=== PATIENT | female | born 1950 | race Caucasian/White ===

== ENCOUNTER 2019-11-25 14:14 | Outpatient (CLI) | payer MEDICARE, SELFPAY ==
--- NOTE | ~2019-11-25 | XR_ITS ---
EXAMINATION: XR chest 2V 11/25/2019 14:39 INDICATION: Cough PROCEDURE: 2 view chest COMPARISON: 12/14/2018 FINDINGS: The lungs are clear. The cardiomediastinal silhouette is within normal limits. There are no pleural effusions. There is no pneumothorax suspected. IMPRESSION: 1: NO ACUTE CARDIOPULMONARY DISEASE. Reviewed, dictated and finalized at location B. AND CUTTER GRINDER
== END 2019-11-25 14:15 | disposition home or self-care (01) ==
PROVIDERS: PCP Family Medicine; Visit Provider Physician Assistant
DX: M89.319 Hypertrophy of bone, unspecified shoulder (principal)
CPT/HCPCS: 71046

== ENCOUNTER 2019-12-01 08:18 | Outpatient (CLI) | payer MEDICARE, SELFPAY ==
[2019-12-01 09:26] LABS: Rheumatoid Factor < 8.6 IU/ML (<12)
[2019-12-01 10:27] LABS: Erythrocyte Sedimentation Rate 1 mm/hr (0-20)
[2019-12-05 21:30] LABS: Anti Cyclic Citrullinated Pept <16 Units (<20)
== END 2019-12-01 08:19 | disposition home or self-care (01) ==
LOC: ANHLAB 08:21
PROVIDERS: PCP Family Medicine; Visit Provider Physician Assistant
DX: M19.90 Unspecified osteoarthritis, unspecified site (principal)
CPT/HCPCS: 36415; 85652; 86140; 86200; 86430

== ENCOUNTER 2020-02-14 09:10 | Outpatient (CLI) | payer MEDICARE, SELFPAY ==
[2020-02-14 11:49] LABS: Vitamin D 25 Hydroxy 75.7 ng/mL
== END 2020-02-14 09:11 | disposition home or self-care (01) ==
PROVIDERS: PCP Family Medicine; Visit Provider Family Medicine
DX: E55.9 Vitamin D deficiency, unspecified (principal)
CPT/HCPCS: 36415; 82306

== ENCOUNTER 2020-05-23 09:41 | Outpatient (NON) | payer MEDICARE, SELFPAY ==
[2020-05-23 20:49] LABS: SARS-CoV-2 RNA PCR Positive
== END 2020-05-23 09:42 ==
PROVIDERS: Visit Provider Family Medicine
DX: R05 Cough (principal); R50.9 Fever, unspecified; U07.1 COVID-19
CPT/HCPCS: 87635; C9803; U0003

== ENCOUNTER 2020-06-06 14:29 | Outpatient (CLI) | payer MEDICARE, SELFPAY ==
--- NOTE | ~2020-06-06 | XR_ITS ---
XR chest 2V 06/06/2020 15:04 Indication: Dyspnea. Cough. Procedure: 2 view chest Comparison: Comparison to multiple prior studies sequentially, with oldest reviewed study dated 05/07. Findings: Patchy bibasilar infiltrates, compatible with pneumonia. No pleural effusion. Heart size no rmal. No edema or pneumothorax. No acute osseous abnormality. Impression: 1: Patchy bibasilar infiltrates, compatible with pneumonia. Reviewed, dictated and finalized at location B. Impression: 1: Patchy bibasilar infiltrates, compatible with pneumonia.
== END 2020-06-06 14:30 | disposition home or self-care (01) ==
LOC: ANHIMG 14:47
PROVIDERS: PCP Family Medicine; Visit Provider Family Medicine
DX: R06.09 Other forms of dyspnea (principal); R91.8 Other nonspecific abnormal finding of lung field
CPT/HCPCS: 71046

== ENCOUNTER 2020-07-21 17:34 | Emergency (ER) | payer MEDICARE, SELFPAY ==
--- NOTE | ~2020-07-21 | XR_ITS ---
XR wrist LT min 3V 07/21/2020 18:25 Indication: Left wrist pain Procedure: 4 views left wrist Comparison: No prior studies for comparison. Findings: There is a comminuted intra-articular fracture distal aspect of the left radius with mild d orsal displacement and angulation. Moderate swelling of the soft tissues surrounding the fracture. No definite scaphoid fracture. Osteopenia. Impression: 1: Comminuted intra-articular fracture distal aspect of the left radius with mild dorsal angulation a nd displacement. Reviewed, dictated and finalized at location A. Impression: 1: Comminuted intra-articular fracture distal aspect of the left radius with mi ld dorsal angulation and displacement.
--- NOTE | ~2020-07-21 | XR_ITS ---
XR shoulder LT min 2V 07/21/2020 18:25 Indication: Left shoulder pain after fall. Limited range of motion. Procedure: 4 views left shoulder Comparison: 08/11/2018 Findings: There is a comminuted displaced left humeral neck fracture with medial displacement and latoya pradip angulation. Acromioclavicular joint intact. Osteopenia. No other fractures. Visualized lung paren chyma unremarkable. Impression: 1: Comminuted displaced left humeral neck fracture with medial displacement and valgus angulation. Reviewed, dictated and finalized at location A. Impression: 1: Comminuted displaced left humeral neck fracture with medial displacement and valgus angulation.
[2020-07-21 17:45] VITALS: BP 172/76; PULSE 102; RESP 16; TEMP 36.8; O2SAT 100
[2020-07-21] MEDS: HYDROcodone/acetaminophen (*CRX) 7.5-325 MG TABLET 1 TAB PO (18:54)
--- NOTE | 2020-07-21 19:21 | ED.FALL ---
HPI - Fall General Chief Complaint: Fall Stated Complaint: FALL --HIT BRICK AND LANDED ON L ARM Time Seen by Provider: 07/21/20 18:07 Source: patient and family Mode of arrival: ambulatory Limitations: no limitations History of Present Illness HPI Narrative: Patient is a 70-year-old female who presents to emergency department for evaluation of injuries after miss stepping off of her porch landing on her left upper extremity injuring the left shoulder and left wrist patient notes moderate aching pain in both of these locations patient denies head injury syncope loss of consciousness or other injuries presents per private vehicle has not taken anything for pain Related Data Allergies Allergy/AdvReac Type Severity Reaction Status Date / Time clindamycin Allergy Unknown Nausea Verified 06/18/20 11:17 Review of Systems Review of Systems: All systems reviewed & are unremarkable except as noted in HPI and below PMFSH Past Medical History Medical History Enlarged clavicle Notalgia paresthetica Family History Family History (Updated 06/15/18 @ 07:58 by DOCTOR UNKNOWN) Sibling Diabetes mellitus Family history of hypercholesterolemia Hypertension Family history of malignant neoplasm of breast in first degree relative Family history of cardiovascular disease Father Cerebrovascular accident Mother Family history of cardiovascular disease Family history of Alzheimer's disease Social History Social History Smoking packs per day: 0.5 Smoking cigarettes per day: 10.0 Years smoked: 5 Smoking pack-years: 2.50 Smoking status: Former smoker Tobacco type: cigarettes Second hand tobacco smoke exposure: No Smoking end date: 09/21/77 Alcohol intake: current Substance use: never Substance use type: does not use Gender identity (if verbalized by the patient): Female Exam Narrative: Exam Narrative: GENERAL: Well-appearing, well-nourished, and in no acute distress. HEAD: Normocephalic, atraumatic. EYES: PERRLA and EOMI. ENT: Nares clear, no rhinorrhea or epistaxis. Mucous membranes moist. CHEST: Clear to auscultation. No respiratory distress. No wheezes rales or rhonchi HEART: Regular rate and rhythm. No murmur heard. Normal peripheral pulses. EXTREMITIES: Patient with tenderness of the left shoulder and left wrist with some swelling of the wrist noted SKIN: Warm, dry, no rash. NEURO: No focal deficits. Alert and oriented x3. Neurovascularly intact PSYCH: Normal mood and affect. Course Consultations Consultation #1: Discussed case with on-call orthopedist who recommends setting the patient up with physicians at [facility] Date: 07/21/20 Time: 19:25 Consultation #2: Spoke with Dr. Mulligan who is covering for hand and wrist at [place] she will contact the patient on Thursday to facilitate care Date: 07/21/20 Time: 19:25 Vital Signs Vital signs: Vital Signs Temperature 98.2 F 07/21/20 17:45 Pulse Rate 102 H 07/21/20 17:45 Respiratory Rate 16 07/21/20 17:45 Blood Pressure 172/76 H 07/21/20 17:45 Pulse Oximetry 100 07/21/20 17:45 Temperature 98.2 F 07/21/20 17:45 Pulse Rate 102 H 07/21/20 17:45 Respiratory Rate 16 07/21/20 17:45 Blood Pressure 172/76 H 07/21/20 17:45 Pulse Oximetry 100 07/21/20 17:45 Procedures Orthopedic Splinting/Casting Injury #1: Splinting/Casting Date: 07/21/20 Splinting/Casting Time: 19:26 Side: left Upper Extremity Injury Location: shoulder and wrist Upper Extremity Immobilizer: sling/shoulder immobilizer and volar splint Splint: customized in ED OCL: short arm Pre-Procedure Neuro Vascular Exam: normal Post-Procedure Neuro Vascular Exam: normal MDM - Fall MDM Narrative Medical decision making narrative: Patients injury or pain is consistent with musculoskeletal etio
[2020-07-21] MEDS: HYDROcodone/acetaminophen (*CRX) 5-325 MG TABLET 1 TAB (20:45)
== END 2020-07-21 20:48 | disposition home or self-care (01) ==
PROVIDERS: Emergency Provider Emergency Medicine; PCP Family Medicine
DX: S42.292A Other displaced fracture of upper end of left humerus, initial encounter for closed fracture (principal); S52.572A Other intraarticular fracture of lower end of left radius, initial encounter for closed fracture; W10.9XXA Fall (on) (from) unspecified stairs and steps, initial encounter; Z87.891 Personal history of nicotine dependence
CPT/HCPCS: 29125; 73030; 73110; 99284; A9270

== ENCOUNTER 2020-08-24 07:27 | Outpatient (CLI) | payer MEDICARE, SELFPAY ==
[2020-08-24 08:24] LABS: Hematocrit 42.1 % (37.0-47.0); Hemoglobin 13.6 g/dL (12.0-15.0); Mean Corpuscular HGB Conc 32.3 g/dl (32-36); Mean Corpuscular Hemoglobin 27.1 pg (26-34); Mean Platelet Volume 10.4 fl (7.4-10.4); Platelet Count Result 376 k/mm3 (150-375); Red Blood Count 5.01 M/mm3 (4.2-5.4); Red Cell Distribution Width 14.1 % (11.5-14.5); White Blood Count 5.5 K/mm3 (4.5-10.0)
[2020-08-24 08:34] LABS: Alanine Aminotransferase 27 U/L (4-35); Albumin Level 4.1 g/dL (3.5-5.1); Alkaline Phosphatase 92 U/L (38-126); Anion Gap 7 mmol/L (8-16); Aspartate Amino Transferase 26 U/L (14-36); Bilirubin,Total 0.4 mg/dL (0.2-1.3); Blood Urea Nitrogen 18 mg/dL (7-17); Calcium 9.2 mg/dL (8.4-10.2); Carbon Dioxide 27 mmol/L (22-30); Chloride 103 mmol/L (98-107); Cholesterol 136 mg/dL (0-200); Estimated Glomerular Filt Rate > 60; Glucose 105 mg/dL (65-105); HDL Direct 56 mg/dL; Potassium 4.3 mmol/L (3.4-5.0); Sodium 137 mmol/L (137-145); Triglycerides 62 mg/dL (<150)
[2020-08-24 08:45] LABS: LDL Cholesterol Direct 54 mg/dL
[2020-08-24 09:00] LABS: Add Urine Microscopic? YES; Appearance Urine Clear (Clear); Bilirubin Urine Negative (Negative); Blood Urine Negative (Negative); Color Urine Yellow (Yellow); Glucose Urine UA Negative (Negative); Ketones Urine Negative (Negative); Leukocyte Esterase Ur Negative LEU/UL (NEGATIVE); Mucus Urine Rare /lpf; Nitrate Urine Negative (Negative); Protein Urine 1+ mg/dL (Negative); RBC Urine 0-2 /hpf (0-2); Specific Grav Ur 1.019 (1.001-1.035); Squamous Epithelial Cell Urine Rare /hpf (Few); Urobilinogen Urine Negative mg/dL (<2.0); WBC Urine 0-3 /hpf (0-3)
== END 2020-08-24 07:28 | disposition home or self-care (01) ==
PROVIDERS: PCP Family Medicine; Visit Provider Family Medicine
DX: E03.9 Hypothyroidism, unspecified (principal); E78.2 Mixed hyperlipidemia; R53.83 Other fatigue; Z00.00 Encounter for general adult medical examination without abnormal findings
CPT/HCPCS: 36415; 80053; 80061; 81001; 84443; 85027

== ENCOUNTER 2020-10-08 07:53 | Outpatient (CLI) | payer MEDICARE, SELFPAY ==
--- NOTE | ~2020-10-08 | DEXA_ITS ---
Bone Density Report Name: Geneva Urrutia Age: 70 Sex: Female Ethnicity: White Date of : 1950 Indication: postmenopausal; prior fracture; Referring Provider: Hector Johnson Study: Bone densitometry was performed. Exam Date: October 08, 2020 Accession number: [id number] Bone Density: Region BMD T-score Z-score Classification AP Spine (L1-L4) 0.847 -1.8 0.4 Osteopenia Femoral Neck (Left) 0.659 -1.7 0.2 Osteopenia Total Hip (Left) 0.799 -1.2 0.5 Osteopenia Total Hip Bilateral Avg 0.768 -1.5 0.2 Osteopenia Femoral Neck (Right) 0.606 -2.2 -0.2 Osteopenia Total Hip (Right) 0.735 -1.7 -0.1 Osteopenia World Health Organization criteria for BMD impression classify patients as: Normal (T-score at or above -1.0), Osteopenia (T-score between -1.0 and -2.5), or Osteoporosis (T-score at or below -2.5). 10-year Fracture Risk(1): Major Osteoporotic Fracture 19% Hip Fracture 4.2% Reported Risk Factors: [place] (), Neck BMD=0.606, BMI=31.9, previous fracture (1) FRAX(R) Version 3.08. Fracture probability calculated for an untreated patient. Fracture probability may be lower if the patient has received treatment. Clinical Information Provided by Patient: Has had a low trauma fracture Has used the following medications: Vitamin D, Calcium Patient maximum height was 63 Menopause Age: 48 Drinks caffeinated beverages Onset of menses at age 12 Number of children 0 Impression: The patient has low bone mass, based on the Right Femoral Neck T-score. The patient has an estimated ten-year risk of hip fracture of 4.2% and an estimated ten-year risk of major fracture of 19%, based on the WHO FRAX algorithm. The patient has risk factors, including: previous fracture. Discussion: BONE DENSITY IS LOW AT ONE OR MORE SKELETAL SITES. THE PATIENT'S BMD AND CLINICAL RISK FACTORS CONTRIBUTE TO THIS PATIENT'S INCREASED RISK OF FRACTURE. This patient's lowest T-score is low at one or more skeletal sites. It meets the World Health Organization's (WHO) criteria for ?low bone mass? (T-score between -1.0 and -2.5). The patient's 10-year risk of hip fracture as calculated by FRAX exceeds the threshold where pharmacological therapy is recommended by the National Osteoporosis Foundation (NOF). However, all treatment decisions require clinical judgment and consideration of individual patient factors, including patient preferences, comorbidities, previous drug use, risk factors not captured in the FRAX model (e.g., frailty, falls, vitamin D deficiency, increased bone turnover, interval significant decline in bone density) and possible under or overestimation of fracture risk by FRAX. The patient should follow a healthful lifestyle (good nutrition with adequate calcium and vitamin D, and appropriate weight-bearing exercise). F
== END 2020-10-08 07:54 | disposition home or self-care (01) ==
PROVIDERS: PCP Family Medicine; Visit Provider Family Medicine
DX: M81.0 Age-related osteoporosis without current pathological fracture (principal); M85.852 Other specified disorders of bone density and structure, left thigh; M85.851 Other specified disorders of bone density and structure, right thigh
CPT/HCPCS: 77080

== ENCOUNTER 2020-11-08 14:24 | Outpatient (CLI) | payer MEDICARE, SELFPAY ==
--- NOTE | ~2020-11-08 | MM_ITS ---
EXAMINATION: MM screening ferdinand BI w oc HISTORY: Screening TECHNIQUE: Craniocaudal and mediolateral oblique 3-D tomosynthesis images were obtained and synthetic 2-D images were generated. CAD analysis was submitted and interpreted. COMPARISON: No prior mammogram is available for comparison at this institution. BREAST PARENCHYMAL COMPOSITION: There are scattered areas of fibroglandular density. FINDINGS: There is no evidence of suspicious mass, calcification, or architectural distortion to sugg est malignancy in either breast. There has been no suspicious interval change. IMPRESSION: 1. No mammographic evidence of malignancy. 2. Recommend routine screening mammography in one year. BI-RADS Category 1: Negative Reviewed, dictated and finalized at location A. 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
== END 2020-11-08 14:25 | disposition home or self-care (01) ==
PROVIDERS: PCP Family Medicine; Visit Provider Family Medicine
DX: Z12.31 Encounter for screening mammogram for malignant neoplasm of breast (principal)
CPT/HCPCS: 77063; 77067

== ENCOUNTER 2021-03-06 10:45 | Outpatient (CLI) | payer MEDICARE, SELFPAY ==
[2021-03-06 12:10] LABS: Vitamin D 25 Hydroxy 64.8 ng/mL
== END 2021-03-06 10:46 | disposition home or self-care (01) ==
PROVIDERS: PCP Family Medicine; Visit Provider Family Medicine
DX: E03.9 Hypothyroidism, unspecified (principal); E55.9 Vitamin D deficiency, unspecified
CPT/HCPCS: 36415; 82306; 84443

== ENCOUNTER 2021-07-01 08:52 | Outpatient (CLI) | payer MEDICARE, SELFPAY ==
--- NOTE | ~2021-07-01 | CT_ITS ---
EXAMINATION: CT soft tissue neck w con DATE: 07/01/2021 09:57 INDICATION: Chronic otalgia. TECHNIQUE: Computed tomography (CT) of the neck was performed with 75 mL Omnipaque-350 intravenous co ntrast. Automated exposure control and iterative reconstruction technique were employed. The dose-adolph gth product was 599.76 mGy-cm. COMPARISON: Sinuses CT 10/06/2016 FINDINGS: There are likely changes of ocular lens replacement surgeries. There are no pathologically enlarged lymph nodes. There is no visible plaque in the proximal internal carotid arteries. There is moderate cervical spondylosis. The inner and middle ears and mastoid air cells are normal. IMPRESSION: 1. No etiology for the patient's symptoms. Reviewed, dictated and finalized at location A.
[2021-07-01 09:46] LABS: Estimated Glomerular Filt Rate > 60
== END 2021-07-01 08:53 | disposition home or self-care (01) ==
LOC: ANHIMG 09:04
PROVIDERS: PCP Family Medicine
DX: H92.01 Otalgia, right ear (principal)
CPT/HCPCS: 70491; Q9967

== ENCOUNTER 2021-09-12 07:19 | Outpatient (CLI) | payer MEDICARE, SELFPAY ==
[2021-09-12 07:38] LABS: Hematocrit 46.7 % (37.0-47.0); Mean Corpuscular HGB Conc 32.1 g/dl (32-36); Mean Corpuscular Hemoglobin 27.1 pg (26-34); Mean Corpuscular Volume 84.3 fl (80-100); Platelet Count Result 384 k/mm3 (150-375); Red Blood Count 5.54 M/mm3 (4.2-5.4); Red Cell Distribution Width 13.7 % (11.5-14.5); White Blood Count 7.2 K/mm3 (4.5-10.0)
[2021-09-12 07:54] LABS: Alanine Aminotransferase 38 U/L (4-35); Albumin Level 4.5 g/dL (3.5-5.1); Alkaline Phosphatase 85 U/L (38-126); Anion Gap 6 mmol/L (8-16); Aspartate Amino Transferase 33 U/L (14-36); Bilirubin,Total 0.5 mg/dL (0.2-1.3); Blood Urea Nitrogen 16 mg/dL (7-17); Calcium 9.1 mg/dL (8.4-10.2); Carbon Dioxide 28 mmol/L (22-30); Chloride 101 mmol/L (98-107); Cholesterol 140 mg/dL (0-200); Estimated Glomerular Filt Rate > 60; Glucose 113 mg/dL (65-110); HDL Direct 65 mg/dL; Potassium 4.7 mmol/L (3.4-5.0); Sodium 135 mmol/L (137-145); Triglycerides 68 mg/dL (<150)
[2021-09-12 08:05] LABS: LDL Cholesterol Direct 51 mg/dL
[2021-09-12 10:40] LABS: Add Urine Microscopic? YES; Appearance Urine Clear (Clear); Bilirubin Urine Negative (Negative); Blood Urine Negative (Negative); Color Urine Yellow (Yellow); Glucose Urine UA Negative (Negative); Ketones Urine Negative (Negative); Leukocyte Esterase Ur Negative LEU/UL (NEGATIVE); Mucus Urine Rare /lpf; Nitrate Urine Negative (Negative); Protein Urine 1+ mg/dL (Negative); RBC Urine 0-2 /hpf (0-2); Specific Grav Ur 1.019 (1.001-1.035); Squamous Epithelial Cell Urine Rare /hpf (Few); Urobilinogen Urine Negative mg/dL (<2.0); WBC Urine 0-3 /hpf (0-3)
== END 2021-09-12 07:20 | disposition home or self-care (01) ==
PROVIDERS: PCP Family Medicine; Visit Provider Family Medicine
DX: E03.9 Hypothyroidism, unspecified (principal); R94.5 Abnormal results of liver function studies; R53.83 Other fatigue; E78.5 Hyperlipidemia, unspecified; Z00.00 Encounter for general adult medical examination without abnormal findings
CPT/HCPCS: 36415; 80053; 80061; 81001; 82607; 82746; 84443; 85027

== ENCOUNTER 2022-02-27 08:24 | Outpatient (CLI) | payer MEDICARE, SELFPAY ==
[2022-02-27 08:56] LABS: Basophils Absolute Auto 0.1 K/mm3 (0.0-0.1); Basophils Percent Auto 0.8 % (0.2-1.2); Eosinophils Absolute Auto 0.2 K/mm3 (0-0.3); Eosinophils Percent Auto 3.5 % (0-4.4); Hematocrit 45.9 % (37.0-47.0); Hemoglobin 14.5 g/dL (12.0-15.0); Immature Granulocyte Absolute 0.02 K/mm3 (0.00-0.031); Immature Granulocyte Percent A 0.3 % (0-0.5); Lymphocytes Absolute Auto 1.35 K/mm3 (0.9-3.2); Lymphocytes Percent Auto 20.7 % (18.3-44.2); Mean Corpuscular HGB Conc 31.6 g/dl (32-36); Mean Corpuscular Hemoglobin 26.7 pg (26-34); Mean Corpuscular Volume 84.5 fl (80-100); Mean Platelet Volume 10.2 fl (7.4-10.4); Monocytes Absolute Auto 0.6 K/mm3 (0.1-0.6); Monocytes Percent Auto 9.5 % (2.6-8.5); Neutrophils Absolute Auto 4.2 K/mm3 (1.3-6.7); Neutrophils Percent Auto 65.2 % (45.5-73.1); Platelet Count Result 355 k/mm3 (150-375); Red Blood Count 5.43 M/mm3 (4.2-5.4); Red Cell Distribution Width 14.3 % (11.5-14.5); White Blood Count 6.5 K/mm3 (4.5-10.0)
[2022-02-27 08:57] LABS: Appearance Urine Clear (Clear); Bilirubin Urine Negative (Negative); Blood Urine Negative (Negative); Color Urine Yellow (Yellow); Glucose Urine UA Negative (Negative); Ketones Urine Negative (Negative); Leukocyte Esterase Ur Trace LEU/UL (Negative); Nitrate Urine Negative (Negative); Protein Urine 2+ mg/dL (Negative); Specific Grav Ur 1.025 (1.001-1.035); Urobilinogen Urine 0.2 mg/dL (<2.0)
[2022-02-27 09:02] LABS: Mucus Urine Rare /lpf; RBC Urine 0-2 /hpf (0-2)
[2022-02-27 09:07] LABS: Add Urine Microscopic? YES
[2022-02-27 09:08] LABS: Alanine Aminotransferase 36 U/L (6-35); Albumin Level 4.6 g/dL (3.5-5.1); Alkaline Phosphatase 80 U/L (38-126); Anion Gap 5 mmol/L (8-16); Aspartate Amino Transferase 32 U/L (14-36); Bilirubin,Total 0.6 mg/dL (0.2-1.3); Blood Urea Nitrogen 20 mg/dL (7-17); Calcium 8.6 mg/dL (8.4-10.2); Carbon Dioxide 28 mmol/L (22-30); Chloride 105 mmol/L (98-107); Cholesterol 145 mg/dL (0-200); Estimated Glomerular Filt Rate > 60; Glucose 110 mg/dL (65-110); HDL Direct 64 mg/dL; Magnesium 2.2 mg/dL (1.6-2.3); Potassium 4.6 mmol/L (3.4-5.0); Sodium 138 mmol/L (137-145); Triglycerides 56 mg/dL (<150)
[2022-02-27 09:18] LABS: Hemoglobin A1C 5.6 % (<5.7)
[2022-02-27 09:19] LABS: LDL Cholesterol Direct 52 mg/dL
[2022-02-27 10:02] LABS: Free T4 Free Thyroxine 0.95 ng/mL (0.78-2.19); Vitamin D 25 Hydroxy 75.3 ng/mL
[2022-02-27 10:13] LABS: Folic Acid 8.7 ng/mL (2.76->20)
[2022-03-01 05:07] LABS: Insulin Level Total 6.4 uIU/mL (<=19.6)
[2022-03-01 07:51] LABS: C-Peptide 1.85 ng/mL (0.80-3.85)
[2022-03-03 07:58] LABS: Vitamin B6 25.5 ng/mL (2.1-21.7)
[2022-03-03 09:01] LABS: SS-A <1.0; SS-B <1.0
[2022-03-05 15:07] LABS: Vitamin B1 13 nmol/L (8-30)
[2022-03-06 18:00] LABS: Vitamin B2 10.8 nmol/L (6.2-39.0)
== END 2022-02-27 08:25 | disposition home or self-care (01) ==
LOC: ANHLAB 08:31
PROVIDERS: PCP Family Medicine; Visit Provider Internal Medicine
DX: E03.9 Hypothyroidism, unspecified (principal); K21.9 Gastro-esophageal reflux disease without esophagitis; M85.80 Other specified disorders of bone density and structure, unspecified site; Z79.899 Other long term (current) drug therapy
CPT/HCPCS: 36415; 80053; 80061; 81001; 82306; 82607; 82746; 83036; 83525; 83735; 84207; 84252; 84425; 84439; 84443; 84681; 85025; 86235

== ENCOUNTER 2022-03-11 09:03 | Outpatient (CLI) | payer MEDICARE, SELFPAY ==
[2022-03-11 10:05] LABS: Appearance Urine Clear (Clear); Bilirubin Urine Negative (Negative); Blood Urine Negative (Negative); Glucose Urine UA Negative (Negative); Ketones Urine Negative (Negative); Leukocyte Esterase Ur 1+ LEU/UL (Negative); Nitrate Urine Negative (Negative); Protein Urine Negative (Negative); Urobilinogen Urine 0.2 mg/dL (<2.0); pH Urine 6.5 (5.0-9.0)
[2022-03-11 10:12] LABS: Add Urine Microscopic? YES; Color Urine Light Yellow (Yellow)
[2022-03-11 10:15] LABS: Bacteria Urine Trace /hpf; RBC Urine 0-2 /hpf (0-2); Squamous Epithelial Cell Urine Rare /hpf (Few); WBC Urine 16-20 /hpf
== END 2022-03-11 09:04 | disposition home or self-care (01) ==
LOC: ANHLAB 09:05
PROVIDERS: PCP Internal Medicine; Visit Provider Internal Medicine
DX: R39.15 Urgency of urination (principal)
CPT/HCPCS: 81001; 87077; 87086; 87186

== ENCOUNTER 2022-03-12 08:25 | Outpatient (CLI) | payer MEDICARE, SELFPAY ==
--- NOTE | ~2022-03-12 | MM_ITS ---
EXAMINATION: MM screening ferdinand BI w oc HISTORY: Screening mammogram TECHNIQUE: Craniocaudal and mediolateral oblique 3-D tomosynthesis images were obtained and synthetic 2-D images were generated. CAD analysis was submitted and interpreted. COMPARISON: November 08, 2020, September 23, 2019, August 31, 2018 bilateral screening mammogram exami [facility] BREAST PARENCHYMAL COMPOSITION: There are scattered areas of fibroglandular density. FINDINGS: There is no evidence of suspicious mass, calcification, or architectural distortion to sugg est malignancy in either breast. There has been no suspicious interval change. IMPRESSION: 1. No mammographic evidence of malignancy. 2. Recommend routine screening mammography in one year. BI-RADS Category 1: Negative Reviewed, dictated and finalized at location A.
== END 2022-03-12 08:26 | disposition home or self-care (01) ==
PROVIDERS: PCP Internal Medicine; Visit Provider Physician Assistant
DX: Z12.31 Encounter for screening mammogram for malignant neoplasm of breast (principal)
CPT/HCPCS: 77063; 77067

== ENCOUNTER → 2022-04-16 10:44 | Outpatient (CLI) | payer SELFPAY ==
--- NOTE | ~2022-04-16 | MR_ITS ---
EXAMINATION: MR brain IAC wo/w con DATE: 04/16/2022 11:58 INDICATION: Disorder of hearing and taste TECHNIQUE: Magnetic resonance imaging (MRI) of the brain and brainstem was performed without intraven ous contrast. Sequences included sagittal and axial T1-weighted FSE, axial diffusion-weighted FS EPI, axial axial 3D SWAN, axial T2-weighted FLAIR Propeller, axial T2-weighted Propeller, small field-of- view coronal FIESTA, small lfukd-wz-ygcj coronal T1-weighted FSE, and small xdmth-qi-nnqh axial T1-we ighted SPGR. Postcontrast sequences included axial T1-weighted FSE, small cjpbo-pc-ptuq coronal T1-we ighted FSE, and small yzmgj-kd-ecja axial T1-weighted SPGR. Apparent diffusion coefficient (ADC) maps were created. COMPARISON: CT dated 10/06/2016 FINDINGS: There are no areas of restricted diffusion to suggest acute infarction. No intracranial hemorrhage or abnormal intracranial mass lesion. There are no intraparenchymal signal abnormalities seen on the ot her pulse sequences. Symmetric prominence of the sulci consistent with mild age-appropriate diffuse c erebral volume loss. The ventricles are symmetric and normal in size. There are no abnormal extra-ax ial fluid collections. Flow voids are seen in the cerebral arteries on the T2-weighted sequences cons istent with their expected patency. Normal seventh/eighth cranial nerve complexes. No cerebelloponti ne angles masses. No mass or abnormal enhancement identified along the course of the bilateral facial nerves and bilateral chorda tympani. No evidence of mastoid or middle ear fluid. Mild mucosal thicke andrea the bilateral ethmoid sinuses. Changes of bilateral intraocular lens replacement. Visualized or bits and soft tissues are unremarkable. There are no areas of abnormal enhancement on the post contra st images. IMPRESSION: 1. Normal aging brain. No acute intracranial process or abnormal lesions along the course of the bila teral facial nerves and chorda tympani. Reviewed, dictated and finalized at location A. IMPRESSION: 1. Normal aging brain. No acute intracranial process or abnormal lesions along the course of the bilateral facial nerves and chorda tympani.
== END ==
PROVIDERS: PCP Internal Medicine; Visit Provider Internal Medicine
DX: H91.90 Unspecified hearing loss, unspecified ear (principal); R43.9 Unspecified disturbances of smell and taste
CPT/HCPCS: 99199; 70553; A9577

== ENCOUNTER 2022-06-13 10:54 | Outpatient (CLI) | payer MEDICARE, SELFPAY ==
--- NOTE | ~2022-06-13 | XR_ITS ---
XR sacroiliac joints min 3V 06/13/2022 11:22 Indication: Low back pain Procedure: 3 views of the sacroiliac joints. Comparison: No prior studies Findings: Bilateral sacroiliac joints are symmetric. No fracture, subluxation or dislocation. No sign ificant erosive changes or ankylosis. Impression: 1: No significant abnormality of the sacroiliac joints. Reviewed, dictated and finalized at location A. Impression: 1: No significant abnormality of the sacroiliac joints.
--- NOTE | ~2022-06-13 | XR_ITS ---
XR lumbar spine min 4V 06/13/2022 11:22 Indication: Low back pain Procedure: 4 views lumbar spine including flexion and extension lateral views. Comparison: No prior studies for comparison. Findings: There is disc narrowing at L2-3 through L5-S1. There is facet hypertrophy at L3-4, L4-5 and L5-S1. There is grade 1 spondylolisthesis at L4-5 without significant alteration of alignment with f lexion/extension. Pedicles intact. Sacral foramen are symmetric. No acute fracture or traumatic malal ignment. Impression: 1: Moderate lumbar spondylosis with grade 1 degenerative spondylolisthesis at L4-5. Reviewed, dictated and finalized at location A. Impression: 1: Moderate lumbar spondylosis with grade 1 degenerative spondylolisthesis at L 4-5.
== END 2022-06-13 10:55 | disposition home or self-care (01) ==
PROVIDERS: PCP Internal Medicine; Visit Provider Internal Medicine
DX: M53.3 Sacrococcygeal disorders, not elsewhere classified (principal); M54.50 Low back pain, unspecified; M47.816 Spondylosis without myelopathy or radiculopathy, lumbar region; M43.16 Spondylolisthesis, lumbar region
CPT/HCPCS: 72110; 72202

== ENCOUNTER 2022-07-29 12:07 | Outpatient (CLI) | payer MEDICARE, SELFPAY ==
[2022-07-29 12:54] LABS: Anion Gap 13 mmol/L (8-16); Blood Urea Nitrogen 21 mg/dL (7-17); Calcium 8.8 mg/dL (8.4-10.2); Carbon Dioxide 27 mmol/L (22-30); Chloride 99 mmol/L (98-107); Estimated Glomerular Filt Rate > 60; Glucose 94 mg/dL (65-110); Potassium 4.7 mmol/L (3.4-5.0); Sodium 139 mmol/L (137-145)
[2022-07-30 09:01] LABS: Cholesterol 145 mg/dL (0-200); HDL Direct 64 mg/dL; Triglycerides 157 mg/dL (<150)
[2022-07-30 09:12] LABS: LDL Cholesterol Direct 47 mg/dL
== END 2022-07-29 12:08 | disposition home or self-care (01) ==
LOC: ANHLAB 12:13
PROVIDERS: PCP Internal Medicine; Visit Provider Internal Medicine
DX: R03.0 Elevated blood-pressure reading, without diagnosis of hypertension (principal); E03.9 Hypothyroidism, unspecified; Z79.899 Other long term (current) drug therapy
CPT/HCPCS: 36415; 80048; 80061; 84439; 84443

== ENCOUNTER 2022-12-18 07:54 | Outpatient (CLI) | payer MEDICARE, SELFPAY ==
[2022-12-18 08:42] LABS: Alanine Aminotransferase 35 U/L (6-35); Albumin Level 4.6 g/dL (3.5-5.1); Alkaline Phosphatase 72 U/L (38-126); Anion Gap 5 mmol/L (8-16); Aspartate Amino Transferase 38 U/L (14-36); Bilirubin,Total 0.7 mg/dL (0.2-1.3); Blood Urea Nitrogen 19 mg/dL (7-17); Carbon Dioxide 31 mmol/L (22-30); Chloride 101 mmol/L (98-107); Cholesterol 144 mg/dL (0-200); Estimated Glomerular Filt Rate > 60; Glucose 111 mg/dL (65-110); HDL Direct 63 mg/dL; Potassium 4.2 mmol/L (3.4-5.0); Sodium 137 mmol/L (137-145); Triglycerides 48 mg/dL (<150)
[2022-12-18 08:52] LABS: LDL Cholesterol Direct 54 mg/dL
[2022-12-18 09:19] LABS: Free T4 Free Thyroxine 1.01 ng/mL (0.78-2.19)
[2022-12-18 09:45] LABS: Folic Acid > 20.0 ng/mL (2.76->20)
[2022-12-23 22:20] LABS: Vitamin B1 71 nmol/L (8-30)
== END 2022-12-18 07:55 | disposition home or self-care (01) ==
PROVIDERS: PCP Internal Medicine; Visit Provider Internal Medicine
DX: E51.9 Thiamine deficiency, unspecified (principal); E53.8 Deficiency of other specified B group vitamins; E03.9 Hypothyroidism, unspecified; R94.5 Abnormal results of liver function studies; Z13.220 Encounter for screening for lipoid disorders; Z79.899 Other long term (current) drug therapy
CPT/HCPCS: 36415; 80053; 80061; 82607; 82746; 84425; 84439; 84443

== ENCOUNTER 2022-12-25 10:37 | Outpatient (CLI) | payer MEDICARE, SELFPAY ==
--- NOTE | ~2022-12-25 | CT_ITS ---
EXAMINATION: CT abdomen pelvis w con DATE: 12/25/2022 11:09 INDICATION: Abdominal pain. Blood in stool. TECHNIQUE: Computed tomography (CT) of the abdomen and pelvis was performed with 100 mL Omnipaque 350 intravenous contrast. Automated exposure control and iterative reconstruction technique were employe d. The dose-length product was 677.90 mGy-cm. COMPARISON: None. FINDINGS: The visualized portions of the lung bases demonstrates mild atelectasis. No pleural effusio n. The heart size is normal. No pericardial effusion. There is diffuse hepatic steatosis. The gallbla dder, spleen, pancreas, adrenal glands, and kidneys are normal. There are scattered diverticula in th e colon. There is wall thickening of the sigmoid colon, consistent with colitis. There are no patholo gically enlarged lymph nodes. There is physiologic fluid in the pelvis. There is a fibroid in the nikolski natalie. There is moderate lumbar spondylosis. IMPRESSION: 1. Sigmoid colitis. Reviewed, dictated and finalized at location A. IMPRESSION: 1. Sigmoid colitis.
[2022-12-25 11:25] LABS: Basophils Absolute Auto 0.1 K/mm3 (0.0-0.1); Basophils Percent Auto 0.5 % (0.2-1.2); Eosinophils Absolute Auto 0.3 K/mm3 (0-0.3); Eosinophils Percent Auto 3.1 % (0-4.4); Hematocrit 47.1 % (37.0-47.0); Hemoglobin 15.1 g/dL (12.0-15.0); Immature Granulocyte Absolute 0.02 K/mm3 (0.00-0.031); Immature Granulocyte Percent A 0.2 % (0-0.5); Lymphocytes Absolute Auto 1.42 K/mm3 (0.9-3.2); Lymphocytes Percent Auto 15.1 % (18.3-44.2); Mean Corpuscular HGB Conc 32.1 g/dl (32-36); Mean Corpuscular Hemoglobin 27.2 pg (26-34); Mean Corpuscular Volume 84.9 fl (80-100); Mean Platelet Volume 10.1 fl (7.4-10.4); Monocytes Absolute Auto 0.7 K/mm3 (0.1-0.6); Neutrophils Percent Auto 74.1 % (45.5-73.1); Platelet Count Result 375 k/mm3 (150-375); Red Blood Count 5.55 M/mm3 (4.2-5.4); Red Cell Distribution Width 13.8 % (11.5-14.5); White Blood Count 9.4 K/mm3 (4.5-10.0)
[2022-12-25 11:36] LABS: Anion Gap 9 mmol/L (8-16); Blood Urea Nitrogen 20 mg/dL (7-17); Calcium 8.8 mg/dL (8.4-10.2); Carbon Dioxide 26 mmol/L (22-30); Chloride 103 mmol/L (98-107); Estimated Glomerular Filt Rate > 60; Glucose 97 mg/dL (65-110); Potassium 4.2 mmol/L (3.4-5.0); Sodium 138 mmol/L (137-145)
== END 2022-12-25 10:38 | disposition home or self-care (01) ==
PROVIDERS: PCP Internal Medicine; Visit Provider Internal Medicine
DX: K52.9 Noninfective gastroenteritis and colitis, unspecified (principal); Z79.899 Other long term (current) drug therapy; R11.2 Nausea with vomiting, unspecified; K62.5 Hemorrhage of anus and rectum; R10.9 Unspecified abdominal pain
CPT/HCPCS: 36415; 74177; 80048; 85025; Q9967

== ENCOUNTER 2023-01-08 02:08 | Day surgery (SDC) | payer MEDICARE, SELFPAY ==
[2022-12-30 09:50] VITALS: BMI 32.2
--- NOTE | 2023-01-07 15:36 | PM.HPGS ---
History of Present Illness History of Present Illness Consent: Risks, benefits, and alternatives have been discussed and questions answered. Patient agrees to proceed with procedure. Chief complaint: rectal bleeding, abdominal pain Narrative: Geneva Urrutia is a 72 year old female Referred for colonoscopy due to rectal bleeding. She had blood her stools when she also thought she may have had food poisoning. She was very ill for about 2 days and had about 20 bowel movements. With the blood came out it was bright red. Review of Systems Review of Systems: All systems reviewed & are unremarkable except as noted in HPI and below PMFSH Past Medical History Medical History BMI 31.0-31.9,adult BMI 33.0-33.9,adult BRBPR (bright red blood per rectum) Breast cancer screening Encounter for Medicare annual wellness exam Encounter for routine adult health examination with abnormal findings Enlarged clavicle Left humeral fracture s/p ORIF Notalgia paresthetica Osteoporosis Pain of right sacroiliac joint Primary osteoarthritis of knees, bilateral Right ear pain Skin lesions Trapezius muscle spasm Unresolved grief Urinary urgency Vitamin B1 deficiency Vitamin B12 deficiency Surgical History Surgical History History of surgery on left wrist (~07/30/20) open reduction History of tooth extraction Family History Family History Sibling Diabetes mellitus Family history of hypercholesterolemia Hypertension Family history of malignant neoplasm of breast in first degree relative Family history of cardiovascular disease Father Cerebrovascular accident Mother Family history of cardiovascular disease Family history of Alzheimer's disease Social History Social History Smoking packs per day: 0.5 Smoking cigarettes per day: 10.0 Years smoked: 5 Smoking pack-years: 2.50 Smoking status: Former smoker Tobacco type: cigarettes Second hand tobacco smoke exposure: No Smoking end date: 09/21/77 Alcohol intake: current Alcohol use details: rare Substance use: never Substance use type: does not use Lack of Transportation: No Lack of Food: Never True Current Housing: I Have Housing Concerned About Future Housing: No Difficulty Paying Gas/Electric Bills: No Difficulty Paying for Meds: No Currently Unemployed: No Education: High School Diploma/GED Difficulty w/ Childcare or Family Care: No Living arrangements: with family Occupation/Education: retired Gender identity (if verbalized by the patient): Female Spiritual care concerns: No Meds Home Medications and Allergies Home Medications Medication Instructions Recorded Confirmed Type aspirin 81 mg tablet,delayed 81 mg PO DAILY 09/10/21 12/30/22 History release cholecalciferol (vitamin D3) 125 125 mcg PO DAILY 09/10/21 12/30/22 History mcg (5,000 unit) capsule montelukast 10 mg tablet 10 mg PO DAILY 09/10/21 12/30/22 History (Singulair) ascorbic acid 1,000 1 ea PO DAILY 12/30/22 12/30/22 History qq-frjhppcukyms-wuompvgz powder effervescent pack (Emergen-C) escitalopram oxalate 10 mg tablet 10 mg PO DAILY 12/30/22 12/30/22 History fexofenadine 180 mg tablet 180 mg PO DAILY 12/30/22 12/30/22 History fluocinolone 0.025 % topical cream 1 applic topical DAILY 12/30/22 12/30/22 History gabapentin 300 mg capsule 600 mg PO DAILY 12/30/22 12/30/22 History levothyroxine 75 mcg tablet 75 mcg PO DAILY 12/30/22 12/30/22 History omeprazole 40 mg capsule,delayed 40 mg PO DAILY 12/30/22 12/30/22 History release vitamin B complex 1 cap PO DAILY 12/30/22 12/30/22 History Allergies Allergy/AdvReac Type Severity Reaction Status Date / Time clindamycin Allergy Unknown Nausea Verified 01/08/23 07:01
[2023-01-08 07:04] VITALS: BP 147/66; PULSE 70; RESP 18; TEMP 36.4; O2SAT 99
[2023-01-08] MEDS: LACTATED RINGERS 1,000 ML 150 ML IV CONT (07:15)
--- NOTE | 2023-01-08 07:32 | WPDANESEPPF ---
Anes - Initial Pre Proc Eval Procedure: Operation Date: 01/08/23 08:00 Proposed Procedures p Colonoscopy - Maximino Hodgson MD Date/Time: 01/08/23 07:32 Surgeon: Maximino Hodgson MD Pre Op Diagnosis: rectal bleeding, abdominal pain Patient Data Age: 72 Gender: F Height: 1.6 m Weight: 79.1 kg Last Vital Signs Temp 97.6 F 01/08/23 07:04 Pulse 70 01/08/23 07:04 Resp 18 01/08/23 07:04 BP 147/66 H 01/08/23 07:04 Pulse Ox 99 01/08/23 07:04 O2 Del Method Room Air 01/08/23 07:04 Allergies Allergy/AdvReac Type Severity Reaction Status Date / Time clindamycin Allergy Unknown Nausea Verified 01/08/23 07:01 Home Medications Medication Instructions Recorded Confirmed Type aspirin 81 mg tablet,delayed 81 mg PO DAILY 09/10/21 12/30/22 History release cholecalciferol (vitamin D3) 125 125 mcg PO DAILY 09/10/21 12/30/22 History mcg (5,000 unit) capsule montelukast 10 mg tablet 10 mg PO DAILY 09/10/21 12/30/22 History (Singulair) ascorbic acid 1,000 1 ea PO DAILY 12/30/22 12/30/22 History xk-srhgedtglaow-tysvsspx powder effervescent pack (Emergen-C) escitalopram oxalate 10 mg tablet 10 mg PO DAILY 12/30/22 12/30/22 History fexofenadine 180 mg tablet 180 mg PO DAILY 12/30/22 12/30/22 History fluocinolone 0.025 % topical cream 1 applic topical DAILY 12/30/22 12/30/22 History gabapentin 300 mg capsule 600 mg PO DAILY 12/30/22 12/30/22 History levothyroxine 75 mcg tablet 75 mcg PO DAILY 12/30/22 12/30/22 History omeprazole 40 mg capsule,delayed 40 mg PO DAILY 12/30/22 12/30/22 History release vitamin B complex 1 cap PO DAILY 12/30/22 12/30/22 History Patient hx anesthesia problems: none Family hx anesthesia problems: none Results Review: All pre-operative results and documents have been reviewed as part of the pre-operative evaluation. [facility] Past Medical History Medical History BMI 31.0-31.9,adult BMI 33.0-33.9,adult BRBPR (bright red blood per rectum) Breast cancer screening Encounter for Medicare annual wellness exam Encounter for routine adult health examination with abnormal findings Enlarged clavicle Left humeral fracture s/p ORIF Notalgia paresthetica Osteoporosis Pain of right sacroiliac joint Primary osteoarthritis of knees, bilateral Right ear pain Skin lesions Trapezius muscle spasm Unresolved grief Urinary urgency Vitamin B1 deficiency Vitamin B12 deficiency Surgical History Surgical History History of surgery on left wrist (~07/30/20) open reduction History of tooth extraction Family History Family History Sibling Diabetes mellitus Family history of hypercholesterolemia Hypertension Family history of malignant neoplasm of breast in first degree relative Family history of cardiovascular disease Father Cerebrovascular accident Mother Family history of cardiovascular disease Family history of Alzheimer's disease Social History Social History Smoking packs per day: 0.5 Smoking cigarettes per day: 10.0 Years smoked: 5 Smoking pack-years: 2.50 Smoking status: Former smoker Tobacco type: cigarettes Second hand tobacco smoke exposure: No Smoking end date: 09/21/77 Alcohol intake: current Alcohol use details: rare Substance use: never Substance use type: does not use Lack of Transportation: No Lack of Food: Never True Current Housing: I Have Housing Concerned About Future Housing: No Difficulty Paying Gas/Electric Bills: No Difficulty Paying for Meds: No Currently Unemployed: No Education: High School Diploma/GED Difficulty w/ Childcare or Family Care: No Living arrangements: with family Occupation/Education: retired Gender identity (if verbalized by the patient): Female Spi
[2023-01-08 08:29] VITALS: BP 116/54; PULSE 65; RESP 22; O2SAT 97
[2023-01-08 08:39] VITALS: BP 114/61; PULSE 65; RESP 19; O2SAT 100
[2023-01-08 08:49] VITALS: BP 128/61; PULSE 64; RESP 22; O2SAT 100
== END 2023-01-08 08:58 | disposition home or self-care (01) ==
PROVIDERS: PCP Internal Medicine; Visit Provider Internal Medicine Gastroenterology
PROC: 0DJD8ZZ Inspection of Lower Intestinal Tract, Via Natural or Artificial Opening Endoscopic (ICD-10-PCS; CPT 45378; principal; 2023-01-08 08:00)
DX: K52.9 Noninfective gastroenteritis and colitis, unspecified (principal); K64.8 Other hemorrhoids; K57.30 Diverticulosis of large intestine without perforation or abscess without bleeding; M81.0 Age-related osteoporosis without current pathological fracture; E53.8 Deficiency of other specified B group vitamins; Z87.891 Personal history of nicotine dependence; E66.9 Obesity, unspecified; Z68.30 Body mass index [BMI] 30.0-30.9, adult
CPT/HCPCS: 45380; 88305; J2704; J7120

== ENCOUNTER 2023-06-11 09:01 | Outpatient (CLI) | payer MEDICARE, SELFPAY ==
[2023-06-11 10:04] LABS: Basophils Absolute Auto 0.1 K/mm3 (0.0-0.1); Basophils Percent Auto 0.6 % (0.2-1.2); Eosinophils Absolute Auto 0.2 K/mm3 (0-0.3); Eosinophils Percent Auto 2.2 % (0-4.4); Hematocrit 45.8 % (37.0-47.0); Hemoglobin 14.5 g/dL (12.0-15.0); Immature Granulocyte Absolute 0.03 K/mm3 (0.00-0.031); Immature Granulocyte Percent A 0.3 % (0-0.5); Lymphocytes Absolute Auto 1.56 K/mm3 (0.9-3.2); Lymphocytes Percent Auto 17.5 % (18.3-44.2); Mean Corpuscular HGB Conc 31.7 g/dl (32-36); Mean Corpuscular Hemoglobin 27.1 pg (26-34); Mean Corpuscular Volume 85.4 fl (80-100); Mean Platelet Volume 9.8 fl (7.4-10.4); Monocytes Absolute Auto 0.6 K/mm3 (0.1-0.6); Monocytes Percent Auto 6.6 % (2.6-8.5); Neutrophils Absolute Auto 6.5 K/mm3 (1.3-6.7); Neutrophils Percent Auto 72.8 % (45.5-73.1); Platelet Count Result 368 k/mm3 (150-375); Red Blood Count 5.36 M/mm3 (4.2-5.4); Red Cell Distribution Width 14.5 % (11.5-14.5); White Blood Count 8.9 K/mm3 (4.5-10.0)
[2023-06-11 10:21] LABS: Alanine Aminotransferase 34 U/L (6-35); Albumin Level 4.5 g/dL (3.5-5.1); Alkaline Phosphatase 65 U/L (38-126); Anion Gap 4 mmol/L (8-16); Aspartate Amino Transferase 34 U/L (14-36); Bilirubin,Total 0.6 mg/dL (0.2-1.3); Blood Urea Nitrogen 21 mg/dL (7-17); Calcium 8.9 mg/dL (8.4-10.2); Carbon Dioxide 30 mmol/L (22-30); Chloride 103 mmol/L (98-107); Cholesterol 148 mg/dL (0-200); Estimated Glomerular Filt Rate > 60; Glucose 112 mg/dL (65-110); HDL Direct 74 mg/dL; Potassium 4.7 mmol/L (3.4-5.0); Sodium 137 mmol/L (137-145); Triglycerides 66 mg/dL (<150)
[2023-06-11 10:32] LABS: LDL Cholesterol Direct 56 mg/dL
[2023-06-11 10:39] LABS: Hemoglobin A1C 5.5 % (<5.7)
[2023-06-11 10:51] LABS: Free T4 Free Thyroxine 1.13 ng/mL (0.78-2.19); Vitamin D 25 Hydroxy 79.4 ng/mL
[2023-06-11 11:41] LABS: Folic Acid > 20.0 ng/mL (2.76->20)
== END 2023-06-11 09:02 | disposition home or self-care (01) ==
LOC: ANHLAB 09:04
PROVIDERS: PCP Internal Medicine; Visit Provider Internal Medicine
DX: R94.5 Abnormal results of liver function studies (principal); R53.83 Other fatigue; M85.80 Other specified disorders of bone density and structure, unspecified site; M81.0 Age-related osteoporosis without current pathological fracture; E53.8 Deficiency of other specified B group vitamins; E03.9 Hypothyroidism, unspecified; Z79.899 Other long term (current) drug therapy
CPT/HCPCS: 36415; 80053; 80061; 82306; 82607; 82746; 83036; 84439; 84443; 85025

== ENCOUNTER 2023-06-29 09:18 | Outpatient (CLI) | payer MEDICARE, SELFPAY ==
--- NOTE | ~2023-06-29 | XR_ITS ---
EXAMINATION: XR chest 2V DATE: 06/29/2023 09:40 INDICATION: Cough TECHNIQUE: PA and lateral views of the chest were obtained. COMPARISON: Chest radiograph dated 06/06/2020 FINDINGS: The lungs are clear with no focal airspace opacities, pulmonary edema, pleural effusion or pneumothor ax. The cardiomediastinal silhouette is normal. Old proximal left humeral fracture with plate and scr ew fixation. IMPRESSION: 1. No acute cardiopulmonary disease. Reviewed, dictated and finalized at location A.
[2023-06-29 11:45] LABS: Basophils Absolute Auto 0.1 K/mm3 (0.0-0.1); Basophils Percent Auto 0.3 % (0.2-1.2); Eosinophils Absolute Auto 0.1 K/mm3 (0-0.3); Eosinophils Percent Auto 0.8 % (0-4.4); Hematocrit 44.4 % (37.0-47.0); Hemoglobin 14.1 g/dL (12.0-15.0); Immature Granulocyte Absolute 0.08 K/mm3 (0.00-0.031); Immature Granulocyte Percent A 0.5 % (0-0.5); Lymphocytes Absolute Auto 1.13 K/mm3 (0.9-3.2); Lymphocytes Percent Auto 7.5 % (18.3-44.2); Mean Corpuscular HGB Conc 31.8 g/dl (32-36); Mean Corpuscular Hemoglobin 27.1 pg (26-34); Mean Corpuscular Volume 85.2 fl (80-100); Mean Platelet Volume 10.6 fl (7.4-10.4); Monocytes Absolute Auto 1.4 K/mm3 (0.1-0.6); Monocytes Percent Auto 9.4 % (2.6-8.5); Neutrophils Absolute Auto 12.2 K/mm3 (1.3-6.7); Neutrophils Percent Auto 81.5 % (45.5-73.1); Platelet Count Result 370 k/mm3 (150-375); Red Blood Count 5.21 M/mm3 (4.2-5.4); Red Cell Distribution Width 14.3 % (11.5-14.5)
== END 2023-06-29 09:19 | disposition home or self-care (01) ==
LOC: ANHIMG 09:23
PROVIDERS: PCP Internal Medicine; Visit Provider Internal Medicine
DX: R05.9 Cough, unspecified (principal)
CPT/HCPCS: 36415; 71046; 85025

== ENCOUNTER 2023-09-11 12:55 | Outpatient (CLI) | payer MEDICARE, SELFPAY ==
--- NOTE | ~2023-09-11 | XR_ITS ---
XR sacroiliac joints min 3V DATE: 09/11/2023 13:26 INDICATION: Low back pain TECHNIQUE: AP, bilateral oblique views of the sacroiliac joints COMPARISON: None FINDINGS: There is normal alignment and preservation of the sacroiliac joints. No erosive change or a nkylosis is noted. No fracture or dislocation. Normal alignment at the pubic symphysis. IMPRESSION: Normal sacroiliac joints Reviewed, dictated and finalized at Location A. Reviewed, dictated and finalized at location A. 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
--- NOTE | ~2023-09-11 | XR_ITS ---
EXAMINATION: XR lumbar spine min 4V DATE: 09/11/2023 13:26 INDICATION: Low back pain TECHNIQUE: Anteroposterior and lateral in neutral, flexion and extension views of the lumbar spine, a nd cone-down lateral view of the lumbosacral junction were obtained. COMPARISON: 06/12/2022 FINDINGS: There are 6 mm of anterolisthesis of L4 on L5. No hypermobility is present with flexion or extension. Vertebral body heights are maintained. There is no fracture. There is mild loss of interve rtebral disc space height at L2-3. There is moderate facet joint osteoarthritis of the lower lumbar s pine. IMPRESSION: 1. Moderate lumbar spondylosis without acute findings or significant interval change. Reviewed, dictated and finalized at location B. 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
== END 2023-09-11 12:56 | disposition home or self-care (01) ==
PROVIDERS: PCP Internal Medicine; Visit Provider Internal Medicine
DX: M54.50 Low back pain, unspecified (principal); M43.06 Spondylolysis, lumbar region
CPT/HCPCS: 72110; 72202

== ENCOUNTER 2023-11-09 08:52 | Outpatient (CLI) | payer MEDICARE, SELFPAY ==
[2023-11-09 09:42] LABS: Influenza A QL RT-PCR Negative (Negative); Influenza B QL RT-PCR Negative (Negative); RSV RNA, RT-PCR Negative (Negative); SARS-CoV-2 RNA PCR Negative (Negative)
== END 2023-11-09 08:53 | disposition home or self-care (01) ==
LOC: ANHLAB 08:54
PROVIDERS: PCP Internal Medicine; Visit Provider Internal Medicine
DX: R05.9 Cough, unspecified (principal); R50.9 Fever, unspecified; Z20.822 Contact with and (suspected) exposure to COVID-19
CPT/HCPCS: 87637

== ENCOUNTER 2023-11-11 07:51 | Outpatient (CLI) | payer MEDICARE, SELFPAY ==
[2023-11-16 13:04] LABS: Immunoglobulin A 133 mg/dL (70-320); Immunoglobulin G 904 mg/dL (600-1540); Immunoglobulin M 54 mg/dL (50-300)
== END 2023-11-11 07:52 | disposition home or self-care (01) ==
PROVIDERS: PCP Internal Medicine; Visit Provider Internal Medicine
DX: R53.83 Other fatigue (principal)
CPT/HCPCS: 36415; 82784

== ENCOUNTER 2023-12-25 07:54 | Outpatient (CLI) | payer MEDICARE, SELFPAY ==
[2023-12-25 09:07] LABS: Alanine Aminotransferase 30 U/L (6-35); Albumin Level 4.3 g/dL (3.5-5.1); Alkaline Phosphatase 68 U/L (38-126); Anion Gap 3 mmol/L (4-12); Aspartate Amino Transferase 31 U/L (14-36); Bilirubin,Total 0.5 mg/dL (0.2-1.3); Blood Urea Nitrogen 20 mg/dL (7-17); Calcium 9.2 mg/dL (8.4-10.2); Carbon Dioxide 31 mmol/L (22-30); Chloride 102 mmol/L (98-107); Cholesterol 140 mg/dL (0-200); Estimated Glomerular Filt Rate > 60; Glucose 105 mg/dL (65-110); HDL Direct 70 mg/dL; Potassium 4.1 mmol/L (3.4-5.0); Sodium 136 mmol/L (137-145); Triglycerides 55 mg/dL (<150)
[2023-12-25 09:18] LABS: LDL Cholesterol Direct 59 mg/dL
[2023-12-25 09:50] LABS: Free T4 Free Thyroxine 1.22 ng/mL (0.78-2.19); Vitamin D 25 Hydroxy 56.7 ng/mL
== END 2023-12-25 07:55 | disposition home or self-care (01) ==
LOC: ANHLAB 07:57
PROVIDERS: PCP Internal Medicine; Visit Provider Internal Medicine
DX: E55.9 Vitamin D deficiency, unspecified (principal); E03.9 Hypothyroidism, unspecified; Z79.899 Other long term (current) drug therapy; Z13.220 Encounter for screening for lipoid disorders
CPT/HCPCS: 36415; 80053; 80061; 82306; 84439; 84443

== ENCOUNTER 2024-01-04 08:37 | Outpatient (CLI) | payer MEDICARE, SELFPAY ==
--- NOTE | ~2024-01-04 | CT_ITS ---
EXAMINATION: CT soft tissue neck w con DATE: 01/04/2024 09:21 INDICATION: Localized swelling, mass or lump at the head and jaw pain. TECHNIQUE: Computed tomography (CT) of the neck was performed with 75 mL Omnipaque-350 intravenous co ntrast. Automated exposure control and iterative reconstruction technique were employed. The dose-adolph gth product was 430.77 mGy-cm. COMPARISON: None FINDINGS: Changes of bilateral intraocular lens replacement. Orbits are otherwise normal. Mild mucoperiosteal thickening the bilateral ethmoid and maxillary sinuses. Submandibular and parotid glands are symmetri c. Thyroid gland is unremarkable. There are scattered normal-sized lymph nodes in the neck, no lympha denopathy. No masses identified. The vasculature is patent and normal in caliber. Airway is unremark able. Superior mediastinum is unremarkable. Lung apices are normal. Temporal mandibular joints are no rmal alignment with mild osteoarthritis. Moderate cervical and upper thoracic spondylosis. IMPRESSION: 1. Unremarkable CT of the soft tissues of the neck with no abnormal masses or fluid collections ident ified. Reviewed, dictated and finalized at location A. IMPRESSION: 1. Unremarkable CT of the soft tissues of the neck with no abnormal masses or f luid collections identified.
== END 2024-01-04 08:38 | disposition home or self-care (01) ==
LOC: ANHIMG 08:39
PROVIDERS: PCP Internal Medicine; Visit Provider Internal Medicine
DX: R22.0 Localized swelling, mass and lump, head (principal); K13.79 Other lesions of oral mucosa; R68.84 Jaw pain
CPT/HCPCS: 70491; Q9967

== ENCOUNTER 2024-01-08 04:56 | Emergency (ER) | payer MEDICARE, SELFPAY ==
[2024-01-08 04:55] VITALS: BP 168/77; PULSE 74; RESP 18; TEMP 36.3; O2SAT 100
--- NOTE | 2024-01-08 05:04 | ED_ITS ---
HPI - Nausea/Vomiting/Diarrhea General Chief complaint: Nausea/Vomiting/Diarrhea Stated complaint: n/v History of Present Illness HPI Narrative: Patient is a 73-year-old female who presents ER with sudden onset nausea vomiting. Began at 10:30 p.m.. It has been persistent. No alleviating factors. She has no antiemetics at home. Denies diarrhea. No abdominal pain. Not describe any aggravating factors. No known sick contacts. Reports frequent belching. No previous abdominal surgeries. No history of obstruction. Patient is currently taking Augmentin for some tongue swelling. Related Data Home Medications Medication Instructions Recorded Confirmed aspirin 81 mg tablet,delayed 81 mg PO DAILY 09/10/21 01/04/24 release cholecalciferol (vitamin D3) 125 125 mcg PO DAILY 09/10/21 01/04/24 mcg (5,000 unit) capsule montelukast 10 mg tablet 10 mg PO DAILY 09/10/21 01/04/24 (Singulair) fexofenadine 180 mg tablet 180 mg PO DAILY 12/30/22 01/04/24 fluocinolone 0.025 % topical cream 1 applic topical DAILY 12/30/22 01/04/24 vitamin B complex 1 cap PO DAILY 12/30/22 01/04/24 gabapentin 300 mg capsule 600 mg PO BID 06/11/23 01/04/24 multivitamin with iron 1 tablet PO DAILY 06/11/23 01/04/24 red beet root 250 mg-sour salazar tablet PO 06/11/23 01/04/24 extract 0.5 mg chewable tablet Glucosamine and Chondroiton BYMOUTH 07/01/23 01/04/24 black cohosh root extract 40 mg 40 mg PO DAILY 07/01/23 01/04/24 capsule 1-Db Goddess BYMOUTH 01/04/24 01/04/24 D-[place]ose BYMOUTH 01/04/24 01/04/[address] BYMOUTH 01/04/24 01/04/24 ascorbic acid 1,000 1 ea PO DAILY PRN 01/04/24 01/04/24 xl-arggabaljyoa-trsvsbwt powder effervescent pack (Emergen-C) carboxymethylcellulose-citric acid 3 cap PO BID 01/04/24 01/04/24 0.75 gram capsule (Plenity) curcumin 375 mg BYMOUTH 01/04/24 01/04/24 naproxen sodium 220 mg capsule 220 mg PO BID PRN 01/04/24 01/04/24 (Aleve) turmeric root extract 538 mg 538 mg PO DAILY 01/04/24 01/04/24 capsule Allergies Allergy/AdvReac Type Severity Reaction Status Date / Time clindamycin Allergy Unknown Nausea Verified 01/04/24 07:47 Review of Systems Review of Systems: All systems reviewed & are unremarkable except as noted in HPI and below Constitutional: Constitutional: Reports no additional constitutional complaints Cardiovascular: Cardiovascular: Reports no additional cardiovascular compla ints Respiratory: Respiratory: Reports no additional respiratory complaints Gastrointestinal: Gastrointestinal: Denies abdominal pain, Denies constipation, Denies diarrhea, Reports nausea and Reports vomiting Genitourinary: Genitourinary: Reports no additional female genitourinary complaints Musculoskeletal: Musculoskeletal: Reports no additional musculoskeletal complaints [facility] Past Medical History Medical History (Updated 01/08/24 @ 06:49 by Cullen Lema MD) BMI 31.0-31.9,adult BMI 33.0-33.9,adult BRBPR (bright red blood per rectum) Breast cancer screening Encounter for Medicare annual wellness exam Encounter for routine adult health examination with abnormal findings Enlarged clavicle Left humeral fracture s/p ORIF Notalgia paresthetica Osteoporosis Pain of right sacroiliac joint Primary osteoarthritis of knees, bilateral Right ear pain Skin lesions Spider veins Tongue swelling Trapezius muscle spasm Unresolved grief URI (upper respiratory infection) Urinary urgency Vitamin B1 deficiency Vitamin B12 deficiency Surgical History Surgical History H/O shoulder surgery History of surgery on left wrist (~07/30/20) open reduction History of tooth extraction Family History Family History Sibling Diabetes mellitus Family history of hypercholesterolemia Hypertension Family history of malignant neoplasm of breast in first degree relative Family history of cardiovascular disease Father Cerebrovascular accident Mother Family history of cardiovascular disease Family history of Alzheimer's disease Social History Social History Smoking packs per day: 0.5 Smoking cigarettes per day: 10.0 Years smoked: 5 Smoking pack-years: 2.50 Smoking status: Former smoker Tobacco type: cigarettes Second hand tobacco smoke exposure: No Smoking end date: 09/21/77 Alcohol intake: current Alcohol use details: rare Substance use: never Substance use type: does not use Do You Feel Safe in your Home?: Yes Lack of Transportation: No Lack of Food: Never True Current Housing: I Have Housing Concerned About Future Housing: No Difficulty Paying Gas/Electric Bills: No Difficulty Paying for Meds: No Currently Unemployed: No Education: High School Diploma/GED Difficulty w/ Childcare or Family Care: No Living arrangements: with family Occupation/Education: retired Gender identity (if verbalized by the patient): Female Sexual Orientation (if Verbalized by the Patient): Straight or Heterosexual Spiritual care concerns: No Exam Narrative: GENERAL: Uncomfortable-appearing, well-nourished, and in no acute distress. HEAD: Normocephalic, atraumatic. ENT: Mucous membranes moist. NECK: Supple. CHEST: Clear to auscultation. No respiratory distress. HEART: Regular rate and rhythm. Normal peripheral pulses. ABDOMEN: Soft, nontender, nondistended. EXTREMITIES: Normal range of motion. No edema. SKIN: Warm, dry, no rash. NEURO: Alert and oriented x3. PSYCH: Normal mood and affect. Course Course Emergency Course: Symptoms resolved with antiemetics. Discharge home. Vital Signs Vital signs: Vital Signs Temperature 97.4 F L 01/08/24 04:55 Pulse Rate 74 01/08/24 04:55 Respiratory Rate 18 01/08/24 04:55 Blood Pressure 168/77 H 01/08/24 04:55 Pulse Oximetry 100 01/08/24 04:55 Oxygen Delivery Room Air 01/08/24 04:55 Temperature 97.4 F L 01/08/24 04:55 Pulse Rate 74 01/08/24 04:55 Respiratory Rate 18 01/08/24 04:55 Blood Pressure 168/77 H 01/08/24 04:55 Pulse Oximetry 100 01/08/24 04:55 Oxygen Delivery Room Air 01/08/24 04:55 MDM - Nausea/Vomiting/Diarrhea Lab Data 01/08/24 05:34 01/08/24 05:34 Labs: Lab Results 01/08/24 Range/Units 05:34 WBC 15.1 H (4.5-10.0) K/mm3 RBC 5.61 H (4.2-5.4) M/mm3 Hgb 15.1 H (12.0-15.0) g/dL Hct 46.9 (37.0-47.0) % MCV 83.6 (80-100) fl MCH 26.9 (26-34) pg MCHC 32.2 (32-36) g/dl RDW 14.5 (11.5-14.5) % Plt Count 365 (150-375) k/mm3 MPV 10.4 (7.4-10.4) fl Immature Gran % (Auto) 0.4 (0-0.5) % Neut % (Auto) 90.5 H (45.5-73.1) % Lymph % (Auto) 4.4 L (18.3-44.2) % [place] % (Auto) 3.9 (2.6-8.5) % Eos % (Auto) 0.5 (0-4.4) % Baso % (Auto) 0.3 (0.2-1.2) % Lymph # (Auto) 0.67 L (0.9-3.2) K/mm3 [place] # (Auto) 0.6 (0.1-0.6) K/mm3 Eos # (Auto) 0.1 (0-0.3) K/mm3 Baso # (Auto) 0.0 (0.0-0.1) K/mm3 Abs Immat Gran (auto) 0.06 H (0.00-0.031) K/mm3 Absolute Neuts (auto) 13.6 H (1.3-6.7) K/mm3 Absolute Nucleated RBC 0.000 (0.0-0.012) K/mm3 Nucleated RBC % 0.0 (0.0-0.2) % Sodium 135 L (137-145) mmol/L Potassium 4.1 (3.4-5.0) mmol/L Chloride 104 (98-107) mmol/L Carbon Dioxide 25 (22-30) mmol/L Anion Gap 6 (4-12) mmol/L BUN 29 H (7-17) mg/dL Creatinine 0.60 L (0.7-1.0) mg/dL Estim Creat Clear Calc 68 ml/min Estimated GFR > 60 (59 - ) Glucose 163 H (65-110) mg/dL Calcium 8.9 (8.4-10.2) mg/dL Total Bilirubin 0.7 (0.2-1.3) mg/dL AST 36 (14-36) U/L ALT 44 H (6-35) U/L Alkaline Phosphatase 96 (38-126) U/L Total Protein 7.0 (6.3-8.2) g/dL Albumin 4.7 (3.5-5.1) g/dL Lipase 52 (23-300) U/L Discharge Plan Discharge Clinical Impression: Nausea & vomiting Patient Disposition: Home, Self-Care Condition: Stable Instructions: Acute Nausea and Vomiting (ED) Additional Instructions: Return to the emergency department if you develop severe abdominal pain, severe nausea and vomiting to the point where you are unable to keep down fluids, if you develop chest pain or difficulty breathing, blood in your stool, dizziness or fainting, or if you develop any other new or concerning symptoms as these could be signs of more serious medical illness. Try to stay well hydrated. Prescriptions: New ondansetron 4 mg tablet,disintegrating 4 mg PO Q6H PRN (Reason: nausea and vomiting) Qty: 10 0RF No Action cholecalciferol (vitamin D3) 125 mcg (5,000 unit) capsule 125 mcg PO DAILY montelukast [Singulair] 10 mg tablet 10 mg PO DAILY aspirin 81 mg tablet,delayed release (DR/EC) 81 mg PO DAILY red beet root-sour salazar ext 250-0.5 mg tablet,chewable PO multivitamin with iron Tablet 1 tablet PO DAILY black cohosh root extract 40 mg capsule 40 mg PO DAILY Glucosamine and Chondroiton BYMIUTH Emergen-C 1,000 mg powder effervescent in packet 1 ea PO DAILY PRN turmeric root extract 538 mg capsule 538 mg PO DAILY curcumin 375 mg BYMOUTH D-[place] BYMOUTH Thyroid-Drive BYMIUTH 1-Db Goddess [facility] naproxen sodium [Aleve] 220 mg capsule 220 mg PO BID PRN Plenity 0.75 gram capsule 3 cap PO BID Rx Instructions: administer before lunch and evening meal/dinner fluocinolone 0.025 % cream 1 applic topical DAILY fexofenadine 180 mg Tablet 180 mg PO DAILY vitamin B complex Capsule 1 cap PO DAILY gabapentin 300 mg capsule 600 mg PO BID Rx Instructions: Take two tablets by oral route in the PM. omeprazole 40 mg capsule,delayed release(DR/EC) See Rx Instructions .ROUTE .COMPLEX Qty: 90 0RF Dose Instruction: TAKE 1 CAPSULE BY MOUTH DAILY Rx Instructions: TAKE 1 CAPSULE BY MOUTH DAILY levothyroxine 75 mcg tablet See Rx Instructions .ROUTE .COMPLEX Qty: 90 0RF Dose Instruction: TAKE 1 TABLET BY MOUTH DAILY Rx Instructions: TAKE 1 TABLET BY MOUTH DAILY escitalopram oxalate 10 mg tablet See Rx Instructions .ROUTE .COMPLEX Qty: 90 0RF Dose Instruction: TAKE 1 TABLET BY MOUTH DAILY Rx Instructions: TAKE 1 TABLET BY MOUTH DAILY amoxicillin 875 mg tablet 875 mg PO Q12H Qty: 20 0RF Follow-up/Referrals: Ander Leblanc MD [Primary Care Provider] - 1 Week
[2024-01-08] MEDS: ONDANSETRON INJ 4 MG/2 ML VIAL IV PUSH (05:31)
[2024-01-08] MEDS: SODIUM CHLORIDE 0.9% IV 1,000 ML 999 ML IV CONT (05:31)
[2024-01-08 05:45] LABS: Basophils Percent Auto 0.3 % (0.2-1.2); Eosinophils Absolute Auto 0.1 K/mm3 (0-0.3); Eosinophils Percent Auto 0.5 % (0-4.4); Hematocrit 46.9 % (37.0-47.0); Hemoglobin 15.1 g/dL (12.0-15.0); Immature Granulocyte Absolute 0.06 K/mm3 (0.00-0.031); Immature Granulocyte Percent A 0.4 % (0-0.5); Lymphocytes Absolute Auto 0.67 K/mm3 (0.9-3.2); Lymphocytes Percent Auto 4.4 % (18.3-44.2); Mean Corpuscular HGB Conc 32.2 g/dl (32-36); Mean Corpuscular Hemoglobin 26.9 pg (26-34); Mean Corpuscular Volume 83.6 fl (80-100); Mean Platelet Volume 10.4 fl (7.4-10.4); Monocytes Absolute Auto 0.6 K/mm3 (0.1-0.6); Monocytes Percent Auto 3.9 % (2.6-8.5); Neutrophils Absolute Auto 13.6 K/mm3 (1.3-6.7); Neutrophils Percent Auto 90.5 % (45.5-73.1); Platelet Count Result 365 k/mm3 (150-375); Red Blood Count 5.61 M/mm3 (4.2-5.4); Red Cell Distribution Width 14.5 % (11.5-14.5); White Blood Count 15.1 K/mm3 (4.5-10.0)
[2024-01-08 06:11] LABS: Alanine Aminotransferase 44 U/L (6-35); Albumin Level 4.7 g/dL (3.5-5.1); Alkaline Phosphatase 96 U/L (38-126); Anion Gap 6 mmol/L (4-12); Aspartate Amino Transferase 36 U/L (14-36); Bilirubin,Total 0.7 mg/dL (0.2-1.3); Blood Urea Nitrogen 29 mg/dL (7-17); Calcium 8.9 mg/dL (8.4-10.2); Carbon Dioxide 25 mmol/L (22-30); Chloride 104 mmol/L (98-107); Estimated CRCL calculation 68 ml/min; Estimated Glomerular Filt Rate > 60; Glucose 163 mg/dL (65-110); Lipase 52 U/L (23-300); Potassium 4.1 mmol/L (3.4-5.0); Sodium 135 mmol/L (137-145)
[2024-01-08 07:15] VITALS: BP 165/76; PULSE 68; RESP 13; O2SAT 94
== END 2024-01-08 07:18 | disposition home or self-care (01) ==
PROVIDERS: Emergency Provider Emergency Medicine; PCP Internal Medicine
DX: R11.2 Nausea with vomiting, unspecified (principal); M81.0 Age-related osteoporosis without current pathological fracture; E51.9 Thiamine deficiency, unspecified; E55.9 Vitamin D deficiency, unspecified; Z79.82 Long term (current) use of aspirin; Z87.891 Personal history of nicotine dependence
CPT/HCPCS: 36415; 80053; 83690; 85025; 96361; 96374; 99284; J2405; J7030

== ENCOUNTER 2024-02-01 13:26 | Outpatient (CLI) | payer MEDICARE, SELFPAY ==
--- NOTE | ~2024-02-01 | MM_ITS ---
EXAMINATION: MM screening ferdinand BI w oc HISTORY: Screening mammogram TECHNIQUE: Craniocaudal and mediolateral oblique 3-D tomosynthesis images were obtained and synthetic 2-D images were generated. CAD analysis was submitted and interpreted. COMPARISON: March 12, 2022, November 08, 2020 bilateral screening mammogram examinations BREAST PARENCHYMAL COMPOSITION: There are scattered areas of fibroglandular density. FINDINGS: There is no evidence of suspicious mass, calcification, or architectural distortion to sugg est malignancy in either breast. There has been no suspicious interval change. IMPRESSION: 1. No mammographic evidence of malignancy. 2. Recommend routine screening mammography in one year. BI-RADS Category 1: Negative Reviewed, dictated and finalized at location A.
== END 2024-02-01 13:27 | disposition home or self-care (01) ==
PROVIDERS: PCP Internal Medicine; Visit Provider Internal Medicine
DX: Z12.31 Encounter for screening mammogram for malignant neoplasm of breast (principal)
CPT/HCPCS: 77063; 77067

== ENCOUNTER 2024-03-28 07:34 | Outpatient (CLI) | payer MEDICARE, SELFPAY ==
--- NOTE | ~2024-03-28 | CT_ITS ---
EXAMINATION: CT LE RT wo con DATE: 03/28/2024 08:03 INDICATION: Unilateral right knee osteoarthritis for preoperative planning TECHNIQUE: High resolution computed tomography (CT) of the right knee lower extremity from the hip th rough the ankle was performed without intravenous contrast. Additional sagittal and coronal reconstru ctions were performed. Automated exposure control and iterative reconstruction technique were employe d. The dose-length product was 1688.66 mGy-cm. COMPARISON: None FINDINGS: 4 degree genu valgus on nonweightbearing imaging. No fractures or evident osteonecrosis. There is sev ere osteoarthritis at the lateral compartment of the right knee with vacuum phenomena at the joint sp radha to delineate increased regions of full and near full-thickness cartilage loss along significant p ortion of the cartilage at the mid anterior lateral tibial plateau and along the anterior weightbeari ng lateral femoral condyle. There is cortical irregularity with subarticular cystlike changes along t he more posterior weightbearing lateral femoral condyle suggesting additional high-grade chondromalac ia. There is moderate joint space narrowing at the medial compartment of the knee and mild joint spac e narrowing and tiny marginal osteophyte at the patellofemoral compartment. No knee joint effusion. T here is mild osteoarthritis at the right hip and ankle joints. There are few diverticula along the vi sualized sigmoid colon without adjacent inflammatory stranding to suggest diverticulitis. Bladder and anteverted uterus are unremarkable. There is an enlarged 2.5 x 1.9 x 1.9 cm right inguinal lymph nod e which is increased from 1.7 x 1.1 x 1[address] dated 12/25/2022. The enlargement of the lymph node also appears nonuniform with eccentric positioning of the fatty hilum. No other pathologically enlarg ed pelvic or inguinal lymphadenopathy. IMPRESSION: 1. Severe lateral compartment predominant tricompartmental osteoarthritis at the right knee. 2. Enlarged right inguinal lymph node with atypical morphology which raises concern for lymphoma or m etastatic disease. Would recommend ultrasound-guided core needle biopsy. Dr. Dodd discussed these findings with Dr. Talamantes at 9:[address] Leblanc at 9:40 AM. Reviewed, dictated and finalized at location A. IMPRESSION: 1. Severe lateral compartment predominant tricompartmental osteoarthritis at th e right knee. 2. Enlarged right inguinal lymph node with atypical morphology which raises con cern for lymphoma or metastatic disease. Would recommend ultrasound-guided core needle biopsy. Dr. Dodd discussed these findings with Dr. Talamantes at 9: [address] Leblanc at 9:40 AM.
--- NOTE | 2024-03-28 08:42 | ECG_ITS ---
Test Date: 2024-03-28 08:54:45 Measurements Intervals [place] Rate: 59 P: 42 WA: 177 QRS: 2 QRSD: 92 T: 19 QT: 419 QTc: 416 Interpretive Statements SINUS BRADYCARDIA BORDERLINE ECG No previous ECG available for comparison Electronically Signed On 03-28-2024 10:08:46 CDT by Boston Godinez D.O.
[2024-03-28 08:56] LABS: Albumin Level 4.3 g/dL (3.5-5.1); Estimated Glomerular Filt Rate > 60
== END 2024-03-28 07:35 | disposition home or self-care (01) ==
PROVIDERS: PCP Internal Medicine; Visit Provider Orthopaedic Surgery
DX: Z01.818 Encounter for other preprocedural examination (principal); M17.11 Unilateral primary osteoarthritis, right knee; R59.0 Localized enlarged lymph nodes
CPT/HCPCS: 36415; 73700; 82040; 82565; 93005

== ENCOUNTER 2024-04-08 08:52 | Outpatient (CLI) | payer MEDICARE, SELFPAY ==
--- NOTE | ~2024-04-08 | US_ITS ---
EXAMINATION: US biopsy lymph node DATE: 04/08/2024 09:46 INDICATION: Enlarged right inguinal lymph node TECHNIQUE: The procedure including the risks and benefits was discussed with the patient. Risks discu ssed included bleeding and infection. The patient understood the risks and agreed to proceed. The sk in overlying the right groin was prepped and draped in usual sterile fashion. Anesthetic was adminis tered with 1% lidocaine subcutaneously. An 14 gauge core biopsy needle was advanced under continuous ultrasound observation to the lesion of interest. 5 core biopsy specimens were obtained, 3 placed i n RPMI media and 2 in formalin. The needle was removed and the entry site was cleaned and dressed. Post procedure ultrasound demonstrated no hemorrhage. FINDINGS: Ultrasound images demonstrate nonuniform masslike enhancement of a focal region of the latoya ex of the right inguinal lymph node. The region of focal and enlargement measures 2.0 x 1.8 x 1.6 cm. Subsequent images demonstrate biopsy needle advanced through this concern of the lymph node. IMPRESSION: 1. Successful Ultrasound-guided biopsy of a region of prominent focal cortical enlargement of a right inguinal lymph node. Reviewed, dictated and finalized at location A.
== END 2024-04-08 08:53 | disposition home or self-care (01) ==
PROVIDERS: PCP Internal Medicine; Visit Provider Internal Medicine
DX: C77.4 Secondary and unspecified malignant neoplasm of inguinal and lower limb lymph nodes (principal)
CPT/HCPCS: 38505; 76942; 88108; 88184; 88185; 88305; 88342

== ENCOUNTER 2024-04-19 12:05 | Outpatient (CLI) | payer MEDICARE, SELFPAY ==
--- NOTE | ~2024-04-19 | PE_ITS ---
EXAMINATION: PET skull to mid thigh DATE: 04/19/2024 14:17 INDICATION: Secondary and unspecified malignant neoplasm. TECHNIQUE: Blood glucose level was 82 mg/dL. 10.637 mCi of 18-fluorodeoxyglucose (18-FDG) was adminis tered i.v. Low dose computed tomography (CT) images were acquired from the base of the brain to the p roximal thighs for attenuation correction and anatomic localization. Automated exposure control was e mployed. Dose-length product (DLP) was 1135 mGy-cm. Positron emission tomography (PET) images were ac quired in the same distribution. COMPARISON: CT 03/28/2024 FINDINGS: Head/neck: There are no pathologically enlarged lymph nodes. Chest: There is no pneumonia or pleural effusion. The heart size is normal. No pericardial effusion. There is internal fixation of left humerus. Abdomen/pelvis/proximal thighs: There is diffuse hepatic steatosis. The gallbladder, spleen, pancreas , adrenal glands, and kidneys are normal. There is diverticulosis of the colon without evidence of di verticulitis. The appendix is normal. There is a 2.4 x 1.9 cm right inguinal lymph node with maximum SUV of 18.1. There is a 3.1 x 1.6 cm left external iliac node with increased activity. There is no as cites. There is no osseous malignancy. IMPRESSION: 1. Right inguinal and left external iliac lymphadenopathy, consistent with metastatic disease. Reviewed, dictated and finalized at location A. IMPRESSION: 1. Right inguinal and left external iliac lymphadenopathy, consistent with meta static disease.
[2024-04-19 12:27] LABS: Glucose Point of Care 82 mg/dl (65-105)
== END 2024-04-19 12:06 | disposition home or self-care (01) ==
PROVIDERS: PCP Internal Medicine; Visit Provider Internal Medicine
DX: C77.9 Secondary and unspecified malignant neoplasm of lymph node, unspecified (principal); R91.8 Other nonspecific abnormal finding of lung field; C79.9 Secondary malignant neoplasm of unspecified site; R89.7 Abnormal histological findings in specimens from other organs, systems and tissues
CPT/HCPCS: 78815; A9552

== ENCOUNTER 2024-05-02 14:17 | Outpatient (CLI) | payer MEDICARE, SELFPAY ==
[2024-05-02 14:30] LABS: Kit Draw Collected
== END 2024-05-02 14:18 | disposition home or self-care (01) ==
LOC: ANHLAB 14:19
PROVIDERS: PCP Internal Medicine; Visit Provider Internal Medicine Hematology & Oncology
DX: R59.9 Enlarged lymph nodes, unspecified (principal)
CPT/HCPCS: 36415

== ENCOUNTER 2024-08-01 09:55 | Outpatient (CLI) | payer MEDICARE, SELFPAY ==
[2024-08-01 08:15] LABS: Basophils Percent Auto 0.9 % (0.2-1.2); Eosinophils Absolute Auto 0.4 K/mm3 (0-0.3); Eosinophils Percent Auto 9.3 % (0-4.4); Hemoglobin 13.4 g/dL (12.0-15.0); Immature Granulocyte Absolute 0.01 K/mm3 (0.00-0.031); Immature Granulocyte Percent A 0.2 % (0-0.5); Lymphocytes Absolute Auto 0.96 K/mm3 (0.9-3.2); Lymphocytes Percent Auto 21.9 % (18.3-44.2); Mean Corpuscular HGB Conc 32.7 g/dl (32-36); Mean Corpuscular Volume 85.8 fl (80-100); Mean Platelet Volume 9.3 fl (7.4-10.4); Monocytes Absolute Auto 0.4 K/mm3 (0.1-0.6); Neutrophils Absolute Auto 2.5 K/mm3 (1.3-6.7); Neutrophils Percent Auto 57.7 % (45.5-73.1); Platelet Count Result 275 k/mm3 (150-375); Red Blood Count 4.78 M/mm3 (4.2-5.4); Red Cell Distribution Width 14.3 % (11.5-14.5); White Blood Count 4.4 K/mm3 (4.5-10.0)
[2024-08-01 08:34] LABS: Alanine Aminotransferase 32 U/L (6-35); Albumin Level 4.2 g/dL (3.5-5.1); Alkaline Phosphatase 80 U/L (38-126); Anion Gap 6 mmol/L (4-12); Aspartate Amino Transferase 26 U/L (14-36); Bilirubin,Total 0.4 mg/dL (0.2-1.3); Blood Urea Nitrogen 20 mg/dL (7-17); Calcium 8.8 mg/dL (8.4-10.2); Carbon Dioxide 28 mmol/L (22-30); Chloride 103 mmol/L (98-107); Cholesterol 138 mg/dL (0-200); Estimated Glomerular Filt Rate > 60; Glucose 102 mg/dL (65-110); HDL Direct 71 mg/dL; Potassium 4.6 mmol/L (3.4-5.0); Sodium 137 mmol/L (137-145); Triglycerides 75 mg/dL (<150)
[2024-08-01 08:44] LABS: LDL Cholesterol Direct 42 mg/dL
[2024-08-01 08:58] LABS: Hemoglobin A1C 5.6 % (<5.7)
[2024-08-01 09:02] LABS: Free T4 Free Thyroxine 1.12 ng/mL (0.78-2.19)
[2024-08-01 10:26] LABS: Add Urine Microscopic? YES; Appearance Urine Clear (Clear); Bacteria Urine None Seen /hpf; Bilirubin Urine Negative (Negative); Blood Urine Negative (Negative); Color Urine Yellow (Yellow); Glucose Urine UA Negative (Negative); Ketones Urine Negative (Negative); Leukocyte Esterase Ur 1+ LEU/UL (Negative); Nitrate Urine Negative (Negative); Non Pathogenic Casts 0-2; Protein Urine Negative (Negative); RBC Urine 0-2 /hpf (0-2); Specific Grav Ur 1.019 (1.001-1.035); Squamous Epithelial Cell Urine None Seen /hpf (Few); Urobilinogen Urine 0.2 mg/dL (<2.0); pH Urine 5.5 (5.0-9.0)
== END 2024-08-01 09:56 | disposition home or self-care (01) ==
PROVIDERS: PCP Internal Medicine; Visit Provider Internal Medicine
DX: E03.9 Hypothyroidism, unspecified (principal); Z13.1 Encounter for screening for diabetes mellitus; Z79.899 Other long term (current) drug therapy; Z13.220 Encounter for screening for lipoid disorders
CPT/HCPCS: 36415; 80053; 80061; 81001; 83036; 84439; 84443; 85025; 87086

== ENCOUNTER 2024-12-09 09:45 | Outpatient (CLI) | payer MEDICARE, SELFPAY ==
--- OUTSIDE RECORDS SUMMARY | 2024-12-09 10:54 | XMS_ITS | Continuity of Care Document ---
Author Organization [facility] Address [address] [place] [address] Phone Care Team Providers Care Fur Grader Name Role Phone Homero ARIAS, Kenn Unavailable [...] [facility] , [address] [address], [place], [address], tel:[phone] [facility] No Information 8 Homero Hamsa. [address], [place], [place], [id number]. tel:[phone] OFFICE/OUTPA TIENT VISIT EST [facility] , [address], [place], [place], [facility], [place] tel:[phone] [facility] allergy evaluation (chief complaint) Chronic pansinusitisLo w immunoglobulin levelAllergic fungal sinusitisUnspe cified mycosis 8 Homero Hamsa. [address], [place], [place], [id number]. tel:[phone] OFFICE/OUTPA TIENT VISIT EST [facility] , [address], [place], [address], tel:[phone] [facility] allergy evaluation (chief complaint) Low immunoglobulin levelChronic pansinusitisFr equent sinus infectionsEnco unter for immunization 8 Homero Hamsa. [address], [place], [place], [id number]. tel:[phone] OFFICE/OUTPA TIENT VISIT NEW [facility] , [address], [place], [address], [place] tel:[phone] [facility] allergy evaluation (chief complaint) Chronic pansinusitisFr equent sinus infectionsReac tive airways dysfunction syndrome 8 Homero Hamsa. [address], [place], [place], [id number]. tel:[phone] Family History Family Member Type Diagnosis Age [...] lexi Payers Payer name Insurance type Covered republican ID Palak dahl(s) [employer] [id number] Social History Type Description Quantity Date Captured [...] slightly better she plans to travel to [place] soonlast IgG was low at 639 , [...] a lot and was told by her shrimp picker to use gold castro with menthol her [...] Information Instructions Date Instruction Additional Infor fam Hermelinda Hodgson Related to Unspe cified mycosis Assessments Type Assessment Date No Information Patient Care Teams Name Effective Dates (start - stop) Status Members No Information
--- OUTSIDE RECORDS SUMMARY | 2024-12-09 10:54 | XMS_ITS | Encounter Summary ---
Author Organization [facility] Healthcare Address [address] [place] [address] Care Team Providers Care Veneer Jointer Returner Name Role Phone Hector Johnson MD Primary Care Provider Ander Leblanc MD Primary Care Provider [phone] Dickson Johnson MD Unavailable [phone] Edel Rodriguez MD PhD Unavailable [phone] Luis Nicholson MD Unavailable [phone] Christine Taylor MD Unavailable [phone] Encounter Details Date Type Department Care Team (Late st Contact Info) Description 09/18/2021 Telephone [facility] [address] [place], [place] [id number] Sonido Triplett MD [address] [place] [address] Social History Tobacco Use Types Packs/Day Years Used Date Smoking Tobacco: Former Cigarettes 0.5 8 1 2 - 1989 Smokeless Tobacco: Never Alcohol Use Standard Drinks/Week Comments Yes 0 (1 standard drink = 0.6 oz pur e alcohol) rarely 3 times a year AUDIT-C Answer Date Recorded Q1: How often do you have a drink containing alc ohol? 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 ASSISTANT Gender Identity Female 08/07/2020 10:58 AM PROPERTY MANAGEMENT ASSISTANT Sexual Orientation Not on file documented as of this encounter Plan of Treatment Not on file documented as of this encounter Visit Diagnoses Not on filedocumented in this encounter Care Teams Veneer Jointer Returner Relationship Specialty Start Date End Date Hector Johnson MD [address] [place] [address] PCP - General Family Medicine 07/23/20 02/27/22 Ander Leblanc MD [address] [place] [address] PCP - General Internal Medicine 02/28/22 Dickson Johnson MD [address] [facility] [address] [place] [id number] Medical Oncologist Hematology 05/06/24 Edel Rodriguez MD PhD [address] [facility], [facility] [address] [place] [address] Medical Oncologist/Word Processing Operator Medical Oncology 05/06/24 05/11/24 Luis Nicholson MD [address] [place] [address] Medical Oncology 05/12/24 Christine Taylor MD [address] [place] [address] Referring Physician Dermatology 05/31/24 documented as of this encounter
--- OUTSIDE RECORDS SUMMARY | 2024-12-09 10:54 | XMS_ITS | Encounter Summary ---
Author Organization [facility] Address [address] [place] [address] Care Team Providers Care Christian Science Healer Name Role Phone Tonja Barfield MD Primary Care Provider [phone] Ander Leblanc MD Primary Care Provider [phone] Encounter Details Date Type Department Care Team (Late st Contact Info) Description 04/23/2018 Lab Requisition [facility] Care DermPath Lab [address] [facility], [place] [phone] Gasper Villeda MD [address] [place] [address] Social History Tobacco Use Types Packs/Day Years Used Date Smoking Tobacco: Never Assessed Sex and Gender Information Value Date Recorded Sex Assigned at Not on file Gender Identity Not on file Sexual Orientation Not on file documented as of this encounter Plan of Treatment Not on file documented as of this encounter Procedures Procedure Name Priority Date/Time Associated Diagnosis Comments IMMUNOFLUORESCENT STUDY DERM Routine 04/22/2018 12:00 AM CDT documented in this encounter Results * IMMUNOFLUORESCENT STUDY DERM (04/22/2018 12:00 AM CDT) Case Report Dermatopathol ogy Report Case: [id number] Authorizing Provider: Gasper Villeda MD Collected: 04/22/2018 12:00 AM Pathologist: Glory Jean MD Received: 04/23/2018 12:24 PM Specimen: Skin, right lower leg 1:50 PM CDT DERMATOPATHOLOGY LABORATORY Final Diagnosis Specimen A. SKIN, right lower leg: FOCAL VASCULAR C3 (M31.0) COLLOID BODIES (L98.9) (see microscopic description and comment) (see fixed tissue results, [id number]) 1:50 PM CDT DERMATOPATHOLOGY LABORATORY Direct Immunofluorescence Report - Specimen A Specimen A IgA IgM IgG C3 CollV Fibrinogen Epidermis Negative Negative Negative Negative Negative Negative Basement Membrane Negative Negative Negative Negative 2+ Negative Vessels Negative Negative Negative Focal granular 2+ Focal Interstitium Negative Colloid bodies Colloid bodies Negative Negative Non specific 1:50 PM CDT DERMATOPATHOLOGY LABORATORY Clinical History R/O Vasculitis 1:50 PM CDT DERMATOPATHOLOGY LABORATORY Gross Description Specimen A: Received is one Waqar's media filled container labeled with the patient's name and designated right lower leg. The specimen consists of a punch biopsy measuring 4x4x4 mm. The specimen is submitted in whole for direct immunofluores cence testing. 1:50 PM CDT DERMATOPATHOLOGY LABORATORY Microscopic Description Specimen A. SKIN, right lower leg: Controls were run in parallel. There are focal granular vascular deposits withC3. Fibrinogen shows vascular staining. There is also IgM and IgG in the papillary dermis consistent with colloid bodies. Staining is negative with IgA. Collagen IV stains the basement membrane zone and vessels. An H&E of the frozen tissue shows a subepidermal blister and a perivascular infiltrate. 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 Colloid bodies represent dyskeratotic keratinocytes . See fixed tissue results. 1:50 PM CDT DERMATOPATHOLOGY LABORATORY Disclaimer An external and internal positive and negative controls are appropriate for the histochemical , immunohistoch emical and immunofluores cence stain(s) in this case (if any), except where stated explicitly. The performance characteristi cs of the stain(s) cited in this report were developed and its performance characteristi c determined by the Dermatopathol ogy Laboratory at [facility]. These tests need not be, and therefore are not, approved by the United States Food and Drug Administratio n. The tests are used for clinical purposes. Billing Codes Specimen Charges Stain Charges 99988 84194 42057 04441 92918 23331 1 1 1 1 1 1 8 1:50 PM CDT DERMATOPATHOLOGY LABORATORY Embedded Images 8 1:50 PM CDT DERMATOPATHOLOGY LABORATORY Pathology/Cytolog y TISSUE SPECIMEN FROM SKIN / Unknown 04/22/2018 04/23/2018 12:24 PM CDT Gasper Villeda MD LAB - PATHOLOGY/CYTO LOGY ORDERABLES DERMATOPATHOLOGY LABORATORY [facility] - Department of Dermatology [address] [place] [address] [address] [phone] documented in this encounter Visit Diagnoses Not on filedocumented in this encounter Care Teams Christian Science Healer Relationship Specialty Start Date End Date Tonja Barfield MD [address] [place] [address] [address] [place] [address] PCP - General 04/23/18 01/21/23 Ander Leblanc MD [address] [place] [address] PCP - General 01/22/23 documented as of this encounter
--- OUTSIDE RECORDS SUMMARY | 2024-12-09 10:54 | XMS_ITS | Encounter Summary ---
Author Organization [facility] Address [address] [place] [address] Care Team Providers Care Manager Talent Management Name Role Phone Ander Leblanc MD Primary Care Provider [phone] Encounter Details Date Type Department Care Team (Late st Contact Info) Description 04/08/2024 Lab Requisition [facility] - Pathology Lab [address] [place] [address] Chavez Paige MD [address] [facility] [address] [place] [address] Enlarged lymph nodes, unspecified Social History Tobacco Use Types Packs/Day Years Used Date Smoking Tobacco: Never Assessed Sex and Gender Information Value Date Recorded Sex Assigned at Not on file Gender Identity Not on file Sexual Orientation Not on file documented as of this encounter Plan of Treatment Not on file documented as of this encounter Procedures Procedure Name Priority Date/Time Associated Diagnosis Comments FLOW CYTOMETRY TISSUE PANEL Routine 04/08/2024 9:30 AM CDT Enlarged lymph nodes, unspecified documented in this encounter Results * FLOW CYTOMETRY TISSUE PANEL (04/08/2024 9:30 AM CDT) Case Report Flow Cytometry Case: [id number] Authorizing Provider: Chavez Paige Collected: 04/08/2024 09:30 AM MD [place] Ordering Location: [facility] - Received: 04/08/2024 03:15 PM Pathology Lab Pathologist: Lisa Montgomery MD Specimen: Lymph Node, RIGHT INGUINAL 04/11/2024 11:04 AM [facility] Final Diagnosis Lymph node, right inguinal, flow cytometry: - Low-viability specimen with no significant lymphocyte population detected 04/11/2024 11:04 AM [facility] Flow Cytometry Interpretation Viability: 15% B-cells: no significant population T-cells: no significant population Blasts: not detected A cytospin prepared from the flow cytometry specimen has been reviewed for chief quality officer purposes. 04/11/2024 11:04 AM [facility] Flow Cytometry Results Differential Result Comment Flow Cell Count /uL 1,640 Total Viability % 15.0 Lymphocytes % 51 Dim CD45 Region % 4 Monocytes % 7 Granulocytes % 38 04/11/2024 11:04 AM [facility] Reason for test Enlarged lymph nodes, unspecified 04/11/2024 11:04 AM [facility] Client Specimen ID # [id number] 04/11/2024 11:04 AM [facility] Number of markers 16 were performed. A-2 Flow CD10 A-4 Flow CD20 A-5 Flow CD23 A-10 Flow CD2 A-11 Flow CD3 A-12 Flow CD4 A-16 Flow CD1a A-3 Flow CD19 A-6 Flow CD34 A-7 Flow CD45 A-13 Flow CD5 A-14 Flow CD7 A-15 Flow CD8 A-17 Flow CD30 A-8 [place]+CD19+ A-9 Lambda+CD19+ 04/11/2024 11:04 AM [facility] Pathologist Location at [facility] 04/11/2024 11:04 AM [facility] Disclaimer Test performed at [facility], [address] [place] [address], [address]. *The established laboratory minimum viability is 70%. Values below the minimum may result in the failure to find an abnormal population of cells. This test was developed and its performance characteristics determined by the Flow Cytometry Laboratory. It has not been cleared by the [place] Food and Drug Administration (FDA). The FDA has determined that such clearance or approval is not necessary. This test is used for clinical purposes. It should not be regarded as investigational or for research. This laboratory is regulated under the Clinical Laboratory Improvement Amendments of 1998 (CLIA) as a qualified to perform high complexity clinical testing. 04/11/2024 11:04 AM CDT [facility] PATH[facility] LAB Embedded Images 11:04 AM CDT [facility] PATH[facility] LAB Pathology/Cytolo gy ENTIRE LYMPH NODE / Unknown 04/08/2024 9:30 AM CDT 04/08/2024 3:15 PM CDT Chavez Paige MD LAB - PATHO LOGY/CYTOLOGY ORDERABLES Performing Organization Address City/State/[facility] Co de Phone Number [facility] [address] [phone] documented in this encounter Visit Diagnoses Diagnosis Enlarged lymph nodes, unspecified documented in this encounter Care Teams Manager Talent Management Relationship Specialty Start Date End Date Ander Leblanc MD [address] [place] [address] PCP - General 01/22/23 documented as of this encounter
--- OUTSIDE RECORDS SUMMARY | 2024-12-09 10:54 | XMS_ITS | Continuity of Care Document ---
Author Organization [facility] Address [address] [facility] [address] [place] [address] Phone Care Team Providers Care Investment Advisor Name Role Phone [facility] Unavailable Unavail able Canelo Paul Unavailable Unavailable Procedures Procedure Date Progressive Lens, Polycarb Frames Deluxe [facility] Exam & Treatment Refraction Vision Svcs Frames Purchases Progressive Lens, Polycarb Anti-reflective Coating [facility] [employer] Eye Exam, New Patient Refraction Advance Directives Directive Yes / No Effective Date File Name No Information Encounters Encounter Description Practice Location Reason(s) For Visit Diagnoses Date Provider Providers Copied on Encounter [facility], [address] [place] [address] [address], [place], [place], [id number], [place] tel:[phone] SEC [facility] No Information 0-200 9 [facility] . [address] [facility], [facility] [address], [place], [place], [id number], [place]. tel:[phone] Referring Provider: Darell Desai, [address] [place] [address] [address], [place], [address]. tel:[phone] graham Provider: Canelo Paul, [address] [place] [address], [place], [address]. tel:[phone] [facility], [address] [place] [address] [address], [place], [place], [id number], [place] tel:[phone] SEC [facility] No Information 9 Aye Lozoya. [facility] , [address], [place], [place], [facility], . tel:[phone] [facility], [address], [place], [place], [address], [place] tel:[phone] SEC [facility] No Information 0 200 7 [facility] . [address] [facility], [address], [place], [place], [id number], [place]. tel:[phone] Referring Provider: Darell Desai, [address] [place] [address] [address], [place], [place], [facility]. tel:[phone] graham Provider: Jessenia Sinha, [address] [place] [address], [facility]. tel:[phone] [facility], [address], [place], [place], [id number], [place] tel:[phone] SEC [facility] No Information 7 Aye Lozoya. [address] [place] [address] , [address], [place], [place], [facility], . tel:[phone] Family History Family Member Type Diagnosis Age At Onset No Information Payers Payer name Insurance type Covered libertarian ID Authoriza tion(s) No Information Social History [...]
--- OUTSIDE RECORDS SUMMARY | 2024-12-09 10:54 | XMS_ITS | Continuity of Care Document ---
Author Organization [facility] Address [id number] [place] [address] [address] [place] [address] Phone Care Team Providers Care Manager Balance Name Role Phone Ysabel ARIAS, Taj Unavailable [...] MICROFLUID CINTIA TEARS MCR ONLY OFFICE/OUTPATIENT VISIT, [facility] MICROFLUID CINTIA TEARS MCR ONLY MICROFLUID CINTIA TEARS MCR ONLY Advance Directives Directive Yes / No Effective Date File Name No Information Encounters Encounter Description Practice Location Reason(s) For Visit Diagnoses Date Provider Providers Copied on Encounter OFFICE/OUTPA TIENT VISIT, [facility], [address] [place] [address], [id number], tel:[phone] OPH CONSULT [facility] Physician ordered K check (chief complaint) Bilateral keratoconjunct ivitis sicca, not specified as Sjogren'sPrese nce of pseudophakiaBl epharitis of eyelid 8 Krjessica Taj. [address], [place], [place], [id number], [place]. tel:[phone] Referring Provider: Taj lópez, [address], [place], [place], [id number]. tel:[phone] [facility], [address] [place] [address], [id number], tel:[phone] [facility]ULT [facility] No Information 8 Renetta Bosch. [address], [address], [place], [place], [address], [place]. tel:[phone] OFFICE/OUTPA TIENT VISIT, [facility], [address] [place] [address], [id number], [place] tel:[phone] OPH CONSULT [facility] dryness (chief complaint) Bilateral keratoconjunct ivitis sicca, not specified as Sjogren'sBleph aritis of eyelidPresence of pseudophakia 8 Ysabel Taj. [address], [address], [place], [place], [id number], [place]. tel:[phone] Referring Provider: Taj lópez, [address], [place], [place], [id number]. tel:[phone] Family History Family Member Type Diagnosis Age At Onset Problem (finding) No family history of Di abetes mellitus Problem (finding) No family hist ory of Macular degeneration Problem (finding) No family history of Gl aucoma Problem (finding) No family history of Hy pertension Payers Payer name Insurance type Covered green party ID Authorterri dahl(s) [place] [id number] HENRI [id number] Social History Type Description Quantity Date Captured Comments Alcohol Use Details Caffeine Use Details No Tobacco Use Status Occasional cigarette smoker Smoking Status Current some day smoker 018 Sex Female Chief Complaint And Reason For Visit From encounter dated '02/05/2018 09:45'. Physician ordered K check (chief complaint). Description: [...] with improvement from 338/328 down to 311/290 Plan Of Treatment Date Type Action Status No Information History Of Present Illness Encounter [...] BID, Retain BID TL order today:338 328 Instructions Date Instruction Additional Infor fam Impression/Plan [...]
--- OUTSIDE RECORDS SUMMARY | 2024-12-09 10:54 | XMS_ITS | Encounter Summary ---
Author Organization [facility] Address [address] [facility] [place] [address] Care Team Providers Care Search Engine Optimization Specialist Name Role Phone Tonja Barfield MD Primary Care Provider [phone] Ander Leblanc MD Primary Care Provider [phone] Encounter Details Date Type Department Care Team (Late st Contact Info) Description 04/23/2018 Lab Requisition [facility] Care DermPath Lab [address] [facility], [place] [address] Gasper Villeda MD [place] [address] Social History Tobacco Use Types Packs/Day Years Used Date Smoking Tobacco: Never Assessed Sex and Gender Information Value Date Recorded Sex Assigned at Not on file Gender Identity Not on file Sexual Orientation Not on file documented as of this encounter Plan of Treatment Not on file documented as of this encounter Procedures Procedure Name Priority Date/Time Associated Diagnosis Comments DERMATOPATHOLOGY Routine 04/22/2018 12:0 0 AM CDT documented in this encounter Results * DERMATOPATHOLOGY (04/22/2018 12:00 AM CDT) Case Report Dermatopathology Report Case: [id number] Authorizing Provider: Gasper Villeda MD Collected: 04/22/2018 12:00 AM Pathologist: Glory Jean MD Received: 04/23/2018 12:23 PM Specimens: A) - Skin, right medial calf B) - Skin, right lower leg 1:42 PM [facility] DERMATOPATHOLOGY LABORATORY Final Diagnosis Specimen A. 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 The specimen consists of a punch biopsy measuring 4x4x4 mm. Jar 0. Specimen B: Received is one formalin filled container labeled with the patient's name and designated right lower leg. The specimen consists of a punch biopsy measuring 4x4x5 mm. Jar 0. 1:42 PM [facility] DERMATOPATHOLOGY LABORATORY Microscopic Description Specimen A. SKIN, right medial calf: There is focal parakeratosis and mild spongiosis. Rare neutrophils are seen in the stratum corneum. In the dermis there is a mainly superficial perivascular lymphohistiocytic inflammatory infiltrate with eosinophils. The dermis shows a sparse, perivascular lymphocytic infiltrate surrounding dilated, thick-walled vessels, which are increased in number. There are extravagated erythrocytes. Grocott's methenamine silver (GMS) stain fails to highlight fungal elements in the available sections. COMMENT: The histological differential diagnosis includes a contact dermatitis, an eczematous drug eruption, early / partially treated psoriasis. An arthropod bite reaction cannot be excluded, but the infiltrate appears more superficial than typically seen. Thus, this is favored to be less likely. A fungal infection cannot be entirely excluded despite the negative special satin. Clinicopathologic correlation is recommended. Specimen B. SKIN, right lower leg: Sections show focal fibrin, neutrophils, and neutrophil fragments near vessels. There are also extravasated erythrocytes and a mixed cellular infiltrate with eosinophils. Grocott's methenamine silver (GMS) stain fails to highlight fungal elements in the available sections. See direct immunofluorescence results. 1:42 PM CDT DERMATOPATHOLOGY LABORATORY Disclaimer An external and internal positive and negative controls are appropriate for the histochemical, immunohistochemical and immunofluorescence stain(s) in this case (if any), except where stated explicitly. The performance characteristics of the stain(s) cited in this report were developed and its performance characteristic determined by the Dermatopathology Laboratory at [facility]. These tests need not be, and therefore are not, approved by the [place] Food and Drug Administration. The tests are used for clinical purposes. Billing Codes Specimen Charges Stain Charges 13100 39818 1 1 39479 76596 1 1 8 1:42 PM CDT DERMATOPATHOLOGY LABORATORY Embedded Images 1:42 PM CDT DERMATOPATHOLOGY LABORATORY Pathology/Cytology TISSUE SPECIMEN FROM SKIN / Unknown 04/22/2018 04/23/2018 12:23 PM CDT Miscellaneous samples (specimen) TISSUE SPECIMEN FROM SKIN / Unknown 04/22/2018 04/23/2018 12:23 PM CDT Gasper Villeda MD LAB - PATHOLOGY/CYTO LOGY ORDERABLES DERMATOPATHOLOGY LABORATORY [facility] - Department of Dermatology [address] [place] [address], 5th Floor Lab [address] [phone] documented in this encounter Visit Diagnoses Not on filedocumented in this encounter Care Teams Search Engine Optimization Specialist Relationship Specialty Start Date End Date Tnoja Barfield MD [address] [place] [address]. [address] [place] [address] PCP - General 04/23/18 01/21/23 Ander Leblanc MD [address] [place] [address] PCP - General 01/22/23 documented as of this encounter
--- OUTSIDE RECORDS SUMMARY | 2024-12-09 10:55 | XMS_ITS | Encounter Summary ---
Author Organization [facility] Address [address] [place] [address] Phone Care Team Providers Care Meat Soaker Name Role Phone Ander Leblanc MD Primary Care Provider [phone] Dickson Johnson MD Unavailable [phone] Edel Rodriguez MD PhD Unavailable [phone] Luis Nicholson MD Unavailable [phone] Chirstine Taylor MD Unavailable [phone] Encounter Details Date Type Department Care Team (Latest Contact Info) Description 05/04/2024 Orders Only [facility] Scanning, Provider Social History Tobacco Use Types Packs/Day Years Used Date Smoking Tobacco: Former Cigarettes 0.5 10 1 2 - 1989 Smokeless Tobacco: Never Alcohol Use Standard Drinks/Week Comments Yes 0 (1 standard drink = 0.6 oz pur e alcohol) rarely 3 times a year AUDIT-C Answer Date Recorded Q1: How often do you have a drink containing alc ohol? Never 09/30/2021 Average Number of Drinks Not on file 022 Q3: How often do you have si x or more drinks on one occasion? 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 Gender Identity Female 08/07/2020 10:58 AM RETAIL ASSISTANT STORE MANAGER Sexual Orientation Not on file Occupation Industry Job Start Date Job End Date Retired Not on file Not on file Not on file documented as of this encounter Plan of Treatment Not on file documented as of this encounter Procedures Procedure Name Priority Date/Time Associated Diagnosis Comments SCAN - PATHOLOGY 05/04/2024 12:00 AM CDT documented in this encounter Results * SCAN - PATHOLOGY (05/04/2024 12:00 AM CDT) us Provider Scanning Edited Result - Final documented in this encounter Visit Diagnoses Not on filedocumented in this encounter Care Teams Meat Soaker Relationship Specialty Start Date End Date Ander Leblanc MD [address] [place] [address] PCP - General Internal Medicine 02/28/22 Dickson Johnson MD [address] [facility] [address] [place] [id number] Medical Oncologist Hematology 05/06/24 Edel Rodriguez MD PhD [address] [facility], [facility] [address] [place] [address] Medical Oncologist/Tuber Operator Medical Oncology 05/06/24 05/11/24 Luis Nicholson MD [address] [place] [address] Medical Oncology 05/12/24 Christine Taylor MD [facility] [place] [address] Referring Physician Dermatology 05/31/24 documented as of this encounter
--- OUTSIDE RECORDS SUMMARY | 2024-12-09 10:55 | XMS_ITS | Clinical Summary ---
Author Organization [facility] Address [address] [place] [id number] Care Team Providers Care Healthcare Project Manager Name Role Phone Ander Leblanc MD Primary Care Provider [phone] Dickson Johnson MD Unavailable [phone] Luis Nicholson MD Unavailable [phone] Christine Taylor MD Unavailable [phone] Allergies Active Allergy Reactions Criticality Noted Date Comments Clindamycin Unknown 09/21/2014 Zomepirac Palpitations Low 09/21/1979 Medications cholecalciferol (VITAMIN D-3) 5,000 unit tablet Take 1 tablet (5,000 Units total) by mouth daily Active escitalopram (LEXAPRO) 10 mg tablet Take 1 tablet (10 mg total) by mouth every morning 0 Active levothyroxine (SYNTHROID) 75 mcg tablet Take 1 tablet (75 mcg total) by mouth feather boner before breakfast 0 Active montelukast (SINGULAIR) 10 mg tablet Take 1 tablet (10 mg total) by mouth nightly 0 Active omeprazole (PriLOSEC) 40 mg capsule 1 capsule (40 mg total) every morning 0 Active lgitdweb-pgjl-h ollag-hyalur ac 050-878-76-2 mg capsule Take by mouth every morning Active fluocinolone (SYNALAR) 0.025 % cream APPLY EXTERNALLY TO THE AFFECTED AREA TWICE DAILY 0 Active gabapentin (NEURONTIN) 300 mg capsule Take 1 capsule (300 mg total) by mouth 3 (three) times a day 90 capsule 11 4 05/05/20 25 Active vitamin B complex capsule Take 1 capsule by mouth daily Active meloxicam (MOBIC) 15 mg tablet 4 Active Active Problems Problem Noted Date Diagnosed Date Lichen planus of tongue 05/31/2024 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, unspecified lymph node region 05/31/2024 Cancer with unknown primary site 05/12/2024 Otalgia 06/19/2022 Age-related osteoporosis wit hout current pathological fracture 02/26/2021 GERD (gastroesophageal reflux disease) 0 Hypothyroidism 07/26/2020 Closed fracture of left distal radius 07/24/2020 Overview (07/24/2020): Added automatically from request for surgery [id number] Closed fracture of left shoulder 07/23/2020 Overview (07/23/2020): Added automatically from request for surgery [id number] Abnormal chest x-ray 06/25/2020 History of 2019 novel coronavirus disease (COVID -19) 06/25/2020 Class 1 obesity with body ma ss index (BMI) of 33.0 to 33.9 in adult 06/25/2020 Upper airway cough syndrome 06/25/2020 Chronic cough 03/20/2019 Chronic seasonal allergic rhinitis due to pollen 03/20/2019 Essential hypertension 03/20/2019 Family history of tuberculosis 03/20/2019 Recurrent sinusitis 03/20/2019 Encounters Date Type Department Care Team Description 10/06/2024 Telephone [facility] Oncology [address] [place] [address] Antione Correa RN 09/28/2024 8:30 AM ROCKBOARD LATHER Office Visit [facility] Radiation Oncology [address] [facility] [place] [address] Samir Herndon NP 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, 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] (Primary Dx); 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) 09/22/2024 9:00 AM ROCKBOARD LATHER Office Visit [facility] Oncology [address] [place] [address] Luis Nicholson MD Cancer with unknown primary site (HCC) (Primary Dx) 09/22/2024 8:00 AM ROCKBOARD LATHER Lab [facility] Oncology Lab [address] [place] [address] Cancer with unknown primary site (HCC) 09/22/2024 6:19 AM ROCKBOARD LATHER - 09/22/2024 11:59 PM ROCKBOARD LATHER Hospital Encounter [facility] - [place] [address] [facility] [address] [place] [address] Cancer with unknown primary site (HCC) Discharge Disposition: Discharge to home or self care from Last 3 Months Immunizations Immunization Administration Dates Next Due Influenza, Quad, Adjuvantate d, Intramuscular 06/01/2020 Influenza, Quadrivalent, Hig h Dose, Preservative Free, Intrr 05/22/2021 Influenza, Trivalent, High D ose, Split, Preservative Free, Intramuscular 06/16/2019,06/28/2018,06/15/2017,07/03,06/23/2015 Influenza, Trivalent, IM (MDV) 07/14/2018,2013 Influenza, Trivalent, Preser vative Free, Intramuscular 06/01/2020 Pneumococcal Conjugate PCV 13 02/05/2016 Pneumococcal Polysaccharide PPV23 09/06/2014 ZOSTER LIVE 06/15/2008 ZOSTER Recombinant 04/05/2019,01/12/2019, 019 Surgical History Surgery Date Site/Laterality Comments OTHER SURGICAL HISTORY Vein ablation LIVER BIOPSY Liver biopsy CATARACT EXTRACTION Cataract extraction CARPAL TUNNEL RELEASE Carpal tunnel release FOOT SURGERY 09/21/1978 - 09/20/1979 ELBOW SURGERY WRIST SURGERY 09/21/2019 - 09/20/2020 Left Left wrist/humerus surgery Medical History Medical History Date Comments Hx Other Medical Epicondylitis Seasonal allergies GERD (gastroesophageal reflux disease) well controlled Hypothyroid Allergies Anxiety Arthritis Cancer (HCC) Osteoporosis Osteoporosis Family History Medical History Relation Name Comments Early Brother Heart disease Brother Hypertension Brother Cancer Father Hypertension Father Stroke Father Heart disease Mother Cancer Other 1 Family history of Cancer; Diabetes Other 2 Family history of Diabetes mellitus; Heart disease Other 3 Family history of Heart disease; Hypertension Other 4 Family history of Hypertension; Stroke Other 5 Family history of Stroke; Other Other 6 Family history of Tuberculosis; Breast cancer Sister Diabetes Sister Hypertension Sister Osteoporosis Sister Relation Name Status Comments Brother Father Maternal Grandfather Alive Mother Other 1 Other 2 Other 3 Other 4 Other 5 Other 6 Sister Social History Tobacco Use Types Packs/Day Years Used Date Smoking Tobacco: Former Cigarettes 0.5 6 1 4 - 1977 Passive Smoke Exposure: Past Smokeless Tobacco: Never Tobacco Cessation:Counseling Given: Not Answered Alcohol Use Standard Drinks/Week Comments Yes 0 (1 standard drink = 0.6 oz pur e alcohol) rarely 3 times a year AUDIT-C Answer Date Recorded Q1: How often do you have a drink containing alc ohol? Monthly or less 06/06/2024 Q2: How many drinks containi ng alcohol do you have on a typical day when you are drinking? 1 or 2 06/06/2024 Q3: How often do you have si x or more drinks on one occasion? Never 06/06/2024 Comments No Sex and Gender Information Value Date Recorded Sex Assigned at Not on file Legal Sex Female 3:10 AM ROCKBOARD LATHER Gender Identity Female 08/07/2020 10:58 AM ROCKBOARD LATHER Sexual Orientation Not on file Occupation Industry Job Start Date Job End Date Retired Not on file Not on file Not on file Obstetrics History Last Filed Vital Signs Vital Sign Reading Time Taken Comments Blood Pressure 161/77 09/28/2024 8:16 AM ROCKBOARD LATHER Pulse 75 09/28/2024 8:16 AM ROCKBOARD LATHER Temperature 36.3 C (97.3 F) 09/22/2024 8:25 AM ROCKBOARD LATHER Respiratory Rate 18 09/22/2024 8:25 AM ROCKBOARD LATHER Oxygen Saturation 96% 09/28/2024 8:16 AM ROCKBOARD LATHER Inhaled Oxygen Concentration - - Weight 85 kg (187 lb 6.4 oz) 09/28/2024 8:16 AM ROCKBOARD LATHER Height 157.5 cm (5' 2 ) 05/31/2024 2:37 PM CDT Body Mass Index 34.28 05/31/2024 2:37 PM CDT Plan of Treatment Health Maintenance Due Date Last Done Comments Depression Screening 1950 Hepatitis C Screening 1950 DTaP/Tdap/Td Vaccine (1 - Tdap) 1959 Hepatitis B Screening 1966 Well Visit 65+ 2013 Covid-19 Vaccine (4 - 2023-2 5 season) 2024 09/12/2021, 12/07/2020, 11/09/2020 Influenza Vaccine (#1) 2024 , 06/01/2020, 06/01/2020, Additional history exists Fall Risk Assessment 06/06/2025 06/06/2024, 07/30/20 Osteoporosis Screening-Bone Density Scan 03/30/2026 03/30/2024, 03/25/2023, 02/28/2022, Additional history exists Pneumococcal vaccine 65+ Completed 02/05/2016, 08/21 Zoster Vaccine Completed 04/05/2019, 12/21, 11/30/2018, Additional history exists Medical Devices Implanted Type Area Chief Medical Technologist Device Identifier Shelf Expiration Date Model / Serial / Lot [employer]/ Ortho [id number] Evos 3.5mm 24mm Self Tap Cortex Screw Bone Sterile - [id number] Implanted:Qty: 3 on 07/27/2020 by Edgar Rojas MD at [facility] Left: Arm [employer]/Or tho [id number] / / [employer]/ Ortho [id number] 3.5mm 20mm Self Tap Cortex Screw Bone Nonsterile - [id number] Implanted:Qty: 1 on 07/27/2020 by Edgar Rojas MD at [facility] Left: Arm [employer]/Or tho [id number] / / [employer]/ Ortho [id number] Evos 3.5mm 38mm Self Tap Lock Screw Bone Sterile - [id number] Implanted:Qty: 3 on 07/27/2020 by Edgar Rojas MD at [facility] Left: Arm [employer]/Or tho [id number] / / [employer]/ Ortho [id number] Evos 3.5mm 48mm Self Tap Lock Screw Bone Sterile - [id number] Implanted:Qty: 1 on 07/27/2020 by Edgar Rojas MD at [facility] Left: Arm [employer]/Or tho [id number] / / [employer]/ Ortho [id number] Evos 3.5mm 30mm Self Tap Lock Screw Bone Sterile - [id number] Implanted:Qty: 3 on 07/27/2020 by Edgar Rojas MD at [facility] Left: Arm [employer]/Or tho [id number] / / [employer]/ Ortho [id number] Evos 3.5mm 34mm Self Tap Lock Screw Bone Sterile - [id number] Implanted:Qty: 1 on 07/27/2020 by Edgar Rojas MD at [facility] Left: Arm [employer]/Or tho [id number] / / [employer]/ Ortho [id number] Plate Bone Evos Curve L114 Mm Od3.5 Mm Humerus Left Proximal 6 Hole Sterile - [id number] Implanted:Qty: 1 on 07/27/2020 by Edgar Rojas MD at [facility] Left: Arm [employer]Rich[employer]/Or tho [id number] / / [employer] A-4750.56 Aptus Trilock 42mmx1.6mm 6 Hole Distal Radius L Right Angle Plate - [id number] Implanted:Qty: 1 on 07/30/2020 by Zhen Otero MD at [facility] Left: Radius [employer] A-4750.56 / / [employer] A-5750.12/1 Aptus Trilock 2.5mm 12mm Hexadrive 7 Adaptive Wrist Radius - [id number] Implanted:Qty: 3 on 07/30/2020 by Zhen Otero MD at [facility] [place] Left: Radius [employer] A-5750.12/1 / / [employer] A-5750.16/1 2.5mm 16mm Trilock Hexadrive Wrist Radius Screw Bone - [id number] Implanted:Qty: 1 on 07/30/2020 by Zhen Otero MD at [facility] Left: Radius [employer] A-5750.16/1 / / [employer] A-5700.13/1 Aptus 2.5mm 13mm Hexadrive 7 Wrist Cortical Screw Bone Titanium - [id number] Implanted:Qty: 1 on 07/30/2020 by Zhen Otero MD at [facility] Left: Radius [employer] A-5700.13/1 / / [employer] A-4750.55 Aptus Trilock 42mmx1.6mm 6 Hole Distal Radius L Left Angle Plate - [id number] Implanted:Qty: 1 on 07/30/2020 by Zhen Otero MD at [facility] [place] Left: Radius [employer] A-4750.55 / / [employer] A-5700.14 Aptus 2.5mm 14mm Cortical Screw Bone - [id number] Implanted:Qty: 3 on 07/30/2020 by Zhen Otero MD at [facility] [place] Left: Radius [employer] A-5700.14 / / Procedures Procedure Name Priority Date/Time Associated Diagnosis Comments CT CHEST ABDOMEN PELVIS W CONTRAST Schedule GRABIEL, Read GRABIEL (Appt Today, Awaiting Results) 09/22/2024 7:13 AM ROCKBOARD LATHER Cancer with unknown primary site (HCC) POCT CREATININE - DEVICE Routine 09/22/2024 6:36 AM ROCKBOARD LATHER DEXA TBS AXIAL SKELETON BONE DENSITY 1 OR MORE SITES Schedule Routine, Read Routine (OP Routine) 03/30/2024 9:31 AM CDT Age-related osteoporosis without current pathological fracture from Last 3 Months or Most Recently Relevant to Health Maintenance Results * CT chest abdomen pelvis with contrast (09/22/2024 7:13 AM ROCKBOARD LATHER) Anatomical Region Laterality Modality Body N/A Computed Tomogra phy 09/22/2024 7:23 AM ROCKBOARD LATHER Impressions 09/22/2024 7:23 AM ROCKBOARD LATHER Resolved right inguinal and left external iliac chain lymphadenopathy. No new or progressive disease identified within the chest, abdomen, or pelvis. Electronically signed by: Cornelio Jones M.D. Narrative 09/22/2024 7:23 AM ROCKBOARD LATHER EXAMINATION: Computed tomography of the chest, abdomen and pelvis with intravenous contrast HISTORY: Cancer, unknown primary. Status post radiotherapy. TECHNIQUE: Transaxial computed tomographic images of the chest, abdomen and pelvis were obtained with intravenous contrast according to the standard protocol after the uneventful administration of 68 mL Opti-Ray 350 intravenous contrast. COMPARISON: FDG PET/CT dated 2024. FINDINGS: Chest: No thoracic lymphadenopathy. The heart size is unchanged. No pericardial effusion. Esophagus is decompressed. No suspicious pulmonary nodule or mass. No consolidation pleural effusion or pneumothorax. Abdomen/Pelvis: No focal hepatic lesion with the exception of a too small to characterize hypoattenuating lesion in the right posterior section. The spleen pancreas adrenal glands and kidneys are normal. Duodenal diverticulum. Urinary bladder is without focal wall thickening. No suspicious uterine or adnexal masses seen. There is resolved right inguinal and left external iliac chain lymphadenopathy. The previously enlarged lymph nodes are now subcentimeter in size. No abdominopelvic lymphadenopathy. Colonic diverticulosis without acute diverticulitis. Normal appendix. The stomach small bowel and colon are normal in caliber without focal wall thickening. There is no omental nodularity. No free intraperitoneal fluid or air. Abdominal aorta is mildly to moderately atherosclerotic but is not aneurysmal. No suspicious osseous lesion. Procedure Note Cornelio Jones MD - 09/22/2024 EXAMINATION: Computed tomography of the chest, abdomen and pelvis with intravenous contrast HISTORY: Cancer, unknown primary. Status post radiotherapy. TECHNIQUE: Transaxial computed tomographic images of the chest, abdomen and pelvis were obtained with intravenous contrast according to the standard protocol after the uneventful administration of 68 mL Opti-Ray 350 intravenous contrast. COMPARISON: FDG PET/CT dated 2024. FINDINGS: Chest: No thoracic lymphadenopathy. The heart size is unchanged. No pericardial effusion. Esophagus is decompressed. No suspicious pulmonary nodule or mass. No consolidation pleural effusion or pneumothorax. Abdomen/Pelvis: No focal hepatic lesion with the exception of a too small to characterize hypoattenuating lesion in the right posterior section. The spleen pancreas adrenal glands and kidneys are normal. Duodenal diverticulum. Urinary bladder is without focal wall thickening. No suspicious uterine or adnexal masses seen. There is resolved right inguinal and left external iliac chain lymphadenopathy. The previously enlarged lymph nodes are now subcentimeter in size. No abdominopelvic lymphadenopathy. Colonic diverticulosis without acute diverticulitis. Normal appendix. The stomach small bowel and colon are normal in caliber without focal wall thickening. There is no omental nodularity. No free intraperitoneal fluid or air. Abdominal aorta is mildly to moderately atherosclerotic but is not aneurysmal. No suspicious osseous lesion. IMPRESSION: Resolved right inguinal and left external iliac chain lymphadenopathy. No new or progressive disease identified within the chest, abdomen, or pelvis. Electronically signed by: Cornelio Jones M.D. Luis Nicholson MD IMG CT PROCEDURES Final Result * POCT creatinine (09/22/2024 6:36 AM ROCKBOARD LATHER) Creatinine POC 0.9 0.6 - 1.1 mg/dL Blood 09/22/2024 6:36 AM ROCKBOARD LATHER 09/22/2024 6:36 AM ROCKBOARD LATHER Self Referral LAB POCT ORDERABLES - DEVICE Fin al Result [facility] Department [place] [address] * Dexa TBS Axial Skeleton Bone Density 1 or more sites (03/30/2024 9:31 AM CDT) Anatomical Region Laterality Modality Wrist, Body N/A Radiographic Teresita ging Narrative 03/30/2024 10:06 AM CDT Patient Name: Geneva Urrutia Date of : 1950 Date of scan: 03/30/2024 Bone mineral density was performed on a [employer] Discovery Densitometer. Based on machine cross-calibration and precision studies the least significant changes of this densitometer is 0.024 g/cm2 at the spine, 0.020 g/cm2 at the total proximal femur, and 0.014g/cm2 at the forearm. HISTORY: This is a 73 y.o. postmenopausal female with a history of low bone mass and thyroid disease. She reports that she quit smoking about 34 years ago. Her smoking use included cigarettes. She started smoking about 42 years ago. She has a 5 pack-year smoking history. She has never used smokeless tobacco. Currently on treatment with calcium, vitamin D, and thyroid hormone and previously treated with alendronate (Fosamax), ibandronate (Boniva), and zoledronic acid (Reclast). INDICATIONS: Menopause status, history of prior wrist fracture, and history of low bone mass. FINDINGS: BONE MINERAL DENSITY OF THE LUMBAR SPINE Bone Mineral Density (BMD) of the lumbar spine was measured from L1-L4 and the average density was calculated to be 0.966 gm/cm2. This corresponds to a T-score (standard deviations from the mean of young adults) of -0.7. When compared to the previous study of 03/25/2023 there has been a -0.024 gm/cm (-2.4%) decrease in bone density that is considered significant. BONE MINERAL DENSITY OF THE PROXIMAL FEMUR Bone Mineral Density (BMD) of the left hip total was found to be 0.755 gm/cm2. This corresponds to a T-score standard deviations from the mean of young adults of -1.5. Femoral neck is 0.656 gm/cm2 with a T-score (standard deviations from the mean of young adults) of -1.7. When compared to the previous study of 03/25/2023 there has been a -0.036 gm/cm (-4.6%) decrease in bone density that is considered significant. SUMMARY: Bone mineral density shows evidence of low bone mass at the proximal femur and moderately increased fracture risk (Osteopenia). There has been a significant decrease in bone density since previous measurement. The lumbar spine Trabecular Bone Score is 1.338 which suggests normal bone microarchitecture, compared to the general population. Final decisions regarding diagnostic or therapeutic recommendations should include BMD, TBS, additional clinical risk factors as well the clinical context of the patient. Please see attached TBS results for further details. ADDITIONAL COMMENTS: Postmenopausal Women and Men Over 50: Diagnostic criteria: Osteoporosis: BMD at or below -2.5 T-score; Osteopenia (low bone mass): BMD between -1.0 and -2.5 T-score. If the patient has a history of a fragility fracture, a fracture that occurred with trauma equivalent to a fall from a standing position or less, then the diagnosis is osteoporosis regardless of bone density. The history and data sections of the bone mineral density scan were prepared by Katie Hassan) JHONY who is accredited by the International Society of Clinical Densitometry. The overall patient assessment and scan interpretation were performed by Tamara Pina MD who is certified by the International Society of Clinical Densitometry. [id number] Tamara Pina MD IMG DXA PROCEDURES Final Resu lt from Last 3 Months or Most Recently Relevant to Health [place] [address] MEDICARE [facility] MEDICARE SUPPLEMENT INSURANCE MEDICARE [facility] MEDICARE SUPPLEMENT INSURANCE MEDICARE MEDICARE [facility] MEDICARE SUPPLEMENT INSURANCE Care Teams Healthcare Project Manager Relationship Specialty Start Date End Date Ander Leblanc MD [address] [facility] [address] [place] [address] PCP - General Internal Medicine 02/28/22 Dickson Johnsno MD [address] [facility] [address] [place] [address] Medical Oncologist Hematology 05/06/24 Luis Nicholson MD [address] [facility] [address] [place] [address] Medical Oncology 05/12/24 Christine Taylor MD [address] [place] [id number] Referring Physician Dermatology 05/31/24
--- OUTSIDE RECORDS SUMMARY | 2024-12-09 10:55 | XMS_ITS | Encounter Summary ---
Author Organization [facility] Address [address] [place] [address] Phone Care Team Providers Care Delivery Rep Name Role Phone Ander Leblnac MD Primary Care Provider [phone] Dickson Johnson MD Unavailable [phone] Luis Nicholson MD Unavailable [phone] Christine Taylor MD Unavailable [phone] Encounter Details Date Type Department Care Team (Latest Contact Info) Description 05/13/2024 Orders Only [facility] Scanning, Provider Social History Tobacco Use Types Packs/Day Years Used Date Smoking Tobacco: Former Cigarettes 0.5 6 1 974 - 1977 Smokeless Tobacco: Never Alcohol Use Standard Drinks/Week [...] on file Legal Sex Female 3:10 AM CLIP ON SUNGLASSES ASSEMBLER Gender Identity Female 08/07/2020 10:58 AM CLIP ON SUNGLASSES ASSEMBLER Sexual Orientation Not on file Occupation Industry Job Start Date Job End Date Retired Not on file Not on file Not on file documented as of this encounter Plan of Treatment Not on file documented as of this encounter Procedures Procedure Name Priority Date/Time Associated Diagnosis Comments SCAN - PATHOLOGY 05/13/2024 11:57 AM CDT documented in this encounter Results * SCAN - PATHOLOGY (05/13/2024 11:57 AM CDT) us Provider Scanning Final Result documented in this encounter Visit Diagnoses Not on filedocumented in this encounter Care Teams Delivery Rep Relationship Specialty Start Date End Date Ander Leblanc MD [address] [facility] [address] [place] [address] PCP - General Internal Medicine 02/28/22 Dickson Johnson MD [address] [facility] [address] [place] [phone] Medical Oncologist Hematology 05/06/24 Luis Nicholson MD [address] [place] [address] Medical Oncology 05/12/24 Christine Taylor MD [address] [place] [address] Referring Physician Dermatology 05/31/24 documented as of this encounter
--- OUTSIDE RECORDS SUMMARY | 2024-12-09 10:55 | XMS_ITS | Encounter Summary ---
Author Organization [facility] Address [address] [place] [address] Care Team Providers Care Team Physician Name Role Phone Hector Johnson MD Primary Care Provider Encounter Details Date Type Department Care Team (Late st Contact Info) Description 12/07/2024 External Device Data [facility] AB[facility]CTION Provider, Abstract NO ADDRESS ON FILE Social History Tobacco Use Types Packs/Day Years Used Date Smoking Tobacco: Former Cigarettes 0.5 4 Q uit: 05/02/1974 Alcohol Use Standard Drinks/Week Comments Yes 0 (1 standard drink = 0.6 oz pur e alcohol) socially Comments Unknown Sex and Gender Information Value Date Recorded Sex Assigned at Not on file Legal Sex Female 11:36 AM CDT Gender Identity Not on file Sexual Orientation Not on file documented as of this encounter Plan of Treatment Not on file documented as of this encounter Visit Diagnoses Not on filedocumented in this encounter Care Teams Team Physician Relationship Specialty Start Date End Date Hector Johnson MD [address] [facility] [address] [place] [address] PCP - General Family Practice 03/14/19 documented as of this encounter
--- OUTSIDE RECORDS SUMMARY | 2024-12-09 10:55 | XMS_ITS ---
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, unspecified lymph node region 05/31/2024 Cancer with unknown primary site 05/12/2024 Otalgia 06/19/2022 Age-related osteoporosis wit hout current pathological fracture 02/26/2021 GERD (gastroesophageal reflux disease) 0 Hypothyroidism 07/26/2020 Closed fracture of left distal radius 07/24/2020 Overview (07/24/2020): Added automatically from request for surgery [id number] Closed fracture of left shoulder 07/23/2020 Overview (07/23/2020): Added automatically from request for surgery [id number] Abnormal chest x-ray 06/25/2020 History of 2019 novel coronavirus disease (COVID -19) 06/25/2020 Class 1 obesity with body ma ss index (BMI) of 33.0 to 33.9 in adult 06/25/2020 Upper airway cough syndrome 06/25/2020 Chronic cough 03/20/2019 Chronic seasonal allergic rhinitis due to pollen 03/20/2019 Essential hypertension 03/20/2019 Family history of tuberculosis 03/20/2019 Recurrent sinusitis 03/20/2019 Current Treatment and Therapy Plans No current plan information found. Other Current Plans Zoledronic Acid (Reclast) Infusion* Plan Start Date:05/23/2024 Plan Provider:Tamara Pina MD Linked Problems Age-related osteoporosis wit hout current pathological fracture Treatment Medications No medications scheduled. Past Treatment and Therapy Plans Radiation Treatments * Course [id number]/27/2024 - 07/01/2024 Treatment Period Energy Fraction Dose Fractions Total Dose Plans Planned L ILIAC LN 06/28/2024 - 07/01/2024 1,000 5 / 5,[address] 06/27/2024 - 06/27/2024 1,000 1 / 5,000 Reference Points Delivered L ILIAC LN_5000 06/28/2024 - 07/01/2024 5,000 R GROIN_5000 06/27/2024 - 06/27/2024 1,000 Lifetime Dose Tracking * Chemical Lifetime Dose Automatic Entry Manual Entr y Fluoro Time 1.045 minutes 1.045 minutes 0 minutes Air kerma at the reference point (Ka,r) 5.71 mGy 5 .71 mGy 0 mGy DLP 677 mGycm 677 mGycm 0 mGycm
--- OUTSIDE RECORDS SUMMARY | 2024-12-09 10:55 | XMS_ITS | Encounter Summary ---
Author Organization [facility] Address [address] [place] [address] Phone Care Team Providers Care Clutch Mechanic Name Role Phone Ander Leblanc MD Primary Care Provider [phone] Dickson Johnson MD Unavailable [phone] Edel Rodriguez MD PhD Unavailable [phone] Luis Nicholson MD Unavailable [phone] Christine Taylor MD Unavailable [phone] Encounter Details Date Type Department Care Team (Latest Contact Info) Description 04/08/2024 Orders Only [facility] Scanning, Provider [...] on file Legal Sex Female 3:10 AM ORDER SELECTOR Gender Identity Female 08/07/2020 10:58 AM ORDER SELECTOR Sexual Orientation Not on file Occupation Industry Job Start Date Job End Date Retired Not on file Not on file Not on file documented as of this encounter Plan of Treatment Not on file documented as of this encounter Procedures Procedure Name Priority Date/Time Associated Diagnosis Comments SCAN - PATHOLOGY 04/08/2024 documented in this encounter Results * SCAN - PATHOLOGY (04/08/2024) Provider Scanning Final Result documented in this encounter Visit Diagnoses Not on filedocumented in this encounter Care Teams Clutch Mechanic Relationship Specialty Start Date End Date Ander Leblanc MD [address] [place] [address] PCP - General Internal Medicine 02/28/22 Dickson Johnson MD [address] [address] [place] [address] Medical Oncologist Hematology 05/06/24 Edel Rodriguez MD PhD [address] [facility] MED[facility], [facility] [address], [address] [place] [address] Medical Oncologist/Toe Puncher Medical Oncology 05/06/24 05/11/24 Luis Nicholson MD [address] [place] [address] Medical Oncology 05/12/24 Christine Taylor MD [address] [place] [address] Referring Physician Dermatology 05/31/24 documented as of this encounter
--- OUTSIDE RECORDS SUMMARY | 2024-12-09 10:55 | XMS_ITS | Clinical Summary ---
Author Organization [facility] Address [address] [place] [address] Phone Care Team Providers Care Day Care Director Name Role Phone Hector Johnson MD Primary Care Provider Allergies Active Allergy Reactions Criticality Noted Date Comments Clindamycin Itching,Rash Low 01/25/2020 Medications omeprazole magnesium (PRILOSEC ORAL) Take by mouth. Active cholecalciferol , vitamin D3, 5,000 unit Take 5,000 Units by mouth daily. Active montelukast (SINGULAIR) 10 mg tablet Take 10 mg by mouth daily at bedtime. Active glucosamine HCl/chondroitin landis (GLUCOSAMINE-CH ONDROITIN ORAL) Take 1,500 mg by mouth. Active BABY ASPIRIN ORAL Take 81 mg by mouth. Active cetirizine HCl (ZYRTEC ORAL) Take by mouth. Active omeprazole (PriLOSEC) 40 mg Capsule, Delayed Release(E.C.) Take 1 Capsule (40 mg) by mouth daily. 30 Capsule 3 03/14/2019 Active levothyroxine 75 mcg tablet Take 75 mcg by mouth daily enamel sprayer. Active gabapentin (NEURONTIN) 300 mg capsule Take 300 mg by mouth. 12/24/2022 Active escitalopram oxalate (LEXAPRO) 10 mg tablet Take 10 mg by mouth daily. Active calcium carbonate-magne sium hydroxide (ROLAIDS) 550-110 mg Tablet, Chewable Take by mouth. Active vitamin B complex Tablet Sustained Release Take 1 Tablet by mouth daily. Active Active Problems Problem Noted Date Diagnosed Date Obesity (BMI 30.0-34.9) 06/25/2020 History of 2019 novel coronavirus disease (COVID -19) 06/25/2020 Upper airway cough syndrome 06/25/2020 Abnormal chest x-ray 06/25/2020 Chronic cough 03/20/2019 Recurrent sinusitis 03/20/2019 Family history of tuberculosis 03/20/2019 Essential hypertension 03/20/2019 Chronic seasonal allergic rhinitis due to pollen 03/20/2019 Resolved Problems Problem Noted Date Diagnosed Date Resolved Date 2018 novel coronavirus disease (COVID-19) 06/25/2020 06/25/2020 Encounters Date Type Department Care Team Description 12/07/2024 External Device Data [facility] ABSTRACTION Provider, Abstract 11/26/2024 External Device Data [facility] ABSTRACTION Provider, Abstract 11/25/2024 External Device Data [facility] ABSTRACTION Provider, Abstract 11/22/2024 External Device Data [facility] ABSTRACTION Provider, Abstract 11/08/2024 External Device Data [facility] ABSTRACTION Provider, Abstract 10/13/2024 External Device Data [facility] ABSTRACTION Provider, Abstract 10/12/2024 External Device Data [facility] ABSTRACTION Provider, Abstract 10/11/2024 External Device Data [facility] ABSTRACTION Provider, Abstract 10/05/2024 External Device Data [facility] ABSTRACTION Provider, Abstract from Last 3 Months Immunizations Immunization Administration Dates Next Due (SHINGRIX)(50 YRS UP) ZOSTER VACCINE RECOMBINANT, 0.5 ML, IM 04/05/2019,01/12/2019,11/30/2018 INFLUENZA VACCINE QUADRIVALE NT ADJ 65 YR UP PF IM 06/01/2020 Influenza Seasonal Unspecifi ed Formulation IM 07/14/2018 Influenza Vaccine High Dose 65+ Yrs IM 8 Family History Medical History Relation Name Comments Heart Failure Brother 1 Hypertension Brother 1 Kidney Disease Brother 2 Multiple Sclerosis Brother 2 Cancer Father Lung Cancer Father Breast Cancer Sister 1 Diabetes Sister 2 Hypertension Sister 2 Diabetes Sister 3 Asthma Neg Hx Bronchitis Neg Hx Emphysema Neg Hx Mesothelioma Neg Hx Relation Name Status Comments Brother 1 Brother 2 Father Sister 1 Alive Sister 2 Alive Sister 3 Alive Social History Tobacco Use Types Packs/Day Years Used Date Smoking Tobacco: Former Cigarettes 0.5 4 Q uit: 05/02/1974 Tobacco Cessation:Counseling Given: Not Answered Alcohol Use Standard Drinks/Week Comments Yes 0 (1 standard drink = 0.6 oz pur e alcohol) socially Comments Unknown Sex and Gender Information Value Date Recorded Sex Assigned at Not on file Legal Sex Female 11:36 AM CDT Gender Identity Not on file Sexual Orientation Not on file Last Filed Vital Signs Vital Sign Reading Time Taken Comments Blood Pressure 173/88 05/02/2024 1:34 PM CDT Pulse 72 05/02/2024 1:27 PM CDT Temperature 36.6 C (97.8 F) 05/02/2024 1:27 PM CDT Respiratory Rate 16 05/02/2024 1:27 PM CDT Oxygen Saturation 95% 05/02/2024 1:27 PM CDT Inhaled Oxygen Concentration - - Weight 81.2 kg (179 lb) 05/02/2024 1:27 PM CDT Height 157.5 cm (5' 2 ) 05/02/2024 1:27 PM CDT Body Mass Index 32.74 05/02/2024 1:27 PM CDT Plan of Treatment Health Maintenance Due Date Last Done Comments DTAP/TDAP/TD VACCINES (1 - Tdap) 1967 RSV VACCINE (60+ or ) (1 - 1-dose 75+ series) 2023 INFLUENZA VACCINE (#1) 2024 , 06/01/2020, 06/01/2020, Additional history exists PNEUMOCOCCAL VACCINE 50+ YEARS Completed 02/05/2016 , 09/06/2014 ZOSTER VACCINE Completed 04/05/2019, 12/21, 11/30/2018, Additional history exists COLORECTAL SCREENING Discontinued 01/08/2023, 05/13/20 Colorectal Cancer Screening Discontinued OSTEOPOROSIS SCREENING Completed 4, 03/30/2024, 03/25/2023, Additional history exists FIT-DNA Q 3 years Discontinued FIT/FOBT Q 1 year Discontinued Flex Sig/CT Colonography Q 5 years Discontinued Insurance MEDICARE PART A AND B [facility] PART A AND B [facility] SUPP Care Teams Day Care Director Relationship Specialty Start Date End Date Hector Johnson MD [address] [facility] [address] [facility] [address] [place] [address] PCP - General Family Practice 03/14/19
--- OUTSIDE RECORDS SUMMARY | 2024-12-09 10:55 | XMS_ITS | Referral Summary ---
Author Organization [facility] Address [address] [place] [address] Care Team Providers Care Forging Press Operator Name Role Phone Ander Leblanc MD Primary Care Provider [phone] Dickson Johnson MD Unavailable Luis Nicholson MD Unavailable [phone] Christine Taylor MD Unavailable [phone] Encounters Date Type Department Care Team Description 10/06/2024 Telephone 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 Oncology Lab [address] [place] [phone] Cancer with unknown primary site (HCC) 09/22/2024 9:00 AM IV TECHNICIAN Office Visit [facility] Oncology [address] [place] [phone] Luis Nicholson MD Cancer with unknown primary site (HCC) (Primary Dx) 09/22/2024 6:19 AM IV TECHNICIAN - 09/22/2024 11:59 PM IV TECHNICIAN Hospital Encounter [facility] [place] [address] [facility] [place] [address] [place] [address] Cancer with unknown primary site (HCC) Discharge Disposition: Discharge to home or self care from Last 3 Months Allergies Active Allergy Reactions Criticality Noted Date Comments Clindamycin Unknown 09/21/2014 Zomepirac Palpitations Low 09/21/1979 Medications cholecalciferol (VITAMIN D-3) 5,000 unit tablet Take 1 tablet (5,000 Units total) by mouth daily Active escitalopram (LEXAPRO) 10 mg tablet Take 1 tablet (10 mg total) by mouth every morning 0 Active levothyroxine (SYNTHROID) 75 mcg tablet Take 1 tablet (75 mcg total) by mouth control systems specialist before breakfast 0 Active montelukast (SINGULAIR) 10 mg tablet Take 1 tablet (10 mg total) by mouth nightly 0 Active omeprazole (PriLOSEC) 40 mg capsule 1 capsule (40 mg total) every morning 0 Active uekhyggn-uwed-p ollag-hyalur ac 525-962-54-2 mg capsule Take by mouth every morning [...] (07/24/2020): Added automatically from request for surgery [id number] Closed fracture of left shoulder 07/23/2020 Overview (07/23/2020): Added automatically from request for surgery [id number] Abnormal chest x-ray 06/25/2020 History of 2019 novel coronavirus disease (COVID -19) 06/25/2020 Class 1 obesity with body ma ss index (BMI) of 33.0 to 33.9 in adult 06/25/2020 Upper airway cough syndrome 06/25/2020 Chronic cough 03/20/2019 Chronic seasonal allergic rhinitis due to pollen 03/20/2019 Essential hypertension 03/20/2019 Family history of tuberculosis 03/20/2019 Recurrent sinusitis 03/20/2019 Immunizations Immunization Administration Dates Next Due Influenza, Quad, Adjuvantate d, Intramuscular 06/01/2020 Influenza, Quadrivalent, Hig h Dose, Preservative Free, Intrr 05/22/2021 Influenza, Trivalent, High D ose, Split, Preservative Free, Intramuscular 06/16/2019,06/28/2018,06/15/2017,07/03,06/23/2015 Influenza, Trivalent, IM (MDV) 07/14/2018,2013 Influenza, Trivalent, Preser vative Free, Intramuscular 06/01/2020 Pneumococcal Conjugate PCV 13 02/05/2016 Pneumococcal Polysaccharide PPV23 09/06/2014 ZOSTER LIVE 06/15/2008 ZOSTER Recombinant 04/05/2019,01/12/2019, 019 Social History Tobacco Use Types Packs/Day Years Used Date Smoking Tobacco: Former Cigarettes 0.5 6 1 974 - 1978 Passive Smoke Exposure: Past Smokeless Tobacco: Never [...] on file Legal Sex Female 3:10 AM IV TECHNICIAN Gender Identity Female 08/07/2020 10:58 AM IV TECHNICIAN Sexual Orientation Not on file Occupation Industry Job Start Date Job End Date Retired Not on file Not on file Not on file Last Filed Vital Signs Vital Sign Reading Time Taken Comments Blood Pressure 161/77 09/28/2024 8:16 AM IV TECHNICIAN Pulse 75 09/28/2024 8:16 AM IV TECHNICIAN Temperature 36.3 C (97.3 F) 09/22/2024 8:25 AM IV TECHNICIAN Respiratory Rate 18 09/22/2024 8:25 AM IV TECHNICIAN Oxygen Saturation 96% 09/28/2024 8:16 AM IV TECHNICIAN Inhaled Oxygen Concentration - - Weight 85 kg (187 lb 6.4 oz) 09/28/2024 8:16 AM IV TECHNICIAN Height 157.5 cm (5' 2 ) 05/31/2024 2:37 PM CDT Body Mass Index 34.28 05/31/2024 2:37 PM CDT Plan of Treatment Not on file Medical Devices Implanted Type Area Food Science Professor Device Identifier Shelf Expiration Date Model / Serial / Lot [employer]/ Ortho [id number] Evos 3.5mm 24mm Self Tap Cortex Screw Bone Sterile - [id number] Implanted:Qty: 3 on 07/27/2020 by Edgar Rojas MD at [facility] Left: Arm [employer]/Or tho [id number] / / [employer]/ Ortho [id number] 3.5mm 20mm Self Tap Cortex Screw Bone Nonsterile - [id number] Implanted:Qty: 1 on 07/27/2020 by Edgar Rojas MD at [facility] Left: Arm [employer]/Or tho [id number] / / [employer]/ Ortho [id number] Evos 3.5mm 38mm Self Tap Lock Screw Bone Sterile - [id number] Implanted:Qty: 3 on 07/27/2020 by Edgar Rojas MD at [facility] Left: Arm [employer]/Or tho [id number] / / [employer]/ Ortho [id number] Evos 3.5mm 48mm Self Tap Lock Screw Bone Sterile - [id number] Implanted:Qty: 1 on 07/27/2020 by Edgar Rojas MD at [facility] Left: Arm [employer]/Or tho [id number] / / [employer]/ Ortho [id number] Evos 3.5mm 30mm Self Tap Lock Screw Bone Sterile - [id number] Implanted:Qty: 3 on 07/27/2020 by Edgar Rojas MD at [facility] Left: Arm [employer]/Or tho [id number] / / [employer]/ Ortho [id number] Evos 3.5mm 34mm Self Tap Lock Screw Bone Sterile - [id number] Implanted:Qty: 1 on 07/27/2020 by Edgar Rojas MD at [facility] Left: Arm [employer]/Or tho [id number] / / [employer]/ Ortho [id number] Plate Bone Evos Curve L114 Mm Od3.5 Mm Humerus Left Proximal 6 Hole Sterile - [id number] Implanted:Qty: 1 on 07/27/2020 by Edgar Rojas MD at [facility] Left: Arm [employer]Rich[employer]/Or tho [id number] / / [employer] A-4750.56 Aptus Trilock 42mmx1.6mm 6 Hole Distal Radius L Right Angle Plate - [id number] Implanted:Qty: 1 on 07/30/2020 by Zhen Otero MD at [facility] Left: Radius [employer] A-4750.56 / / [employer] A-5750.12/1 Aptus Trilock 2.5mm 12mm Hexadrive 7 Adaptive Wrist Radius - [id number] Implanted:Qty: 3 on 07/30/2020 by Zhen Otero MD at [facility] Left: Radius [employer] A-5750.12/ / / [employer] A-5750.16/1 2.5mm 16mm Trilock Hexadrive Wrist Radius Screw Bone - [id number] Implanted:Qty: 1 on 07/30/2020 by Zhen Otero MD at [facility] [place] Left: Radius [employer] A-5750.16/1 / / [employer] A-5700.13/1 Aptus 2.5mm 13mm Hexadrive 7 Wrist Cortical Screw Bone Titanium - [id number] Implanted:Qty: 1 on 07/30/2020 by Zhen Otero MD at [facility] [place] Left: Radius [employer] A-5700.13/1 / / [employer] A-4750.55 Aptus Trilock 42mmx1.6mm 6 Hole Distal Radius L Left Angle Plate - [id number] Implanted:Qty: 1 on 07/30/2020 by Zhen Otero MD at [facility] [place] Left: Radius [employer] A-4750.55 / / [employer] A-5700.14 Aptus 2.5mm 14mm Cortical Screw Bone - [id number] Implanted:Qty: 3 on 07/30/2020 by Zhen Otero MD at [facility] [place] Left: Radius [employer] A-5700.14 / / Procedures Procedure Name Priority Date/Time Associated Diagnosis Comments CT CHEST ABDOMEN PELVIS W CONTRAST Schedule GRABIEL, Read GRABIEL (Appt Today, Awaiting Results) 09/22/2024 7:13 AM IV TECHNICIAN Cancer with unknown primary site (HCC) POCT CREATININE - DEVICE Routine 09/22/2024 6:36 AM IV TECHNICIAN DEXA TBS AXIAL SKELETON BONE DENSITY 1 OR MORE SITES Schedule Routine, Read Routine (OP Routine) 03/30/2024 9:31 AM CDT Age-related osteoporosis without current pathological fracture from Last 3 Months or Most Recently Relevant to Health Maintenance Results * CT chest abdomen pelvis with contrast (09/22/2024 7:13 AM IV TECHNICIAN) Anatomical Region Laterality Modality Body N/A Computed Tomogra phy 09/22/2024 7:23 AM IV TECHNICIAN Impressions 09/22/2024 7:23 AM IV TECHNICIAN Resolved right inguinal and left external iliac chain lymphadenopathy. No new or progressive disease identified within the chest, abdomen, or pelvis. Electronically signed by: Cornelio Jones M.D. Narrative 09/22/2024 7:23 AM IV TECHNICIAN EXAMINATION: Computed tomography of the chest, abdomen [...] Result * POCT creatinine (09/22/2024 6:36 AM IV TECHNICIAN) Creatinine POC 0.9 0.6 - 1.1 mg/dL Blood 09/22/2024 6:36 AM IV TECHNICIAN 09/22/2024 6:36 AM IV TECHNICIAN Self Referral LAB POCT ORDERABLES - DEVICE Fin al Result [facility] Department [place] [address] * Dexa TBS Axial Skeleton Bone Density 1 or more sites (03/30/2024 9:31 AM CDT) Anatomical Region Laterality Modality Wrist, Body N/A Radiographic Teresita ging Narrative 03/30/2024 10:06 AM CDT Patient Name: Geneva Urrutia Date of : 1950 Date of scan: 03/30/2024 Bone mineral density was performed on a AlphaSights Discovery Densitometer. Based on machine cross-calibration and [...] by the International Society of Clinical Densitometry. [id number] Tamara Pina MD IMG DXA PROCEDURES Final Resu lt from Last 3 Months or Most Recently Relevant to Health Maintenance Insurance MEDICARE [facility] MEDICARE SUPPLEMENT INSURANCE MEDICARE [facility] MEDICARE SUPPLEMENT [place] [phone] MEDICARE [facility] [place] [phone] Care Teams Forging Press Operator Relationship Specialty Start Date End Date Ander Leblanc MD [address] INTERNAL MEDICINE [place], [place] [phone] PCP - General Internal Medicine 02/28/22 Dickson Johnson MD [address] [facility] [address] [place] [phone] Medical Oncologist Hematology 05/06/24 Luis Nicholson MD [address] [place] [address] Medical Oncology 05/12/24 Christine Taylor MD [address] [place] [address] Referring Physician Dermatology 05/31/24
--- OUTSIDE RECORDS SUMMARY | 2024-12-09 10:55 | XMS_ITS | Encounter Summary ---
Author Organization [facility] Healthcare Address [address] [place] [address] Care Team Providers Care Customs Investigator Name Role Phone Ander Leblanc MD Primary Care Provider [phone] Dickson Johnson MD Unavailable [phone] Luis Nicholson MD Unavailable [phone] Christine Taylor MD Unavailable [phone] Encounter Details Date Type Department Care Team (Late st Contact Info) Description 07/01/2024 Completion of Therapy [facility] Advanced Medicine Radiation Oncology [address] [facility] [place] [address] Linda Childress MD [address] [facility] [address] [place], [place] [id number] Cancer with unknown primary site (HCC) (Primary Dx) Social History Tobacco Use Types Packs/Day Years Used Date Smoking Tobacco: Former Cigarettes 0.5 6 1 4 - 1977 Smokeless Tobacco: Never Alcohol Use [...] on file Legal Sex Female 3:10 AM FUR OPERATOR Gender Identity Female 08/07/2020 10:58 AM FUR OPERATOR Sexual Orientation Not on file Occupation Industry Job Start Date Job End Date Retired Not on file Not on file Not on file documented as of this encounter Plan of Treatment Not on file documented as of this encounter Visit Diagnoses Diagnosis Cancer with unknown primary site (HCC)- Primary Other malignant neoplasm of unspecified site documented in this encounter Care Teams Customs Investigator Relationship Specialty Start Date End Date Ander Leblanc MD [address] [place] [address] PCP - General Internal Medicine 02/28/22 Dickson Johnson MD [address] [facility] [address] [place] [address] Medical Oncologist Hematology 05/06/24 Luis Nicholson MD [address] [place] [address] Medical Oncology 05/12/24 Christine Taylor MD [address] [place] [address] Referring Physician Dermatology 05/31/24 documented as of this encounter
--- OUTSIDE RECORDS SUMMARY | 2024-12-09 10:55 | XMS_ITS | Encounter Summary ---
Author Organization [facility] Address [address] [place] [address] Phone Care Team Providers Care Flight Deck Officer Name Role Phone Ander Leblanc MD Primary Care Provider [phone] Dickson Johnson MD Unavailable Edel Rodriguez MD PhD Unavailable [phone] Luis Nicholson MD Unavailable [phone] Christine Taylor MD Unavailable [phone] Encounter Details Date Type Department Care Team (Latest Contact Info) Description 04/13/2024 Orders Only [facility] Scanning, Provider [...] on file Legal Sex Female 3:10 AM SKEINER Gender Identity Female 08/07/2020 10:58 AM SKEINER Sexual Orientation Not on file Occupation Industry Job Start Date Job End Date Retired Not on file Not on file Not on file documented as of this encounter Plan of Treatment Not on file documented as of this encounter Procedures Procedure Name Priority Date/Time Associated Diagnosis Comments SCAN - PATHOLOGY 04/13/2024 documented in this encounter Results * SCAN - PATHOLOGY (04/13/2024) Provider Scanning Final Result documented in this encounter Visit Diagnoses Not on filedocumented in this encounter Care Teams Flight Deck Officer Relationship Specialty Start Date End Date Ander Leblanc MD [address] [place] [address] PCP - General Internal Medicine 02/28/22 Dickson Johnson MD [address] [place] [address] Medical Oncologist Hematology 05/06/24 Edel Rodriguez MD PhD [address] [facility] MED[facility], [facility] [address], [address] [place] [address] Medical Oncologist/Pan Devulcanizer Medical Oncology 05/06/24 05/11/24 Luis Nicholson MD [address] [place] [address] Medical Oncology 05/12/24 Christine Taylor MD [address] [place] [address] Referring Physician Dermatology 05/31/24 documented as of this encounter
--- OUTSIDE RECORDS SUMMARY | 2024-12-09 10:55 | XMS_ITS | Encounter Summary ---
Author Organization [facility] Address [address] [place] [address] Care Team Providers Care Bleach Analyst Name Role Phone Ander Leblanc MD Primary Care Provider [phone] Encounter Details Date Type Department Care Team (Late st Contact Info) Description 04/13/2024 Lab Requisition [facility] - Pathology Lab [address] [place] [address] Rex Saucedo MD [address] [place] [address] Illness, unspecified Social History Tobacco Use Types Packs/Day Years Used Date Smoking Tobacco: Former Cigarettes Smokeless Tobacco: Never Alcohol Use Standard Drinks/Week Comments Yes 0 (1 standard drink = 0.6 oz pur e alcohol) Sex and Gender Information Value Date Recorded Sex Assigned at Not on file Gender Identity Not on file Sexual Orientation Not on file documented as of this encounter Plan of Treatment Not on file documented as of this encounter Procedures Procedure Name Priority Date/Time Associated Diagnosis Comments PATH CONSULT ON REFERRED CASE Routine 04/13/2024 2:36 PM CDT Illness, unspecified documented in this encounter Results * PATH CONSULT ON REFERRED CASE (04/13/2024 2:36 PM CDT) Final Diagnosis Tongue, biopsy (OSC: [id number]; 03/04/24): 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 The histologic differential diagnosis includes an oral lichenoid drug reaction and oral contact hypersensitivity reaction. Clinical correlation is necessary for full interpretation. 04/14/2024 9:11 AM T [facility] PATHOLOGY LAB Microscopic Description and Comment Sections show dense parakeratosis, marked spongiosis, and dense lichenoid inflammatory lymphocytic inflammatory infiltrate, with lymphocyte exocytosis. There is mild epidermal hyperplasia with relatively minimal elongation of rete ridges. A rare apoptotic basal keratinocyte is noted. The provided Ki-67 immunohistochemical stain shows proliferative activity of the basal keratinocytes. There is no evidence of epithelial dysplasia. 04/14/2024 9:11 AM CDT [facility] Clinical History 04/14/2024 9:11 AM T [facility] PATHOLOGY [facility] Materials Received Received are 2 slide(s) labeled [id number] along with a copy of the outside pathology report. The materials originate from [facility] [address] [place] [address]. All original materials are returned to the referring institution, along with a copy of our final report. 04/14/2024 9:11 AM T [facility] PATH[facility] LAB Pathologist Location at [facility] 04/14/2024 9:11 AM CDT U PATHOLOGY LAB Case Report Surgical Pathology Report Case: [id number] Authorizing Provider: Rex Saucedo MD Collected: 04/13/2024 02:36 PM Ordering Location: [facility] - Received: 04/13/2024 02:36 PM Pathology Lab Pathologist: Omid Ulloa MD Specimen: Slide Consultation 04/14/2024 9:11 AM CDT U PATH[facility]Y LAB Embedded Images 04/14/2024 9:11 AM CDT [facility] PATH[facility] LAB Pathology/Cytolo gy SURGICAL PATHOLOGY CONSULTATION AND REPORT ON REFERRED SLIDES PREPARED ELSEWHERE / Unknown 04/13/2024 2:36 PM CDT 04/13/2024 2:36 PM CDT Rex Saucedo MD LAB - PATHOLOGY/CYTO LOGY ORDERABLES [facility] PATHOLOG[facility] LAB [address] [place] [address] documented in this encounter Visit Diagnoses Diagnosis Illness, unspecified documented in this encounter Care Teams Bleach Analyst Relationship Specialty Start Date End Date Ander Leblanc MD [address] [place] [address] PCP - General 01/22/23 documented as of this encounter
--- OUTSIDE RECORDS SUMMARY | 2024-12-09 10:55 | XMS_ITS | Clinical Summary ---
Author Organization [facility] Address [address] [place] [address] Care Team Providers Care Dry Mixer Name Role Phone Ander Leblanc MD Primary Care Provider [phone] Source Comments [facility] Affiliates and Associated Physician Practices is amultiple site organization consisting of ambulatory clinics and hospital sitesin [place], [place], [place] and [place]. This disclosure is being madepursuant to the Care Everywhere program and may not contain all information available regarding this patient. Last updated 18.[facility] Allergies Active Allergy Reactions Criticality Noted Date Comments Clindamycin Itching,Rash,Unknown Medium 01/25/2020 Zomepirac Palpitations 07/01/2015 Medications * Be aware that medications may not be up to date on this document. Alwaysverify current medications with the patient. Medication Sig Dispensed Refills Start Date End Date Status omeprazole (PriLOSEC) 40 MG capsule Take 1 (one) capsule by mouth once daily 02/26/2024 Active montelukast (Singulair) 10 MG tablet Take 1 (one) tablet by mouth at bedtime Active levothyroxine (Synthroid) 75 MCG tablet Take 1 (one) tablet by mouth once daily Active gabapentin (Neurontin) 300 MG capsule Take 1 (one) capsule by mouth 3 times daily 12/24/2022 Active escitalopram (Lexapro) 10 MG tablet Take 1 (one) tablet by mouth once daily Active Cholecalciferol 125 MCG (5000 UT) Take 1 (one) tablet by mouth once daily Active diphenhydrAMINE/maalox /lidocaine visc 1:1:1 (Magic Mouthwash) suspensionIndications: Tongue lesion Swish and swallow 5 mL every 6 hours as needed 300 mL 04/15/2024 Active Active Problems Problem Noted Date Diagnosed Date Tongue lesion 04/13/2024 Social History Tobacco Use Types Packs/Day Years Used Date Smoking Tobacco: Former Cigarettes Smokeless Tobacco: Never Tobacco Cessation:Counseling Given: Not Answered Alcohol Use Standard Drinks/Week Comments Yes 0 (1 standard drink = 0.6 oz pur e alcohol) Sex and Gender Information Value Date Recorded Sex Assigned at Not on file Gender Identity Not on file Sexual Orientation Not on file Last Filed Vital Signs Vital Sign Reading Time Taken Comments Blood Pressure 130/79 04/13/2024 8:53 AM CDT Pulse 80 04/13/2024 8:53 AM CDT Temperature - - Respiratory Rate - - Oxygen Saturation 97% 04/13/2024 8:53 AM CDT Inhaled Oxygen Concentration - - Weight 80.7 kg (178 lb) 04/13/2024 8:53 AM CDT Height 157.5 cm (5' 2 ) 04/13/2024 8:53 AM CDT Body Mass Index 32.56 04/13/2024 8:53 AM CDT Plan of Treatment Health Maintenance Due Date Last Done Comments MEDICARE AWV 12 MONTHS 1950 COVID-19 VACCINE (#1) 1953 HEPATITIS C SCREENING 04/15/1966 DTAP/TDAP/TD VACCINES (1 - Tdap) 1967 PNEUMOCOCCAL VACCINE 50+ (1 of 2 - PCV) 1967 ZOSTER VACCINE (1 of 2) 1967 Respiratory Syncytial Virus (RSV) Vaccine Pt: or over 60 yrs (1 - 1-dose 75+ series) 2023 INFLUENZA VACCINE (#1) 2024 8, 06/29/2018 DEPRESSION SCREENING 09/21/2024 BONE DENSITY TESTING Completed 02/28/2022, 02/22/2021 HEPATITIS B VACCINE Aged Out No longe r eligible based on patient's age to complete this topic HIB VACCINE Aged Out No longer eligi ble based on patient's age to complete this topic HPV VACCINE Aged Out No longer eligi ble based on patient's age to complete this topic MENINGOCOCCAL (Group B) VACCINE SHARED DECISION-MAKING Aged Out No longer eligible based on patient's age to complete this topic MENINGOCOCCAL GROUPS A/C/Y/W VACCINE Aged Out No longer eligible b ased on patient's age to complete this topic Care Teams Dry Mixer Relationship Specialty Start Date End Date Ander Leblanc MD [address] [place] [address] PCP - General 01/22/23
[2024-12-09 11:17] LABS: Basophils Absolute Auto 0.1 K/mm3 (0.0-0.1); Basophils Percent Auto 0.8 % (0.2-1.2); Eosinophils Absolute Auto 0.3 K/mm3 (0-0.3); Eosinophils Percent Auto 3.6 % (0-4.4); Hematocrit 46.1 % (37.0-47.0); Hemoglobin 14.7 g/dL (12.0-15.0); Immature Granulocyte Absolute 0.03 K/mm3 (0.00-0.031); Immature Granulocyte Percent A 0.4 % (0-0.5); Lymphocytes Absolute Auto 0.93 K/mm3 (0.9-3.2); Lymphocytes Percent Auto 11.9 % (18.3-44.2); Mean Corpuscular HGB Conc 31.9 g/dl (32-36); Mean Corpuscular Hemoglobin 26.9 pg (26-34); Mean Corpuscular Volume 84.3 fl (80-100); Mean Platelet Volume 9.9 fl (7.4-10.4); Monocytes Absolute Auto 0.7 K/mm3 (0.1-0.6); Monocytes Percent Auto 8.5 % (2.6-8.5); Neutrophils Absolute Auto 5.8 K/mm3 (1.3-6.7); Neutrophils Percent Auto 74.8 % (45.5-73.1); Platelet Count Result 349 k/mm3 (150-375); Red Blood Count 5.47 M/mm3 (4.2-5.4); Red Cell Distribution Width 13.6 % (11.5-14.5); White Blood Count 7.8 K/mm3 (4.5-10.0)
[2024-12-09 11:46] LABS: Albumin Level 4.8 g/dL (3.5-5.1); Estimated Glomerular Filt Rate > 60; Glucose 107 mg/dL (65-110)
[2024-12-09 11:48] LABS: Hemoglobin A1C 5.4 % (<5.7)
[2024-12-09 11:58] LABS: Urine Cotinine NEGATIVE
[2024-12-09 12:32] LABS: MRSA (PCR) NOT DETECTED (NOT DETECTE)
== END 2024-12-09 09:46 | disposition home or self-care (01) ==
LOC: ANHSURGERY 09:51
PROVIDERS: PCP Internal Medicine; Visit Provider Orthopaedic Surgery
DX: Z01.812 Encounter for preprocedural laboratory examination (principal); M17.11 Unilateral primary osteoarthritis, right knee
CPT/HCPCS: 80307; 82040; 82565; 82947; 83036; 85025; 87641

== ENCOUNTER 2024-12-14 07:41 | Outpatient (CLI) | payer MEDICARE, SELFPAY ==
--- OUTSIDE RECORDS SUMMARY | 2024-12-14 07:45 | XMS_ITS | Encounter Summary ---
Author Organization [facility] Healthcare Address [address] [place] [address] Care Team Providers Care Fence Repairman Name Role Phone Hector Johnson MD Primary Care Provider Ander Leblanc MD Primary Care Provider [phone] Dickson Johnson MD Unavailable [phone] Edel Rodriguez MD PhD Unavailable [phone] Luis Nicholson MD Unavailable [phone] Christine Taylor MD Unavailable [phone] Encounter Details Date Type Department Care Team (Late st Contact Info) Description 09/18/2021 Telephone [facility] [address] [place], [place] [id number] Sonido Triplett MD [address] [place] [address] Social History Tobacco Use Types Packs/Day Years [...] on file Legal Sex Female 3:10 AM POULTRY BREEDER Gender Identity Female 08/07/2020 10:58 AM POULTRY BREEDER Sexual Orientation Not on file documented as of this encounter Plan of Treatment Not on file documented as of this encounter Visit Diagnoses Not on filedocumented in this encounter Care Teams Fence Repairman Relationship Specialty Start Date End Date Hcetor Johnson MD [address] [place] [address] PCP - General Family Medicine 07/23/20 02/27/22 Ander Leblanc MD [address] [place] [address] PCP - General Internal Medicine 02/28/22 Dickson Johnson MD [address] [facility] [address] [place] [address] Medical Oncologist Hematology 05/06/24 Edel Rodriguez MD PhD [address] [facility] MEDICAL ONCOLOGY, [facility] [address] [place] [address] Medical Oncologist/Brakes Inspector Medical Oncology 05/06/24 05/11/24 Luis Nicholson MD [address] [place] [address] Medical Oncology 05/12/24 Christine Taylor MD [address] [place] [address] Referring Physician Dermatology 05/31/24 documented as of this encounter
--- OUTSIDE RECORDS SUMMARY | 2024-12-14 07:45 | XMS_ITS ---
Author Organization [facility] Address [address] [place], [place] [address] Care Team Providers Care Bottle Washer Machine Name Role Phone MARYSE SALDAÑA Unavailable [phone] Ander Alaniz Unavailable Unavailable REASON FOR VISIT *General care Medications Medication SIG (Take, Route, Fr equency, Duration) Notes Start Date End Date Status Ciclopirox 8 % 1 application Blender/Braze Applicator ally Once a day for 90 days 04/07/2024 04/02/2025 Active Social History Tobacco Use: Social History Observation Description Date Details (start date - stop date) Former Smoker NA - NA Tobacco Use/Smoking Question Answer Notes Tobacco use: former smoker Encounters Encounter Location Date Provider Diagnosis [facility] [address] [place], [place] [id number] 06/09/2024 MARYSE SALDAÑA Fungal infection of nail B35.1 ; Pain in right toe(s) M79.674 ; Pain in left toe(s) M79.675 and Atherosclerosis of [place] arteries of extremities with intermittent claudication, bilateral legs I70.213 Assessments Encounter Date Diagnosis (ICD Code) Assessment Notes Treatment Notes Treatment Clinical Notes Section Notes 06/09/2024 Fungal infection of nail (ICD-10 - B35.1) Nails 1-5 Bilateral were debrided extensively with nail nippers and emery board, reducing length and girth to pink healthy tissue with any subungual debris and necrotic tissue removed 06/09/2024 Pain in right toe(s) (ICD-10 - M79.674) 06/09/2024 Pain in left toe(s) (ICD-10 - M79.675) 06/09/2024 Atherosclerosis of [place] arteries of extremities with intermittent claudication, bilateral legs (ICD-10 - I70.213) Plan Of Treatment Treatment Notes Assessment Notes Fungal infection of nail Nails 1-5 Bilat eral were debrided extensively with nail nippers and emery board, reducing length and girth to pink healthy tissue with any subungual debris and necrotic tissue removed Next Appt Details Follow Up: 9 weeks, Reason: Provider Name:MARYSE ROTHMAN, 12/22/2024 08:10:00 AM, [address], [address], [id number], Progress Notes * Renetta URRUTIAceDOB:[birth year] (74 yo F)Acc No.[id number]:06/09/2024 Patient: Geneva FRANCO Provider: Filomena Saldaña DPM :1950 A ge:74 Y S ex:Female Date:06/09/2024 Address:[address] [place], [place] [address] Subjective: * Chief Complaints: * * General care * HPI: H PI: General care P atient presents to the office for at risk foot care. Patient states that their nails are thickened, elongated and painful. Patient states that it is aggravated by shoe gear. Onset is gradual. Patient denies being diabetic. Patient denies taking prescription blood thinners but does take a daily aspirin. Date last seen by Dr. ALANIZ was 12/2023. Initials SEA. * ROS: G eneral / Constitutional: Patient denies c hange in appetite, fatigue, chills, fever.? C ardiovascular: Chest pain d enies. N eurologic: Loss of use of extremity d enies. * Medical History: * Surgical History: S houlder surgery Left wrist * Hospitalization/Major Diagno stic Procedure: * Family History: F ather: unknown, cancer, stroke. M other: unknown, heart disease. B rother: unknown, heart disease, hypertension. S ister: unknown, Cancer, hypertension. * Social History: T obacco Use: T obacco Use/Smoking T obacco use: f ormer smoker D rugs/Alcohol: D o you drink alcohol?: No. * Medications: T akingCiclopirox 8 % Solution 1 application Externally Once a day , stop date 04/02/2025Medication List reviewed and reconciled with the patientTaking Ciclopirox 8 % Solution 1 application Externally Once a day , stop date 04/02/2025Medication List reviewed and reconciled with the patient Objective: * Vitals: * Examination: P hysical Examination: Gen: T he patient is awake, alert, well developed, well groomed and well nourished. They are in no apparent distress. . Musc: F oot structure is normal bilateral. Muscle strength is 5/5 to all joints bilaterally. There is no pain on palpation. . Derm: T here is absent hair growth on bilateral feet. There are pigmentary changes of bilateral foot. The skin color is red. The skin texture is thin and shiny. Distal cooling noted in bilateral feet. Nails are thick, discolored, and dystrophic with subungual debris. They are painful to palpation. . Neuro: G rossly intact to light touch bilateral . Vasc: P osterior tibialis pulse 0/4 bilaterally. Dorsalis pedis pulse 0/4 bilaterally. No edema noted. Capillary fill time > 3 seconds to all digits. . Assessment: * Assessment: 1. F ungal infection of nail - B35.1 (Primary) 2 . P ain in right toe(s) - M79.674 3 . P ain in left toe(s) - M79.675 4 . A therosclerosis of [place] arteries of extremities with intermittent claudication, bilateral legs - I70.213 ? Plan: * Treatment: * Procedure Codes: 1 [address], 6 OR MORE, Modifiers: Q8 * Follow Up: 9 weeks * Billing Information: * Visit Code: * Procedure Codes: 93971 DEBRIDE NAIL, 6 OR MORE. Modifiers: Q8 * Sign off status: Completed true * Provider: Filomena Saldaña DPM Date: 0 06/09/2024 Generated for Yazmin mayer/Geovanni/Miesha on: 0 12/14/2024 07:45 AM CDT History and Physical Notes * HPI (History of Present Illness) Category Sub-Category Detail Notes Category Not es HPI General care Patient presents to the office for at risk foot care. Patient states that their nails are thickened, elongated and painful. Patient states that it is aggravated by shoe gear. Onset is gradual. Patient denies being diabetic. Patient denies taking prescription blood thinners but does take a daily aspirin. Date last seen by Dr. ALANIZ was 12/2023. Initials SEA Examination Category Sub-Category Detail Notes Category Not es Physical Examination Gen: The patient is awake, alert, well developed, well groomed and well nourished. They are in no apparent distress. Vasc: Posterior tibialis p ulse 0/4 bilaterally. Dorsalis pedis pulse 0/4 bilaterally. No edema noted. Capillary fill time > 3 seconds to all digits. Neuro: Grossly intact to li ght touch bilateral Musc: Foot structure is no rmal bilateral. Muscle strength is 5/5 to all joints bilaterally. There is no pain on palpation. Derm: There is absent hair growth on bilateral feet. There are pigmentary changes of bilateral foot. The skin color is red. The skin texture is thin and shiny. Distal cooling noted in bilateral feet. Nails are thick, discolored, and dystrophic with subungual debris. They are painful to palpation.
--- OUTSIDE RECORDS SUMMARY | 2024-12-14 07:45 | XMS_ITS | Encounter Summary ---
Author Organization [facility] Address [address] [place] [address] Care Team Providers Care Assistant Clinical Director Name Role Phone Tonja Barfield MD Primary Care Provider [phone] Ander Leblanc MD Primary Care Provider [phone] Encounter Details Date Type Department Care Team (Late st Contact Info) Description 04/23/2018 Lab Requisition [facility] Care DermPath Lab [address] [facility], [place] [phone] Gasper Villeda [place] [address] Social History Tobacco Use Types [...] CDT) Case Report Dermatopathol ogy Report Case: [id number] Authorizing Provider: Gasper Villeda MD Collected: 04/22/2018 12:00 AM Pathologist: Glory Jean MD Received: 04/23/2018 12:24 PM Specimen: Skin, right lower leg 1:50 PM CDT DERMATOPATHOLOGY LABORATORY Final Diagnosis Specimen A. SKIN, right lower leg: FOCAL VASCULAR C3 (M31.0) COLLOID BODIES (L98.9) (see microscopic description and comment) (see fixed tissue results, [id number]) 1:50 PM CDT DERMATOPATHOLOGY LABORATORY Direct Immunofluorescence [...] determined by the Dermatopathol ogy Laboratory at [facility]. These tests need not be, and therefore are not, approved by the [place] Food and Drug Administratio n. The tests are used for clinical purposes. Billing Codes Specimen Charges Stain Charges 28339 76013 48730 63211 00663 11552 1 1 1 1 1 1 8 1:50 PM CDT DERMATOPATHOLOGY LABORATORY Embedded Images 8 1:50 PM CDT DERMATOPATHOLOGY LABORATORY Pathology/Cytolog y TISSUE SPECIMEN FROM SKIN / Unknown 04/22/2018 04/23/2018 12:24 PM CDT Gasper Villeda MD LAB - PATHOLOGY/CYTO LOGY ORDERABLES DERMATOPATHOLOGY LABORATORY [facility] - Department of Dermatology [address] [place] [address] [address] [phone] documented in this encounter Visit Diagnoses Not on filedocumented in this encounter Care Teams Assistant Clinical Director Relationship Specialty Start Date End Date Tonja Barfield MD [address] [place] [address] [address] [place] [address] PCP - General 04/23/18 01/21/23 Adner Leblanc MD [address] [place] [address] PCP - General 01/22/23 documented as of this encounter
--- OUTSIDE RECORDS SUMMARY | 2024-12-14 07:45 | XMS_ITS ---
Author Organization [facility] Address [address] [place], [place] [id number] Care Team Providers Care Jet Handler Name Role Phone MARYSE SALDAÑA Unavailable [phone] Ander Leblanc Unavailable Unavailable REASON FOR VISIT *General care Medications Medication SIG (Take, Route, Fr equency, Duration) Notes Start Date End Date Status Ciclopirox 8 % 1 application Drapery Hand ally Once a day for 90 days 04/07/2024 04/02/2025 Active Vital Signs Height 62 in 08/11/2024 Height-cm 157.48 cm 08/11/2024 Encounters Encounter Location Date Provider Diagnosis [facility] [address] [place], [place] [id number] 08/11/2024 MARYSE SALDAÑA Fungal infection of nail B35.1 ; Pain in right toe(s) M79.674 ; Pain in left toe(s) M79.675 and Atherosclerosis of [place] arteries of extremities with intermittent claudication, bilateral legs I70.213 Assessments Encounter Date Diagnosis (ICD Code) Assessment Notes Treatment Notes Treatment Clinical Notes Section Notes 08/11/2024 Fungal infection of nail (ICD-10 - B35.1) Nails 1-5 Bilateral were debrided extensively with nail nippers and emery board, reducing length and girth to pink healthy tissue with any subungual debris and necrotic tissue removed 08/11/2024 Pain in right toe(s) (ICD-10 - M79.674) 08/11/2024 Pain in left toe(s) (ICD-10 - M79.675) 08/11/2024 Atherosclerosis of [place] arteries of extremities with intermittent claudication, bilateral [...] ROTHMAN, 12/22/2024 08:10:00 AM, [address], [address], [phone], Progress Notes * Renetta URRUTIAceDOB:[birth year] (74 yo F)Acc No.[id number]:08/11/2024 Patient: Geneva FRANCO Provider: Filomena Saldaña DPM :1950 A ge:74 Y S ex:Female Date:08/11/2024 Address:[address] [place] [address] Subjective: * Chief Complaints: * * General care * HPI: H PI: General care Jose long presents to the office for at risk foot care. Patient states that their nails are thickened, elongated and painful. Patient states that it is aggravated by shoe gear. Onset is gradual. Patient denies being diabetic., Patient denies taking prescription blood thinners but does take a daily aspirin., Date last seen by Dr. Leblanc was July2024 Initials HG, .. Follow Up Visit Jose long presents for follow up visit for ____. * ROS: G eneral / Constitutional: Patient denies c hange in appetite, fatigue, chills, fever.? C ardiovascular: Chest pain d enies. N eurologic: Loss of use of extremity d enies. * Medical History: * Surgical History: * Hospitalization/Major Diagno stic Procedure: * Medications: T akingCiclopirox 8 % Solution 1 application Externally Once a day , stop date 04/02/2025Medication List reviewed and reconciled with the patientTaking Ciclopirox 8 % Solution 1 application Externally Once a day , stop date 04/02/2025Medication List reviewed and reconciled with the patient Objective: * Vitals: H t: 62 in, Ht-cm: 157.48 cm. * Examination: P hysical Examination: Gen: T [...] - M79.675 4 . A therosclerosis of [place] arteries of extremities with intermittent claudication, bilateral legs - I70.213 ? Plan: * Treatment: * Procedure Codes: 1 1056 TRIM SKIN LESIONS, 2 TO 4, Modifiers: Q8 33310 DEBRIDE NAIL, 6 OR MORE, Modifiers: 59 , Q8 * Follow Up: 9 weeks * Billing Information: * Visit Code: * Procedure Codes: 69356 TRIM SKIN LESIONS, 2 TO 4. Modifiers: Q8 06794 DEBRIDE NAIL, 6 OR MORE. Modifiers: 59, Q8 * Sign off status: Completed true * Provider: Filomena Saldaña DPM Date: 10/11/2023 Generated for Yazmin mayer/Geovanni/Miesha on: 0 12/14/2024 07:44 AM CDT History and Physical Notes * HPI (History of Present Illness) Category Sub-Category Detail Notes Category Not es HPI General care Patient presents to the office for at risk foot care. Patient states that their nails are thickened, elongated and painful. Patient states that it is aggravated by shoe gear. Onset is gradual. Patient denies being diabetic., Patient denies taking prescription blood thinners but does take a daily aspirin., Date last seen by Dr. Leblanc was July2024 Initials HG, . Follow Up Visit Patient presents for follow up visit for ____ Examination Category Sub-Category Detail Notes Category Not [...]
--- OUTSIDE RECORDS SUMMARY | 2024-12-14 07:45 | XMS_ITS | Encounter Summary ---
Author Organization [facility] Address [address] [facility] [place] [address] Care Team Providers Care Spout Tender Name Role Phone Ander Leblanc MD Primary Care Provider [phone] Encounter Details Date Type Department Care Team (Late st Contact Info) Description 04/08/2024 Lab Requisition [facility] - Pathology Lab [address] [place] [address] Chavez Paige MD [address] [facility] [address] [place] [address] Enlarged lymph nodes, unspecified Social History [...] AM CDT) Case Report Flow Cytometry Case: [id number] Authorizing Provider: Chavez Paige Collected: 04/08/2024 09:30 AM MD [place] Ordering Location: [facility] - Received: 04/08/2024 03:15 PM Pathology Lab Pathologist: Lisa Montgomery MD Specimen: Lymph Node, RIGHT INGUINAL 04/11/2024 11:04 AM [facility] Final Diagnosis Lymph node, right inguinal, flow cytometry: - Low-viability specimen with no significant lymphocyte population detected 04/11/2024 11:04 AM [facility] Flow Cytometry Interpretation Viability: 15% B-cells: no significant population T-cells: no significant population Blasts: not detected A cytospin prepared from the flow cytometry specimen has been reviewed for director of quality improvement purposes. 04/11/2024 11:04 AM [facility] Flow Cytometry Results Differential Result Comment Flow Cell Count /uL 1,640 Total Viability % 15.0 Lymphocytes % 51 Dim CD45 Region % 4 Monocytes % 7 Granulocytes % 38 04/11/2024 11:04 AM [facility] Reason for test Enlarged lymph nodes, unspecified 04/11/2024 11:04 AM [facility] Client Specimen ID # [id number] 04/11/2024 11:04 AM [facility] Number of markers 16 were performed. A-2 Flow CD10 A-4 Flow CD20 A-5 Flow CD23 A-10 Flow CD2 A-11 Flow CD3 A-12 Flow CD4 A-16 Flow CD1a A-3 Flow CD19 A-6 Flow CD34 A-7 Flow CD45 A-13 Flow CD5 A-14 Flow CD7 A-15 Flow CD8 A-17 Flow CD30 A-8 [place]+CD19+ A-9 Lambda+CD19+ 04/11/2024 11:04 AM [facility] Pathologist Location at [facility] 04/11/2024 11:04 AM [facility] Disclaimer Test performed at [facility], [address] [place] [address], [address]. *The established laboratory minimum viability is 70%. [...] complexity clinical testing. 04/11/2024 11:04 AM CDT [facility] Embedded Images 11:04 AM CDT [facility] Pathology/Cytolo gy ENTIRE LYMPH NODE / Unknown 04/08/2024 9:30 AM CDT 04/08/2024 3:15 PM CDT Chavez Paige MD LAB - PATHO LOGY/CYTOLOGY ORDERABLES Performing Organization Address City/State/[facility] Co de Phone Number [facility] [address] [phone] documented in this encounter Visit Diagnoses Diagnosis Enlarged lymph nodes, unspecified documented in this encounter Care Teams Spout Tender Relationship Specialty Start Date End Date Ander Leblanc MD [address] [place] [address] PCP - General 01/22/23 documented as of this encounter
--- OUTSIDE RECORDS SUMMARY | 2024-12-14 07:45 | XMS_ITS | Referral Summary ---
Author Organization [facility] Address [address] [place] [address] Care Team Providers Care Bill Of Lading Clerk Name Role Phone Ander Leblanc MD Primary Care Provider [phone] Dickson Johnson MD Unavailable [phone] Luis Nicholson MD Unavailable [phone] Christine Taylor MD Unavailable [phone] Encounters Date Type Department Care Team Description 10/06/2024 Telephone [facility] Oncology [address] [place] [phone] Antione Correa RN 09/28/2024 8:30 AM [employer] Office Visit 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) 09/22/2024 8:00 AM [employer] Lab [facility] Oncology Lab [address] [place] [phone] Cancer with unknown primary site (HCC) 09/22/2024 9:00 AM [employer] Office Visit [facility] Oncology [address] [place] [phone] Luis Nicholson MD Cancer with unknown primary site (HCC) (Primary Dx) 09/22/2024 6:19 AM [employer] - 09/22/2024 11:59 PM [employer] Hospital Encounter [facility] [place] [address] [facility] Floor [address] [place] [address] Cancer with unknown primary site (HCC) Discharge [...] 1 tablet (75 mcg total) by mouth handle rounder operator before breakfast 0 Active montelukast (SINGULAIR) 10 mg tablet Take 1 tablet (10 mg total) by mouth nightly 0 Active omeprazole (PriLOSEC) 40 mg capsule 1 capsule (40 mg total) every morning 0 Active yskunkax-dazx-s ollag-hyalur ac 557-840-50-2 mg capsule Take by mouth every morning [...] (07/24/2020): Added automatically from request for surgery [id number] Closed fracture of left shoulder 07/23/2020 Overview (07/23/2020): Added automatically from request for surgery [id number] Abnormal chest x-ray 06/25/2020 History of 2019 [...] on file Legal Sex Female 3:10 AM [employer] Gender Identity Female 08/07/2020 10:58 AM [employer] Sexual Orientation Not on file Occupation Industry Job Start Date Job End Date Retired Not on file Not on file Not on file Last Filed Vital Signs Vital Sign Reading Time Taken Comments Blood Pressure 161/77 09/28/2024 8:16 AM [employer] Pulse 75 09/28/2024 8:16 AM [employer] Temperature 36.3 C (97.3 F) 09/22/2024 8:25 AM [employer] Respiratory Rate 18 09/22/2024 8:25 AM [employer] Oxygen Saturation 96% 09/28/2024 8:16 AM [employer] Inhaled Oxygen Concentration - - Weight 85 kg (187 lb 6.4 oz) 09/28/2024 8:16 AM [employer] Height 157.5 cm (5' 2 ) 05/31/2024 2:37 PM CDT Body Mass Index 34.28 05/31/2024 2:37 PM CDT Plan of Treatment Not on file Medical Devices Implanted Type Area Team Truck Driver Device Identifier Shelf Expiration Date Model / Serial / Lot [employer]/ Ortho [id number] Evos 3.5mm 24mm Self Tap Cortex Screw Bone Sterile - [id number] Implanted:Qty: 3 on 07/27/2020 by Edgar Rojas MD at [facility] Left: Arm [employer]/Or tho [id number] / / [employer]/ Ortho [id number] 3.5mm 20mm Self Tap Cortex Screw Bone Nonsterile - [id number] Implanted:Qty: 1 on 07/27/2020 by Edgar Rojas MD at [facility] Left: Arm [employer]/Or tho [id number] / / [employer]/ Ortho [id number] Evos 3.5mm 38mm Self Tap Lock Screw Bone Sterile - [id number] Implanted:Qty: 3 on 07/27/2020 by Edgar Rojas MD at [facility] Left: Arm [employer]/Or tho [id number] / / [employer]/ Ortho [id number] Evos 3.5mm 48mm Self Tap Lock Screw Bone Sterile - [id number] Implanted:Qty: 1 on 07/27/2020 by Edgar Rojas MD at [facility] Left: Arm [employer]/Or tho [id number] / / [employer]/ Ortho [id number] Evos 3.5mm 30mm Self Tap Lock Screw Bone Sterile - [id number] Implanted:Qty: 3 on 07/27/2020 by Edgar Rojas MD at [facility] Left: Arm [employer]/Or tho [id number] / / [employer]/ Ortho [id number] Evos 3.5mm 34mm Self Tap Lock Screw Bone Sterile - [id number] Implanted:Qty: 1 on 07/27/2020 by Edgar Rojas MD at [facility] Left: Arm [employer]/Or tho [id number] / / [employer]/ Ortho [id number] Plate Bone Evos Curve L114 Mm Od3.5 Mm Humerus Left Proximal 6 Hole Sterile - [id number] Implanted:Qty: 1 on 07/27/2020 by Edgar Rojas MD at [facility] Left: Arm [employer]Rich[employer]/Or tho [id number] / / [employer] A-4750.56 Aptus Trilock 42mmx1.6mm 6 Hole Distal Radius L Right Angle Plate - [id number] Implanted:Qty: 1 on 07/30/2020 by Zhen Otero MD at [facility] Left: Radius [employer] A-4750.56 / / [employer] A-5750.12/1 Aptus Trilock 2.5mm 12mm Hexadrive 7 Adaptive Wrist Radius - [id number] Implanted:Qty: 3 on 07/30/2020 by Zhen Otero MD at [facility] Left: Radius [employer] A-5750.12/ / / [employer] A-5750.16/1 2.5mm 16mm Trilock Hexadrive Wrist Radius Screw Bone - [id number] Implanted:Qty: 1 on 07/30/2020 by Zhen Otero MD at [facility] [place] Left: Radius [employer] A-5750.16/1 / / [employer] A-5700.13/1 Aptus 2.5mm 13mm Hexadrive 7 Wrist Cortical Screw Bone Titanium - [id number] Implanted:Qty: 1 on 07/30/2020 by Zhen Otero MD at [facility] [place] Left: Radius [employer] A-5700.13/1 / / [employer] A-4750.55 Aptus Trilock 42mmx1.6mm 6 Hole Distal Radius L Left Angle Plate - [id number] Implanted:Qty: 1 on 07/30/2020 by Zhen Otero MD at [facility] [place] Left: Radius [employer] A-4750.55 / / [employer] A-5700.14 Aptus 2.5mm 14mm Cortical Screw Bone - [id number] Implanted:Qty: 3 on 07/30/2020 by Zhen Otero MD at [facility] [place] Left: Radius [employer] A-5700.14 / / Procedures Procedure Name Priority Date/Time Associated Diagnosis Comments CT CHEST ABDOMEN PELVIS W CONTRAST Schedule GRABIEL, Read GRABIEL (Appt Today, Awaiting Results) 09/22/2024 7:13 AM [employer] Cancer with unknown primary site (HCC) POCT CREATININE - DEVICE Routine 09/22/2024 6:36 AM [employer] [facility] DEXA TBS AXIAL SKELETON BONE DENSITY 1 OR MORE SITES Schedule Routine, Read Routine (OP Routine) 03/30/2024 9:31 AM CDT Age-related osteoporosis without current pathological fracture from Last 3 Months or Most Recently Relevant to Health Maintenance Results * CT chest abdomen pelvis with contrast (09/22/2024 7:13 AM [employer]) Anatomical Region Laterality Modality Body N/A Computed Tomogra phy 09/22/2024 7:23 AM [employer] Impressions 09/22/2024 7:23 AM [employer] Resolved right inguinal and left external iliac chain lymphadenopathy. No new or progressive disease identified within the chest, abdomen, or pelvis. Electronically signed by: Cornelio Jones M.D. Narrative 09/22/2024 7:23 AM [employer] [facility] EXAMINATION: Computed tomography of the chest, abdomen [...] Result * POCT creatinine (09/22/2024 6:36 AM [employer]) Creatinine POC 0.9 0.6 - 1.1 mg/dL Blood 09/22/2024 6:36 AM [employer] 09/22/2024 6:36 AM [employer] Self Referral LAB POCT ORDERABLES - DEVICE Fin al Result [facility] [place] [address] * Dexa TBS Axial Skeleton Bone Density 1 or more sites (03/30/2024 9:31 AM CDT) Anatomical Region Laterality Modality Wrist, Body N/A Radiographic Teresita ging Narrative 03/30/2024 10:06 AM CDT Patient Name: Geneva Urrutia Date of : 1950 Date of scan: 03/30/2024 Bone mineral density was performed on a Learnerator Discovery Densitometer. Based on machine cross-calibration and [...] by the International Society of Clinical Densitometry. [id number] Tamara Pina MD IMG DXA PROCEDURES Final Resu lt from Last 3 Months or Most Recently Relevant to Health Maintenance Insurance MEDICARE [facility] SUPPLEMENT INSURANCE MEDICARE [facility] MED[facility] SUPPLEMENT [place] [phone] MEDICARE [facility] [place] [phone] Care Teams Bill Of Lading Clerk Relationship Specialty Start Date End Date Ander Leblanc MD [address] [employer] [place], [place] [phone] PCP - General Internal Medicine 02/28/22 Dickson Johnson MD [address] [facility] [address] [place] [phone] Medical Oncologist Hematology 05/06/24 Luis Nicholson MD [address] [place] [address] Medical Oncology 05/12/24 Christine Taylor MD [address] [place] [address] Referring Physician Dermatology 05/31/24
--- OUTSIDE RECORDS SUMMARY | 2024-12-14 07:45 | XMS_ITS ---
Author Organization [facility] Address [address] [facility] [address] [place], [place] [phone] Care Team Providers Care Shorer Name Role Phone MARYSE SALDAÑA Unavailable [phone] Ander Leblanc Unavailable Unavailable Allergies No Known Allergies REASON FOR VISIT *General care Medications Medication SIG (Take, Route, Fr equency, Duration) Notes Start Date End Date Status Ciclopirox 8 % 1 application Home Theater Expert ally Once a day for 90 days 04/07/2024 04/02/2025 Active Social History Tobacco Use: Social History Observation Description Date Details (start date - stop date) Former Smoker NA - NA Tobacco Use/Smoking Question Answer Notes Tobacco use: former smoker Encounters Encounter Location Date Provider Diagnosis [facility] [address] [place], [place] [phone] 10/20/2024 MARYSE SALDAÑA Fungal infection of nail B35.1 ; Pain in right toe(s) M79.674 ; Pain in left toe(s) M79.675 and Atherosclerosis of [place] arteries of extremities with intermittent claudication, bilateral legs I70.213 Assessments Encounter Date Diagnosis (ICD Code) Assessment Notes Treatment Notes Treatment Clinical Notes Section Notes 10/20/2024 Fungal infection of nail (ICD-10 - B35.1) Nails 1-5 Bilateral were debrided extensively with nail nippers and emery board, reducing length and girth to pink healthy tissue with any subungual debris and necrotic tissue removed 10/20/2024 Pain in right toe(s) (ICD-10 - M79.674) 10/20/2024 Pain in left toe(s) (ICD-10 - M79.675) 10/20/2024 Atherosclerosis of [place] arteries of extremities with intermittent claudication, bilateral [...] ROTHMAN, 12/22/2024 08:10:00 AM, [address], [address], [phone], Progress Notes * Renetta URRUTIAceDOB:[birth year] (74 yo F)Acc No.[id number]:10/20/2024 Patient: Geneva FRANCO Provider: Filomena Saldaña DPM :1950 A ge:74 Y S ex:Female Date:10/20/2024 Address:[address] [place], [place] [id number] Subjective: * Chief Complaints: * * General [...] Date last seen by Dr. Leblanc was June 2024., Initials LB. * ROS: G eneral / Constitutional: Patient [...] Externally Once a day , stop date 04/02/2025Taking Ciclopirox 8 % Solution 1 application Externally Once a day , stop date 04/02/2025 * Allergies: N .K.D.A.no[Allergies Verified] Objective: * Vitals: * Examination: P hysical [...] - M79.675 4 . A therosclerosis of [place] arteries of extremities with intermittent claudication, bilateral legs - I70.213 ? Plan: * Treatment: * Procedure Codes: 1 1721 DEBRIDE NAIL, 6 OR MORE, Modifiers: Q8 * Follow Up: 9 weeks * Billing Information: * Visit Code: * Procedure Codes: 13615 DEBRIDE NAIL, 6 OR MORE. Modifiers: Q8 * COILING MACHINE OPERATOR Sign off status: Completed true * Provider: Filomena Saldaña DPM Date: 0 10/20/2024 Generated for Yazmin mayer/Geovanni/Miesha on: 0 12/14/2024 [...] Date last seen by Dr. Leblanc was June 2024., Initials LB Examination Category Sub-Category Detail Notes Category Not [...]
--- OUTSIDE RECORDS SUMMARY | 2024-12-14 07:45 | XMS_ITS | Encounter Summary ---
Author Organization [facility] Address [address] [place] [address] Care Team Providers Care Line Out Man Name Role Phone Ander Leblanc MD Primary Care Provider [phone] Dickson Johnson MD Unavailable [phone] Luis Nicholson MD Unavailable [phone] Christine Taylor MD Unavailable [phone] Encounter Details Date Type Department Care Team (Late st Contact Info) Description 07/01/2024 Completion of Therapy [facility] Advanced Medicine Radiation Oncology [address] [facility] [place] [address] Linda Childress MD [address] [facility] [address] [place], [place] [phone] Cancer with unknown primary site (HCC) (Primary [...] on file Legal Sex Female 3:10 AM ROOM SERVICE FOOD SERVER Gender Identity Female 08/07/2020 10:58 AM ROOM SERVICE FOOD SERVER Sexual Orientation Not on file Occupation Industry Job Start Date Job End Date Retired Not on file Not on file Not on file documented as of this encounter Plan of Treatment Not on file documented as of this encounter Visit Diagnoses Diagnosis Cancer with unknown primary site (HCC)- Primary Other malignant neoplasm of unspecified site documented in this encounter Care Teams Line Out Man Relationship Specialty Start Date End Date Ander Leblanc MD [address] [place] [address] PCP - General Internal Medicine 02/28/22 Dickson Johnson MD [address] [facility] [address] [place] [phone] Medical Oncologist Hematology 05/06/24 Luis Nicholson MD [address] [place] [address] Medical Oncology 05/12/24 Christine Taylor MD [address] [place] [address] Referring Physician Dermatology 05/31/24 documented as of this encounter
--- OUTSIDE RECORDS SUMMARY | 2024-12-14 07:45 | XMS_ITS | Patient Health Record ---
Author Organization [facility] Address [address] [place], [place] [address] Care Team Providers Care Baker Head Name Role Phone SHUSTEPHAN MARYSE Unavailable [phone] Ander Leblanc Unavailable Unavailable Allergies No Known Allergies Reason For Referral No Information Medications Medication SIG (Take, Route, Fr equency, Duration) Notes Start Date End Date Status Ciclopirox 8 % 1 application Rn Navigator ally Once a day for 90 days 04/07/2024 04/02/2025 Active Immunizations Vaccine Route Administration Date Status Comme nts Influenza, unspecified formulation Unknown 06/24/2023 A dministered Social History Tobacco Use: Social History Observation Description Date Details (start date - stop date) Former Smoker NA - NA Tobacco Use/Smoking Question Answer Notes Tobacco use: former smoker Vital Signs Height-cm 157.48 cm 08/11/2024 Weight-kg 82.1 kg 04/07/2024 Height 62 in 08/11/2024 Weight 181 lbs 04/07/2024 BMI 33.1 kg/m2 04/07/2024 Encounters Encounter Location Date Provider Diagnosis [facility] [address] [place], [place] [id number] 01/15/2024 MARYSE RIVERA Fungal infection of nail B35.1 ; Pain in right toe(s) M79.674 ; Pain in left toe(s) M79.675 and Atherosclerosis of [place] arteries of extremities with intermittent claudication, bilateral legs I70.213 [facility] [address] [place], [place] [id number] 04/07/2024 MARYSE RIVERA Fungal infection of nail B35.1 ; Pain in right toe(s) M79.674 ; Pain in left toe(s) M79.675 and Atherosclerosis of [place] arteries of extremities with intermittent claudication, bilateral legs I70.213 [facility] [address] [place] [id number] 06/09/2024 MARYSE NICOLE Fungal infection of nail B35.1 ; Pain in right toe(s) M79.674 ; Pain in left toe(s) M79.675 and Atherosclerosis of [place] arteries of extremities with intermittent claudication, bilateral legs I70.213 [facility] [address] [place] [id number] 08/11/2024 MARYSE DILMATENBURG Fungal infection of nail B35.1 ; Pain in right toe(s) M79.674 ; Pain in left toe(s) M79.675 and Atherosclerosis of [place] arteries of extremities with intermittent claudication, bilateral legs I70.213 [facility] [place] [address] [place] [id number] 10/20/2024 MARYSE DILMATENBURG Fungal infection of nail B35.1 ; Pain in right toe(s) M79.674 ; Pain in left toe(s) M79.675 and Atherosclerosis of [place] arteries of extremities with intermittent claudication, bilateral legs I70.213 Assessments Encounter Date Diagnosis (ICD Code) Assessment Notes Treatment Notes Treatment Clinical Notes Section Notes 01/15/2024 Pain in right toe(s) (ICD-10 - M79.674) 01/15/2024 Fungal infection of nail (ICD-10 - B35.1) Nails 1-5 Bilateral were debrided extensively with nail nippers and emery board, reducing length and girth to pink healthy tissue with any subungual debris and necrotic tissue removed [facility] in the fall 04/07/2024 Fungal infection of nail (ICD-10 - B35.1) Nails 1-5 Bilateral were debrided extensively with nail nippers and emery board, reducing length and girth to pink healthy tissue with any subungual debris and necrotic tissue removed 06/09/2024 Fungal infection of nail (ICD-10 - B35.1) Nails 1-5 Bilateral were debrided extensively with nail nippers and emery board, reducing length and girth to pink healthy tissue with any subungual debris and necrotic tissue removed 08/11/2024 Fungal infection of nail (ICD-10 - B35.1) Nails 1-5 Bilateral were debrided extensively with nail nippers and emery board, reducing length and girth to pink healthy tissue with any subungual debris and necrotic tissue removed 10/20/2024 Fungal infection of nail (ICD-10 - B35.1) Nails 1-5 Bilateral were debrided extensively with nail nippers and emery board, reducing length and girth to pink healthy tissue with any subungual debris and necrotic tissue removed 10/20/2024 Pain in right toe(s) (ICD-10 - M79.674) 08/11/2024 Pain in right toe(s) (ICD-10 - M79.674) 06/09/2024 Pain in right toe(s) (ICD-10 - M79.674) 04/07/2024 Pain in right toe(s) (ICD-10 - M79.674) 01/15/2024 Pain in left toe(s) (ICD-10 - M79.675) 04/07/2024 Pain in left toe(s) (ICD-10 - M79.675) 06/09/2024 Pain in left toe(s) (ICD-10 - M79.675) 08/11/2024 Pain in left toe(s) (ICD-10 - M79.675) 10/20/2024 Pain in left toe(s) (ICD-10 - M79.675) 01/15/2024 Atherosclerosis of [place] arteries of extremities with intermittent claudication, bilateral legs (ICD-10 - I70.213) 10/20/2024 Atherosclerosis of [place] arteries of extremities with intermittent claudication, bilateral legs (ICD-10 - I70.213) 08/11/2024 Atherosclerosis of [place] arteries of extremities with intermittent claudication, bilateral legs (ICD-10 - I70.213) 06/09/2024 Atherosclerosis of [place] arteries of extremities with intermittent claudication, bilateral legs (ICD-10 - I70.213) 04/07/2024 Atherosclerosis of [place] arteries of extremities with intermittent claudication, bilateral legs (ICD-10 - I70.213) Plan Of Treatment Next Appt Details Provider Name:MARYSE ROTHMAN, 12/22/2024 08:10:00 AM, [address], [place], [place], [id number], Insurance Providers Payer Name Payer Address Payer Phone Subscriber Number Group Number Insured Name Patient Relationship to Insured Coverage Start Date Coverage End Date Medicare Part B [place] [address] [place] [address] [id number] [place] Self - patient is the insured [employer] Medicare Supplementa l Benefit Plans [id number] [address] [address] [place], [place] [id number] [place] Self - patient is the insured 7 Medical (General) History Medical History History ICD Code acid reflux Arthritis Thyroid Disease varicose veins Surgical History Surgery Date(Month/Year) Shoulder surgery Left wrist
--- OUTSIDE RECORDS SUMMARY | 2024-12-14 07:45 | XMS_ITS ---
Author Organization [facility] Address [address] [place] [address] Care Team Providers Care Unhairing Machine Operator Name Role Phone Ander Leblanc MD Primary Care Provider [phone] Dickson Johnson MD Unavailable Luis Nicholson MD Unavailable [phone] Christine Taylor MD Unavailable [phone] Active Problems Problem Noted Date Diagnosed Date Lichen planus of tongue 05/31/2024 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, unspecified lymph node region 05/31/2024 Cancer with unknown primary site 05/12/2024 Otalgia 06/19/2022 Age-related osteoporosis wit hout current pathological fracture 02/26/2021 GERD (gastroesophageal reflux disease) 0 Hypothyroidism 07/26/2020 Closed fracture of left distal radius 07/24/2020 Overview (07/24/2020): Added automatically from request for surgery [id number] Closed fracture of left shoulder 07/23/2020 Overview (07/23/2020): Added automatically from request for surgery [id number] Abnormal chest x-ray 06/25/2020 History of 2019 [...]
--- OUTSIDE RECORDS SUMMARY | 2024-12-14 07:45 | XMS_ITS | Encounter Summary ---
Author Organization [facility] Address [address] [place] [address] Care Team Providers Care Black And White Printer Operator Name Role Phone Tonja Barfield MD Primary Care Provider [phone] Ander Leblanc MD Primary Care Provider [phone] Encounter Details Date Type Department Care Team (Late st Contact Info) Description 04/23/2018 Lab Requisition [facility] Care DermPath Lab [address] [facility], [place] [address] Gasper Villeda [place] [address] Social History Tobacco Use Types [...] AM CDT) Case Report Dermatopathology Report Case: [id number] Authorizing Provider: Gasper Villeda MD Collected: 04/22/2018 12:00 AM Pathologist: Glory Jean MD Received: 04/23/2018 12:23 PM Specimens: A) - Skin, right medial calf B) - Skin, right lower leg 1:42 PM [facility] Final Diagnosis Specimen A. 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 Jar 0. 1:42 PM [facility] Microscopic Description Specimen A. SKIN, [...] characteristic determined by the Dermatopathology Laboratory at [facility]. These tests need not be, and therefore are not, approved by the [place] Food and Drug Administration. The tests are used for clinical purposes. Billing Codes Specimen Charges Stain Charges 50931 42054 1 1 23890 87125 1 1 8 1:42 PM [facility]T DERMATOPATHOLOGY LABORATORY Embedded Images 1:42 PM CDT DERMATOPATHOLOGY LABORATORY Pathology/Cytology TISSUE SPECIMEN FROM SKIN / Unknown 04/22/2018 04/23/2018 12:23 PM CDT Miscellaneous samples (specimen) TISSUE SPECIMEN FROM SKIN / Unknown 04/22/2018 04/23/2018 12:23 PM CDT Gasper Villeda MD LAB - PATHOLOGY/CYTO LOGY ORDERABLES DERMATOPATHOLOGY LABORATORY [facility] - Department of Dermatology [address] [place] [address], 5th Floor Lab [address] [phone] documented in this encounter Visit Diagnoses Not on filedocumented in this encounter Care Teams Black And White Printer Operator Relationship Specialty Start Date End Date Tonja Barfield MD [address] [place] [address]. [address] [place] [address] PCP - General 04/23/18 01/21/23 Ander Leblanc MD [address] [place] [address] PCP - General 01/22/23 documented as of this encounter
--- OUTSIDE RECORDS SUMMARY | 2024-12-14 07:45 | XMS_ITS | Encounter Summary ---
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 The histologic differential diagnosis includes an oral lichenoid drug reaction and oral contact hypersensitivity reaction. Clinical correlation is necessary for full interpretation. 04/14/2024 9:11 AM T [facility] PATHOLOGY LAB Microscopic Description and [...] LAB Clinical History 04/14/2024 9:11 AM T [facility] PATHOLOGY LAB Materials Received Received are 2 slide(s) labeled [id number] along with a copy of the outside pathology report. The materials originate from [employer]* [address] [place] [address]. All original materials are returned to the referring institution, along with a copy of our final report. 04/14/2024 9:11 AM T [facility] PATHOLOGY LAB Pathologist Location at [facility] 04/14/2024 9:11 AM CDT U PATHOLOGY LAB Case Report Surgical Pathology Report Case: [id number] Authorizing Provider: Rex Saucedo MD Collected: 04/13/2024 02:36 PM Ordering Location: [facility] - Received: 04/13/2024 02:36 PM Pathology Lab Pathologist: Omid Ulloa MD Specimen: Slide Consultation 04/14/2024 9:11 AM CDT U PATHOLOGY LAB Embedded Images 04/14/2024 9:11 AM CDT [facility] PATH[facility] LAB Pathology/Cytolo gy SURGICAL PATHOLOGY CONSULTATION AND REPORT ON REFERRED SLIDES PREPARED ELSEWHERE / Unknown 04/13/2024 2:36 PM CDT 04/13/2024 2:36 PM CDT Rex Saucedo MD LAB - PATHOLOGY/CYTO LOGY ORDERABLES [facility] PATHOLOG[facility] LAB [address] [place] [address] documented in this encounter Visit Diagnoses Diagnosis Illness, unspecified documented in this encounter Care Teams Certified Credit Counselor Relationship Specialty Start Date End Date Ander Leblanc MD [address] [place] [address] PCP - General 01/22/23 documented as of this encounter
--- OUTSIDE RECORDS SUMMARY | 2024-12-14 07:45 | XMS_ITS | Encounter Summary ---
Author Organization [facility] Address [address] [place] [address] Phone Care Team Providers Care Ham Pumper Name Role Phone Ander Leblanc MD Primary Care Provider [phone] Dickson Johnson MD Unavailable [phone] Edel Rodriguez MD PhD Unavailable [phone] Luis Nicholson MD Unavailable [phone] Christine Taylor MD Unavailable [phone] Encounter Details Date Type Department Care Team [...] on file Legal Sex Female 3:10 AM HOGSHEAD MAT INSPECTOR Gender Identity Female 08/07/2020 10:58 AM HOGSHEAD MAT INSPECTOR Sexual Orientation Not on file Occupation Industry [...] on filedocumented in this encounter Care Teams Ham Pumper Relationship Specialty Start Date End Date Ander Leblanc MD [address] [place] [address] PCP - General Internal Medicine 02/28/22 Dickson Johnson MD [address] [place] [address] Medical Oncologist Hematology 05/06/24 Edel Rodriguez MD PhD [address] [facility], [facility] [address] [place] [address] Medical Oncologist/Product Scientist Medical Oncology 05/06/24 05/11/24 Luis Nicholson MD [address] [place] [address] Medical Oncology 05/12/24 Christine Taylor MD [address] [place] [address] Referring Physician Dermatology 05/31/24 documented as of this encounter
--- OUTSIDE RECORDS SUMMARY | 2024-12-14 07:45 | XMS_ITS | Clinical Summary ---
Author Organization [facility] Address [address] [place] [address] Phone Care Team Providers Care Quality Systems Technician Name Role Phone Hector Johnson MD Primary Care Provider [phone] Allergies Active Allergy Reactions Criticality Noted Date [...] tablet Take 75 mcg by mouth daily ordnance equipment worker. Active gabapentin (NEURONTIN) 300 mg capsule Take [...] Discontinued Insurance MEDICARE PART A [facility] B [facility] PART A AND B [facility] SUPP Care Teams Quality Systems Technician Relationship Specialty Start Date End Date Hector Johnson MD [address] [facility] [address] [facility] [address] [place] [address] PCP - General Family Practice 03/14/19
--- OUTSIDE RECORDS SUMMARY | 2024-12-14 07:45 | XMS_ITS | Clinical Summary ---
Author Organization [facility] Address [address] [place] [address] Care Team Providers Care Bar Roller Name Role Phone Ander Leblanc MD Primary Care Provider [phone] Dickson Johnson MD Unavailable [phone] Luis Nicholson MD Unavailable [phone] Christine Taylor MD Unavailable [phone] Allergies Active Allergy Reactions Criticality Noted Date Comments Clindamycin Unknown 09/21/2014 Zomepirac Palpitations Low 09/21/1979 Medications cholecalciferol (VITAMIN D-3) 5,000 unit tablet Take 1 tablet (5,000 Units total) by mouth daily Active escitalopram (LEXAPRO) 10 mg tablet Take 1 tablet (10 mg total) by mouth every morning 0 Active levothyroxine (SYNTHROID) 75 mcg tablet Take 1 tablet (75 mcg total) by mouth bottle sorter before breakfast 0 Active montelukast (SINGULAIR) 10 mg tablet Take 1 tablet (10 mg total) by mouth nightly 0 Active omeprazole (PriLOSEC) 40 mg capsule 1 capsule (40 mg total) every morning 0 Active ualphqkc-toik-e ollag-hyalur ac [id number] mg capsule Take by mouth every morning [...] (07/24/2020): Added automatically from request for surgery [id number] Closed fracture of left shoulder 07/23/2020 Overview (07/23/2020): Added automatically from request for surgery [id number] Abnormal chest x-ray 06/25/2020 History of 2019 [...] Type Department Care Team Description 10/06/[address] 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 Oncology [address] [facility] Floor 5 [place] [address] Luis Nicholson MD Cancer with unknown primary site (HCC) (Primary Dx) 09/22/2024 8:00 AM ONLINE MARKETING SPECIALIST Lab [facility] Oncology Lab [address] [facility] Floor 5 [place] [address] Cancer with unknown primary site (HCC) 09/22/2024 6:19 AM ONLINE MARKETING SPECIALIST - 09/22/2024 11:59 PM ONLINE MARKETING SPECIALIST Hospital Encounter [facility] [place] [address] [facility] [address] [place] [address] Cancer with unknown primary site (HCC) Discharge [...] on file Legal Sex Female 3:10 AM ONLINE MARKETING SPECIALIST Gender Identity Female 08/07/2020 10:58 AM ONLINE MARKETING SPECIALIST Sexual Orientation Not on file Occupation Industry Job Start Date Job End Date Retired Not on file Not on file Not on file Obstetrics History Last Filed Vital Signs Vital Sign Reading Time Taken Comments Blood Pressure 161/77 09/28/2024 8:16 AM ONLINE MARKETING SPECIALIST Pulse 75 09/28/2024 8:16 AM ONLINE MARKETING SPECIALIST Temperature 36.3 C (97.3 F) 09/22/2024 8:25 AM ONLINE MARKETING SPECIALIST Respiratory Rate 18 09/22/2024 8:25 AM ONLINE MARKETING SPECIALIST Oxygen Saturation 96% 09/28/2024 8:16 AM ONLINE MARKETING SPECIALIST Inhaled Oxygen Concentration - - Weight 85 kg (187 lb 6.4 oz) 09/28/2024 8:16 AM ONLINE MARKETING SPECIALIST Height 157.5 cm (5' 2 ) 05/31/2024 [...] history exists Medical Devices Implanted Type Area Milled Lumber Grader Device Identifier Shelf Expiration Date Model / Serial / Lot [employer]/ Ortho [id number] Evos 3.5mm 24mm Self Tap Cortex Screw Bone Sterile - [id number] Implanted:Qty: 3 on 07/27/2020 by Edgar Rojas MD at [facility] Left: Arm [employer]/Or tho [id number] / / [employer]/ Ortho [id number] 3.5mm 20mm Self Tap Cortex Screw Bone Nonsterile - [id number] Implanted:Qty: 1 on 07/27/2020 by Edgar Rojas MD at [facility] Left: Arm [employer]/Or tho [id number] / / [employer]/ Ortho [id number] Evos 3.5mm 38mm Self Tap Lock Screw Bone Sterile - [id number] Implanted:Qty: 3 on 07/27/2020 by Edgar Rojas MD at [facility] Left: Arm [employer]/Or tho [id number] / / [employer]/ Ortho [id number] Evos 3.5mm 48mm Self Tap Lock Screw Bone Sterile - [id number] Implanted:Qty: 1 on 07/27/2020 by Edgar Rojas MD at [facility] Left: Arm [employer]/Or tho [id number] / / [employer]/ Ortho [id number] Evos 3.5mm 30mm Self Tap Lock Screw Bone Sterile - [id number] Implanted:Qty: 3 on 07/27/2020 by Edgar Rojas MD at [facility] Left: Arm [employer]/Or tho [id number] / / [employer]/ Ortho [id number] Evos 3.5mm 34mm Self Tap Lock Screw Bone Sterile - [id number] Implanted:Qty: 1 on 07/27/2020 by Edgar Rojas MD at [facility] Left: Arm [employer]/Or tho [id number] / / [employer]/ Ortho [id number] Plate Bone Evos Curve L114 Mm Od3.5 Mm Humerus Left Proximal 6 Hole Sterile - [id number] Implanted:Qty: 1 on 07/27/2020 by Edgar Rojas MD at [facility] Left: Arm [employer]Rich[employer]/Or tho [id number] / / [employer] A-4750.56 Aptus Trilock 42mmx1.6mm 6 Hole Distal Radius L Right Angle Plate - [id number] Implanted:Qty: 1 on 07/30/2020 by Zhen Otero MD at [facility] Left: Radius [employer] A-4750.56 / / [employer] A-5750.12/1 Aptus Trilock 2.5mm 12mm Hexadrive 7 Adaptive Wrist Radius - [id number] Implanted:Qty: 3 on 07/30/2020 by Zhen Otero MD at [facility] [place] Left: Radius [employer] A-5750.12/1 / / [employer] A-5750.16/1 2.5mm 16mm Trilock Hexadrive Wrist Radius Screw Bone - [id number] Implanted:Qty: 1 on 07/30/2020 by Zhen Otero MD at [facility] Left: Radius [employer] A-5750.16/1 / / [employer] A-5700.13/1 Aptus 2.5mm 13mm Hexadrive 7 Wrist Cortical Screw Bone Titanium - [id number] Implanted:Qty: 1 on 07/30/2020 by Zhen Otero MD at [facility] Left: Radius [employer] A-5700.13/1 / / [employer] A-4750.55 Aptus Trilock 42mmx1.6mm 6 Hole Distal Radius L Left Angle Plate - [id number] Implanted:Qty: 1 on 07/30/2020 by Zhen Otero MD at [facility] [place] Left: Radius [employer] A-4750.55 / / [employer] A-5700.14 Aptus 2.5mm 14mm Cortical Screw Bone - [id number] Implanted:Qty: 3 on 07/30/2020 by Zhen Otero MD at [facility] [place] Left: Radius [employer] A-5700.14 / / Procedures Procedure Name Priority Date/Time Associated Diagnosis Comments CT CHEST ABDOMEN PELVIS W CONTRAST Schedule GRABIEL, Read GRABIEL (Appt Today, Awaiting Results) 09/22/2024 7:13 AM ONLINE MARKETING SPECIALIST Cancer with unknown primary site (HCC) POCT CREATININE - DEVICE Routine 09/22/2024 6:36 AM ONLINE MARKETING SPECIALIST DEXA TBS AXIAL SKELETON BONE DENSITY 1 OR MORE SITES Schedule Routine, Read Routine (OP Routine) 03/30/2024 9:31 AM CDT Age-related osteoporosis without current pathological fracture from Last 3 Months or Most Recently Relevant to Health Maintenance Results * CT chest abdomen pelvis with contrast (09/22/2024 7:13 AM ONLINE MARKETING SPECIALIST) Anatomical Region Laterality Modality Body N/A Computed Tomogra phy 09/22/2024 7:23 AM ONLINE MARKETING SPECIALIST Impressions 09/22/2024 7:23 AM ONLINE MARKETING SPECIALIST Resolved right inguinal and left external iliac chain lymphadenopathy. No new or progressive disease identified within the chest, abdomen, or pelvis. Electronically signed by: Cornelio Jones M.D. Narrative 09/22/2024 7:23 AM ONLINE MARKETING SPECIALIST EXAMINATION: Computed tomography of the chest, abdomen [...] Result * POCT creatinine (09/22/2024 6:36 AM ONLINE MARKETING SPECIALIST) Creatinine POC 0.9 0.6 - 1.1 mg/dL Blood 09/22/2024 6:36 AM ONLINE MARKETING SPECIALIST 09/22/2024 6:36 AM ONLINE MARKETING SPECIALIST Self Referral LAB POCT ORDERABLES - DEVICE Fin al Result [facility] Department [place] [address] * Dexa TBS Axial Skeleton Bone Density 1 or more sites (03/30/2024 9:31 AM CDT) Anatomical Region Laterality Modality Wrist, Body N/A Radiographic Teresita ging Narrative 03/30/2024 10:06 AM CDT Patient Name: Geneva Urrutia Date of : 1950 Date of scan: 03/30/2024 Bone mineral density was performed on a HoloSoundTag Discovery Densitometer. Based on machine cross-calibration and [...] by the International Society of Clinical Densitometry. [id number] Tamara Pina MD IMG DXA PROCEDURES Final Resu lt from Last 3 Months or Most Recently Relevant to Health [place] [address] MEDICARE [facility] MEDICARE SUPPLEMENT INSURANCE MEDICARE [facility] MEDICARE SUPPLEMENT INSURANCE MEDICARE MEDICARE [facility] MEDICARE SUPPLEMENT INSURANCE Care Teams Bar Roller Relationship Specialty Start Date End Date Ander Leblanc MD [address] [facility] [address] [place] [address] PCP - General Internal Medicine 02/28/22 Dickson Johnson MD [address] [facility] 200 [place] [address] Medical Oncologist Hematology 05/06/24 Luis Nicholson MD [address] [facility] [address] [place] [address] Medical Oncology 05/12/24 Christine Taylor MD [address] [place] [address] Referring Physician Dermatology 05/31/24
--- OUTSIDE RECORDS SUMMARY | 2024-12-14 07:46 | XMS_ITS | Encounter Summary ---
Author Organization [facility] Address [address] [place] [address] Phone Care Team Providers Care All Source Collection Manager Name Role Phone Ander Leblanc MD Primary Care Provider [phone] Dickson Johnson MD Unavailable [phone] Edel Rodriguez MD PhD Unavailable [phone] Luis Nicholson MD Unavailable [phone] Christine Taylor MD Unavailable [phone] Encounter Details Date Type Department Care Team [...] file Legal Sex Female 3:10 AM RETAIL AND PROMOTIONS COORDINATOR Gender Identity Female 08/07/2020 10:58 AM RETAIL AND PROMOTIONS COORDINATOR Sexual Orientation Not on file Occupation Industry [...] on filedocumented in this encounter Care Teams All Source Collection Manager Relationship Specialty Start Date End Date Ander Leblanc MD [address] [place] [address] PCP - General Internal Medicine 02/28/22 Dickson Johnson MD [address] [facility] [address] [place] [address] Medical Oncologist Hematology 05/06/24 Edel Rodriguez MD PhD [address] [facility] MEDICAL ON[facility], [facility] [address]A, [address], [address] [place] [address] Medical Oncologist/Didactic Instructor Medical Oncology 05/06/24 05/11/24 Luis Nicholson MD [address] [place] [address] Medical Oncology 05/12/24 Christine Taylor MD [facility] [place] [address] Referring Physician Dermatology 05/31/24 documented as of this encounter
--- OUTSIDE RECORDS SUMMARY | 2024-12-14 07:46 | XMS_ITS | Encounter Summary ---
Author Organization [facility] Address [address] [place] [address] Phone Care Team Providers Care Commercial Construction Superintendent Name Role Phone Ander Leblanc MD Primary Care Provider [phone] Dickson Johnson MD Unavailable [phone] Edel Rodriguez MD PhD Unavailable [phone] Luis Nicholson MD Unavailable [phone] Christine Taylor MD Unavailable [phone] Encounter Details Date Type Department Care Team [...] on file Legal Sex Female 3:10 AM FEEDER LOADER Gender Identity Female 08/07/2020 10:58 AM FEEDER LOADER Sexual Orientation Not on file Occupation Industry [...] on filedocumented in this encounter Care Teams Commercial Construction Superintendent Relationship Specialty Start Date End Date Ander Leblanc MD [address] [place] [address] [place] [address] PCP - General Internal Medicine 02/28/22 Dickson Johnson MD [address] [address] [place] [address] Medical Oncologist Hematology 05/06/24 Edel Rodriguez MD PhD [address] [facility] MEDICAL ON[facility], [facility] 7A, 7B, [address] [place] [address] Medical Oncologist/Furnace Operator [employer] Medical Oncology 05/06/24 05/11/24 Luis Nicholson MD [address] [place] [address] Medical Oncology 05/12/24 Christine Taylor MD [address] [place] [address] Referring Physician Dermatology 05/31/24 documented as of this encounter
--- OUTSIDE RECORDS SUMMARY | 2024-12-14 07:46 | XMS_ITS | Clinical Summary ---
Author Organization [facility] Address [address] [facility] [place] [address] Care Team Providers Care Overlocker Name Role Phone Ander Leblanc MD Primary Care Provider [phone] Source Comments [facility],non-[facility] hospital Affiliates and Associated Physician Practices is amultiple site organization consisting of ambulatory clinics and hospital sitesin [place], [place], [place] and [place]. This disclosure is being madepursuant to the Care Everywhere program and may not contain all information available regarding this patient. Last updated 18.[facility] Allergies Active Allergy Reactions Criticality Noted Date [...] age to complete this topic Care Teams Overlocker Relationship Specialty Start Date End Date Ander Leblanc MD [address] [place] [address] PCP - General 01/22/23
--- OUTSIDE RECORDS SUMMARY | 2024-12-14 07:46 | XMS_ITS | Encounter Summary ---
Author Organization [facility] Address [address] [place] [address] Phone Care Team Providers Care Master Tax Advisor Name Role Phone Ander Leblanc MD Primary Care Provider [phone] Dickson Johnson MD Unavailable [phone] Luis Nicholson MD Unavailable [phone] Christine Taylor MD Unavailable [phone] Encounter Details Date Type Department Care Team [...] on file Legal Sex Female 3:10 AM CLOTHING MAN Gender Identity Female 08/07/2020 10:58 AM CLOTHING MAN Sexual Orientation Not on file Occupation Industry [...] on filedocumented in this encounter Care Teams Master Tax Advisor Relationship Specialty Start Date End Date Ander Leblanc MD [address] [facility] [address] [place] [address] PCP - General Internal Medicine 02/28/22 Dickson Johnson MD [address] [facility] [address] [place] [address] Medical Oncologist Hematology 05/06/24 Luis Nicholson MD [address] [place] [address] Medical Oncology 05/12/24 Christine Taylor MD [address] [place] [address] Referring Physician Dermatology 05/31/24 documented as of this encounter
[2024-12-14 08:14] LABS: Hemoglobin A1C 5.6 % (<5.7)
[2024-12-14 08:18] LABS: Alanine Aminotransferase 24 U/L (6-35); Albumin Level 4.5 g/dL (3.5-5.1); Alkaline Phosphatase 57 U/L (38-126); Anion Gap 7 mmol/L (4-12); Aspartate Amino Transferase 24 U/L (14-36); Bilirubin,Total 0.5 mg/dL (0.2-1.3); Blood Urea Nitrogen 23 mg/dL (7-17); Calcium 9.2 mg/dL (8.4-10.2); Carbon Dioxide 28 mmol/L (22-30); Chloride 101 mmol/L (98-107); Cholesterol 136 mg/dL (0-200); Estimated Glomerular Filt Rate > 60; Glucose 115 mg/dL (65-110); HDL Direct 75 mg/dL; Potassium 4.3 mmol/L (3.4-5.0); Sodium 136 mmol/L (137-145); Triglycerides 52 mg/dL (<150)
[2024-12-14 08:29] LABS: LDL Cholesterol Direct 38 mg/dL
[2024-12-14 08:37] LABS: Free T4 Free Thyroxine 1.18 ng/dL (0.78-2.19)
== END 2024-12-14 07:42 | disposition home or self-care (01) ==
LOC: ANHLAB 07:42
PROVIDERS: PCP Internal Medicine; Visit Provider Internal Medicine
DX: E03.9 Hypothyroidism, unspecified (principal); Z79.899 Other long term (current) drug therapy; Z13.220 Encounter for screening for lipoid disorders; Z13.1 Encounter for screening for diabetes mellitus
CPT/HCPCS: 36415; 80053; 80061; 83036; 84439; 84443

== ENCOUNTER 2024-12-24 11:04 | Outpatient (CLI) | payer MEDICARE, SELFPAY ==
--- OUTSIDE RECORDS SUMMARY | 2024-12-24 11:09 | XMS_ITS | Continuity of Care Document ---
Author Organization [facility] Address [address] [facility] [address] [place] [address] Phone Care Team Providers Care Peanut Roaster Name Role Phone Homero ARIAS, Kenn Unavailable [...] Allergy and Immunology , [address] [address], [place], [address], tel:[phone] [facility] Allergy Immunology No Information 8 Homero Hamsa. [address], [place], [place], [address]. tel:[phone] OFFICE/OUTPA TIENT VISIT EST [facility] , [address] [facility] [address], [place], [place], [facility], [place] tel:[phone] [facility] allergy evaluation (chief complaint) Chronic pansinusitisLo w immunoglobulin levelAllergic fungal sinusitisUnspe cified mycosis 8 Homero Hamsa. [address] [facility] [address], [place], [place], [address]. tel:[phone] OFFICE/OUTPA TIENT VISIT EST [facility] , [address] [facility] [address], [place], [address], tel:[phone] [facility] allergy evaluation (chief complaint) Low immunoglobulin levelChronic pansinusitisFr equent sinus infectionsEnco unter for immunization 8 Homero Hamsa. [address], [place], [place], [address]. tel:[phone] OFFICE/OUTPA TIENT VISIT NEW [facility] Allergy and Immunology , [address] [facility] [address], [place], [address], [place] tel:[phone] [facility] Allergy Immunology allergy evaluation (chief complaint) Chronic pansinusitisFr equent sinus infectionsReac tive airways dysfunction syndrome 8 Homero Hamsa. [address], [place], [place], [address]. tel:[phone] Family History Family Member Type Diagnosis Age [...] lexi Payers Payer name Insurance type Covered constitution party ID Palak dahl(s) [employer] [id number] Social History Type Description Quantity Date Captured [...] slightly better she plans to travel to [place] soonlast IgG was low at 639 , [...] a lot and was told by her mononitrotoluene operator to use gold castro with menthol her [...]
--- OUTSIDE RECORDS SUMMARY | 2024-12-24 11:09 | XMS_ITS | Encounter Summary ---
Author Organization [facility] Address [address] [place] [address] Care Team Providers Care Fast Food Server Name Role Phone Ander Leblanc MD Primary Care Provider [phone] Encounter Details Date Type Department Care Team (Late st Contact Info) Description 04/08/2024 Lab Requisition [facility] - Pathology Lab [address] [place] [address] Chavez Paige MD [address] [facility] [address] [place] [address] Enlarged lymph nodes, unspecified Social History [...] AM CDT) Case Report Flow Cytometry Case: [id number] Authorizing Provider: Chavez Paige Collected: 04/08/2024 09:30 AM MD [place] Ordering Location: [facility] - Received: 04/08/2024 03:15 PM Pathology Lab Pathologist: Lisa Montgomery MD Specimen: Lymph Node, RIGHT INGUINAL 04/11/2024 11:04 AM [facility] Final Diagnosis Lymph node, right inguinal, flow cytometry: - Low-viability specimen with no significant lymphocyte population detected 04/11/2024 11:04 AM [facility] Flow Cytometry Interpretation Viability: 15% B-cells: no significant population T-cells: no significant population Blasts: not detected A cytospin prepared from the flow cytometry specimen has been reviewed for business quality assurance analyst purposes. 04/11/2024 11:04 AM [facility] Flow Cytometry Results Differential Result Comment Flow Cell Count /uL 1,640 Total Viability % 15.0 Lymphocytes % 51 Dim CD45 Region % 4 Monocytes % 7 Granulocytes % 38 04/11/2024 11:04 AM [facility] Reason for test Enlarged lymph nodes, unspecified 04/11/2024 11:04 AM [facility] Client Specimen ID # [id number] 04/11/2024 11:04 AM [facility] Number of markers 16 were performed. A-2 Flow CD10 A-4 Flow CD20 A-5 Flow CD23 A-10 Flow CD2 A-11 Flow CD3 A-12 Flow CD4 A-16 Flow CD1a A-3 Flow CD19 A-6 Flow CD34 A-7 Flow CD45 A-13 Flow CD5 A-14 Flow CD7 A-15 Flow CD8 A-17 Flow CD30 A-8 [place]+CD19+ A-9 Lambda+CD19+ 04/11/2024 11:04 AM [facility] Pathologist Location at [facility] 04/11/2024 11:04 AM [facility] Disclaimer Test performed at [facility], [address] [place] [address], [address]. *The established laboratory minimum viability is 70%. [...] complexity clinical testing. 04/11/2024 11:04 AM CDT [facility] Embedded Images 11:04 AM CDT [facility] Pathology/Cytolo gy ENTIRE LYMPH NODE / Unknown 04/08/2024 9:30 AM CDT 04/08/2024 3:15 PM CDT Chavez Paige MD LAB - PATHO LOGY/CYTOLOGY ORDERABLES Performing Organization Address City/State/[facility] Co de Phone Number [facility] [address] [phone] documented in this encounter Visit Diagnoses Diagnosis Enlarged lymph nodes, unspecified documented in this encounter Care Teams Fast Food Server Relationship Specialty Start Date End Date Ander Leblanc MD [address] [place] [address] PCP - General 01/22/23 documented as of this encounter
--- OUTSIDE RECORDS SUMMARY | 2024-12-24 11:09 | XMS_ITS | Encounter Summary ---
Author Organization [facility] Address [address] [place] [address] Care Team Providers Care Supervisor Ship Maintenance Services Name Role Phone Tonja Barfield MD Primary Care Provider [phone] Ander Leblanc MD Primary Care Provider [phone] Encounter Details Date Type Department Care Team (Late st Contact Info) Description 04/23/[address] [facility] Care DermPath Lab [address] [facility], [place] [phone] Gasper [place]illed[place] [address] Social History Tobacco Use Types [...] AM CDT) Case Report Dermatopathology Report Case: [id number] Authorizing Provider: Gasper Villeda MD Collected: 04/22/2018 12:00 AM Pathologist: Glory Jean MD Received: 04/23/2018 12:23 PM Specimens: A) - Skin, right medial calf B) - Skin, right lower leg 1:[address] [facility] DERMATOPATHOLOGY [facility]ORATORY Final Diagnosis Specimen A. 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 DERMATOPATHOLOGY [facility]ORATORY Clinical History A: R/O Bite vs eczema vs tinea vs bria keratosis B: R/O Vasculitis 1:[address] [facility] DERMATOPATHOLOGY [facility]ORATORY Gross Description Specimen A: Received [...] measuring 4x4x5 mm. Jar 0. 1:[address] [facility] DERMATOPATHOLOGY [facility]ORATORY Microscopic Description Specimen A. SKIN, [...] characteristic determined by the Dermatopathology Laboratory at [facility]. These tests need not be, and therefore are not, approved by the [place] Food and Drug Administration. The tests are used for clinical purposes. Billing Codes Specimen Charges Stain Charges 08947 86213 1 1 91771 52737 1 1 8 1:42 PM CDT DERMATOPATHOLOGY LABORATORY Embedded Images 1:42 PM CDT DERMATOPATHOLOGY LABORATORY Pathology/Cytology TISSUE SPECIMEN FROM SKIN / Unknown 04/22/2018 04/23/2018 12:23 PM CDT Miscellaneous samples (specimen) TISSUE SPECIMEN FROM SKIN / Unknown 04/22/2018 04/23/2018 12:23 PM CDT Gasper Villeda MD LAB - PATHOLOGY/CYTO LOGY ORDERABLES DERMATOPATHOLOGY LABORATORY [facility] - Department of Dermatology [address] [place] [address], 5th Floor Lab [address] [phone] documented in this encounter Visit Diagnoses Not on filedocumented in this encounter Care Teams Supervisor Ship Maintenance Services Relationship Specialty Start Date End Date Tonja Barfield MD [address] [place] [address]. [address] [place] [address] PCP - General 04/23/18 01/21/23 Ander Leblanc MD [address] [place] [address] PCP - General 01/22/23 documented as of this encounter
--- OUTSIDE RECORDS SUMMARY | 2024-12-24 11:09 | XMS_ITS ---
Author Organization [facility] Address [address] [facility] [address] [place], [place] [address] Care Team Providers Care Millinery Teacher Name Role Phone MARYSE SALDAÑA Unavailable [phone] Ander Leblanc Unavailable Unavailable Allergies No Known Allergies REASON FOR VISIT *General care Medications Medication SIG (Take, Route, Fr equency, Duration) Notes Start Date End Date Status Ciclopirox 8 % 1 application Financial Services Sales Representative ally Once a day for 90 days 04/07/2024 04/02/2025 Active Social History Tobacco Use: Social History Observation Description Date Details (start date - stop date) Former Smoker NA - NA Tobacco Use/Smoking Question Answer Notes Tobacco use: former smoker Encounters Encounter Location Date Provider Diagnosis [facility] [address] [place], [place] [phone] 10/20/2024 MARYSE SALDAÑA Fungal infection of nail B35.1 ; Pain in right toe(s) M79.674 ; Pain in left toe(s) M79.675 and Atherosclerosis of [place] arteries of extremities with intermittent claudication, bilateral [...] toe(s) (ICD-10 - M79.675) 10/20/2024 Atherosclerosis of [place] arteries of extremities with intermittent claudication, bilateral legs (ICD-10 - I70.213) Plan Of Treatment Treatment Notes Assessment Notes Fungal infection of nail Nails 1-5 Bilat eral were debrided extensively with nail nippers and emery board, reducing length and girth to pink healthy tissue with any subungual debris and necrotic tissue removed Next Appt Details Follow Up: 9 weeks, Reason: Provider Name:MARYSE ROTHMAN, 02/23/2025 08:20:00 AM, [address], [address], [phone], Progress Notes * Renetta URRUTIAceDOB:[birth year] (74 yo F)Acc No.[id number]:10/20/2024 Patient: Geneva FRANCO Provider: Filomena Saldaña DPM :1950 A ge:74 Y S ex:Female Date:10/20/2024 Address:[address] [place], [place] [phone] Subjective: * Chief Complaints: * * General [...] - M79.675 4 . A therosclerosis of [place] arteries of extremities with intermittent claudication, bilateral legs - I70.213 ? Plan: * Treatment: * Procedure Codes: 1 1721 DEBRIDE NAIL, 6 OR MORE, Modifiers: Q8 * Follow Up: 9 weeks * Billing Information: * Visit Code: * Procedure Codes: 79008 DEBRIDE NAIL, 6 OR MORE. Modifiers: Q8 * SFER MACHINE OPERATOR Sign off status: Completed true * Provider: Filomena Saldaña DPM Date: 0 10/20/2024 Generated for Yazmin mayer/Geovanni/Miesha on: 0 12/24/2024 11:09 AM CDT History and Physical Notes * [...]
--- OUTSIDE RECORDS SUMMARY | 2024-12-24 11:09 | XMS_ITS | Patient Health Record ---
Author Organization [facility] Address [address] [place], [place] [address] Care Team Providers Care Micrographics Services Supervisor Name Role Phone MARYSE RIVERA Unavailable [phone] Ander Leblanc Unavailable Unavailable Allergies No Known Allergies Reason For Referral No Information Medications Medication SIG (Take, Route, Frequency, Duration) Notes Start Date End Date Status Levothyroxine Sodium 75 MCG TAKE 1 TABLET BY MOUTH DAILY Oral for 90 Days Active Penicillin V Potassium 500 MG Oral for 7 Days Active Amoxicillin-Pot Clavulanate 875-125 MG Oral for 7 Days Ac tive Omeprazole 40 MG Oral for 90 Days Active Fluocinolone Acetonide 0.025 % APPLY TOPICALLY TO THE AFFECTED AREA TWICE DAILY External for 7 Days Active Escitalopram Oxalate 10 MG Oral for 90 Days Active Montelukast Sodium 10 MG TAKE 1 TABLET B Y MOUTH EVERY NIGHT AT BEDTIME Oral for 90 Days Active Montelukast Sodium 10 MG Oral for 90 Days Active Meloxicam 15 MG Oral for 90 Days Active Tacrolimus 1 MG Oral for 30 Days Active Gabapentin 300 MG Oral for 30 Days Active Levothyroxine Sodium 75 MCG Oral for 90 Days Active Gabapentin 300 MG Oral for 30 Days Active Escitalopram Oxalate 10 MG TAKE 1 TABLET BY MOUTH DAILY Oral for 90 Days Active Ciclopirox 8 % 1 application Reinforcing Iron Worker Helper ally Once a day for 90 days 04/07/2024 04/02/2025 Active Omeprazole 40 MG TAKE 1 CAPSULE BY MO UTH DAILY Oral for 90 Days Active Immunizations Vaccine Route Administration Date Status Comme nts Influenza, unspecified formulation Unknown 06/24/2023 A dministered Social History Tobacco Use: Social History Observation Description Date Details (start date - stop date) Former Smoker NA - NA Tobacco Use/Smoking Question Answer Notes Tobacco use: former smoker Vital Signs Height-cm 157.48 cm 12/22/2024 Weight-kg 82.1 kg 12/22/2024 Height 62 in 12/22/2024 Weight 181 lbs 12/22/2024 BMI 33.1 kg/m2 12/22/2024 Encounters Encounter Location Date Provider Diagnosis [facility] [address] [place] [id number] 12/22/2024 MARYSE [place] Fungal infection of nail B35.1 ; Pain in right toe(s) M79.674 ; Pain in left toe(s) M79.675 and Atherosclerosis of [place] arteries of extremities with intermittent claudication, bilateral legs I70.213 [facility] July [address] [place] [id number] 01/15/2024 MARYES [place] Fungal infection of nail B35.1 ; Pain in right toe(s) M79.674 ; Pain in left toe(s) M79.675 and Atherosclerosis of [place] arteries of extremities with intermittent claudication, bilateral legs I70.213 [facility] July [address] [place] [id number] 04/07/2024 MARYSE [place] Fungal infection of nail B35.1 ; Pain in right toe(s) M79.674 ; Pain in left toe(s) M79.675 and Atherosclerosis of [place] arteries of extremities with intermittent claudication, bilateral legs I70.213 [facility] July [address] [place] [id number] 06/09/2024 MARYSE [place] Fungal infection of nail B35.1 ; Pain in right toe(s) M79.674 ; Pain in left toe(s) M79.675 and Atherosclerosis of [place] arteries of extremities with intermittent claudication, bilateral legs I70.213 [facility] July [address] [place] [id number] 08/11/2024 MARYSE [place] Fungal infection of nail B35.1 ; Pain in right toe(s) M79.674 ; Pain in left toe(s) M79.675 and Atherosclerosis of [place] arteries of extremities with intermittent claudication, bilateral legs I70.213 [facility] July [address] [place] [id number] 10/20/2024 MARYSE IRELANDSTEPHAN Fungal infection of nail B35.1 ; Pain in right toe(s) M79.674 ; Pain in left toe(s) M79.675 and Atherosclerosis of [place] arteries of extremities with intermittent claudication, bilateral [...] subungual debris and necrotic tissue removed [facility] in the fall 04/07/2024 Fungal infection of [...] any subungual debris and necrotic tissue removed 12/22/2024 Fungal infection of nail (ICD-10 - B35.1) Nails 1-5 Bilateral were debrided extensively with nail nippers and emery board, reducing length and girth to pink healthy tissue with any subungual debris and necrotic tissue removed 12/22/2024 Pain in right toe(s) (ICD-10 - M79.674) 10/20/2024 Pain in right toe(s) (ICD-10 - [...] Pain in left toe(s) (ICD-10 - M79.675) 12/22/2024 Pain in left toe(s) (ICD-10 - M79.675) 01/15/2024 Atherosclerosis of [place] arteries of extremities with intermittent claudication, bilateral legs (ICD-10 - I70.213) 12/22/2024 Atherosclerosis of [place] arteries of extremities with intermittent claudication, bilateral legs (ICD-10 - I70.213) 10/20/2024 Atherosclerosis of [place] arteries of extremities with intermittent claudication, bilateral legs (ICD-10 - I70.213) 08/11/2024 Atherosclerosis of [place] arteries of extremities with intermittent claudication, bilateral legs (ICD-10 - I70.213) 06/09/2024 Atherosclerosis of [place] arteries of extremities with intermittent claudication, bilateral legs (ICD-10 - I70.213) 04/07/2024 Atherosclerosis of [place] arteries of extremities with intermittent claudication, bilateral legs (ICD-10 - I70.213) Plan Of Treatment Next Appt Details Provider Name:MARYSE ROTHMAN, 02/23/2025 08:20:00 AM, [address], [place], [place], [id number], Insurance Providers Payer Name Payer Address Payer Phone Subscriber Number Group Number Insured Name Patient Relationship to Insured Coverage Start Date Coverage End Date Medicare Part B [facility] [address] [place] [address] [id number] Geneva Urrutia Self - patient is the insured [employer] Medicare Supplementa l Benefit Plans [address] [address] [address] [place], [place] [phone] [id number] Geneva Urrutia Self - patient is the insured 7 Medical (General) History Medical History History ICD Code acid reflux Arthritis Thyroid Disease varicose veins Surgical History Surgery Date(Month/Year) Shoulder surgery Left wrist
--- OUTSIDE RECORDS SUMMARY | 2024-12-24 11:09 | XMS_ITS | Encounter Summary ---
Author Organization [facility] Address [address] [facility] [place] [address] Care Team Providers Care Golf Sales Manager Name Role Phone Tonja Barfield MD Primary Care Provider [phone] Ander Leblanc MD Primary Care Provider [phone] Encounter Details Date Type Department Care Team (Late st Contact Info) Description 04/23/2018 Lab Requisition [facility] Care DermPath Lab [address] [facility], [place] [phone] Gasper [place] [address] Social History Tobacco Use Types [...] CDT) Case Report Dermatopathol ogy Report Case: [id number] Authorizing Provider: Gasper Villeda MD Collected: 04/22/2018 12:00 AM Pathologist: Glory Jean MD Received: 04/23/2018 12:24 PM Specimen: Skin, right lower leg 1:50 PM CDT DERMATOPATHOLOGY LABORATORY Final Diagnosis Specimen A. SKIN, right lower leg: FOCAL VASCULAR C3 (M31.0) COLLOID BODIES (L98.9) (see microscopic description and comment) (see fixed tissue results, [id number]) 1:50 PM CDT DERMATOPATHOLOGY LABORATORY Direct Immunofluorescence [...] by the Dermatopathol ogy Laboratory at [facility]. These tests need not be, and therefore are not, approved by the [place] Food and Drug Administratio n. The tests are used for clinical purposes. Billing Codes Specimen Charges Stain Charges 16238 72877 21790 45626 57244 95340 1 1 1 1 1 1 8 1:50 PM CDT DERMATOPATHOLOGY LABORATORY Embedded Images 8 1:50 PM CDT DERMATOPATHOLOGY LABORATORY Pathology/Cytolog y TISSUE SPECIMEN FROM SKIN / Unknown 04/22/2018 04/23/2018 12:24 PM CDT Gasper Villeda MD LAB - PATHOLOGY/CYTO LOGY ORDERABLES DERMATOPATHOLOGY LABORATORY [facility] - Department of Dermatology [address] [place] [address] [address] [phone] documented in this encounter Visit Diagnoses Not on filedocumented in this encounter Care Teams Golf Sales Manager Relationship Specialty Start Date End Date Tonja Barfield MD [address] [place] [address] [address] [place] [address] PCP - General 04/23/18 01/21/23 Ander Leblanc MD [address] [place] [address] PCP - General 01/22/23 documented as of this encounter
--- OUTSIDE RECORDS SUMMARY | 2024-12-24 11:09 | XMS_ITS | Encounter Summary ---
Author Organization [facility] Address [address] [place] [address] Care Team Providers Care Main Galley Scullion Name Role Phone Hector Johnson MD Primary Care Provider Ander Leblanc MD Primary Care Provider [phone] Dickson Johnson MD Unavailable [phone] Edel Rodriguez MD PhD Unavailable [phone] Luis Nicholson MD Unavailable [phone] Christine Taylor MD Unavailable [phone] Encounter Details Date Type Department Care Team (Late st Contact Info) Description 09/18/2021 Telephone [facility] [address] [place], [place] [phone] Sonido Triplett MD [address] [place] [address] Social History Tobacco Use Types Packs/Day Years [...] on file Legal Sex Female 3:10 AM CEO AND PRESIDENT Gender Identity Female 08/07/2020 10:58 AM CEO AND PRESIDENT Sexual Orientation Not on file documented as of this encounter Plan of Treatment Not on file documented as of this encounter Visit Diagnoses Not on filedocumented in this encounter Care Teams Main Galley Scullion Relationship Specialty Start Date End Date Hector Johnson MD [address] [place] [address] PCP - General Family Medicine 07/23/20 02/27/22 Ander Leblanc MD [address] [place] [address] PCP - General Internal Medicine 02/28/22 Dickson Johnson MD [address] [facility] [address] [place] [phone] Medical Oncologist Hematology 05/06/24 Edel Rodriguez MD PhD [address] [facility], [facility] [address], [address], [address] [place] [address] Medical Oncologist/Loading Inspector Medical Oncology 05/06/24 05/11/24 Luis Nicholson MD [address] [place] [address] Medical Oncology 05/12/24 Christine Taylor MD [address] [place] [address] Referring Physician Dermatology 05/31/24 documented as of this encounter
--- OUTSIDE RECORDS SUMMARY | 2024-12-24 11:09 | XMS_ITS | Encounter Summary ---
Author Organization [facility] Address [address] [place] [address] Care Team Providers Care Oim Consultant Name Role Phone Ander Leblanc MD Primary Care Provider [phone] Encounter Details Date Type Department Care Team (Late st Contact Info) Description 04/13/2024 Lab Requisition [facility] - Pathology Lab [address] [place] [address] Rex Saucedo MD [address] [place] [address] Illness, unspecified Social History Tobacco Use Types [...] PM CDT) Final Diagnosis Tongue, biopsy (OSC: [id number]; 03/04/24): 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 The histologic differential diagnosis includes an oral lichenoid drug reaction and oral contact hypersensitivity reaction. Clinical correlation is necessary for full interpretation. 04/14/2024 9:11 AM T [facility] PATHOLOGY LAB Microscopic Description and Comment [...] LAB Clinical History 04/14/2024 9:11 AM T [facility] PATHOLOGY LAB Materials Received Received are 2 slide(s) labeled [id number] along with a copy of the outside pathology report. The materials originate from [email or web address] [address] [place] [address]. All original materials are returned to the referring institution, along with a copy of our final report. 04/14/2024 9:11 AM T U PATHOLOGY LAB Pathologist Location at [facility] 04/14/2024 9:11 AM CDT U PATHOLOGY LAB Case Report Surgical Pathology Report Case: [id number] Authorizing Provider: Rex Saucedo MD Collected: 04/13/2024 02:36 PM Ordering Location: [facility] - Received: 04/13/2024 02:36 PM Pathology Lab Pathologist: Omid Ulloa MD Specimen: Slide Consultation 04/14/2024 9:11 AM CDT U PATHOLOGY LAB Embedded Images 04/14/2024 9:11 AM CDT [facility] PATH[facility]Y LAB Pathology/Cytolo gy SURGICAL PATHOLOGY CONSULTATION AND REPORT ON REFERRED SLIDES PREPARED ELSEWHERE / Unknown 04/13/2024 2:36 PM CDT 04/13/2024 2:36 PM CDT Rex Saucedo MD LAB - PATHOLOGY/CYTO LOGY ORDERABLES [facility] PATH[facility] LAB [address] [place] [address] documented in this encounter Visit Diagnoses Diagnosis Illness, unspecified documented in this encounter Care Teams Oim Consultant Relationship Specialty Start Date End Date Ander Leblanc MD [address] [place] [address] PCP - General 01/22/23 documented as of this encounter
--- OUTSIDE RECORDS SUMMARY | 2024-12-24 11:09 | XMS_ITS ---
Author Organization [facility] Address [address] [place], [place] [address] Care Team Providers Care Publication Editor Name Role Phone MARYSE SALDAÑA Unavailable [phone] Ander Leblanc Unavailable Unavailable REASON FOR VISIT *General care Medications Medication SIG (Take, Route, Fr equency, Duration) Notes Start Date End Date Status Ciclopirox 8 % 1 application Lime Plant Operator ally Once a day for 90 days 04/07/2024 04/02/2025 Active Vital Signs Height 62 in 08/11/2024 Height-cm 157.48 cm 08/11/2024 Encounters Encounter Location Date Provider Diagnosis [facility] [place] [address] [place], [place] [phone] 08/11/2024 MARYSE SALDAÑA Fungal infection of nail B35.1 ; Pain in right toe(s) M79.674 ; Pain in left toe(s) M79.675 and Atherosclerosis of [place] arteries of extremities with intermittent claudication, bilateral [...] toe(s) (ICD-10 - M79.675) 08/11/2024 Atherosclerosis of [place] arteries of extremities with intermittent claudication, bilateral [...] ROTHMAN, 02/23/2025 08:20:00 AM, [address], [address], [phone], Progress Notes * Renetta URRUTIAceDOB:[birth year] (74 yo F)Acc No.[id number]:08/11/2024 Patient: Geneva FRANCO Provider: Filomena Saldaña DPM :1950 A ge:74 Y S ex:Female Date:08/11/2024 Address:[address] [place] [address] Subjective: * Chief Complaints: * * General [...] - M79.675 4 . A therosclerosis of [place] arteries of extremities with intermittent claudication, bilateral legs - I70.213 ? Plan: * Treatment: * Procedure Codes: 1 1056 TRIM SKIN LESIONS, 2 TO 4, Modifiers: Q8 82238 DEBRIDE NAIL, 6 OR MORE, Modifiers: 59 , Q8 * Follow Up: 9 weeks * Billing Information: * Visit Code: * Procedure Codes: 29719 TRIM SKIN LESIONS, 2 TO 4. Modifiers: Q8 15904 DEBRIDE NAIL, 6 OR MORE. Modifiers: 59, Q8 * Sign off status: Completed true * Provider: Filomena Saldaña DPM Date: 10/11/2023 Generated for Yazmin mayer/Geovanni/Miesha on: 0 12/24/2024 [...]
--- OUTSIDE RECORDS SUMMARY | 2024-12-24 11:10 | XMS_ITS ---
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
--- OUTSIDE RECORDS SUMMARY | 2024-12-24 11:10 | XMS_ITS | Clinical Summary ---
Author Organization [facility] Address [address] [place] [address] Phone Care Team Providers Care Ampoule Inspector Name Role Phone Hector Johnson MD Primary [...] tablet Take 75 mcg by mouth daily wood crafter. Active gabapentin (NEURONTIN) 300 mg capsule Take [...] Discontinued Insurance MEDICARE PART A AND B [employer] SUPP MEDICARE PART A AND B [facility] SUPP Care Teams Ampoule Inspector Relationship Specialty Start Date End Date Hector Johnson MD [address] [facility] [address] [facility] [address] [place] [address] PCP - General Family Practice 03/14/19
--- OUTSIDE RECORDS SUMMARY | 2024-12-24 11:10 | XMS_ITS | Encounter Summary ---
Author Organization [facility] Address [address] [place] [address] Phone Care Team Providers Care Site Technician Name Role Phone Ander Leblanc MD Primary Care Provider [phone] Dickson Johnson MD Unavailable [phone] Edel Rodriguez MD PhD Unavailable [phone] Luis Nicholson MD Unavailable [phone] Christine Taylor MD Unavailable [phone] Encounter Details Date Type Department Care Team [...] on file Legal Sex Female 3:10 AM STRUCTURAL IRON ERECTOR Gender Identity Female 08/07/2020 10:58 AM STRUCTURAL IRON ERECTOR Sexual Orientation Not on file Occupation Industry [...] on filedocumented in this encounter Care Teams Site Technician Relationship Specialty Start Date End Date Ander Leblanc MD [address] [place] [address] PCP - General Internal Medicine 02/28/22 Dickson Johnson MD [address] [place] [address] Medical Oncologist Hematology 05/06/24 Edel Rodriguez MD PhD [address] [facility] MEDICAL ONCOLOGY, [facility] 7A, 7B, [address] [place] [address] Medical Oncologist/Auto Body Customizer Medical Oncology 05/06/24 05/11/24 Luis Nicholson MD [address] [place] [address] Medical Oncology 05/12/24 Christine Taylor MD [address] [place] [address] Referring Physician Dermatology 05/31/24 documented as of this encounter
--- OUTSIDE RECORDS SUMMARY | 2024-12-24 11:10 | XMS_ITS | Encounter Summary ---
Author Organization [facility] Address [address] [place] [address] Phone Care Team Providers Care Traffic And Transport Planner Name Role Phone Ander Leblanc MD Primary Care Provider [phone] Dickson Johnson MD Unavailable [phone] Edel Rodriguez MD PhD Unavailable [phone] Luis Nicholson MD Unavailable Christine Taylor MD Unavailable [phone] Encounter Details Date Type Department Care Team [...] on file Legal Sex Female 3:10 AM PROOFER PREPRESS Gender Identity Female 08/07/2020 10:58 AM PROOFER PREPRESS Sexual Orientation Not on file Occupation Industry [...] on filedocumented in this encounter Care Teams Traffic And Transport Planner Relationship Specialty Start Date End Date Ander Leblanc MD [address] [place] [address] PCP - General Internal Medicine 02/28/22 Dickson Johnson MD [address] [place] [address] Medical Oncologist Hematology 05/06/24 Edel Rodriguez MD PhD [address] [facility], [facility] 7[facility], 7B, [address] [place] [address] Medical Oncologist/Contracts Director Medical Oncology 05/06/24 05/11/24 Luis Nicholson MD [address] [place] [address] Medical Oncology 05/12/24 Christine Taylor MD [address] [place] [address] Referring Physician Dermatology 05/31/24 documented as of this encounter
--- OUTSIDE RECORDS SUMMARY | 2024-12-24 11:10 | XMS_ITS | Referral Summary ---
Author Organization [facility] Address [address] [place] [address] Care Team Providers Care Fountain Manager Name Role Phone Ander Leblanc MD Primary Care Provider [phone] Dickson Johnson MD Unavailable [phone] Luis Nicholson MD Unavailable [phone] Christine Taylor MD Unavailable [phone] Encounters Date Type Department Care Team Description 10/06/2024 Telephone [facility] Oncology [address] [facility] Floor 5 [place] [address] Antione Correa RN 09/28/2024 8:30 AM SCREEN ROLLER Office Visit 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) from Last 3 Months Allergies Active Allergy [...] 1 tablet (75 mcg total) by mouth asbestos handler before breakfast 0 Active montelukast (SINGULAIR) 10 mg tablet Take 1 tablet (10 mg total) by mouth nightly 0 Active omeprazole (PriLOSEC) 40 mg capsule 1 capsule (40 mg total) every morning 0 Active owwnqeao-kobr-i ollag-hyalur ac 690-107-61-2 mg capsule Take by mouth every morning [...] (07/24/2020): Added automatically from request for surgery [id number] Closed fracture of left shoulder 07/23/2020 Overview (07/23/2020): Added automatically from request for surgery [id number] Abnormal chest x-ray 06/25/2020 History of 2019 [...] Cigarettes 0.5 6 1 974 - 1977 Passive Smoke Exposure: Past Smokeless [...] on file Legal Sex Female 3:10 AM SCREEN ROLLER Gender Identity Female 08/07/2020 10:58 AM SCREEN ROLLER Sexual Orientation Not on file Occupation Industry Job Start Date Job End Date Retired Not on file Not on file Not on file Last Filed Vital Signs Vital Sign Reading Time Taken Comments Blood Pressure 161/77 09/28/2024 8:16 AM SCREEN ROLLER Pulse 75 09/28/2024 8:16 AM SCREEN ROLLER Temperature 36.3 C (97.3 F) 09/22/2024 8:25 AM SCREEN ROLLER Respiratory Rate 18 09/22/2024 8:25 AM SCREEN ROLLER Oxygen Saturation 96% 09/28/2024 8:16 AM SCREEN ROLLER Inhaled Oxygen Concentration - - Weight 85 kg (187 lb 6.4 oz) 09/28/2024 8:16 AM SCREEN ROLLER Height 157.5 cm (5' 2 ) 05/31/2024 2:37 PM CDT Body Mass Index 34.28 05/31/2024 2:37 PM CDT Plan of Treatment Not on file Medical Devices Implanted Type Area [employer] Repairer Device Identifier Shelf Expiration Date Model / Serial / Lot Matthews And Nephew/Richco/ Ortho [id number] Evos 3.5mm 24mm Self Tap Cortex Screw Bone Sterile - [id number] Implanted:Qty: 3 on 07/27/2020 by Edgar Rojas MD at [facility] Left: Arm Matthews & Nephew/Richco/Or tho [id number] / / Matthews & Nephew/Richco/ Ortho [id number] 3.5mm 20mm Self Tap Cortex Screw Bone Nonsterile - [id number] Implanted:Qty: 1 on 07/27/2020 by Edgar Rojas MD at [facility] Left: Arm Matthews & Nephew/Richco/Or tho [id number] / / Matthews And Nephew/Richco/ Ortho [id number] Evos 3.5mm 38mm Self Tap Lock Screw Bone Sterile - [id number] Implanted:Qty: 3 on 07/27/2020 by Edgar Rojas MD at [facility] Left: Arm Matthews [employer] Nephew/Richco/Or tho [id number] / / Matthews And Nephew/Richco/ Ortho [id number] Evos 3.5mm 48mm Self Tap Lock Screw Bone Sterile - [id number] Implanted:Qty: 1 on 07/27/2020 by Edgar Rojas MD at [facility] Left: Arm Matthews [employer] Nephew/Richco/Or tho [id number] / / Matthews And Nephew/Richco/ Ortho [id number] Evos 3.5mm 30mm Self Tap Lock Screw Bone Sterile - [id number] Implanted:Qty: 3 on 07/27/2020 by Edgar Rojas MD at [facility] Left: Arm Matthews [employer] Nephew/Richco/Or tho [id number] / / Matthews And Nephew/Richco/ Ortho [id number] Evos 3.5mm 34mm Self Tap Lock Screw Bone Sterile - [id number] Implanted:Qty: 1 on 07/27/2020 by Edgar Rojas MD at [facility] Left: Arm Matthews [employer] Nephew/Richco/Or tho [id number] / / Matthews [employer] Nephew/Richco/ Ortho [id number] Plate Bone Evos Curve L114 Mm Od3.5 Mm Humerus Left Proximal 6 Hole Sterile - [id number] Implanted:Qty: 1 on 07/27/2020 by Edgar Rojas MD at [facility] Left: Arm Matthews & Nephew/Richco/Or tho [id number] / / Medartis Inc A-4750.56 Aptus Trilock 42mmx1.6mm 6 Hole Distal Radius L Right Angle Plate - [id number] Implanted:Qty: 1 on 07/30/2020 by Zhen Otero MD at [facility] [place] Left: Radius Medartis Inc A-4750.56 / / Medartis Inc A-5750.12/1 Aptus Trilock 2.5mm 12mm Hexadrive 7 Adaptive Wrist Radius - [id number] Implanted:Qty: 3 on 07/30/2020 by Zhen Otero MD at [facility] [place] Left: Radius Medart[employer] Inc A-5750.12/1 / / Medartis Inc A-5750.16/1 2.5mm 16mm Trilock Hexadrive Wrist Radius Screw Bone - [id number] Implanted:Qty: 1 on 07/30/2020 by Zhen Otero MD at [facility] [place] Left: Radius Medartis Inc A-5750.16/1 / / Medartis Inc A-5700.13/1 Aptus 2.5mm 13mm Hexadrive 7 Wrist Cortical Screw Bone Titanium - [id number] Implanted:Qty: 1 on 07/30/2020 by Zhen Otero MD at [facility] [place] Left: Radius Medartis Inc A-5700.13/1 / / Medartis Inc A-4750.55 Aptus Trilock 42mmx1.6mm 6 Hole Distal Radius L Left Angle Plate - [id number] Implanted:Qty: 1 on 07/30/2020 by Zhen Otero MD at [facility] Left: Radius Medartis Inc A-4750.55 / / Medartis Inc A-5700.14 Aptus 2.5mm 14mm Cortical Screw Bone - [id number] Implanted:Qty: 3 on 07/30/2020 by Zhen Otero MD at [facility] Left: Radius Medartis Inc A-5700.14 / / Procedures Procedure Name Priority Date/Time Associated Diagnosis Comments DEXA TBS AXIAL SKELETON BONE DENSITY 1 OR MORE SITES Schedule Routine, Read Routine (OP Routine) 03/30/2024 9:31 AM CDT Age-related osteoporosis without current pathological fracture from Last 3 Months or Most Recently Relevant to Health Maintenance Results * Dexa TBS Axial Skeleton Bone Density 1 or more sites (03/30/2024 9:31 AM CDT) Anatomical Region Laterality Modality Wrist, Body N/A Radiographic Teresita ging Narrative 03/30/2024 10:06 AM CDT Patient Name: Geneva Urrutia Date of : 1950 Date of scan: 03/30/2024 Bone mineral density was performed on a HoloPersonalis Discovery Densitometer. Based on machine cross-calibration and [...] by the International Society of Clinical Densitometry. [id number] Tamara Pina MD IMG DXA PROCEDURES Final Resu lt from Last 3 Months or Most Recently Relevant to Health Maintenance Insurance MEDICARE [facility] MEDICARE SUPPLEMENT INSURANCE [place] [id number] MEDICARE [facility] MEDICARE SUPPLEMENT INSURANCE MEDICARE MEDICARE [facility] MEDICARE SUPPLEMENT INSURANCE Care Teams Fountain Manager Relationship Specialty Start Date End Date Ander Leblanc MD [address] [place] [address] [place] [address] PCP - General Internal Medicine 02/28/22 Dickson Johnson MD [address] [address] Medical Oncologist Hematology 05/06/24 Luis Nicholson MD [facility] [address] [facility] [address] [place] [address] Medical Oncology 05/12/24 Christine Taylor MD [address] [place] [address] Referring Physician Dermatology 05/31/24
--- OUTSIDE RECORDS SUMMARY | 2024-12-24 11:10 | XMS_ITS | Encounter Summary ---
Author Organization [facility] Address [address] [place] [address] Care Team Providers Care Corncob Pipe Supervisor Name Role Phone Ander Leblanc MD Primary Care Provider [phone] Dickson Johnson MD Unavailable [phone] Luis Nicholson MD Unavailable [phone] Christine Taylor MD Unavailable [phone] Encounter Details Date Type Department Care Team (Late st Contact Info) Description 07/01/2024 Completion of Therapy [facility] Advanced Medicine Radiation Oncology [address] [facility] [place] [place] [address] Linda Childress MD [address] [facility] [address] LL [address] [place], [place] [id number] Cancer with unknown primary site (HCC) (Primary [...] on file Legal Sex Female 3:10 AM BRUSH CLEANER Gender Identity Female 08/07/2020 10:58 AM BRUSH CLEANER Sexual Orientation Not on file Occupation Industry Job Start Date Job End Date Retired Not on file Not on file Not on file documented as of this encounter Plan of Treatment Not on file documented as of this encounter Visit Diagnoses Diagnosis Cancer with unknown primary site (HCC)- Primary Other malignant neoplasm of unspecified site documented in this encounter Care Teams Corncob Pipe Supervisor Relationship Specialty Start Date End Date Ander Leblanc MD [address] [place] [address] PCP - General Internal Medicine 02/28/22 Dickson Johnson MD [address] [facility] [address] [place] [address] Medical Oncologist Hematology 05/06/24 Luis Nicholson MD [address] [place] [address] Medical Oncology 05/12/24 Christine Taylor MD [address] [place] [address] Referring Physician Dermatology 05/31/24 documented as of this encounter
--- OUTSIDE RECORDS SUMMARY | 2024-12-24 11:10 | XMS_ITS | Continuity of Care Document ---
Author Organization [facility] Address [address] [facility] [address] [place] [address] Phone Care Team Providers Care Windrower Operator Name Role Phone Ysabel ARIAS, Taj Unavailable [...] MICROFLUID CINTIA TEARS MCR ONLY OFFICE/OUTPATIENT VISIT, [facility] MICROFLUID CINTIA TEARS MCR ONLY MICROFLUID CINTIA TEARS MCR ONLY Advance Directives Directive Yes / No Effective Date File Name No Information Encounters Encounter Description Practice Location Reason(s) For Visit Diagnoses Date Provider Providers Copied on Encounter OFFICE/OUTPA TIENT VISIT, [facility], [address] [place] [address], [id number], tel:[phone] [facility] CON[facility] Physician ordered K check (chief complaint) Bilateral keratoconjunct ivitis sicca, not specified as Sjogren'sPrese nce of pseudophakiaBl epharitis of eyelid 8 Krishnasamy Taj. [address], [place], [place], [id number], [place]. tel:[phone] Referring Provider: Taj lópez, [address], [place], [address] . tel:[phone] [facility], [address] [place] [address], [id number], tel:[phone] [facility] No Information 8 Renetta Bosch. [address], [place], [place], [id number], [place]. tel:[phone] OFFICE/OUTPA TIENT VISIT, [facility], [address] [place] [address], [id number], [place] tel:[phone] [facility] dryness (chief complaint) Bilateral keratoconjunct ivitis sicca, not specified as Sjogren'sBleph aritis of eyelidPresence of pseudophakia 8 Krishnasamy Taj. [address], [place], [place], [id number], [place]. tel:[phone] Referring Provider: Taj lópez, [address], [place], [address] . tel:[phone] Family History Family Member Type Diagnosis Age At Onset Problem (finding) No family history of Di abetes mellitus Problem (finding) No family hist ory of Macular degeneration Problem (finding) No family history of Gl aucoma Problem (finding) No family history of Hy pertension Payers Payer name Insurance type Covered republican ID Palak dahl(s) [place]ICARE [place] [id number] HENRI TAVERAS [id number] Social History Type Description Quantity Date Captured [...]
--- OUTSIDE RECORDS SUMMARY | 2024-12-24 11:10 | XMS_ITS | Clinical Summary ---
Author Organization [facility] Address [address] [place] [address] Care Team Providers Care Manager Commercial Real Estate Name Role Phone Ander Leblanc MD Primary Care Provider [phone] Dickson Johnson MD Unavailable [phone] Luis Nicholson MD Unavailable [phone] Christine Taylor MD Unavailable [phone] Allergies Active Allergy Reactions Criticality Noted Date Comments Clindamycin Unknown 09/21/2014 Zomepirac Palpitations Low 09/21/1979 Medications cholecalciferol (VITAMIN D-3) 5,000 unit tablet Take 1 tablet (5,000 Units total) by mouth daily Active escitalopram (LEXAPRO) 10 mg tablet Take 1 tablet (10 mg total) by mouth every morning 0 Active levothyroxine (SYNTHROID) 75 mcg tablet Take 1 tablet (75 mcg total) by mouth stacking machine operator before breakfast 0 Active montelukast (SINGULAIR) 10 mg tablet Take 1 tablet (10 mg total) by mouth nightly 0 Active omeprazole (PriLOSEC) 40 mg capsule 1 capsule (40 mg total) every morning 0 Active naetpsqg-zieu-l ollag-hyalur ac 920-993-43-2 mg capsule Take by mouth every morning [...] (07/24/2020): Added automatically from request for surgery [id number] Closed fracture of left shoulder 07/23/2020 Overview (07/23/2020): Added automatically from request for surgery [id number] Abnormal chest x-ray 06/25/2020 History of 2019 [...] Type Department Care Team Description 10/06/2024 Telephone [facility] Oncology [address] [facility] Floor 5 [place] [address] Antione Correa RN 09/28/2024 8:30 AM VARIOUS EXCEPTIONALITIES TEACHER Office Visit [facility] Radiation Oncology [address] [facility] [place] [address] Samir Herndon NP 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, 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] (Primary Dx); 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) from Last 3 Months Immunizations Immunization Administration [...] Smoking Tobacco: Former Cigarettes 0.5 6 1 1977 Passive Smoke Exposure: Past Smokeless Tobacco: [...] on file Legal Sex Female 3:10 AM VARIOUS EXCEPTIONALITIES TEACHER Gender Identity Female 08/07/2020 10:58 AM VARIOUS EXCEPTIONALITIES TEACHER Sexual Orientation Not on file Occupation Industry Job Start Date Job End Date Retired Not on file Not on file Not on file Obstetrics History Last Filed Vital Signs Vital Sign Reading Time Taken Comments Blood Pressure 161/77 09/28/2024 8:16 AM VARIOUS EXCEPTIONALITIES TEACHER Pulse 75 09/28/2024 8:16 AM VARIOUS EXCEPTIONALITIES TEACHER Temperature 36.3 C (97.3 F) 09/22/2024 8:25 AM VARIOUS EXCEPTIONALITIES TEACHER Respiratory Rate 18 09/22/2024 8:25 AM VARIOUS EXCEPTIONALITIES TEACHER Oxygen Saturation 96% 09/28/2024 8:16 AM VARIOUS EXCEPTIONALITIES TEACHER Inhaled Oxygen Concentration - - Weight 85 kg (187 lb 6.4 oz) 09/28/2024 8:16 AM VARIOUS EXCEPTIONALITIES TEACHER Height 157.5 cm (5' 2 ) 05/31/2024 [...] exists Fall Risk Assessment 06/06/2025 06/06/2024, 07/30/20 20 Osteoporosis Screening-Bone Density Scan 03/30/2026 03/30/2024, 03/25/2023, 02/28/2022, Additional history exists Pneumococcal vaccine 65+ Completed 02/05/2016, 08/21 Zoster Vaccine Completed 04/05/2019, 12/21, 11/30/2018, Additional history exists Medical Devices Implanted Type Area Isotope Hydrologist Device Identifier Shelf Expiration Date Model / Serial / Lot Matthews And Nephew/Richco/ Ortho [id number] Evos 3.5mm 24mm Self Tap Cortex Screw Bone Sterile - [id number] Implanted:Qty: 3 on 07/27/2020 by Edgar Rojas MD at [facility] Left: Arm Matthews [employer] Nephew/Richco/Or tho [id number] / / Matthews [employer] Nephew/Richco/ Ortho [id number] 3.5mm 20mm Self Tap Cortex Screw Bone Nonsterile - [id number] Implanted:Qty: 1 on 07/27/2020 by Edgar Rojas MD at [facility] Left: Arm Matthews [employer] Nephew/Richco/Or tho [id number] / / Matthews [employer] Nephew/Richco/ Ortho [id number] Evos 3.5mm 38mm Self Tap Lock Screw Bone Sterile - [id number] Implanted:Qty: 3 on 07/27/2020 by Edgar Rojas MD at [facility] Left: Arm Matthews [employer] Nephew/Richco/Or tho [id number] / / Matthews And Nephew/Richco/ Ortho [id number] Evos 3.5mm 48mm Self Tap Lock Screw Bone Sterile - [id number] Implanted:Qty: 1 on 07/27/2020 by Edgar Rojas MD at [facility] Left: Arm Matthews [employer] Nephew/Richco/Or tho [id number] / / Matthews And Nephew/Richco/ Ortho [id number] Evos 3.5mm 30mm Self Tap Lock Screw Bone Sterile - [id number] Implanted:Qty: 3 on 07/27/2020 by Edgar Rojas MD at [facility] Left: Arm Matthews [employer] Nephew/Richco/Or tho [id number] / / Matthews [employer] Nephew/Richco/ Ortho [id number] Evos 3.5mm 34mm Self Tap Lock Screw Bone Sterile - [id number] Implanted:Qty: 1 on 07/27/2020 by Edgar Rojas MD at [facility] Left: Arm Matthews [employer] Nephew/Richco/Or tho [id number] / / Matthews [employer] Nephew/Richco/ Ortho [id number] Plate Bone Evos Curve L114 Mm Od3.5 Mm Humerus Left Proximal 6 Hole Sterile - [id number] Implanted:Qty: 1 on 07/27/2020 by Edgar Rojas MD at [facility] Left: Arm Matthews & Nephew/Richco/Or tho [id number] / / Medartis Inc A-4750.56 Aptus Trilock 42mmx1.6mm 6 Hole Distal Radius L Right Angle Plate - [id number] Implanted:Qty: 1 on 07/30/2020 by Zhen Otero MD at [facility] [place] Left: Radius Medart[employer] Inc A-4750.56 / / Medartis Inc A-5750.12/1 Aptus Trilock 2.5mm 12mm Hexadrive 7 Adaptive Wrist Radius - [id number] Implanted:Qty: 3 on 07/30/2020 by Zhen Otero MD at [facility] [place] Left: Radius [employer] Inc A-5750.12/1 / / Medart[employer] Inc A-5750.16/1 2.5mm 16mm Trilock Hexadrive Wrist Radius Screw Bone - [id number] Implanted:Qty: 1 on 07/30/2020 by Zhen Otero MD at [facility] [place] Left: Radius [employer] Inc A-5750.16/1 / / Medartis Inc A-5700.13/1 Aptus 2.5mm 13mm Hexadrive 7 Wrist Cortical Screw Bone Titanium - [id number] Implanted:Qty: 1 on 07/30/2020 by Zhen Otero MD at [facility] [place] Left: Radius [employer] Inc A-5700.13/1 / / Medartis Inc A-4750.55 Aptus Trilock 42mmx1.6mm 6 Hole Distal Radius L Left Angle Plate - [id number] Implanted:Qty: 1 on 07/30/2020 by Zhen Otero MD at [facility] Left: Radius [employer] Inc A-4750.55 / / Medartis Inc A-5700.14 Aptus 2.5mm 14mm Cortical Screw Bone - [id number] Implanted:Qty: 3 on 07/30/2020 by Zhen Otero MD at [facility] Left: Radius [employer] Inc A-5700.14 / / Procedures Procedure Name [...] Bone mineral density was performed on a HoloOTI Greentech Discovery Densitometer. Based on machine cross-calibration and [...] mineral density scan were prepared by Katie Brown(R) JHONY who is accredited by the International Society of Clinical Densitometry. The overall patient assessment and scan interpretation were performed by Tamara Pina MD who is certified by the International Society of Clinical Densitometry. [id number] Tamara Pina MD IMG DXA PROCEDURES Final Resu lt from Last 3 Months or Most Recently Relevant to Health Maintenance Insurance MEDICARE COUNTS INCLUDE 234 BEDS AT [facility] MEDICARE SUPPLEMENT INSURANCE MEDICARE [employer] MEDICARE SUPPLEMENT INSURANCE MEDICARE MEDICARE [employer] MEDICARE SUPPLEMENT INSURANCE Care Teams Manager Commercial Real Estate Relationship Specialty Start Date End Date Ander Leblanc MD [address] INTERNAL MEDICINE [place], [place] [address] PCP - General Internal Medicine 02/28/22 Dickson Johnson MD [address] [facility] [address] [place] [address] Medical Oncologist Hematology 05/06/24 Luis Nicholson MD [address] [place] [address] Medical Oncology 05/12/24 Christine Taylor MD [address] [place] [address] Referring Physician Dermatology 05/31/24
--- OUTSIDE RECORDS SUMMARY | 2024-12-24 11:10 | XMS_ITS | Continuity of Care Document ---
Author Organization [facility] Address [address] [facility] [address] [place] [address] Phone Care Team Providers Care Aggregate Conveyor Operator Name Role Phone [facility], [facility] Unavailable Unavail able Canelo Paul Unavailable Unavailable Procedures Procedure Date Progressive Lens, Polycarb Frames Deluxe [facility] Exam & Treatment Refraction Vision Svcs Frames Purchases Progressive Lens, Polycarb Anti-reflective Coating [facility] Exam, New Patient Refraction Advance Directives Directive Yes / No Effective Date File Name No Information Encounters Encounter Description Practice Location Reason(s) For Visit Diagnoses Date Provider Providers Copied on Encounter formerly [facility], [address] [place] [address] [address], [place], [place], [id number], [place] tel:[phone] [facility] No Information 0-200 9 [facility] . [address] [facility], [facility] [address], [place], [place], [id number], [place]. tel:[phone] Referring Provider: Darell Desai, [address] [place] [address] [address], [place], [address]. tel:[phone] graham Provider: Canelo Paul, [address] [place] [address], [place], [address]. tel:[phone] formerly [facility], [address] [place] [address] [address], [place], [place], [id number], [place] tel:[phone] [facility] No Information 9 Aye Lozoya. [facility] , [address], [place], [place], [facility], . tel:[phone] [facility], [address], [place], [place], [id number], [place] tel:[phone] [facility] No Information 0 200 7 [facility] . [address] [facility], [address], [place], [place], [id number], [place]. tel:[phone] Referring Provider: Darell Desai, [address] [place] [address] [address], [place], [place], [facility]. tel:[phone] graham Provider: Jessenia Sinha, [address] [place] [address], [facility]. tel:[phone] [facility], [address], [place], [place], [id number], [place] tel:[phone] [facility] No Information 7 Aye Lozoya. [address] [place] [address] , [address], [place], [place], [facility], . tel:[phone] Family History Family Member Type Diagnosis Age At Onset No Information Payers Payer name Insurance type Covered democrat ID Authoriza tion(s) No Information Social History [...]
--- OUTSIDE RECORDS SUMMARY | 2024-12-24 11:10 | XMS_ITS | Encounter Summary ---
Author Organization [facility] Address [address] [place] [address] Phone Care Team Providers Care Food Sanitarian Name Role Phone Ander Leblanc MD Primary Care Provider [phone] Dickson Johnson MD Unavailable [phone] Edel Rodriguez MD PhD Unavailable [phone] Luis Nicholson MD Unavailable [phone] Christine Taylor MD Unavailable [phone] Encounter Details Date Type Department Care Team [...] on file Legal Sex Female 3:[address] DEPARTMENT DISPATCHER Gender Identity Female 08/07/2020 10:[address] DEPARTMENT DISPATCHER Sexual Orientation Not on file Occupation Industry [...] on filedocumented in this encounter Care Teams Food Sanitarian Relationship Specialty Start Date End Date Ander Leblanc MD [address] [place] [address] PCP - General Internal Medicine 02/28/22 Dickson Johnson MD [address] [facility] [address] [place] [address] Medical Oncologist Hematology 05/06/24 Edel Rodriguez MD PhD [address] [facility] MEDICAL ONCOLOGY, [facility] [address]A, 7B, [address] [place] [address] Medical Oncologist/It Senior Software Engineer Java Medical Oncology 05/06/24 05/11/24 Luis Nicholson MD [address] [place] [address] Medical Oncology 05/12/24 Christine Taylor MD [facility] [place] [address] Referring Physician Dermatology 05/31/24 documented as of this encounter
--- OUTSIDE RECORDS SUMMARY | 2024-12-24 11:11 | XMS_ITS | Encounter Summary ---
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 Gender Identity Female 08/07/2020 10:58 AM PAINT LINE SUPERVISOR Sexual Orientation Not on file Occupation Industry [...] on filedocumented in this encounter Care Teams Station Superintendent Relationship Specialty Start Date End Date Ander Leblanc MD [address] [facility] [address] [place] [address] PCP - General Internal Medicine 02/28/22 Dickson Johnson MD [address] [facility] [address] [place] [address] Medical Oncologist Hematology 05/06/24 Luis Nicholson MD [address] [place] [address] Medical Oncology 05/12/24 Christine Taylor MD [address] [place] [address] Referring Physician Dermatology 05/31/24 documented as of this encounter
--- OUTSIDE RECORDS SUMMARY | 2024-12-24 11:11 | XMS_ITS | Clinical Summary ---
Author Organization [facility] Address [address] [facility] [place] [address] Care Team Providers Care School Adjustment Counselor Name Role Phone Ander Leblanc MD Primary Care Provider [phone] Source Comments [facility],non-[facility] Affiliates and Associated Physician Practices is amultiple site organization consisting of ambulatory clinics and hospital sitesin [place], [place], [place] and [place]. This disclosure is being madepursuant to the Care Everywhere program and may not contain all information available regarding this patient. Last updated 18.[facility] Allergies Active Allergy Reactions Criticality Noted [...] yrs (1 - 1-dose 75+ series) 2023 DEPRESSION SCREENING 09/21/2024 INFLUENZA VACCINE (Season Ended) 2025 07/14/2018, 06/29/2018 BONE DENSITY TESTING Completed 02/28/2022, 02/22/2021 HEPATITIS [...] age to complete this topic Care Teams School Adjustment Counselor Relationship Specialty Start Date End Date Ander Leblanc MD [address] [place] [address] PCP - General 01/22/23
--- OUTSIDE RECORDS SUMMARY | 2024-12-24 11:11 | XMS_ITS ---
Author Organization [facility] Address [address] [place], [place] [address] Care Team Providers Care Community Pharmacist Name Role Phone MARYSE SALDAÑA Unavailable [phone] Ander Leblanc Unavailable Unavailable Allergies No Known Allergies REASON FOR VISIT *General care Medications Medication SIG (Take, Route, Frequency, Duration) Notes Start Date End Date Status Levothyroxine Sodium 75 MCG TAKE 1 TABLET BY MOUTH DAILY Oral for 90 Days Active Fluocinolone Acetonide 0.025 % APPLY TOPICALLY TO THE AFFECTED AREA TWICE DAILY External for 7 Days Active Montelukast Sodium 10 MG TAKE 1 TABLET B Y MOUTH EVERY NIGHT AT BEDTIME Oral for 90 Days Active Escitalopram Oxalate 10 MG TAKE 1 TABLET BY MOUTH DAILY Oral for 90 Days Active Omeprazole 40 MG TAKE 1 CAPSULE BY MO UTH DAILY Oral for 90 Days Active Penicillin V Potassium 500 MG Oral for 7 Days Active Montelukast Sodium 10 MG Oral for 90 Days Active Meloxicam 15 MG Oral for 90 Days Active Tacrolimus 1 MG Oral for 30 Days Active Gabapentin 300 MG Oral for 30 Days Active Amoxicillin-Pot Clavulanate 875-125 MG Oral for 7 Days Ac tive Omeprazole 40 MG Oral for 90 Days Active Escitalopram Oxalate 10 MG Oral for 90 Days Active Levothyroxine Sodium 75 MCG Oral for 90 Days Active Gabapentin 300 MG Oral for 30 Days Active Ciclopirox 8 % 1 application Vocational Psychologist ally Once a day for 90 days 04/07/2024 04/02/2025 Active Social History Tobacco Use: Social History Observation Description Date Details (start date - stop date) Former Smoker NA - NA Tobacco Use/Smoking Question Answer Notes Tobacco use: former smoker Vital Signs Weight 181 lbs 12/22/2024 Weight-kg 82.1 kg 12/22/2024 Height 62 in 12/22/2024 Height-cm 157.48 cm 12/22/2024 BMI 33.1 kg/m2 12/22/2024 Encounters Encounter Location Date Provider Diagnosis [facility] [place] [address] [facility] [address] [place], [place] [id number] 12/22/2024 MARYSE SALDAÑA Fungal infection of nail B35.1 ; Pain in right toe(s) M79.674 ; Pain in left toe(s) M79.675 and Atherosclerosis of [place] arteries of extremities with intermittent claudication, bilateral legs I70.213 Assessments Encounter Date Diagnosis (ICD Code) Assessment Notes Treatment Notes Treatment Clinical Notes Section Notes 12/22/2024 Fungal infection of nail (ICD-10 - B35.1) Nails 1-5 Bilateral were debrided extensively with nail nippers and emery board, reducing length and girth to pink healthy tissue with any subungual debris and necrotic tissue removed 12/22/2024 Pain in right toe(s) (ICD-10 - M79.674) 12/22/2024 Pain in left toe(s) (ICD-10 - M79.675) 12/22/2024 Atherosclerosis of [place] arteries of extremities with intermittent claudication, bilateral [...] ROTHMAN, 02/23/2025 08:20:00 AM, [address], [facility], [place], [place], [id number], Progress Notes * Wei URRUTIAOB:[birth year] (74 yo F)Acc No.[id number]:12/22/2024 Patient: Geneva FRANCO Provider: Filomena Saldaña DPM :1950 A ge:74 Y S ex:Female Date:12/22/2024 Address:[address] [place], [place] [id number] Subjective: * Chief Complaints: * 1 . *General care. * HPI: H PI: General care P atient presents to the office for at risk foot care. Patient states that their nails are thickened, elongated and painful. Patient states that it is aggravated by shoe gear. Onset is gradual. Patient denies being diabetic. Patient denies taking prescription blood thinners but does take a daily aspirin. Date last seen by Dr. Leblanc was 06/2024. Initials sea. * ROS: G eneral / Constitutional: Patient denies c hange in appetite, fatigue, chills, fever.? C ardiovascular: Chest pain d enies. N eurologic: Loss of use of extremity d enies. * Medical History: A blossom reflux, Arthritis, Thyroid Disease, Varicose veins. * Surgical History: S houlder surgery , Left wrist . * Family History: F ather: unknown, cancer, stroke. M other: unknown, heart disease. B rother: unknown, heart disease, hypertension. S ister: unknown, Cancer, hypertension. * Social History: T obacco Use: T obacco Use/Smoking T obacco use: f ormer smoker * Medications: T aking Ciclopirox 8 % Solution 1 application Externally Once a day , stop date 04/02/2025, Taking Gabapentin 300 MG Capsule Oral , Taking Levothyroxine Sodium 75 MCG Tablet Oral , Taking Escitalopram Oxalate 10 MG Tablet Oral , Taking Omeprazole 40 MG Capsule Delayed Release Oral , Taking Amoxicillin-Pot Clavulanate 875-125 MG Tablet Oral , Taking Penicillin V Potassium 500 MG Tablet Oral , Taking Gabapentin 300 MG Capsule Oral , Taking Tacrolimus 1 MG Capsule Oral , Taking Meloxicam 15 MG Tablet Oral , Taking Montelukast Sodium 10 MG Tablet Oral , Taking Omeprazole 40 MG Capsule Delayed Release TAKE 1 CAPSULE BY MOUTH DAILY Oral , Taking Escitalopram Oxalate 10 MG Tablet TAKE 1 TABLET BY MOUTH DAILY Oral , Taking Levothyroxine Sodium 75 MCG Tablet TAKE 1 TABLET BY MOUTH DAILY Oral , Taking Montelukast Sodium 10 MG Tablet TAKE 1 TABLET BY MOUTH EVERY NIGHT AT BEDTIME Oral , Taking Fluocinolone Acetonide 0.025 % Cream APPLY TOPICALLY TO THE AFFECTED AREA TWICE DAILY External , Medication List reviewed and reconciled with the patient * Allergies: N .K.D.A. Objective: * Vitals: S hoe Size: 8.5, Wt: 181 lbs, Wt-k.1 kg, Ht: 62 in, Ht-cm: 157.48 cm, BMI: 33.1 Index, Body Surface Area: 1.89. * Examination: P hysical Examination: Gen: T [...] - M79.675 4 . A therosclerosis of [place] arteries of extremities with intermittent claudication, bilateral legs - I70.213 ? Plan: * Treatment: * Follow Up: 9 weeks * Billing Information: * Visit Code: * Procedure Codes: * Electronic signature of MARYSE SALDAÑA DPM on 12/24/2024 at 11:10 AM CDT Sign off status: Pending * Provider: Filomena Saldaña DPM Date: 0 12/22/2024 Generated for Yazmin mayer/Geovanni/Miesha on: 0 12/24/2024 11:10 AM CDT History and Physical Notes * [...] daily aspirin. Date last seen by Dr. Leblanc was 06/2024. Initials sea Examination Category Sub-Category Detail Notes Category Not [...]
[2024-12-24 12:20] LABS: Toxigenic C. Diff NEGATIVE (NEGATIVE)
[2024-12-28 15:58] LABS: Fecal Fat, Ql Normal (Normal)
== END 2024-12-24 11:05 | disposition home or self-care (01) ==
LOC: ANHLAB 11:07
PROVIDERS: PCP Internal Medicine; Visit Provider Internal Medicine
DX: R19.7 Diarrhea, unspecified (principal)
CPT/HCPCS: 82705; 83993; 87177; 87209; 87493; 89055

== ENCOUNTER 2025-01-03 00:53 | Day surgery (SDC) | payer MEDICARE, SELFPAY ==
[2024-12-09 10:19] VITALS: BP 137/68; PULSE 68; RESP 16; TEMP 36.8; O2SAT 97; BMI 33.3
--- NOTE | 2024-12-09 10:41 | PC.NURSE ---
Report to the Outpatient Waiting Room, entrance under the green pavilion located off [facility], at time __0800am on date __01/03/25 . Planned Procedure Time: __1000am .? Time changes happen often and if your time is changed the preop area will call you the afternoon before. - You and your visitor will be asked to self-screen and do not enter if you have any COVID symptoms. Please call surgeon if you need to reschedule. - A mask is optional within the hospital at this time. Patients may have clear liquids (water, carbonated beverages, clear teas, apple juice) until 3 hours prior to surgery with a maximum of 20 ounces. - No food from midnight until time of surgery and no smoking, or chewing tobacco (or any form of nicotine). No chewing gum, candy or mints. (0700am) Take only the following medications with a SIP of water on the morning of surgery: ____Levothyroxine, Escitalpram, Tylenol as needed DO NOT STOP ANY OF YOUR OTHER PRESCRIPTION MEDICATIONS PRIOR TO SURGERY EXCEPT THE FOLLOWING Hold all vitamins and supplements for 3 days per anesthesiologist. Date of last dose- 12/30/24 Medications to discontinue per physician Aspirin and Meloxicam [address] Talamantes Date to take last dose___12/25/24 Please no make-up, nail french, hairspray, perfume, deodorant, or body powder the day of surgery.? No jewelry (including any body piercings) or valuables the day of surgery, leave them at home.? Please take a shower or bath the night before, or the morning of, surgery with an antibacterial soap.? Wear comfortable, loose fitting clothing.? HIBICLEANSE to get at well as per Dr Talamantes. - Jewelry must be removed prior to entering the operating room.? Rings and piercings that are not removed may be cut off. - The hospital will not accept responsibility for valuables.? - Please leave all valuables, including medications, at home the day of surgery. If you are going home after surgery, a licensed route relief driver must drive you home.? - NO public transportation without another adult if you receive anesthesia. - We recommend that an adult stay with you for 24 hours following discharge. - We also recommend that you do not drive, make important decision, drink alcoholic beverages, or take any drugs that were not prescribed by your health care provider for at least 24 hours after your discharge time. Follow any additional instructions given to you from your surgeon. Telephone instructions given to _patient and asked if any additional questions and then verbalized understanding. Patient advised to call surgeon office or pre surgery nurse liaison [phone] if any additional questions.
[2025-01-03] VITALS (16 sets, daily range): BP systolic 123–144; BP diastolic 45–67; PULSE 70–94; RESP 16–24; TEMP 35.7–36.9; O2SAT 90–100; BMI 33.3
--- NOTE | ~2025-01-03 | XR_ITS ---
Right Knee Technique: Portable AP and crosstable lateral views Clinical History: Status post TKR Findings: Patient is status post total knee replacement. Orthopedic hardware alignment appears anatom ic. No hardware complication is evident. Subcutaneous emphysema and swelling is likely postoperative in nature. No acute osseous fracture is seen. Impression: Status post total knee replacement, without evidence of hardware complication. Reviewed, dictated and finalized at location . Impression: Status post total knee replacement, without evidence of hardware complication.
--- OUTSIDE RECORDS SUMMARY | 2025-01-03 00:56 | XMS_ITS | Encounter Summary ---
Author Organization [facility] Address [address] [place] [address] Care Team Providers Care Museum Archivist Name Role Phone Tonja Barfield MD Primary Care Provider [phone] Ander Leblanc MD Primary Care Provider [phone] Encounter Details Date Type Department Care Team (Late st Contact Info) Description 04/23/2018 Lab Requisition [facility] [address] [facility] [place] [address] Gasper [place] [address] Social History Tobacco Use Types Packs/Day Years Used Date Smoking Tobacco: Never Assessed Comments Unknown Sex and Gender Information Value Date Recorded Sex Assigned at Not on file Legal 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 Gender Identity Not on file Sexual Orientation Not on file documented as of this encounter Plan of Treatment Not on file documented as of this encounter Procedures Procedure Name Priority Date/Time Associated Diagnosis Comments IMMUNOFLUORESCENT STUDY DERM Routine 04/22/2018 12:00 AM CDT documented in this encounter Results * IMMUNOFLUORESCENT STUDY DERM (04/22/2018 12:00 AM CDT) Case Report Dermatopathol ogy Report Case: [id number] Authorizing Provider: Gasper Villeda MD Collected: 04/22/2018 12:00 AM Pathologist: Glory Jean MD Received: 04/23/2018 12:24 PM Specimen: Skin, right lower leg 1:50 PM CDT DERMATOPATHOLOGY LABORATORY Final Diagnosis Specimen A. SKIN, right lower leg: FOCAL VASCULAR C3 (M31.0) COLLOID BODIES (L98.9) (see microscopic description and comment) (see fixed tissue results, [id number]) 1:50 PM CDT DERMATOPATHOLOGY LABORATORY Direct Immunofluorescence [...] determined by the Dermatopathol ogy Laboratory at [facility]. These tests need not be, and therefore are not, approved by the [place] Food and Drug Administratio n. The tests are used for clinical purposes. Billing Codes Specimen Charges Stain Charges 54042 71833 44765 03549 49689 44162 1 1 1 1 1 1 8 1:50 PM CDT DERMATOPATHOLOGY LABORATORY Embedded Images 8 1:50 PM CDT DERMATOPATHOLOGY LABORATORY Pathology/Cytolog y TISSUE SPECIMEN FROM SKIN / Unknown 04/22/2018 04/23/2018 12:24 PM CDT Gasper Villeda MD LAB - PATHOLOGY/CYTOLOGY ORD ERABLES Final Result DERMATOPATHOLOGY LABORATORY [facility] - Department of Dermatology [address] [place] [address], 5th Floor Lab [address] [phone] documented in this encounter Visit Diagnoses Not on filedocumented in this encounter Care Teams Museum Archivist Relationship Specialty Start Date End Date Tonja Barfield MD [facility] [place] [address] PCP - General 04/23/18 01/21/23 Ander Leblanc MD [address] [place] [address] PCP - General 01/22/23 documented as of this encounter
--- OUTSIDE RECORDS SUMMARY | 2025-01-03 00:56 | XMS_ITS | Encounter Summary ---
Author Organization [facility] Address [address] [place] [address] Care Team Providers Care Project Development Manager Name Role Phone Tonja Barfield MD Primary Care Provider [phone] Ander Leblanc MD Primary Care Provider Encounter Details Date Type Department Care Team (Late st Contact Info) Description 04/23/2018 Lab Requisition [facility] [address] 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 Gender Identity Not on file Sexual Orientation Not on file documented as of this encounter Plan of Treatment Not on file documented as of this encounter Procedures Procedure Name Priority Date/Time Associated Diagnosis Comments DERMATOPATHOLOGY Routine 04/22/2018 12:0 0 AM CDT documented in this encounter Results * DERMATOPATHOLOGY (04/22/2018 12:00 AM CDT) Case Report Dermatopathology Report Case: [id number] Authorizing Provider: Gasper Villeda MD Collected: 04/22/2018 12:00 AM Pathologist: Glory Jean MD Received: 04/23/2018 12:23 PM Specimens: A) - Skin, right medial calf B) - Skin, right lower leg 1:42 PM [facility] DERMATOPATHOLOGY LABORATORY Final Diagnosis Specimen A. 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 Jar 0. 1:42 PM [facility] DERMATOPATHOLOGY LABORATORY Microscopic Description Specimen A. SKIN, [...] the available sections. See direct immunofluorescence results. 8 1:42 PM CDT DERMATOPATHOLOGY LABORATORY Disclaimer An external and internal positive and negative controls are appropriate for the histochemical, immunohistochemical and immunofluorescence stain(s) in this case (if any), except where stated explicitly. The performance characteristics of the stain(s) cited in this report were developed and its performance characteristic determined by the Dermatopathology Laboratory at [facility]. These tests need not be, and therefore are not, approved by the [place] Food and Drug Administration. The tests are used for clinical purposes. Billing Codes Specimen Charges Stain Charges 72455 26720 1 1 04689 33541 1 1 8 1:42 PM CDT DERMATOPATHOLOGY LABORATORY Embedded Images 1:42 PM CDT DERMATOPATHOLOGY LABORATORY Pathology/Cytology TISSUE SPECIMEN FROM SKIN / Unknown 04/22/2018 04/23/2018 12:23 PM CDT Miscellaneous samples (specimen) TISSUE SPECIMEN FROM SKIN / Unknown 04/22/2018 04/23/2018 12:23 PM CDT Gasper Villeda MD LAB - PATHOLOGY/CYTOLOGY ORD ERABLES Final Result DERMATOPATHOLOGY LABORATORY [facility] - Department of Dermatology [address] [place] [address], 5th Floor Lab [address] [phone] documented in this encounter Visit Diagnoses Not on filedocumented in this encounter Care Teams Project Development Manager Relationship Specialty Start Date End Date Tonja Barfield MD [facility] [place] [address] PCP - General 04/23/18 01/21/23 Ander Leblanc MD [address] [place] [address] PCP - General 01/22/23 documented as of this encounter
--- OUTSIDE RECORDS SUMMARY | 2025-01-03 00:56 | XMS_ITS | Continuity of Care Document ---
Author Organization [facility] Address [address] [facility] [address] [place] [address] Phone Care Team Providers Care Sleeve Setter Name Role Phone Ysabel ARIAS, Taj Unavailable [...] MICROFLUID CINTIA TEARS MCR ONLY OFFICE/OUTPATIENT VISIT, [facility] MICROFLUID CINTIA TEARS MCR ONLY MICROFLUID CINTIA TEARS MCR ONLY Advance Directives Directive Yes / No Effective Date File Name No Information Encounters Encounter Description Practice Location Reason(s) For Visit Diagnoses Date Provider Providers Copied on Encounter OFFICE/OUTPA TIENT VISIT, [facility], [address] [place] [address], [id number], tel:[phone] [facility] Physician ordered K check (chief complaint) Bilateral keratoconjunct ivitis sicca, not specified as Sjogren'sPrese nce of pseudophakiaBl epharitis of eyelid 8 Krishnasamy Taj. [address], [place], [place], [id number], [place]. tel:[phone] Referring Provider: Taj lópez, [address], [place], [address] . tel:[phone] [facility], [address] [place] [address], [id number], tel:[phone] [facility] No Information 8 Renetta Bosch. [address], [place], [place], [id number], [place]. tel:[phone] OFFICE/OUTPA TIENT VISIT, [facility], [address] [place] [address], [id number], [place] tel:[phone] [facility] dryness (chief complaint) Bilateral keratoconjunct ivitis sicca, not specified as Sjogren'sBleph aritis of eyelidPresence of pseudophakia 8 Krishnasamy Taj. [address], [place], [place], [id number], [place]. tel:[phone] Referring Provider: Taj lópez, [address], [place], [address] . tel:[phone] Family History Family Member Type Diagnosis Age At Onset Problem (finding) No family history of Di abetes mellitus Problem (finding) No family hist ory of Macular degeneration Problem (finding) No family history of Gl aucoma Problem (finding) No family history of Hy pertension Payers Payer name Insurance type Covered green party ID Palak dahl(s) [place] [id number] HENRI TAVERAS [id number] Social History Type Description Quantity Date Captured [...]
--- OUTSIDE RECORDS SUMMARY | 2025-01-03 00:56 | XMS_ITS | Encounter Summary ---
Author Organization [facility] Address [address] [place] [address] Care Team Providers Care Patrol Agent Name Role Phone Ander Leblanc MD Primary Care Provider [phone] Encounter Details Date Type Department Care Team (Late st Contact Info) Description 04/13/2024 Lab Requisition [facility] - Pathology Lab [address] [place] [address] Rex Saucedo MD [address] [place] [address] Illness, unspecified Social History Tobacco Use Types Packs/Day Years Used Date Smoking Tobacco: Former Cigarettes Smokeless Tobacco: Never Alcohol Use Standard Drinks/Week Comments Yes 0 (1 standard drink = 0.6 oz pur e alcohol) Comments Unknown Sex and Gender Information Value Date Recorded Sex Assigned at Not on file Legal 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 The histologic differential diagnosis includes an oral lichenoid drug reaction and oral contact hypersensitivity reaction. Clinical correlation is necessary for full interpretation. 04/14/2024 9:11 AM T [facility] Microscopic Description and Comment [...] evidence of epithelial dysplasia. 04/14/2024 9:11 AM [facility] Clinical History 04/14/2024 9:11 AM T [facility] Materials Received Received are 2 slide(s) labeled [id number] along with a copy of the outside pathology report. The materials originate from [facility] [address] [place] [address]. All original materials are returned to the referring institution, along with a copy of our final report. 04/14/2024 9:11 AM [facility] Pathologist Location at [facility] 04/14/2024 9:11 AM [facility] Case Report Surgical Pathology Report Case: [id number] Authorizing Provider: Rex Saucedo MD Collected: 04/13/2024 02:36 PM Ordering Location: [facility] - Received: 04/13/2024 02:36 PM Pathology Lab Pathologist: Omid Ulloa MD Specimen: Slide Consultation 04/14/2024 9:11 AM [facility] Embedded Images 04/14/2024 9:11 AM T [facility] Pathology/Cytolo gy SURGICAL PATHOLOGY CONSULTATION AND REPORT ON REFERRED SLIDES PREPARED ELSEWHERE / Unknown 04/13/2024 2:36 PM CDT 04/13/2024 2:36 PM CDT Rex Saucedo MD LAB - PATHOLOGY/CYTOLOGY ORDERAB LES Final Result [facility] [address] [facility] [address], [facility] [phone] documented in this encounter Visit Diagnoses Diagnosis Illness, unspecified documented in this encounter Care Teams Patrol Agent Relationship Specialty Start Date End Date Ander Leblanc MD [address] [place] [address] PCP - General 01/22/23 documented as of this encounter
--- OUTSIDE RECORDS SUMMARY | 2025-01-03 00:56 | XMS_ITS | Clinical Summary ---
Author Organization [facility] Address [address] [place] [address] Phone Care Team Providers Care Plater Barrel Name Role Phone Hector Johnson MD Primary [...] tablet Take 75 mcg by mouth daily tubing supervisor. Active gabapentin (NEURONTIN) 300 mg capsule Take [...] Discontinued Insurance MEDICARE PART [facility] AND B [facility] PART [facility] AND B [facility] SUPP Care Teams Plater Barrel Relationship Specialty Start Date End Date Hector Johnson MD [address] [facility] [address] [place] [address] PCP - General Family Practice 03/14/19
--- OUTSIDE RECORDS SUMMARY | 2025-01-03 00:56 | XMS_ITS | Continuity of Care Document ---
Author Organization [facility] Address [address] [place] [address] Phone Care Team Providers Care Pick Up Driver Name Role Phone [facility] Unavailable Unavail able Canelo Paul Unavailable Unavailable Procedures Procedure Date Progressive Lens, Polycarb Frames Deluxe [employer] Eye Exam & Treatment Refraction Vision Svcs Frames Purchases Progressive Lens, Polycarb Anti-reflective Coating [employer] Eye Exam, New Patient Refraction Advance Directives Directive Yes / No Effective Date File Name No Information Encounters Encounter Description Practice Location Reason(s) For Visit Diagnoses Date Provider Providers Copied on Encounter [facility], [address] [place] [address] [address], [place], [place], [address], [place] tel:[phone] SEC [facility] No Information 0-200 9 [facility] . [address] [facility], [facility] [address], [place], [place], [address], [place]. tel:[phone] Referring Provider: Darell Desai, [address] [place] [address] [address], [place], [address]. tel:[phone] graham Provider: Canelo Paul, [address] [place] [address], [place], [address]. tel:[phone] [facility], [address] [place] [address] [address], [place], [place], [address], [place] tel:[phone] SEC [facility] No Information [address] [facility] [facility] , [address], [place], [place], [facility], . tel:[phone] [facility], [address], [place], [place], [address], [place] tel:[phone] SEC [facility] No Information 0 200 7 [facility] [employer] . [address] [facility], [address], [place], [place], [address], [place]. tel:[phone] Referring Provider: Darell Desai, [address] [place] [address] [address], [place], [place], [facility]. tel:[phone] graham Provider: Jessenia Sinha, [address] [place] [address], [facility]. tel:[phone] [facility], [address], [place], [place], [address], [place] tel:[phone] SEC [facility] No Information 7 Aye Lozoya. [address] [place] [address] , [address], [place], [place], [facility], . tel:[phone] Family History Family Member Type Diagnosis Age At Onset No Information Payers Payer name Insurance type Covered alliance party ID Authoriza tion(s) No Information Social [...]
--- OUTSIDE RECORDS SUMMARY | 2025-01-03 00:56 | XMS_ITS | Encounter Summary ---
Author Organization [facility] Address [address] [place] [address] Care Team Providers Care Case Worker Name Role Phone Ander Leblanc MD Primary Care Provider [phone] Encounter Details Date Type Department Care Team (Late st Contact Info) Description 04/08/2024 Lab Requisition 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 Gender Identity Not on file Sexual Orientation [...] AM CDT) Case Report Flow Cytometry Case: [id number] Authorizing Provider: Chavez Paige Collected: 04/08/2024 09:30 AM MD [place] Ordering Location: [facility] - Received: 04/08/2024 03:15 PM Pathology Lab Pathologist: Lisa Montgomery MD Specimen: Lymph Node, RIGHT INGUINAL 04/11/2024 11:04 AM [facility] Final Diagnosis Lymph node, right inguinal, flow cytometry: - Low-viability specimen with no significant lymphocyte population detected 04/11/2024 11:04 AM [facility] Flow Cytometry Interpretation Viability: 15% B-cells: no significant population T-cells: no significant population Blasts: not detected A cytospin prepared from the flow cytometry specimen has been reviewed for quality assurance coach purposes. 04/11/2024 11:04 AM [facility] Flow Cytometry Results Differential Result Comment Flow Cell Count /uL 1,640 Total Viability % 15.0 Lymphocytes % 51 Dim CD45 Region % 4 Monocytes % 7 Granulocytes % 38 04/11/2024 11:04 AM [facility] Reason for test Enlarged lymph nodes, unspecified 04/11/2024 11:04 AM [facility] Client Specimen ID # [id number] 04/11/2024 11:04 AM [facility] Number of markers 16 were performed. A-2 Flow CD10 A-4 Flow CD20 A-5 Flow CD23 A-10 Flow CD2 A-11 Flow CD3 A-12 Flow CD4 A-16 Flow CD1a A-3 Flow CD19 A-6 Flow CD34 A-7 Flow CD45 A-13 Flow CD5 A-14 Flow CD7 A-15 Flow CD8 A-17 Flow CD30 A-8 [place]+CD19+ A-9 Lambda+CD19+ 04/11/2024 11:04 AM [facility] Pathologist Location at [facility] 04/11/2024 11:04 AM [facility] Disclaimer Test performed at [facility], [address] [place] [address], [address]. *The established laboratory minimum viability is 70%. [...] complexity clinical testing. 04/11/2024 11:04 AM CDT [facility] Embedded Images 11:04 AM CDT [facility] Pathology/Cytolo gy ENTIRE LYMPH NODE / Unknown 04/08/2024 9:30 AM CDT 04/08/2024 3:15 PM CDT Chavez Paige MD LAB - PATHOLOGY/CYT OLOGY ORDERABLES Final Result [facility] [address] [phone] documented in this encounter Visit Diagnoses Diagnosis Enlarged lymph nodes, unspecified documented in this encounter Care Teams Case Worker Relationship Specialty Start Date End Date Ander Leblanc MD [address] [place] [address] PCP - General 01/22/23 documented as of this encounter
--- OUTSIDE RECORDS SUMMARY | 2025-01-03 00:56 | XMS_ITS | Clinical Summary ---
Author Organization [facility] Address [address] [facility] [place] [address] Care Team Providers Care Business Taxes Specialist Name Role Phone Ander Leblanc MD Primary Care Provider [phone] Source Comments [facility] Affiliates and Associated Physician Practices is amultiple site organization consisting of ambulatory clinics and hospital sitesin [place], [place], [place] and [place]. This disclosure is being madepursuant to the Care Everywhere program and may not contain all information available regarding this patient. Last updated 18.[facility] Allergies Active Allergy Reactions Criticality Noted Date Comments Clindamycin Itching,Rash,Unknown Medium 01/25/2020 Zomepirac Palpitations 07/01/2015 Medications * Be aware that medications may not be up to date on this document. Alwaysverify current medications with the patient. 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 Gender Identity Not on file Sexual Orientation [...] on patient's age to complete this topic Insurance [facility] [employer] [place] [id number] MEDICARE * Guarantor: JAMI URRUTIA Account Type Relation to Patient Date of Phone Billing Address Personal/Family [address] [facility] [place] [address] MEDICARE * Guarantor: JAMI URRUTIA Account Type Relation to Patient Date of Phone Billing Address Personal/Family 7 [facility] [place] [address] * Guarantor: JAMI URRUTIA Account Type Relation to Patient Date of Phone Billing Address Personal/Family [address] [facility] [address] Care Teams Business Taxes Specialist Relationship Specialty Start Date End Date Ander Leblanc MD [address] [place] [id number] PCP - General 01/22/23
--- OUTSIDE RECORDS SUMMARY | 2025-01-03 00:56 | XMS_ITS | Continuity of Care Document ---
Author Organization [facility] Address [address] [facility] [employer] [address] [place] [address] Phone Care Team Providers Care Reel Film Inspector Name Role Phone Homeor ARIAS, Kenn Unavailable Unavailabl e Allergies, Adverse [...] Allergy [facility] , [address] [address], [place], [address], tel:[phone] [facility] No Information 8 Homero Hamsa. [address], [place], [place], [address]. tel:[phone] OFFICE/OUTPA TIENT VISIT EST [facility] , [address] [facility] [address], [place], [place], [facility], [place] tel:[phone] [facility] allergy evaluation (chief complaint) Chronic pansinusitisLo w immunoglobulin levelAllergic fungal sinusitisUnspe cified mycosis 8 Homero Hamsa. [address] [facility] [employer] [address], [place], [place], [address]. tel:[phone] OFFICE/OUTPA TIENT VISIT EST [facility] , [address] [facility] [address], [place], [address], tel:[phone] [facility] allergy evaluation (chief complaint) Low immunoglobulin levelChronic pansinusitisFr equent sinus infectionsEnco unter for immunization 8 Homero Hamsa. [address], [place], [place], [address]. tel:[phone] OFFICE/OUTPA TIENT VISIT NEW [facility] , [address] [facility] [address], [place], [address], [place] tel:[phone] [facility] allergy evaluation (chief complaint) Chronic pansinusitisFr equent sinus infectionsReac tive airways dysfunction syndrome 8 Homero Hamsa. [address], [place], [place], [address]. tel:[phone] Family History Family Member Type Diagnosis Age [...] lexi Payers Payer name Insurance type Covered democrat ID Palak dahl(s) [employer] [id number] Social History Type Description Quantity Date Captured [...] slightly better she plans to travel to [place] soonlast IgG was low at 639 , [...] a lot and was told by her type mapper to use gold castro with menthol her [...]
--- NOTE | 2025-01-03 07:19 | WPDHPUPDATE1 ---
History and Physical Update Update Date/Time: 01/03/25 07:19 History and Physical has been reviewed, including an updated exam of the patient. There are NO changes in the patient's condition. Risks, benefits, and alternatives have been discussed and questions answered. Patient agrees to proceed with procedure.
[2025-01-03] MEDS: LACTATED RINGERS 1,000 ML 30 ML IV CONT ×2 (08:15→11:38)
[2025-01-03] MEDS: ACETAMINOPHEN 500 MG TABLET 1000 MG PO (08:35)
--- NOTE | 2025-01-03 08:49 | WPDANESEPPF ---
Anes - Initial Pre Proc Eval Procedure: Operation Date: 01/03/25 10:00 Proposed Procedures p Right Custom Total Knee Arthroplasty - Kb Talamantes MD Date/Time: 01/03/25 08:49 Surgeon: Kb Talamantes MD Pre Op Diagnosis: Prim O A Right Knee Patient Data Age: 74 Gender: F Height: 1.57 m Weight: 82.5 kg Last Vital Signs Temp 36.9 C 01/03/25 08:00 Pulse 70 01/03/25 08:00 Resp 16 01/03/25 08:00 BP 142/67 H 01/03/25 08:00 Pulse Ox 97 01/03/25 08:00 O2 Del Method Room Air 01/03/25 08:00 Allergies Allergy/AdvReac Type Severity Reaction Status Date / Time clindamycin Allergy Unknown Nausea Verified 01/03/25 08:07 Home Medications ?Medication ?Instructions ?Recorded ?Confirmed ?Type aspirin 81 mg tablet,delayed 81 mg PO DAILY 09/10/21 12/26/24 History release cholecalciferol (vitamin D3) 125 125 mcg PO DAILY 09/10/21 12/26/24 History mcg (5,000 unit) capsule vitamin B complex 1 cap PO DAILY 12/30/22 12/26/24 History gabapentin 300 mg capsule 600 mg PO BID 06/11/23 12/26/24 History multivitamin with iron 1 tablet PO DAILY 06/11/23 12/26/24 History Glucosamine and Chondroiton See Rx Instructions BYMOUTH DAILY 07/01/23 12/26/24 History acetaminophen 500 mg tablet 1,000 mg PO Q6H PRN pain 04/20/24 12/26/24 History (Tylenol Extra Strength) meloxicam 15 mg tablet 15 mg PO DAILY #90 tabs 08/31/24 12/26/24 Rx fluocinolone 0.025 % topical cream See Rx Instructions .Route 09/12/24 12/26/24 Rx .COMPLEX #15 grams fexofenadine 30 mg tablet 60 mg PO Q12H 12/09/24 12/26/24 History escitalopram oxalate 10 mg tablet See Rx Instructions .Route 12/19/24 12/26/24 Rx .COMPLEX #90 tabs levothyroxine 75 mcg tablet See Rx Instructions .Route 12/19/24 12/26/24 Rx .COMPLEX #90 tabs omeprazole 40 mg capsule,delayed See Rx Instructions .Route 12/19/24 12/26/24 Rx release .COMPLEX #90 caps centrum multivitamin BYMOUTH 12/26/24 12/26/24 History montelukast 10 mg tablet 10 mg PO DAILY #90 tabs 12/26/24 12/26/24 Rx (Singulair) Laboratory Tests 01/03/25 08:20 Blood Type Pending Antibody Screen Pending Patient hx anesthesia problems: none Family hx anesthesia problems: none Results Review: All pre-operative results and documents have been reviewed as part of the pre-operative evaluation. [facility] Past Medical History Medical History Diarrhea Colon cancer screening Follow up Lymphadenopathy, inguinal Tongue swelling Spider veins URI (upper respiratory infection) BMI 33.0-33.9,adult Vitamin B12 deficiency BRBPR (bright red blood per rectum) Primary osteoarthritis of knees, bilateral Unresolved grief Encounter for routine adult health examination with abnormal findings BMI 31.0-31.9,adult Pain of right sacroiliac joint Right ear pain Skin lesions Vitamin B1 deficiency Breast cancer screening Osteoporosis Encounter for Medicare annual wellness exam Urinary urgency Trapezius muscle spasm Left humeral fracture s/p ORIF Notalgia paresthetica Enlarged clavicle Surgical History Surgical History H/O shoulder surgery History of tooth extraction History of surgery on left wrist (~07/30/20) open reduction Family History Family History Sibling Diabetes mellitus Family history of hypercholesterolemia Hypertension Family history of malignant neoplasm of breast in first degree relative Family history of cardiovascular disease Father Cerebrovascular accident Lung cancer Diabetes mellitus Hypertension Heart disease Mother Family history of cardiovascular disease Family history of Alzheimer's disease Thyroid disorder Social History Social History Smoking packs per day: 1 Smoking cigarettes per day: 20.0 Years smoked: 10 Smoking pack-years: 10.00 Smoking status: Former smoker Tobacco type: cigarettes Second hand tobacco smoke exposure: No Smoking end date: 09/21/77 Alcohol intake: never Alcohol use details: rare Substance use: never Substance use type: does not use Do You Feel Safe in your Home?: Yes Lack of Transportation: No Lack of Food: Never True Current Housing: I Have Housing Concerned About Future Housing: No Difficulty Paying Gas/Electric Bills: No Difficulty Paying for Meds: No Currently Unemployed: No Education: High School Diploma/GED Difficulty w/ Childcare or Family Care: No Living arrangements: with family Additional living arrangements comments: Occupation/Education: retired Gender identity (if verbalized by the patient): Female Sexual Orientation (if Verbalized by the Patient): Straight or Heterosexual Spiritual care concerns: No Anes - Eval Final PreProcedure Day of Procedure 01/03/25 08:49 Patient weight: obese Heart: regular rate and rhythm Lungs: clear to auscultation Airway: Mallampati scale class II Neurological: alert and oriented Last oral intake: >/= 8 hours ASA classification: III Emergent: no Anesthetic plan: proceed Anesthesia type and monitoring: general LMA and standard monitoring Results Review: All pre-operative results and documents have been reviewed as part of the pre-operative evaluation. Informed Consent: The patient's anesthetic plan and its attendant risks and benefits were discussed with the patient/family/POA. Questions were solicited and answers provided to the satisfaction of the patient/family/POA.
[2025-01-03] MEDS: TRANEXAMIC ACID 1,000MG/ISO100 1,000 MG/100 ML BAG 200 MG IVPB (09:05)
[2025-01-03] MEDS: ceFAZolin 2 GM/D5W 50 ML 2 GM/50 ML BAG IVPB ×2 (09:44→17:34)
[2025-01-03] MEDS: SODIUM CHLORIDE 0.9% IV 37.7 ML, MORPHINE SULFATE INJ (*CRX) 2 MG, ROPivacaine HCL 1% 2... INFILTRATE (10:11)
[2025-01-03] MEDS: GENTAMICIN BONE CEMENT REFOBACIN 1 EACH TOPICAL (10:56)
[2025-01-03] MEDS: TRANEXAMIC ACID 1,000 MG/10 ML AMPUL 1000 MG IV PUSH (11:06)
--- NOTE | 2025-01-03 11:59 | W.PM.PROC2 ---
Procedure Note - Detailed Date of Procedure 01/03/25 Pre-op Diagnosis Right knee degenerative arthritis. Post-op Diagnosis Same Procedure Performed Custom total knee arthroplasty, right. Surgeon Kb Talamantes MD Front Desk Clerk pAryl Castelan PA-C Anesthesia General Findings Good bone quality. No ligament releases. Venous tourniquet. Description of Procedure Preoperative antibiotics were given. The limb was prepped and draped in the usual sterile fashion with a well-padded tourniquet high on the thigh. The limb was exsanguinated and the tourniquet inflated to 300 mmHg. A longitudinal incision was created just medial to the patella. A trivector approach to the knee was performed. Arthrotomy was taken down through the joint capsule. No significant releases were initially taken. The femur was exposed and the F1 jig was applied. The coring tool was used to remove the cartilage for the F2 jig to sit flush with the bone. The jig was pinned and the distal cut carefully taken. Caliper measurements confirmed appropriate bony resections according to the preoperative templated plan. The F4 cutting jig for the femur was applied, at the standard rotation. The AP and anterior chamfer cuts were taken. The F5 jig was applied and the posterior chamfer cuts were taken. The tibia was prepared using the T1 jig, after removing cartilage for the jig contact points. Proper alignment was checked with the alignment ranjana. The tibia was cut using the T1u guide. Gap balancing was performed. Gap measurements were taken and the knee was trialed. Excellent alignment and soft tissue balancing was confirmed. The posterior cruciate ligament was recessed along the proximal tibia. The patella was cut for resurfacing. Three lug holes were drilled. A modest lateral facetectomy was performed. Meniscal remnants were removed. The trial components were assembled. Excellent range of motion and proper soft tissue balancing were confirmed throughout the full range of motion. Patellar tracking was excellent. The knee was copiously irrigated periodically throughout the procedure. The real implants were cemented into position. Excess cement was carefully removed. The wound was closed in layers with interrupted #1 Vicryl suture, 2-0 strata fix suture, 0 strata fix suture, 2-0 strata fix suture. Steri-Strips placed on the skin with the knee flexed. Sterile bulky dressing applied. The patient was brought to the recovery room in stable condition. There were no complications. Physician veterinarian assistant, Apryl Castelan PA-C, required for surgery; including patient positioning, draping, tissue retraction, maintaining instrument position, wound closure, and dressing placement. Implants Conformis Custom total knee arthroplasty. Cemented. Cruciate retaining. 7B insert. 29 mm round patella. Estimated Blood Loss 100 Tourniquet Time Total Tourniquet Time: 55 Drains No Complications No immediate complications Condition Stable Disposition PACU [facility] Billing Surgery - Charge Forward: Surgery Billing
[2025-01-03] MEDS: ONDANSETRON INJ 4 MG/2 ML VIAL IV PUSH ×2 (12:10→14:26)
[2025-01-03] MEDS: diphenhydrAMINE HCl INJ 50 MG/ML VIAL 12.5 MG IV PUSH (12:21)
[2025-01-03] MEDS: fentaNYL CITRATE INJ (*CRX) 100 MCG/2 ML VIAL 25 MCG IV PUSH ×4 (12:30→13:02)
[2025-01-03] MEDS: ACETAMINOPHEN 325 MG TABLET 650 MG PO ×2 (14:26→18:05)
--- NOTE | 2025-01-03 14:35 | ADMGEN ---
This patient, Geneva Urrutia, was admitted to [facility] Surg Room 326-01. Patient/family oriented to hospital policies and general routines including ID bracelet, bed and alarms, visiting hours, pain management, procedures, bathroom and other care routines, personal items, smoking policy, room service/diet, and visiting hours. Information on how to activate the Rapid Response Team has been discussed. Patient/Family are encouraged to report perceived risks to care and to ask questions if they do not understand what they are told or what they should do.
[2025-01-03] MEDS: SENNA/DOCUSATE SODIUM TABLET 2 TAB PO (17:34)
[2025-01-03] MEDS: predniSONE 5 MG TABLET PO (17:34)
[2025-01-03] MEDS: MELOXICAM 7.5 MG TABLET PO (17:34)
[2025-01-03] MEDS: GABAPENTIN 300 MG CAPSULE 600 MG PO (21:31)
[2025-01-03] MEDS: PANTOPRAZOLE 40 MG TABLET PO (21:32)
[2025-01-03] MEDS: FAMOTIDINE 20 MG TABLET PO (21:33)
[2025-01-03] MEDS: ASPIRIN 81 MG ENTERIC TABLET PO (21:33)
[2025-01-04] MEDS: ACETAMINOPHEN 325 MG TABLET 650 MG PO ×2 (00:06→06:02)
[2025-01-04] MEDS: ceFAZolin 2 GM/D5W 50 ML 2 GM/50 ML BAG IVPB ×2 (02:25→09:05)
[2025-01-04 02:53] VITALS: BP 121/48; PULSE 74; RESP 18; TEMP 36.5; O2SAT 94
[2025-01-04 06:02] LABS: Basophils Percent Auto 0.2 % (0.2-1.2); Eosinophils Percent Auto 0.1 % (0-4.4); Hematocrit 37.2 % (37.0-47.0); Hemoglobin 11.5 g/dL (12.0-15.0); Immature Granulocyte Absolute 0.08 K/mm3 (0.00-0.031); Immature Granulocyte Percent A 0.6 % (0-0.5); Lymphocytes Absolute Auto 0.84 K/mm3 (0.9-3.2); Mean Corpuscular HGB Conc 30.9 g/dl (32-36); Mean Corpuscular Hemoglobin 26.5 pg (26-34); Mean Corpuscular Volume 85.7 fl (80-100); Monocytes Absolute Auto 1.1 K/mm3 (0.1-0.6); Monocytes Percent Auto 7.6 % (2.6-8.5); Neutrophils Percent Auto 85.5 % (45.5-73.1); Platelet Count Result 296 k/mm3 (150-375); Red Blood Count 4.34 M/mm3 (4.2-5.4); Red Cell Distribution Width 14.2 % (11.5-14.5)
[2025-01-04] MEDS: LEVOTHYROXINE SODIUM 75 MCG TABLET PO (06:02)
[2025-01-04 06:12] LABS: Anion Gap 8 mmol/L (4-12); Blood Urea Nitrogen 17 mg/dL (7-17); Calcium 8.5 mg/dL (8.4-10.2); Carbon Dioxide 24 mmol/L (22-30); Chloride 104 mmol/L (98-107); Estimated CRCL calculation 52 ml/min; Estimated Glomerular Filt Rate > 60; Glucose 113 mg/dL (65-110); Potassium 4.3 mmol/L (3.4-5.0); Sodium 136 mmol/L (137-145)
[2025-01-04 06:37] VITALS: BP 125/59; PULSE 68; RESP 18; TEMP 36.4; O2SAT 98
[2025-01-04] MEDS: FAMOTIDINE 20 MG TABLET PO (08:50)
[2025-01-04] MEDS: polyethylene glycoL 3350 17 GM POWD.PACK PO (08:51)
[2025-01-04] MEDS: PANTOPRAZOLE 40 MG TABLET PO (08:52)
[2025-01-04] MEDS: ASPIRIN 81 MG ENTERIC TABLET PO (08:52)
[2025-01-04] MEDS: MONTELUKAST SODIUM 10 MG TABLET PO (08:53)
[2025-01-04] MEDS: SENNA/DOCUSATE SODIUM TABLET 2 TAB PO (08:53)
[2025-01-04] MEDS: ESCITALOPRAM OXALATE 10 MG TABLET PO (08:53)
[2025-01-04] MEDS: MELOXICAM 7.5 MG TABLET PO (08:53)
[2025-01-04] MEDS: oxyCODONE/ACETAMINOPHEN (*CRX) 5-325 MG TABLET 1 TABLET PO (10:44)
== END 2025-01-04 11:45 | disposition home or self-care (01) ==
LOC: ANHSURGERY 08:49 → ANH3MEDSUR 13:12
PROVIDERS: Physician Assistant Surgical; PCP Internal Medicine; Visit Provider Orthopaedic Surgery
PROC: (CPT 27447; principal; 2025-01-03 10:00)
DX: M17.11 Unilateral primary osteoarthritis, right knee (principal); Z87.891 Personal history of nicotine dependence; E66.9 Obesity, unspecified; Z68.33 Body mass index [BMI] 33.0-33.9, adult
CPT/HCPCS: 27447; 36415; 73560; 80048; 85025; 86850; 86900; 86901; 97110; 97116; 97161; 97165; 97530; 97535; A9270; C1713; C1776; J0171; J0690; J1100; J1200; J1885; J2270; J2405; J2704; J2795; J3010; J7120; J7512

== ENCOUNTER 2025-04-13 00:25 | Day surgery (SDC) | payer MEDICARE, SELFPAY ==
--- NOTE | 2025-04-10 09:34 | PC.NURSE ---
Report to the Outpatient Waiting Room, entrance under the green pavilion located off [facility], at time _1200 noon on date _04/13/25 . Planned Procedure Time: _2 pm .? Time changes happen often and if your time is changed the preop area will call you the afternoon before. - You and your visitor will be asked to self-screen and do not enter if you have any COVID symptoms. Please call surgeon if you need to reschedule. - A mask is optional within the hospital at this time. Patients may have clear liquids (water, carbonated beverages, clear teas, apple juice) until 3 hours prior to surgery ( 11 am) with a maximum of 20 ounces. - No food from midnight until time of surgery and no smoking, or chewing tobacco (or any form of nicotine). No chewing gum, candy or mints. - Take only the following medications with a SIP of water on the morning of surgery: __ESCITALOPRAM DO NOT STOP ANY OF YOUR OTHER PRESCRIPTION MEDICATIONS PRIOR TO SURGERY EXCEPT THE FOLLOWING Hold all vitamins and supplements for 3 days per anesthesiologist. LAST DOSE 04/09/25 Medications to discontinue per physician ___ASPIRIN 7 DAYS PRE OP PER DR VALLE Please no make-up, nail north korean, hairspray, perfume, deodorant, or body powder the day of surgery.? No jewelry (including any body piercings) or valuables the day of surgery, leave them at home.? Please take a shower or bath the night before, or the morning of, surgery with an antibacterial soap.? Wear comfortable, loose fitting clothing.? Children are encouraged to wear pajamas. - Jewelry must be removed prior to entering the operating room.? Rings and piercings that are not removed may be cut off. - The hospital will not accept responsibility for valuables.? - Please leave all valuables, including medications, at home the day of surgery. If you are going home after surgery, a licensed rivet driver must drive you home.? - NO public transportation without another adult if you receive anesthesia. - We recommend that an adult stay with you for 24 hours following discharge. - We also recommend that you do not drive, make important decision, drink alcoholic beverages, or take any drugs that were not prescribed by your health care provider for at least 24 hours after your discharge time. Follow any additional instructions given to you from your surgeon. Telephone instructions given to __PATIENT and asked if any additional questions and then verbalized understanding. Patient advised to call surgeon office or pre surgery nurse liaison [phone] if any additional questions.
[2025-04-10 09:52] VITALS: BMI 33.0
--- OUTSIDE RECORDS SUMMARY | 2025-04-13 00:28 | XMS_ITS | Continuity of Care Document ---
Author Organization [facility] Address [address] [facility] [address] [place] [address] Phone Care Team Providers Care Aircraft Mechanic Electrical And Radio Name Role Phone Ysabel ARIAS, Taj Unavailable [...] CINTIA TEARS MCR ONLY OFFICE/OUTPATIENT VISIT, [facility] MICROFLUID CINTIA TEARS MCR ONLY MICROFLUID CINTIA TEARS MCR ONLY Advance Directives Directive Yes / No Effective Date File Name No Information Encounters Encounter Description Practice Location Reason(s) For Visit Diagnoses Date Provider Providers Copied on Encounter OFFICE/OUTPA TIENT VISIT, [facility], [address] [place] [address], [id number], tel:[phone] OPH CONSULT [facility] Physician ordered K check (chief complaint) Bilateral keratoconjunct ivitis sicca, not specified as Sjogren'sPrese nce of pseudophakiaBl epharitis of eyelid 8 Krishnasamy Taj. [address], [address], [place], [place], [id number], [place]. tel:[phone] Referring Provider: Taj lópez, [address], [place], [address] . tel:[phone] [facility], [address] [place] [address], [id number], tel:[phone] OPH CONSULT [facility] No Information 8 Renetta Bosch. [address], [address], [place], [place], [id number], [place]. tel:[phone] OFFICE/OUTPA TIENT VISIT, [facility], [address] [place] [address], [id number], [place] tel:[phone] OPH CONSULT [facility] dryness (chief complaint) Bilateral keratoconjunct ivitis sicca, not specified as Sjogren'sBleph aritis of eyelidPresence of pseudophakia 8 Krishnasamy Taj. [address], [address], [place], [place], [id number], [place]. tel:[phone] Referring Provider: Taj lópez, [address], [place], [address] . tel:[phone] Family History Family Member Type Diagnosis Age At Onset Problem (finding) No family history of Di abetes mellitus Problem (finding) No family hist ory of Macular degeneration Problem (finding) No family history of Gl aucoma Problem (finding) No family history of Hy pertension Payers Payer name Insurance type Covered green party ID Palak dahl(s) [place] [id number] HENRI TAVERAS [id number] Social History Type Description Quantity Date Captured [...]
--- OUTSIDE RECORDS SUMMARY | 2025-04-13 00:28 | XMS_ITS | Patient Health Record ---
Author Organization [facility] Address [address] [place], [place] [id number] Care Team Providers Care Straw Hat Brusher Name Role Phone MARYSE RIVERA Unavailable [phone] Ander Leblanc Unavailable Unavailable Allergies No Known Allergies Reason For Referral No Information Medications Medication SIG (Take, Route, Fr equency, Duration) Notes Start Date End Date Status Omeprazole 40 MG Oral; Duration: 90 Days Active Gabapentin 300 MG Oral; Duration: 30 Days Active Immunizations Vaccine Route Administration Date Status Comme nts Zoster Unknown 06/15/2008 Administered Pneumococcal polysaccharide PPV23 Unknown 09/06/2014 Ad ministered Pneumococcal conjugate PCV 13 Unknown 02/05/2016 Admini stered Influenza, unspecified formulation Unknown 06/24/2023 A dministered Influenza, seasonal, injecta ble, preservative free, 6-35 months Unknown 06/01/2020 Administered Influenza, high-dose seasona l, quadrivalent, preservative free >65 yrs Unknown 05/22/2021 Administered Influenza, high dose seasonal Unknown 06/23/2015 Admini stered Influenza, high dose seasonal Unknown 07/03/2016 Admini stered Influenza, high dose seasonal Unknown 06/15/2017 Admini stered Influenza, high dose seasonal Unknown 06/28/2018 Admini stered Influenza, high dose seasonal Unknown 06/29/2018 Admini stered Influenza, high dose seasonal Unknown 06/16/2019 Admini stered Influenza (split), 3 yrs and above Unknown 07/04/2014 A dministered Influenza (split), 3 yrs and above Unknown 07/14/2018 A dministered Influenza (split), 3 yrs and above Unknown 07/14/2018 A dministered Social History Tobacco Use: Social History Observation Description Date Details (start date - stop date) Former Smoker NA - NA Tobacco Use/Smoking Question Answer Notes Tobacco use: former smoker Vital Signs Height-cm 157.48 cm 02/23/2025 Weight-kg 82.1 kg 02/23/2025 Height 62 in 02/23/2025 Weight 181 lbs 02/23/2025 BMI 33.1 kg/m2 02/23/2025 Encounters Encounter Location Date Provider Diagnosis [facility] SUBHA GUERRIER [address] [place] [address] [id number] 02/23/2025 MARYSE WHITTENSTEPHAN Fungal infection of nail B35.1 ; Pain in right toe(s) M79.674 ; Pain in left toe(s) M79.675 and Atherosclerosis of [place] arteries of extremities with intermittent claudication, bilateral legs I70.213 [facility] July Ag SUBHA GUERRIER [address] [place] [address] [id number] 06/09/2024 MARYSE WHITTEN[place]G Fungal infection of nail B35.1 ; Pain in right toe(s) M79.674 ; Pain in left toe(s) M79.675 and Atherosclerosis of [place] arteries of extremities with intermittent claudication, bilateral legs I70.213 [facility] July GUERRIER [address] [place] [address] [id number] 08/11/2024 MARYSE [place] Fungal infection of nail B35.1 ; Pain in right toe(s) M79.674 ; Pain in left toe(s) M79.675 and Atherosclerosis of [place] arteries of extremities with intermittent claudication, bilateral legs I70.213 [facility] July GUERRIER [address] [place] [address] [id number] 10/20/2024 MARYSE [place] Fungal infection of nail B35.1 ; Pain in right toe(s) M79.674 ; Pain in left toe(s) M79.675 and Atherosclerosis of [place] arteries of extremities with intermittent claudication, bilateral legs I70.213 [facility] July GUERRIER [address] [place] [address] [id number] 12/22/2024 MARYSE [place] Fungal infection of nail B35.1 ; Pain in right toe(s) M79.674 ; Pain in left toe(s) M79.675 and Atherosclerosis of [place] arteries of extremities with intermittent claudication, bilateral [...] any subungual debris and necrotic tissue removed 02/23/2025 Fungal infection of nail (ICD-10 - B35.1) Nails 1-5 Bilateral were debrided extensively with nail nippers and emery board, reducing length and girth to pink healthy tissue with any subungual debris and necrotic tissue removed 02/23/2025 Pain in right toe(s) (ICD-10 - M79.674) 12/22/2024 Pain in right toe(s) (ICD-10 - [...] Pain in left toe(s) (ICD-10 - M79.675) 02/23/2025 Pain in left toe(s) (ICD-10 - M79.675) 02/23/2025 Atherosclerosis of [place] arteries of extremities with intermittent claudication, bilateral legs (ICD-10 - I70.213) 12/22/2024 Atherosclerosis of [place] arteries of extremities with intermittent claudication, bilateral legs (ICD-10 - I70.213) 10/20/2024 Atherosclerosis of [place] arteries of extremities with intermittent claudication, bilateral legs (ICD-10 - I70.213) 08/11/2024 Atherosclerosis of [place] arteries of extremities with intermittent claudication, bilateral legs (ICD-10 - I70.213) 06/09/2024 Atherosclerosis of [place] arteries of extremities with intermittent claudication, bilateral legs (ICD-10 - I70.213) Plan Of Treatment Next Appt Details Provider Name:MARYSE ROTHMAN, 04/27/2025 01:50:00 PM, [address], [facility], [place], [place], [id number], Insurance Providers Payer Name Payer Address Payer Phone Subscriber Number Group Number Insured Name Patient Relationship to Insured Coverage Start Date Coverage End Date Medicare Part B [place] [address] [place] [address] [id number] Renan Erastoeleonora Self - patient is the insured C[employer] Medicare Supplementa l Benefit Plans [id number] [address] [address] [place], [place] [id number] Geneva Urrutia Self - patient is the insured 7 Medical (General) History Medical History History ICD Code acid reflux Arthritis Thyroid Disease varicose veins Surgical History Surgery Date(Month/Year) Shoulder surgery Left wrist
--- OUTSIDE RECORDS SUMMARY | 2025-04-13 00:28 | XMS_ITS | Encounter Summary ---
Author Organization [facility] Address [address] [place] [address] Care Team Providers Care Rigging Slinger Name Role Phone Tonja Barfield MD Primary Care Provider [phone] Ander Leblanc MD Primary Care Provider Encounter Details Date Type Department Care Team (Late st Contact Info) Description 04/23/2018 Lab Requisition [facility] [address] 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 Gender Identity Not on file Sexual Orientation Not on file documented as of this encounter Plan of Treatment Not on file documented as of this encounter Procedures Procedure Name Priority Date/Time Associated Diagnosis Comments IMMUNOFLUORESCENT STUDY DERM Routine 04/22/2018 12:00 AM CDT documented in this encounter Results * IMMUNOFLUORESCENT STUDY DERM (04/22/2018 12:00 AM CDT) Case Report Dermatopathol ogy Report Case: [id number] Authorizing Provider: Gasper Villeda MD Collected: 04/22/2018 12:00 AM Pathologist: Glory Jean MD Received: 04/23/2018 12:24 PM Specimen: Skin, right lower leg 1:50 PM CDT DERMATOPATHOLOGY LABORATORY Final Diagnosis Specimen A. SKIN, right lower leg: FOCAL VASCULAR C3 (M31.0) COLLOID BODIES (L98.9) (see microscopic description and comment) (see fixed tissue results, [id number]) 1:50 PM CDT DERMATOPATHOLOGY LABORATORY at 1350 CDT Direct Immunofluorescence Report - Specimen A Specimen [...] determined by the Dermatopathol ogy Laboratory at [facility]. These tests need not be, and therefore are not, approved by the [place] Food and Drug Administratio n. The tests are used for clinical purposes. Billing Codes Specimen Charges Stain Charges 01774 87884 12786 78958 13316 98396 1 1 1 1 1 1 8 1:50 PM CDT DERMATOPATHOLOGY LABORATORY Embedded Images 8 1:50 PM CDT DERMATOPATHOLOGY LABORATORY Pathology/Cytolog y TISSUE SPECIMEN FROM SKIN / Unknown 04/22/2018 04/23/2018 12:24 PM CDT Gasper Villeda MD LAB - PATHOLOGY/CYTOLOGY ORD ERABLES Final Result DERMATOPATHOLOGY LABORATORY [facility] - Department of Dermatology [address] [place] [address], 5th Floor Lab [address] [phone] documented in this encounter Visit Diagnoses Not on filedocumented in this encounter Care Teams Rigging Slinger Relationship Specialty Start Date End Date Tonja Barfield MD [facility] [place] [address] PCP - General 04/23/18 01/21/23 Ander Leblanc MD [address] [place] [address] PCP - General 01/22/23 documented as of this encounter
--- OUTSIDE RECORDS SUMMARY | 2025-04-13 00:28 | XMS_ITS | Encounter Summary ---
Author Organization [facility] Address [address] [place] [address] Care Team Providers Care Life Insurance Underwriter Name Role Phone Hector Johnson MD Primary Care Provider Ander Leblanc MD Primary Care Provider [phone] Dickson Johnson MD Unavailable [phone] Edel Rodriguez MD PhD Unavailable [phone] Luis Nicholson MD Unavailable [phone] Christine Taylor MD Unavailable [phone] Encounter Details Date Type Department Care Team (Late st Contact Info) Description 09/18/2021 Telephone [facility] [address] [place] [address] Sonido Triplett MD [address] [place], [place] [phone] Social History Tobacco Use Types Packs/Day Years [...] on file 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 Female 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 Gender Identity Female 08/07/2020 10:58 AM COMMERCIAL GREEN BUILDING DESIGNER Sexual Orientation Not on file documented as of this encounter Plan of Treatment Not on file documented as of this encounter Visit Diagnoses Not on filedocumented in this encounter Care Teams Life Insurance Underwriter Relationship Specialty Start Date End Date Hector Johnson MD [address] [place] [address] PCP - General Family Medicine 07/23/20 02/27/22 Ander Leblanc MD [address] [place] [address] PCP - General Internal Medicine 02/28/22 Dickson Johnson MD [address] [facility] [address] [place] [address] Medical Oncologist Hematology 05/06/24 Edel Rodriguez MD PhD [address] [facility] MEDICAL ONCOLOGY, [facility] [address] [place] [address] Medical Oncologist/Senior It Business Analyst Medical Oncology 05/06/24 05/11/24 Luis Nicholson MD [address] [place] [address] Medical Oncology 05/12/24 Christine Taylor MD [address] [place] [address] Referring Physician Dermatology 05/31/24 documented as of this encounter
--- OUTSIDE RECORDS SUMMARY | 2025-04-13 00:28 | XMS_ITS | Encounter Summary ---
Author Organization [facility] Address [address] [place] [address] Care Team Providers Care Building Operator Name Role Phone Tonja Barfield MD Primary Care Provider [phone] Ander Leblanc MD Primary Care Provider [phone] Encounter Details Date Type Department Care Team (Late st Contact Info) Description 04/23/2018 Lab Requisition [facility] [address] [place] [address] Gasper Villeda MD [place] [address] Social History Tobacco Use Types Packs/Day Years Used Date Smoking Tobacco: Never Assessed Comments Unknown Sex and Gender Information Value Date Recorded Sex Assigned at Not on file 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 Gender Identity Not on file Sexual Orientation Not on file documented as of this encounter Plan of Treatment Not on file documented as of this encounter Procedures Procedure Name Priority Date/Time Associated Diagnosis Comments DERMATOPATHOLOGY Routine 04/22/2018 12:0 0 AM CDT documented in this encounter Results * DERMATOPATHOLOGY (04/22/2018 12:00 AM CDT) Case Report Dermatopathology Report Case: [id number] Authorizing Provider: Gasper Villeda MD Collected: 04/22/2018 12:00 AM Pathologist: Glory Jean MD Received: 04/23/2018 12:23 PM Specimens: A) - Skin, right medial calf B) - Skin, right lower leg 1:42 PM T DERMATOPATHOLOGY LABORATORY Final Diagnosis Specimen A. 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 Jar 0. 1:42 PM T DERMATOPATHOLOGY LABORATORY Microscopic Description Specimen A. SKIN, [...] characteristic determined by the Dermatopathology Laboratory at [facility]. These tests need not be, and therefore are not, approved by the [place] Food and Drug Administration. The tests are used for clinical purposes. Billing Codes Specimen Charges Stain Charges 35060 01206 1 1 57903 81388 1 1 8 1:42 PM CDT DERMATOPATHOLOGY LABORATORY Embedded Images 1:42 PM CDT DERMATOPATHOLOGY LABORATORY Pathology/Cytology TISSUE SPECIMEN FROM SKIN / Unknown 04/22/2018 04/23/2018 12:23 PM CDT Miscellaneous samples (specimen) TISSUE SPECIMEN FROM SKIN / Unknown 04/22/2018 04/23/2018 12:23 PM CDT Gasper Villeda MD LAB - PATHOLOGY/CYTOLOGY ORD ERABLES Final Result DERMATOPATHOLOGY LABORATORY [facility] - Department of Dermatology [address] [place] [address], 5th Floor Lab [address] [phone] documented in this encounter Visit Diagnoses Not on filedocumented in this encounter Care Teams Building Operator Relationship Specialty Start Date End Date Tonja Barfield MD [facility] [place] [address] PCP - General 04/23/18 01/21/23 Ander Leblanc MD [address] [place] [address] PCP - General 01/22/23 documented as of this encounter
--- OUTSIDE RECORDS SUMMARY | 2025-04-13 00:28 | XMS_ITS | Encounter Summary ---
Author Organization [facility] Address [address] [place] [address] Care Team Providers Care Avionics Integration Engineer Name Role Phone Ander Leblanc MD Primary Care Provider [phone] Encounter Details Date Type Department Care Team (Late st Contact Info) Description 04/08/2024 Lab Requisition [facility] - Pathology Lab [address] [place] [address] Chavez Paige MD [address] [facility] [address] [place] [address] Enlarged lymph nodes, unspecified Social History Tobacco Use Types Packs/Day Years Used Date Smoking Tobacco: Never Assessed Comments Unknown Sex and Gender Information Value Date Recorded Sex Assigned at Not on file 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 Gender Identity Not on file Sexual Orientation [...] AM CDT) Case Report Flow Cytometry Case: [id number] Authorizing Provider: Chavez Paige Collected: 04/08/2024 09:30 AM MD [place] Ordering Location: [facility] - Received: 04/08/2024 03:15 PM Pathology Lab Pathologist: Lisa Montgomery MD Specimen: Lymph Node, RIGHT INGUINAL 04/11/2024 11:04 AM [facility] PATHOLOGY LAB Final Diagnosis Lymph node, right inguinal, flow cytometry: - Low-viability specimen with no significant lymphocyte population detected 04/11/2024 11:04 AM [facility] PATHOLOGY LAB at 1104 CDT Flow Cytometry Interpretation Viability: 15% B-cells: no significant population T-cells: no significant population Blasts: not detected A cytospin prepared from the flow cytometry specimen has been reviewed for quality compliance consultant purposes. 04/11/2024 11:04 AM [facility] PATHOLOGY LAB Flow Cytometry Results Differential Result Comment Flow Cell Count /uL 1,640 Total Viability % 15.0 Lymphocytes % 51 Dim CD45 Region % 4 Monocytes % 7 Granulocytes % 38 04/11/2024 11:04 AM [facility] PATHOLOGY LAB Reason for test Enlarged lymph nodes, unspecified 04/11/2024 11:04 AM [facility] PATHOLOGY LAB Client Specimen ID # [id number] 04/11/2024 11:04 AM [facility] PATHOLOGY LAB Number of markers 16 were performed. A-2 Flow CD10 A-4 Flow CD20 A-5 Flow CD23 A-10 Flow CD2 A-11 Flow CD3 A-12 Flow CD4 A-16 Flow CD1a A-3 Flow CD19 A-6 Flow CD34 A-7 Flow CD45 A-13 Flow CD5 A-14 Flow CD7 A-15 Flow CD8 A-17 Flow CD30 A-8 Wolf Trap+CD19+ A-9 Lambda+CD19+ 04/11/2024 11:04 AM [facility] PATHOLOGY LAB Pathologist Location at [facility] 04/11/2024 11:04 AM [facility] PATHOLOGY LAB Disclaimer Test performed at [facility], [address] [place] [address], [address]. *The established laboratory minimum viability is 70%. [...] complexity clinical testing. 04/11/2024 11:04 AM CDT [facility] PATHOLOGY LAB Embedded Images 11:04 AM CDT [facility] PATHOLOGY LAB Pathology/Cytolo gy ENTIRE LYMPH NODE / Unknown 04/08/2024 9:30 AM CDT 04/08/2024 3:15 PM CDT Chavez Paige MD LAB - PATHOLOGY/CYT OLOGY ORDERABLES Final Result [facility] PATHOLOGY LAB [address] [phone] documented in this encounter Visit Diagnoses Diagnosis Enlarged lymph nodes, unspecified documented in this encounter Care Teams Avionics Integration Engineer Relationship Specialty Start Date End Date Ander Leblanc MD [address] [place] [address] PCP - General 01/22/23 documented as of this encounter
--- OUTSIDE RECORDS SUMMARY | 2025-04-13 00:28 | XMS_ITS | Encounter Summary ---
Author Organization [facility] Address [address] [place] [address] Care Team Providers Care Investor Name Role Phone Ander Leblanc MD Primary Care Provider [phone] Encounter Details Date Type Department Care Team (Late st Contact Info) Description 04/13/2024 Lab Requisition [facility] - Pathology Lab [address] [place] [address] Rex Saucedo MD [address] [place] [address] Illness, unspecified Social History Tobacco Use Types Packs/Day Years Used Date Smoking Tobacco: Former Cigarettes Smokeless Tobacco: Never Alcohol Use Standard Drinks/Week Comments Yes 0 (1 standard drink = 0.6 oz pur e alcohol) Comments Unknown Sex and Gender Information Value Date Recorded Sex Assigned at Not on file 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 The histologic differential diagnosis includes an oral lichenoid drug reaction and oral contact hypersensitivity reaction. Clinical correlation is necessary for full interpretation. 04/14/2024 9:11 AM CDT [facility] PATHOLOGY LAB at 0911 CDT Microscopic Description and Comment Sections show dense [...] LAB Clinical History 04/14/2024 9:11 AM T [facility] PATHOLOGY LAB Materials Received Received are 2 slide(s) labeled [id number] along with a copy of the outside pathology report. The materials originate from [employer] [address] [place] [address]. All original materials are returned to the referring institution, along with a copy of our final report. 04/14/2024 9:11 AM T [facility] PATHOLOGY LAB Pathologist Location at [facility] 04/14/2024 9:11 AM CDT [facility] PATHOLOGY LAB Case Report Surgical Pathology Report Case: [id number] Authorizing Provider: Rex Saucedo MD Collected: 04/13/2024 02:36 PM Ordering Location: [facility] - Received: 04/13/2024 02:36 PM Pathology Lab Pathologist: Omid Ulloa MD Specimen: Slide Consultation 04/14/2024 9:11 AM CDT [facility] PATHOLOGY LAB Embedded Images 04/14/2024 9:11 AM T [facility] PATHOLOGY LAB Pathology/Cytolo gy SURGICAL PATHOLOGY CONSULTATION AND REPORT ON REFERRED SLIDES PREPARED ELSEWHERE / Unknown 04/13/2024 2:36 PM CDT 04/13/2024 2:36 PM CDT Rex Saucedo MD LAB - PATHOLOGY/CYTOLOGY ORDERAB LES Final Result [facility] PATH[facility] LAB [address] [facility] [place] [address], [facility] [phone] documented in this encounter Visit Diagnoses Diagnosis Illness, unspecified documented in this encounter Care Teams Investor Relationship Specialty Start Date End Date Ander Leblanc MD [address] [place] [address] PCP - General 01/22/23 documented as of this encounter
--- OUTSIDE RECORDS SUMMARY | 2025-04-13 00:29 | XMS_ITS | Clinical Summary ---
Author Organization [facility] Address [address] [facility] [place] [address] Care Team Providers Care Thermostatic Controls Supervisor Name Role Phone Ander Leblanc MD Primary Care Provider [phone] Source Comments [facility],non-[facility] Affiliates and Associated Physician Practices is amultiple site organization consisting of ambulatory clinics and hospital sitesin [place], [place], [place] and [place]. This disclosure is being madepursuant to the Care Everywhere program and may not contain all information available regarding this patient. 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 Gender Identity Not on file Sexual Orientation [...] 8:53 AM CDT Height 157.5 cm (5' 2) 04/13/2024 8:53 AM CDT Body Mass Index [...] series) 2023 DEPRESSION SCREENING 09/21/2024 INFLUENZA VACCINE (#1) 2025 8, 06/29/2018 BONE DENSITY TESTING Completed 02/28/2022, 02/22/2021 [...] patient's age to complete this topic Insurance [facility] [employer] [place] [address] MEDICARE * Guarantor: JAMI URRUTIA Account Type Relation to Patient Date of Phone Billing Address Personal/Family [address] [place] [address] MEDICARE * Guarantor: JAMI URRUTIA Account Type Relation to Patient Date of Phone Billing Address Personal/Family [address] [facility] [place] [address] * Guarantor: JAMI URRUTIA Account Type Relation to Patient Date of Phone Billing Address Personal/Family [address] [facility] [place] [address] Care Teams Thermostatic Controls Supervisor Relationship Specialty Start Date End Date Ander Leblanc MD [address] [place] [id number] PCP - General 01/22/23
--- OUTSIDE RECORDS SUMMARY | 2025-04-13 00:29 | XMS_ITS | Referral Summary ---
Author Organization [facility] Address [address] [place] [address] Care Team Providers Care Brush Head Maker Name Role Phone Ander Leblanc MD Primary Care Provider [phone] Dickson Johnson MD Unavailable [phone] Luis Nicholson MD Unavailable [phone] Christine Taylor MD Unavailable [phone] Encounters Date Type Department Care Team Description 02/23/2025 10:30 AM CDT Office Visit [facility] Radiation Oncology [address] [place] [address] [place] [address] Samir Herndon NP Cancer with unknown primary site (HCC) (Primary Dx) 02/23/2025 9:30 AM CDT Office Visit [facility] [address] [facility] Floor [address] [place] [address] Luis Nicholson MD Cancer with unknown primary site (HCC) (Primary Dx) 02/23/2025 6:48 AM CDT - 02/23/2025 11:59 PM CDT Hospital Encounter [facility] [address] [place] [address] Luis Nicholson MD Cancer with unknown primary site (HCC) Discharge Disposition: Discharge to home or self care 01/23/[address] [facility] [address] [place] [address] Antione Correa RN 01/23/2025 Orders Only [facility] [address] [place] [address] Luis Nicholson MD Cancer with unknown primary site (HCC) (Primary Dx) from Last 3 Months Allergies Active Allergy [...] 1 tablet (75 mcg total) by mouth waitangi tribunal member before breakfast 0 Active montelukast (SINGULAIR) 10 mg tablet Take 1 tablet (10 mg total) by mouth nightly 0 Active omeprazole (PriLOSEC) 40 mg capsule 1 capsule (40 mg total) every morning 0 Active qjuuafum-bhla-k ollag-hyalur ac 135-483-90-2 mg capsule Take by mouth every morning [...] (07/24/2020): Added automatically from request for surgery [id number] Closed fracture of left shoulder 07/23/2020 Overview (07/23/2020): Added automatically from request for surgery [id number] Abnormal chest x-ray 06/25/2020 History of 2019 [...] Influenza, Trivalent, Preser vative Free, Intramuscular 06/01/2020 Influenza, Unspecified 06/24/2023 Pneumococcal Conjugate PCV 13 02/05/2016 Pneumococcal Polysaccharide [...] on file Legal Sex Female 3:10 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 ACCOUNTANT Gender Identity Female 08/07/2020 10:58 AM PRODUCT ACCOUNTANT Sexual Orientation Not on file Occupation Industry Job Start Date Job End Date Retired Not on file Not on file Not on file Last Filed Vital Signs Vital Sign Reading Time Taken Comments Blood Pressure 109/61 02/23/2025 9:03 AM CDT Pulse 82 02/23/2025 9:03 AM CDT Temperature 36.4 C (97.5 F) 02/23/2025 9:03 AM CDT Respiratory Rate 16 02/23/2025 9:03 AM CDT Oxygen Saturation 98% 02/23/2025 9:03 AM CDT Inhaled Oxygen Concentration - - Weight 82.4 kg (181 lb 9.6 oz) 02/23/2025 10:21 AM CDT Height 157.6 cm (5' 2.05) 02/23/2025 9:03 AM CD T Body Mass Index 33.16 02/23/2025 9:03 AM CDT Plan of Treatment Not on file Medical Devices Implanted Type Area [employer] Device Identifier Shelf Expiration Date Model / Serial / Lot [employer]/Rich[employer]/ Ortho [id number] Evos 3.5mm 24mm Self Tap Cortex Screw Bone Sterile - [id number] Implanted:Qty: 3 on 07/27/2020 by Edgar Rojas MD at [facility] Left: Arm [employer]/Or tho [id number] / / [employer]/ Ortho [id number] 3.5mm 20mm Self Tap Cortex Screw Bone Nonsterile - [id number] Implanted:Qty: 1 on 07/27/2020 by Edgar Rojas MD at [facility] Left: Arm [employer]/Or tho [id number] / / [employer]/ Ortho [id number] Evos 3.5mm 38mm Self Tap Lock Screw Bone Sterile - [id number] Implanted:Qty: 3 on 07/27/2020 by Edgar Rojas MD at [facility] Left: Arm [employer]Rich[employer]/Or tho [id number] / / [employer]/ Ortho [id number] Evos 3.5mm 48mm Self Tap Lock Screw Bone Sterile - [id number] Implanted:Qty: 1 on 07/27/2020 by Edgar Rojas MD at [facility] Left: Arm [employer]/Or tho [id number] / / [employer]/ Ortho [id number] Evos 3.5mm 30mm Self Tap Lock Screw Bone Sterile - [id number] Implanted:Qty: 3 on 07/27/2020 by Edgar Rojas MD at [facility] Left: Arm [employer]/Or tho [id number] / / [employer]/ Ortho [id number] Evos 3.5mm 34mm Self Tap Lock Screw Bone Sterile - [id number] Implanted:Qty: 1 on 07/27/2020 by Edgar Rojas MD at [facility] Left: Arm [employer]/Or tho [id number] / / [employer]/ Ortho [id number] Plate Bone Evos Curve L114 Mm Od3.5 Mm Humerus Left Proximal 6 Hole Sterile - [id number] Implanted:Qty: 1 on 07/27/2020 by Edgar Rojas MD at [facility] Left: Arm [employer]Richco/Or tho [id number] / / [employer] A-4750.56 Aptus Trilock 42mmx1.6mm 6 Hole Distal Radius L Right Angle Plate - [id number] Implanted:Qty: 1 on 07/30/2020 by Zhen Otero MD at [facility] Left: Radius [employer] A-4750.56 / / [employer] A-5750.12/1 Aptus Trilock 2.5mm 12mm Hexadrive 7 Adaptive Wrist Radius - [id number] Implanted:Qty: 3 on 07/30/2020 by Zhen Otero MD at [facility] Left: Radius [employer] A-5750.12/1 / / [employer] A-5750.16/1 2.5mm 16mm Trilock Hexadrive Wrist Radius Screw Bone - [id number] Implanted:Qty: 1 on 07/30/2020 by Zhen Otero MD at [facility] Left: Radius [employer] A-5750.16/1 / / [employer] A-5700.13/1 Aptus 2.5mm 13mm Hexadrive 7 Wrist Cortical Screw Bone Titanium - [id number] Implanted:Qty: 1 on 07/30/2020 by Zhen Otero MD at [facility] Left: Radius [employer] A-5700.13/1 / / [employer] A-4750.55 Aptus Trilock 42mmx1.6mm 6 Hole Distal Radius L Left Angle Plate - [id number] Implanted:Qty: 1 on 07/30/2020 by Zhen Otero MD at [facility] Left: Radius [employer] A-4750.55 / / [employer] A-5700.14 Aptus 2.5mm 14mm Cortical Screw Bone - [id number] Implanted:Qty: 3 on 07/30/2020 by Zhen Otero MD at [facility] Left: Radius [employer] A-5700.14 / / Procedures Procedure Name Priority Date/Time Associated Diagnosis Comments CT CHEST ABDOMEN PELVIS W CONTRAST Schedule Routine, Read Routine (OP Routine) 02/23/2025 7:48 AM CDT Cancer with unknown primary site (HCC) DEXA TBS AXIAL SKELETON BONE DENSITY 1 OR MORE SITES Schedule Routine, Read Routine (OP Routine) 03/30/2024 9:31 AM CDT Age-related osteoporosis without current pathological fracture from Last 3 Months or Most Recently Relevant to Health Maintenance Results * CT chest abdomen pelvis with contrast (02/23/2025 7:48 AM CDT) Anatomical Region Laterality Modality Body N/A Computed Tomogra phy 02/23/2025 8:03 AM CDT Impressions 02/23/2025 8:03 AM CDT No change compared to the prior study. No metastatic or recurrent disease. Electronically signed by: Oracio Lewis M.D. Narrative 02/23/2025 8:03 AM CDT EXAMINATION: CT CHEST, ABDOMEN AND PELVIS WITH INTRAVENOUS CONTRAST TECHNIQUE: Standard CT of the chest, abdomen and pelvis was performed after the administration of intravenous contrast. Studies were performed after the administration of the following amount of Optiray 350: 69 mL HISTORY: Metastatic carcinoma of unknown primary FINDINGS: Comparison is made to prior study of 09/22/2024. Chest: Again seen is a small area of pleural thickening in the right upper lung at slice position 26.6. There is no interstitial lung disease or consolidation. No pulmonary nodule is seen. No supraclavicular, axillary or mediastinal lymphadenopathy. Surgical changes are seen in the left humerus. No pleural or pericardial effusion. Abdomen/pelvis: The spleen, adrenal glands and pancreas are unremarkable. Gallbladder is fluid-filled but not thickened. The liver is diffusely fatty without any focal lesion. There is no ductal dilatation. Both kidneys are symmetric without hydronephrosis. Abdominal aorta is atherosclerotic but is not aneurysmal. There is no retroperitoneal or mesenteric lymphadenopathy. The uterus is seen within the midline and is somewhat lobulated perhaps representing a fibroid. The urinary bladder is fluid-filled but not thickened. The colon is somewhat redundant with moderate amount of stool but no wall thickening. The small bowel is normal in course and caliber. There is no lymphadenopathy present within the retroperitoneum. Few tiny mesenteric lymph nodes are again seen without change. There is no iliac lymphadenopathy or inguinal lymphadenopathy. The bone windows do not demonstrate any osseous lesion. Mild stranding within the right groin may be indicative of treatment changes. Procedure Note Oracio Lewis MD - 02/23/2025 EXAMINATION: CT CHEST, ABDOMEN AND PELVIS WITH INTRAVENOUS CONTRAST TECHNIQUE: Standard CT of the chest, abdomen and pelvis was performed after the administration of intravenous contrast. Studies were performed after the administration of the following amount of Optiray 350: 69 mL HISTORY: Metastatic carcinoma of unknown primary FINDINGS: Comparison is made to prior study of 09/22/2024. Chest: Again seen is a small area of pleural thickening in the right upper lung at slice position 26.6. There is no interstitial lung disease or consolidation. No pulmonary nodule is seen. No supraclavicular, axillary or mediastinal lymphadenopathy. Surgical changes are seen in the left humerus. No pleural or pericardial effusion. Abdomen/pelvis: The spleen, adrenal glands and pancreas are unremarkable. Gallbladder is fluid-filled but not thickened. The liver is diffusely fatty without any focal lesion. There is no ductal dilatation. Both kidneys are symmetric without hydronephrosis. Abdominal aorta is atherosclerotic but is not aneurysmal. There is no retroperitoneal or mesenteric lymphadenopathy. The uterus is seen within the midline and is somewhat lobulated perhaps representing a fibroid. The urinary bladder is fluid-filled but not thickened. The colon is somewhat redundant with moderate amount of stool but no wall thickening. The small bowel is normal in course and caliber. There is no lymphadenopathy present within the retroperitoneum. Few tiny mesenteric lymph nodes are again seen without change. There is no iliac lymphadenopathy or inguinal lymphadenopathy. The bone windows do not demonstrate any osseous lesion. Mild stranding within the right groin may be indicative of treatment changes. IMPRESSION: No change compared to the prior study. No metastatic or recurrent disease. Electronically signed by: Oracio Lewis M.D. us Luis Nicholson MD IMG CT PROCEDURES Final Result * Dexa TBS Axial Skeleton Bone Density 1 or more sites (03/30/2024 9:31 AM CDT) Anatomical Region Laterality Modality Wrist, Body N/A Radiographic Teresita ging Narrative 03/30/2024 10:06 AM CDT Patient Name: Geneva Urrutia Date of : 1950 Date of scan: 03/30/2024 Bone mineral density was performed on a [employer] Discovery Densitometer. Based on machine cross-calibration and [...] by the International Society of Clinical Densitometry. [id number] Tamara Pina MD IMG DXA PROCEDURES Final Resu lt from Last 3 Months or Most Recently Relevant to Health Maintenance Insurance [facility]ICARE [facility] MEDICARE SUPPLEMENT INSURANCE MEDICARE [facility] MEDICARE SUPPLEMENT INSURANCE MEDICARE MEDICARE [facility] MEDICARE SUPPLEMENT INSURANCE Care Teams Brush Head Maker Relationship Specialty Start Date End Date Ander Leblanc MD [address] [facility] [address] [place] [address] PCP - General Internal Medicine 02/28/22 Dickson Johnson MD [facility] [address] [place] [address] Medical Oncologist Hematology 05/06/24 Luis Nicholson MD [facility] [address] [place] [address] Medical Oncology 05/12/24 Christine Taylor MD [address] [place] [address] Referring Physician Dermatology 05/31/24
--- OUTSIDE RECORDS SUMMARY | 2025-04-13 00:29 | XMS_ITS | Encounter Summary ---
Author Organization [facility] Address [address] [place] [address] Phone Care Team Providers Care Dairy Processing Equipment Operator Name Role Phone Ander Leblanc MD Primary Care Provider [phone] Dickson Johnson MD Unavailable [phone] Edel Rodriguez MD PhD Unavailable [phone] Luis Nicholson MD Unavailable [phone] Christine Taylor MD Unavailable [phone] Encounter Details Date Type Department Care Team [...] on file Legal Sex Female 3:10 AM CASH APPLICATIONS SPECIALIST Gender Identity Female 08/07/2020 10:58 AM CASH APPLICATIONS SPECIALIST Sexual Orientation Not on file Occupation [...] on filedocumented in this encounter Care Teams Dairy Processing Equipment Operator Relationship Specialty Start Date End Date Ander Leblanc MD [address] [place] [address] [place] [address] PCP - General Internal Medicine 02/28/22 Dickson Johnson MD [address] [facility] [address] [place] [phone] Medical Oncologist Hematology 05/06/24 Edel Rodriguez MD PhD [address] [facility], [facility] [address] [place] [address] Medical Oncologist/It Systems Analyst Consultant Medical Oncology 05/06/24 05/11/24 Luis Nicholson MD [address] [place] [address] Medical Oncology 05/12/24 Christine Taylor MD [address] [place] [address] Referring Physician Dermatology 05/31/24 documented as of this encounter
--- OUTSIDE RECORDS SUMMARY | 2025-04-13 00:29 | XMS_ITS | Encounter Summary ---
Author Organization [facility] Address [address] [place] [address] Phone Care Team Providers Care Assistant Corporation Counsel Name Role Phone Ander Leblanc MD Primary Care Provider [phone] Dickson Johnson MD Unavailable [phone] Edel Rodriguez MD PhD Unavailable [phone] Luis Nicholson MD Unavailable [phone] Christine Taylor MD Unavailable [phone] Encounter Details Date Type Department Care Team [...] on file Legal Sex Female 3:10 AM HEALTH EDUCATION TEACHER Gender Identity Female 08/07/2020 10:58 AM HEALTH EDUCATION TEACHER Sexual Orientation Not on file Occupation [...] filedocumented in this encounter Care Teams Assistant Corporation Counsel Relationship Specialty Start Date End Date Ander Leblanc MD [address] [facility] [address] [place] [address] PCP - General Internal Medicine 02/28/22 Dickson Johnson MD [facility] [facility] [address] [place] [address] Medical Oncologist Hematology 05/06/24 [place] [address] [place] [address] MEDICAL ONCOLOGY, [facility] 7A, 7B, 7C [place] [address] Medical Oncologist/Engine Test Cell Technician Medical Oncology 05/06/24 05/11/24 Luis Nicholson MD [facility] [address] [facility] [address] [place] [address] Medical Oncology 05/12/24 Christine Taylor MD [address] [place] [address] Referring Physician Dermatology 05/31/24 documented as of this encounter
--- OUTSIDE RECORDS SUMMARY | 2025-04-13 00:29 | XMS_ITS | Encounter Summary ---
Author Organization [facility] Address [address] [place] [address] Phone Care Team Providers Care Equipment Operating Engineer Name Role Phone Ander Leblanc MD Primary Care Provider [phone] Dickson Johnson MD Unavailable [phone] Luis Nicholson MD Unavailable [phone] Christine Taylor MD Unavailable [phone] Encounter Details Date Type Department Care Team [...] on file Legal Sex Female 3:10 AM BAG WASHER Gender Identity Female 08/07/2020 10:58 AM BAG WASHER Sexual Orientation Not on file Occupation Industry [...] SCAN - PATHOLOGY (05/13/2024 11:57 AM CDT) Provider Scanning Final Result documented in this encounter Visit Diagnoses Not on filedocumented in this encounter Care Teams Equipment Operating Engineer Relationship Specialty Start Date End Date Ander Leblanc MD [address] [facility] [address] [place] [address] PCP - General Internal Medicine 02/28/22 Dickson Johnson MD [address] [facility] 200 [place] [address] Medical Oncologist Hematology 05/06/24 Luis Nicholson MD [address] [facility] [address] [place] [address] Medical Oncology 05/12/24 Christine Taylor MD [address] [place] [address] Referring Physician Dermatology 05/31/24 documented as of this encounter
--- OUTSIDE RECORDS SUMMARY | 2025-04-13 00:29 | XMS_ITS | Continuity of Care Document ---
Author Organization [facility] Address [address] [facility] [address] [place] [address] Phone Care Team Providers Care Sports Physical Therapist Name Role Phone [facility] Unavailable Unavail able Canelo Paul Unavailable Unavailable Procedures Procedure Date Progressive Lens, Polycarb Frames Deluxe OwnerListens Medical Eye Exam & Treatment Refraction Vision Svcs Frames Purchases Progressive Lens, Polycarb Anti-reflective Coating OwnerListens [employer] Eye Exam, New Patient Refraction Advance Directives Directive Yes / No Effective Date File Name No Information Encounters Encounter Description Practice Location Reason(s) For Visit Diagnoses Date Provider Providers Copied on Encounter [facility], [address] [place] [address] [address], [place], [place], [id number], [place] tel:[phone] [facility] No Information 0-200 9 [facility] . [address] [facility], [facility] [address], [place], [place], [address], [place]. tel:[phone] Referring Provider: Darell Desai, [address] [place] [address] [address], [place], [address]. tel:[phone] graham Provider: Canelo Paul, [address] [place] [address], [place], [address]. tel:[phone] [facility], [address] [place] [address] [address], [place], [place], [address], [place] tel:[phone] [facility] No Information 9 Aye Lozoya. [facility] , [address], [place], [place], [facility], . tel:[phone] [facility], [address], [place], [place], [address], [place] tel:[phone] [facility] No Information 0 200 7 [facility] . [address] [facility], [address], [place], [place], [address], [place]. tel:[phone] Referring Provider: Darell Desai, [address] [place] [address] [address], [place], [place], [facility]. tel:[phone] graham Provider: Jessenia Sinha, [address] [place] [address], [facility]. tel:[phone] [facility], [address] [address], [place], [place], [address], [place] tel:[phone] [facility] No Information 7 Aye Lozoya. [address] [place] [address] , [address], [place], [place], [facility], . tel:[phone] Family History Family Member Type Diagnosis Age At Onset No Information Payers Payer name Insurance type Covered republican ID Authoriza tion(s) No Information Social History [...]
--- OUTSIDE RECORDS SUMMARY | 2025-04-13 00:29 | XMS_ITS | Continuity of Care Document ---
Author Organization [facility] Address [address] [place] [address] Phone Care Team Providers Care Grain Operator Name Role Phone Homero ARIAS, Kenn Unavailable [...] [facility] , [address] [address], [place], [address], tel:[phone] [facility] No Information 8 Homero Hamsa. [address], [place], [place], [address]. tel:[phone] OFFICE/OUTPA TIENT VISIT EST [facility] , [address] [facility] [address], [place], [place], [facility], [place] tel:[phone] [facility] allergy evaluation (chief complaint) Chronic pansinusitisLo w immunoglobulin levelAllergic fungal sinusitisUnspe cified mycosis 8 Homero Hamsa. [address], [place], [place], [address]. tel:[phone] OFFICE/OUTPA TIENT VISIT EST [facility] , [address] [facility] [address], [place], [address], tel:[phone] [facility] allergy evaluation (chief complaint) Low immunoglobulin levelChronic pansinusitisFr equent sinus infectionsEnco unter for immunization 8 Homero Hamsa. [address], [place], [place], [address]. tel:[phone] OFFICE/OUTPA TIENT VISIT NEW [facility] , [address] [facility] [address], [place], [address], [place] tel:[phone] [facility] allergy evaluation (chief complaint) Chronic pansinusitisFr equent sinus infectionsReac tive airways dysfunction syndrome 8 Homero Hamsa. [address], [place], [place], [address]. tel:[phone] Family History Family Member Type Diagnosis Age [...] dahl(s) [employer] OT [id number] Social History Type Description Quantity Date Captured [...] slightly better [place] to [place] IgG was low at 639 , [...] a lot and was told by her check examiner to use gold castro with menthol her [...]
--- OUTSIDE RECORDS SUMMARY | 2025-04-13 00:29 | XMS_ITS | Encounter Summary ---
Author Organization [facility] Address [address] [place] [address] Care Team Providers Care Basketball Scout Name Role Phone Ander Leblanc MD Primary Care Provider [phone] Dickson Johnson MD Unavailable [phone] Luis Nicholson MD Unavailable [phone] Christine Taylor MD Unavailable [phone] Encounter Details Date Type Department Care Team (Late st Contact Info) Description 07/01/2024 Completion of Therapy [facility] Radiation Oncology [address] [facility] Advanced [place] [address] Linda Childress MD [address] [facility] [address] [facility] [address] [place], [place] [id number] Cancer with unknown primary site (HCC) (Primary [...] on file Legal Sex Female 3:10 AM ADMINISTRATIVE APPEALS TRIBUNAL MEMBER Gender Identity Female 08/07/2020 10:58 AM ADMINISTRATIVE APPEALS TRIBUNAL MEMBER Sexual Orientation Not on file Occupation Industry Job Start Date Job End Date Retired Not on file Not on file Not on file documented as of this encounter Plan of Treatment Not on file documented as of this encounter Visit Diagnoses Diagnosis Cancer with unknown primary site (HCC)- Primary Other malignant neoplasm of unspecified site documented in this encounter Care Teams Basketball Scout Relationship Specialty Start Date End Date Ander Leblanc MD [address] [facility] [address] [place] [address] PCP - General Internal Medicine 02/28/22 Dickson Johnson MD [address] [facility] 200 [place] [address] Medical Oncologist Hematology 05/06/24 Luis Nicholson MD [address] [place] [address] Medical Oncology 05/12/24 Christine Taylor MD [address] [place] [address] Referring Physician Dermatology 05/31/24 documented as of this encounter
--- OUTSIDE RECORDS SUMMARY | 2025-04-13 00:29 | XMS_ITS | Encounter Summary ---
Author Organization [facility] Address [address] [place] [address] Phone Care Team Providers Care Telegraph Repeater Mechanic Name Role Phone Ander Leblanc MD Primary Care Provider [phone] Dickson Johnson MD Unavailable [phone] Edel Rodriguez MD PhD Unavailable [phone] Luis Nicholson MD Unavailable [phone] Christine Taylor MD Unavailable [phone] Encounter Details Date Type Department Care Team [...] on file Legal Sex Female 3:10 AM DIGITAL MEDIA ANALYST Gender Identity Female 08/07/2020 10:58 AM DIGITAL MEDIA ANALYST Sexual Orientation Not on file Occupation Industry [...] on filedocumented in this encounter Care Teams Telegraph Repeater Mechanic Relationship Specialty Start Date End Date Ander Leblanc MD [address] [place] [address] PCP - General Internal Medicine 02/28/22 Dickson Johnson MD [address] [facility] 200 [place] [address] Medical Oncologist Hematology 05/06/24 Edel Rodriguez MD PhD [address] [facility] MEDICAL ONCOLOGY, [facility] 7A, 7B, 7C [place] [address] Medical Oncologist/District Recruiter Medical Oncology 05/06/24 05/11/24 Luis Nicholson MD [address] [place] [address] Medical Oncology 05/12/24 Christine Taylor MD [address] [place] [address] Referring Physician Dermatology 05/31/24 documented as of this encounter
--- OUTSIDE RECORDS SUMMARY | 2025-04-13 00:29 | XMS_ITS | Clinical Summary ---
Author Organization [facility] Address [address] [place] [address] Phone Care Team Providers Care Apprentice Lineman Third Step Name Role Phone Hector Johnson MD Primary [...] tablet Take 75 mcg by mouth daily patient liaison. Active gabapentin (NEURONTIN) 300 mg capsule Take [...] Encounters Date Type Department Care Team Description 04/05/2025 External Device Data STL ABSTRACTION Provider, Abstract 04/05/2025 External Device Data STL ABSTRACTION Provider, Abstract 04/05/2025 External Device Data STL ABSTRACTION Provider, Abstract 04/05/2025 External Device Data STL ABSTRACTION Provider, Abstract 04/04/2025 External Device Data STL ABSTRACTION Provider, Abstract 03/14/2025 External Device Data STL ABSTRACTION Provider, Abstract 03/07/2025 External Device Data STL ABSTRACTION Provider, Abstract 02/14/2025 External Device Data STL ABSTRACTION Provider, Abstract 02/09/2025 External Device Data STL ABSTRACTION Provider, Abstract 02/08/2025 External Device Data STL ABSTRACTION Provider, Abstract 02/08/2025 External Device Data STL ABSTRACTION Provider, Abstract 02/07/2025 External Device Data STL ABSTRACTION Provider, Abstract [...] 1:27 PM CDT Height 157.5 cm (5' 2) 05/02/2024 1:27 PM CDT Body Mass Index 32.74 05/02/2024 1:27 PM CDT Plan of Treatment Health Maintenance Due Date Last Done Comments DTAP/TDAP/TD VACCINES (1 - Tdap) 1967 RSV VACCINE (60+ or ) (1 - 1-dose 75+ series) 2023 INFLUENZA VACCINE (#1) 2025 1, 06/01/2020, 06/01/2020, Additional history exists OSTEOPOROSIS SCREENING 03/30/2029 4, 03/30/2024, 03/25/2023, Additional history exists PNEUMOCOCCAL VACCINE 50+ YEARS Completed 02/05/2016 , 09/06/2014 ZOSTER VACCINE Completed 04/05/2019, 12/21, 11/30/2018, Additional history exists COLORECTAL SCREENING Discontinued 01/08/2023, 05/13/20 17 Colorectal Cancer Screening Discontinued FIT-DNA Q 3 years Discontinued FIT/FOBT Q 1 year Discontinued Flex Sig/CT Colonography Q 5 years Discontinued Insurance MEDICARE PART A AND B [facility] [place] [id number] MEDICARE PART A AND B [facility] [place] [id number] Care Teams Apprentice Lineman Third Step Relationship Specialty Start Date End Date Hector Johnson MD [address] [address] PCP - General Family Practice 03/14/19
--- OUTSIDE RECORDS SUMMARY | 2025-04-13 00:29 | XMS_ITS ---
Author Organization [facility] Address [address] [place], [place] [address] Care Team Providers Care Dehorner Name Role Phone MARYSE SALDAÑA Unavailable [phone] Ander Leblanc Unavailable Unavailable Allergies No Known Allergies REASON FOR VISIT *General care Medications Medication SIG (Take, Route, Fr equency, Duration) Notes Start Date End Date Status Omeprazole 40 MG Oral; Duration: 90 Days Active Gabapentin 300 MG Oral; Duration: 30 Days Active Social History Tobacco Use: Social History Observation Description Date Details (start date - stop date) Former Smoker NA - NA Tobacco Use/Smoking Question Answer Notes Tobacco use: former smoker Vital Signs Height 62 in 02/23/2025 Weight 181 lbs 02/23/2025 BMI 33.1 kg/m2 02/23/2025 Height-cm 157.48 cm 02/23/2025 Weight-kg 82.1 kg 02/23/2025 Encounters Encounter Location Date Provider Diagnosis [facility] [address] [place], [place] [id number] 02/23/2025 MARYSE SALDAÑA Fungal infection of nail B35.1 ; Pain in right toe(s) M79.674 ; Pain in left toe(s) M79.675 and Atherosclerosis of gakona arteries of extremities with intermittent claudication, bilateral legs I70.213 Assessments Encounter Date Diagnosis (ICD Code) Assessment Notes Treatment Notes Treatment Clinical Notes Section Notes 02/23/2025 Fungal infection of nail (ICD-10 - B35.1) Nails 1-5 Bilateral were debrided extensively with nail nippers and emery board, reducing length and girth to pink healthy tissue with any subungual debris and necrotic tissue removed 02/23/2025 Pain in right toe(s) (ICD-10 - M79.674) 02/23/2025 Pain in left toe(s) (ICD-10 - M79.675) 02/23/2025 Atherosclerosis of gakona arteries of extremities with intermittent claudication, bilateral legs (ICD-10 - I70.213) Plan Of Treatment Treatment Notes Assessment Notes Fungal infection of nail Nails 1-5 Bilat eral were debrided extensively with nail nippers and emery board, reducing length and girth to pink healthy tissue with any subungual debris and necrotic tissue removed Next Appt Details Follow Up: 9 weeks, Reason: Provider Name:MARYSE ROTHMAN, 04/27/2025 01:50:00 PM, [address], [address], [id number], Progress Notes * Renetta URRUTIAceDOB:[birth year] (74 yo F)Acc No.[id number]:02/23/2025 Patient: Geneva FRANCO Provider: Filomena Saldaña DPM :1950 A ge:74 Y S ex:Female Date:02/23/2025 Address:[address] [place], [place] [address] Subjective: * Chief Complaints: * 1 . [...] Date last seen by Dr. Leblanc was December 2024. Initials sea. * ROS: G eneral / [...] f ormer smoker * Medications: T aking Gabapentin 300 MG Capsule Oral , Taking Omeprazole 40 MG Capsule Delayed Release Oral , Medication List reviewed and reconciled with the patient * Allergies: N .K.D.A. Objective: * Vitals: S hoe Size: 8, Wt: 181 lbs, Wt-k.1 kg, Ht: 62 [...] - M79.675 4 . A therosclerosis of gakona arteries of extremities with intermittent claudication, bilateral legs - I70.213 ? Plan: * Treatment: * Procedure Codes: 1 1721 DEBRIDE NAIL, 6 OR MORE, Modifiers: Q8 * Follow Up: 9 weeks * Billing Information: * Visit Code: * Procedure Codes: 81204 DEBRIDE NAIL, 6 OR MORE. Modifiers: Q8 * Electronic signature of MARYSE SALDAÑA DPM on 04/13/2025 at 12:29 AM CDT Sign off status: Pending * Provider: Filomena Saldaña, DPM Date: 0 02/23/2025 Generated for Yazmin mayer/Geovanni/Miesha on: 0 04/13/2025 12:29 AM CDT History and Physical Notes * [...] Date last seen by Dr. Leblanc was December 2024. Initials sea Examination Category Sub-Category Detail Notes [...]
--- OUTSIDE RECORDS SUMMARY | 2025-04-13 00:29 | XMS_ITS | Clinical Summary ---
Author Organization [facility] Address [address] [place] [address] Care Team Providers Care Coronary Clinical Specialist Name Role Phone Ander Leblanc MD Primary Care Provider [phone] Dickson Johnson MD Unavailable Luis Nicholson MD Unavailable [phone] Christine Taylor MD Unavailable Allergies Active Allergy Reactions Criticality Noted Date Comments Clindamycin Unknown 09/21/2014 Zomepirac Palpitations Low 09/21/1979 Medications cholecalciferol (VITAMIN D-3) 5,000 unit tablet Take 1 tablet (5,000 Units total) by mouth daily Active escitalopram (LEXAPRO) 10 mg tablet Take 1 tablet (10 mg total) by mouth every morning 0 Active levothyroxine (SYNTHROID) 75 mcg tablet Take 1 tablet (75 mcg total) by mouth pull out operator before breakfast 0 Active montelukast (SINGULAIR) 10 mg tablet Take 1 tablet (10 mg total) by mouth nightly 0 Active omeprazole (PriLOSEC) 40 mg capsule 1 capsule (40 mg total) every morning 0 Active wtbnrwsp-icbs-s ollag-hyalur ac 932-329-65-2 mg capsule Take by mouth every morning [...] (07/24/2020): Added automatically from request for surgery [id number] Closed fracture of left shoulder 07/23/2020 Overview (07/23/2020): Added automatically from request for surgery [id number] Abnormal chest x-ray 06/25/2020 History of 2019 [...] Description 02/23/2025 10:30 AM CDT Office Visit [facility] Radiation Oncology [address] [facility] [place] [address] Samir Herndon NP Cancer with unknown primary site (HCC) (Primary Dx) 02/23/2025 9:30 AM CDT Office Visit [facility] On[facility] [address] [facility] [address] [place] [address] Luis Nicholson MD Cancer with unknown primary site (HCC) (Primary Dx) 02/23/2025 6:48 AM CDT - 02/23/2025 11:59 PM CDT Hospital Encounter [facility] [address] [place] [address] Luis Nicholson MD Cancer with unknown primary site (HCC) Discharge Disposition: Discharge to home or self care 01/23/2025 Telephone [facility] [facility] Floor [address] [place] [address] Antione Correa RN 01/23/2025 Orders Only [facility] [address] [place] [address] [address] [place] [address] Luis Nicholson MD Cancer with unknown primary site (HCC) (Primary Dx) from Last 3 Months Immunizations Immunization Administration [...] on file Legal Sex Female 3:10 AM [employer] SAWYER Gender Identity Female 08/07/2020 10:58 AM [employer] SAW[employer] Sexual Orientation Not on file Occupation Industry [...] 02/23/2025 9:03 AM CDT Plan of Treatment Health Maintenance Due Date Last Done Comments Depression Screening 1950 Hepatitis C Screening 1950 DTaP/Tdap/Td Vaccine (1 - Tdap) 1959 Hepatitis B Screening 1966 Well Visit 65+ 2013 Covid-19 Vaccine (4 - 2023-2 5 season) 2024 09/12/2021, 12/07/2020, 11/09/2020 Influenza Vaccine (#1) 2025 , 05/22/2021, 06/01/2020, Additional history exists Fall Risk Assessment 06/06/2025 06/06/2024, 07/30/20 Osteoporosis Screening-Bone Density Scan 03/30/2026 03/30/2024, 03/25/2023, 02/28/2022, Additional history exists Pneumococcal vaccine 65+ Completed 02/05/2016, 08/21 Zoster Vaccine Completed 04/05/2019, 12/21, 11/30/2018, Additional history exists Medical Devices Implanted Type Area Marketing Sales Consultant Device Identifier Shelf Expiration Date Model / Serial / Lot [employer]/ Ortho [id number] Evos 3.5mm 24mm Self Tap Cortex Screw Bone Sterile - [id number] Implanted:Qty: 3 on 07/27/2020 by Edgar Rojas MD at [facility] Left: Arm [employer]/Or tho [id number] / / [employer]/ Ortho [id number] 3.5mm 20mm Self Tap Cortex Screw Bone Nonsterile - [id number] Implanted:Qty: 1 on 07/27/2020 by Edgar Rojas MD at [facility] Left: Arm [employer]/Or tho [id number] / / [employer]/ Ortho [id number] Evos 3.5mm 38mm Self Tap Lock Screw Bone Sterile - [id number] Implanted:Qty: 3 on 07/27/2020 by Edgar Rojas MD at [facility] Left: Arm [employer]Rich[employer]/Or tho [id number] / / [employer]/ Ortho [id number] Evos 3.5mm 48mm Self Tap Lock Screw Bone Sterile - [id number] Implanted:Qty: 1 on 07/27/2020 by Edgar Rojas MD at [facility] Left: Arm [employer]/Or tho [id number] / / [employer]/ Ortho [id number] Evos 3.5mm 30mm Self Tap Lock Screw Bone Sterile - [id number] Implanted:Qty: 3 on 07/27/2020 by Edgar Rojas MD at [facility] Left: Arm [employer]/Or tho [id number] / / [employer]/ Ortho [id number] Evos 3.5mm 34mm Self Tap Lock Screw Bone Sterile - [id number] Implanted:Qty: 1 on 07/27/2020 by Edgar Rojas MD at [facility] Left: Arm [employer]/Or tho [id number] / / [employer]/ Ortho [id number] Plate Bone Evos Curve L114 Mm Od3.5 Mm Humerus Left Proximal 6 Hole Sterile - [id number] Implanted:Qty: 1 on 07/27/2020 by Edgar Rojas MD at [facility] Left: Arm [employer]Rich[employer]/Or tho [id number] / / [employer] A-4750.56 Aptus Trilock 42mmx1.6mm 6 Hole Distal Radius L Right Angle Plate - [id number] Implanted:Qty: 1 on 07/30/2020 by Zhen Otero MD at [facility] Left: Radius [employer] A-4750.56 / / [employer] A-5750.12/1 Aptus Trilock 2.5mm 12mm Hexadrive 7 Adaptive Wrist Radius - [id number] Implanted:Qty: 3 on 07/30/2020 by Zhen Otero MD at [facility] [place] Left: Radius [employer] A-5750.12/1 / / [employer] A-5750.16/1 2.5mm 16mm Trilock Hexadrive Wrist Radius Screw Bone - [id number] Implanted:Qty: 1 on 07/30/2020 by Zhen Otero MD at [facility] [place] Left: Radius [employer] A-5750.16/1 / / [employer] A-5700.13/1 Aptus 2.5mm 13mm Hexadrive 7 Wrist Cortical Screw Bone Titanium - [id number] Implanted:Qty: 1 on 07/30/2020 by Zhen Otero MD at [facility] [place] Left: Radius [employer] A-5700.13/1 / / [employer] A-4750.55 Aptus Trilock 42mmx1.6mm 6 Hole Distal Radius L Left Angle Plate - [id number] Implanted:Qty: 1 on 07/30/2020 by Zhen Otero MD at [facility] [place] Left: Radius [employer] A-4750.55 / / [employer] A-5700.14 Aptus 2.5mm 14mm Cortical Screw Bone - [id number] Implanted:Qty: 3 on 07/30/2020 by Zhen Otero MD at [facility] [place] Left: Radius [employer] A-5700.14 / / [...] be indicative of treatment changes. Procedure Note Oracoi Lewis MD - 02/23/2025 EXAMINATION: CT CHEST, [...] disease. Electronically signed by: Oracio Lewis M.D. Luis Nicholson MD IMG CT PROCEDURES Final Result * Dexa TBS Axial Skeleton Bone Density 1 or more sites (03/30/2024 9:31 AM CDT) Anatomical Region Laterality Modality Wrist, Body N/A Radiographic Teresita ging Narrative 03/30/2024 10:06 AM CDT Patient Name: Geneva Urrutia Date of : 1950 Date of scan: 03/30/2024 Bone mineral density was performed on a [employer] Discovery Densitometer. Based on machine cross-calibration and [...] by the International Society of Clinical Densitometry. [id number] Tamara Pina MD IMG DXA PROCEDURES Final Resu lt from Last 3 Months or Most Recently Relevant to Health Maintenance Insurance MEDICARE [employer] MEDICARE SUPPLEMENT INSURANCE [place] [id number] MEDICARE [employer] MEDICARE SUPPLEMENT INSURANCE MEDICARE MEDICARE [employer] MEDICARE SUPPLEMENT INSURANCE Care Teams Coronary Clinical Specialist Relationship Specialty Start Date End Date Ander Leblanc MD [address] [facility] [address] [place] [address] PCP - General Internal Medicine 02/28/22 Dickson Johnson MD [address] [facility] [address] [place] [address] Medical Oncologist Hematology 05/06/24 Luis Nicholson MD [address] [facility] [address] [place] [address] Medical Oncology 05/12/24 Christine Taylor MD [address] [place] [address] Referring Physician Dermatology 05/31/24
--- OUTSIDE RECORDS SUMMARY | 2025-04-13 00:29 | XMS_ITS ---
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, unspecified lymph node region 05/31/2024 Cancer with unknown primary site 05/12/2024 Otalgia 06/19/2022 Age-related osteoporosis wit hout current pathological fracture 02/26/2021 GERD (gastroesophageal reflux disease) 0 Hypothyroidism 07/26/2020 Closed fracture of left distal radius 07/24/2020 Overview (07/24/2020): Added automatically from request for surgery [id number] Closed fracture of left shoulder 07/23/2020 Overview (07/23/2020): Added automatically from request for surgery [id number] Abnormal chest x-ray 06/25/2020 History of 2019 [...] mGy 5 .71 mGy 0 mGy DLP 1,694 mGycm 1,694 mGycm 0 mGycm
[2025-04-13 12:54] VITALS: BP 129/49; PULSE 77; RESP 16; TEMP 37.1; O2SAT 99
[2025-04-13 12:56] VITALS: BMI 32.8
--- NOTE | 2025-04-13 13:05 | WPDHPUPDATE1 ---
History and Physical Update Update Date/Time: 04/13/25 13:05 History and Physical has been reviewed, including an updated exam of the patient. There are NO changes in the patient's condition. Risks, benefits, and alternatives have been discussed and questions answered. Patient agrees to proceed with procedure.
--- NOTE | 2025-04-13 13:18 | P.PNAN_ITS ---
Anes - Initial Pre Proc Eval Procedure: Operation Date: 04/13/25 14:00 Proposed Procedures p Right Total Knee Manipulation Under Anesthesia - Kb Talamantes MD Date/Time: 04/13/25 13:18 Surgeon: Kb Talamantes MD Pre Op Diagnosis: Rt Knee Contracture Patient Data Age: 74 Gender: F Height: 1.57 m Weight: 81.6 kg Last Vital Signs Temp 98.8 F 04/13/25 12:54 Pulse 77 04/13/25 12:54 Resp 16 04/13/25 12:54 BP 129/49 L 04/13/25 12:54 Pulse Ox 99 04/13/25 12:54 O2 Del Method Room Air 04/13/25 12:54 Allergies Allergy/AdvReac Type Severity Reaction Status Date / Time clindamycin Allergy Unknown Other Verified 04/13/25 12:50 Home Medications ?Medication ?Instructions ?Recorded ?Confirmed ?Type aspirin 81 mg tablet,delayed 81 mg PO DAILY 09/10/21 04/13/25 History release cholecalciferol (vitamin D3) 125 125 mcg PO DAILY 09/10/21 04/10/25 History mcg (5,000 unit) capsule vitamin B complex 1 cap PO DAILY 12/30/22 04/10/25 History gabapentin 300 mg capsule 600 mg PO HS 06/11/23 04/10/25 History multivitamin with iron 1 tablet PO DAILY 06/11/23 04/10/25 History Glucosamine and Chondroiton See Rx Instructions BYMOUTH DAILY 07/01/23 04/10/25 History acetaminophen 500 mg tablet 1,000 mg PO Q6H PRN pain 04/20/24 04/10/25 History (Tylenol Extra Strength) fluocinolone 0.025 % topical cream See Rx Instructions .Route 09/12/24 04/10/25 Rx .COMPLEX #15 grams fexofenadine 30 mg tablet 60 mg PO HS 12/09/24 04/13/25 History centrum multivitamin BYMOUTH DAILY 12/26/24 02/20/25 History montelukast 10 mg tablet 10 mg PO DAILY #90 tabs 12/26/24 04/10/25 Rx (Singulair) aspirin 81 mg tablet,delayed 81 mg PO BID 14 days #28 tabs 01/03/25 04/10/25 Rx release escitalopram oxalate 10 mg tablet See Rx Instructions .Route 03/20/25 04/13/25 Rx .COMPLEX #90 tabs omeprazole 40 mg capsule,delayed See Rx Instructions .Route 03/20/25 04/10/25 Rx release .COMPLEX #90 caps oxdrkmf-osrkjavun-kfrc 333 mg-133 1 tablet PO DAILY 04/10/25 04/10/25 History mg-5 mg tablet levothyroxine 75 mcg tablet 75 mcg PO HS 04/10/25 04/10/25 History Patient hx anesthesia problems: none Family hx anesthesia problems: none Results Review: All pre-operative results and documents have been reviewed as part of the pre- operative evaluation. [facility] Past Medical History Medical History Diarrhea Colon cancer screening Follow up Lymphadenopathy, inguinal Tongue swelling Spider veins URI (upper respiratory infection) BMI 33.0-33.9,adult Vitamin B12 deficiency BRBPR (bright red blood per rectum) Primary osteoarthritis of knees, bilateral Unresolved grief Encounter for routine adult health examination with abnormal findings BMI 31.0-31.9,adult Pain of right sacroiliac joint Right ear pain Skin lesions Vitamin B1 deficiency Breast cancer screening Osteoporosis Encounter for Medicare annual wellness exam Urinary urgency Trapezius muscle spasm Left humeral fracture s/p ORIF Notalgia paresthetica Enlarged clavicle Surgical History Surgical History H/O shoulder surgery History of tooth extraction History of surgery on left wrist (~07/30/20) open reduction Family History Family History Sibling Diabetes mellitus Family history of hypercholesterolemia Hypertension Family history of malignant neoplasm of breast in first degree relative Family history of cardiovascular disease Father Cerebrovascular accident Lung cancer Diabetes mellitus Hypertension Heart disease Mother Family history of cardiovascular disease Family history of Alzheimer's disease Thyroid disorder Social History Social History Smoking packs per day: 1 Smoking cigarettes per day: 20.0 Years smoked: 10 Smoking pack-years: 10.00 Smoking status: Former smoker Second hand tobacco smoke exposure: No Alcohol intake: never Alcohol use details: rare Substance use: never Substance use type: does not use Do You Feel Safe in your Home?: Yes Lack of Transportation: No Lack of Food: Never True Current Housing: I Have Housing Concerned About Future Housing: No Difficulty Paying Gas/Electric Bills: No Difficulty Paying for Meds: No Currently Unemployed: No Education: High School Diploma/GED Difficulty w/ Childcare or Family Care: No Living arrangements: with family Additional living arrangements comments: Occupation/Education: retired Gender identity (if verbalized by the patient): Female Sexual Orientation (if Verbalized by the Patient): Straight or Heterosexual Spiritual care concerns: No Anes - Eval Final PreProcedure Day of Procedure 04/13/25 13:18 Patient weight: obese Lungs: normal air movement Airway: Mallampati scale class II Neurological: alert and oriented Last oral intake: >/= 8 hours ASA classification: III Emergent: no Anesthetic plan: proceed Anesthesia type and monitoring: general GIVS and standard monitoring Results Review: All pre-operative results and documents have been reviewed as part of the pre- operative evaluation. Hypothyroidism, BMI 32. Informed Consent: The patient's anesthetic plan and its attendant risks and benefits were discussed with the patient/family/POA. Questions were solicited and answers provided to the satisfaction of the patient/family/POA.
--- NOTE | 2025-04-13 13:29 | WNDPHOTO ---
PHOTO ONLY - See Nursing Notes and/ or assessments for documentation.
--- NOTE | 2025-04-13 13:53 | WNDPHOTO ---
PHOTO ONLY - See Nursing Notes and/ or assessments for documentation.
--- NOTE | 2025-04-13 13:54 | WNDPHOTO ---
PHOTO ONLY - See Nursing Notes and/ or assessments for documentation.
[2025-04-13 14:05] VITALS: BP 113/51; PULSE 65; RESP 16
[2025-04-13 14:30] VITALS: BP 138/64; PULSE 60; RESP 16
[2025-04-13 15:00] VITALS: BP 150/68; PULSE 61; RESP 16
[2025-04-13 15:20] VITALS: BP 119/60; PULSE 70; RESP 16
--- NOTE | 2025-04-13 15:41 | W.PM.PROC2 ---
Procedure Note - Detailed Date of Procedure 04/13/25 Pre-op Diagnosis Rt Knee Contracture status post total knee arthroplasty. Post-op Diagnosis Same Procedure Performed Manipulation under anesthesia, s/p total knee arthroplasty, right. Surgeon Kb Talamantes MD Anesthesia General Description of Procedure General anesthetic was administered. The knee was inspected and examined. Gentle manipulation was begun in extension followed by flexion. Examination revealed no medial-lateral instability or patellar tracking issues. Extension improved from 15? to 0?. Flexion remained 125?. Complications No immediate complications Condition Stable Disposition Same day [facility] Billing Surgery - Charge Forward: Surgery Billing
== END 2025-04-13 15:35 | disposition home or self-care (01) ==
PROVIDERS: PCP Internal Medicine; Visit Provider Orthopaedic Surgery
PROC: (CPT 27570; principal; 2025-04-13 14:00)
DX: M24.561 Contracture, right knee (principal); E03.9 Hypothyroidism, unspecified; E53.8 Deficiency of other specified B group vitamins; M17.0 Bilateral primary osteoarthritis of knee; M81.0 Age-related osteoporosis without current pathological fracture; R39.15 Urgency of urination; M62.838 Other muscle spasm; E66.9 Obesity, unspecified; Z68.32 Body mass index [BMI] 32.0-32.9, adult; Z79.82 Long term (current) use of aspirin; Z98.890 Other specified postprocedural states; Z96.651 Presence of right artificial knee joint; Z87.891 Personal history of nicotine dependence; Z80.3 Family history of malignant neoplasm of breast; Z80.1 Family history of malignant neoplasm of trachea, bronchus and lung; Z82.49 Family history of ischemic heart disease and other diseases of the circulatory system
CPT/HCPCS: 27570; J1010; J2003; J2704; J3010; J3301

== ENCOUNTER 2025-06-22 12:34 | Outpatient (CLI) | payer MEDICARE, SELFPAY ==
--- OUTSIDE RECORDS SUMMARY | 2008-10-09 19:00 | XMS_ITS | Continuity of Care Document ---
Author Organization [facility] Address [address] [place] [address] Phone Care Team Providers Care Retail Business Development Manager Name Role Phone [facility] Unavailable Unavail able Canelo Paul Unavailable Unavailable Procedures Procedure Date Progressive Lens, Polycarb Frames Deluxe Tren[facility]i [facility] Eye Exam & Treatment Refraction Vision Svcs Frames Purchases Progressive Lens, Polycarb Anti-reflective Coating Trenergi [employer] [facility] Eye Exam, New Patient Refraction Advance Directives Directive Yes / No Effective Date File Name No Information Encounters Encounter Description Practice Location Reason(s) For Visit Diagnoses Date Provider Providers Copied on Encounter Merged with [facility], [address] [place] [address] [address], [place], [place], [id number], [place] tel:[phone] SEC [facility] No Information 0-200 9 [facility] . [address], [facility] [address], [place], [place], [id number], [place]. tel:[phone] Referring Provider: Darell Desai, [address] [place] [address] [address], [place], [address]. tel:[phone] graham Provider: Canelo Paul, [address] [place] [address], [place], [address]. tel:[phone] Merged with [facility], [address] [place] [address] [address], [place], [place], [id number], [place] tel:[phone] SEC [facility] No Information 9 Aye Lozoya. [facility] , [address], [place], [place], [facility], . tel:[phone] [facility], [address], [place], [place], [id number], [place] tel:[phone] [facility] No Information 0 200 7 [facility] . [address], [address], [place], [place], [id number], [place]. tel:[phone] Referring Provider: Darell Desai, [address] [place] [address] [address], [place], [place], [facility] tel:[phone] graham Provider: Jessenia Sinha, [address] [place] [address], [facility]. tel:[phone] [facility], [address], [place], [place], [id number], [place] tel:[phone] [facility] No Information 7 Aye Lozoya. [address] [place] [address] , [address], [place], [place], [facility], . tel:[phone] Family History Family Member Type Diagnosis Age At Onset No Information Payers Payer name Insurance type Covered constitution party ID Authoriza tion(s) No Information Social History Type Description Quantity Date Captured Comments Sex Female Smoking Status No Information Chief Complaint And Reason For Visit No Information Reason For Referral Reason For Referral No Information History Of Present Illness Encounter Date Complaint History Of Prese nt Illness No Information Functional Status Date Functional Assessmen t No Information Instructions Date Instruction Additional Infor mation No Information Assessments Type Assessment Date No Information Patient Care Teams Name Effective Dates (start - stop) Status Members No Information
--- OUTSIDE RECORDS SUMMARY | 2018-02-05 03:45 | XMS_ITS | Continuity of Care Document ---
Author Organization [facility] Address [address] [place] [address] Phone Care Team Providers Care Transport Specialist Name Role Phone Ysabel ARIAS, Taj Unavailable Unavaila ble Allergies, Adverse Reactions, Alerts Substance Reaction Status Criticality clindamycin Active No Information Medications Medication Instructions Dosage Effective Dates (start - stop) Status Comments prednisolone acetate 1 % eye drops,suspension instill 1 drop by ophthalmic route 4 times every day OU - Active Lotemax 0.5 % eye gel drops instill 1 Drop by Intraocular route 2 times every day 1 Drop - Active Restasis 0.05 % eye drops in a dropperette instill 1 drop by Ophthalmic route 2 times every day into affected eye(s) 1 drop - Active Refresh Tears 0.5 % eye drops - Active R- Wade RETAINE PM (unknown strength) Not Available - Active no j carlos Eyelid Wipes towelette - Active blephadex Tirosint 88 mcg capsule take 1 capsule by oral route every day 88 MCG - Active escitalopram 10 mg tablet take 1 tablet by oral route every day 10 MG - Active biotin 1 mg capsule - Active Vitamin D3 5,000 unit tablet - Active OMEGA-3 FISH OIL (unknown strength) Not Available - Active Prilosec (unknown strength) Not Available - Active Aspir-81 81 mg tablet,delayed release take 1 tablet by oral route every day - Active Procedures Procedure Date OFFICE/OUTPATIENT VISIT, EST MICROFLUID CINTIA TEARS MCR ONLY MICROFLUID CINTIA TEARS MCR ONLY OFFICE/OUTPATIENT VISIT, [facility] MICROFLUID CINTIA TEARS MCR ONLY MICROFLUID CINTIA TEARS MCR ONLY Advance Directives Directive Yes / No Effective Date File Name No Information Encounters Encounter Description Practice Location Reason(s) For Visit Diagnoses Date Provider Providers Copied on Encounter OFFICE/OUTPA TIENT VISIT, [facility], [address] [place] [address], [id number], tel:[phone] [facility] Physician ordered K check (chief complaint) Bilateral keratoconjunct ivitis sicca, not specified as Sjogren'sPrese nce of pseudophakiaBl epharitis of eyelid 8 Krishnasamy Taj. [address], [address], [place], [place], [id number], [place]. tel:[phone] Referring Provider: Taj lópez, [address], [place], [address] . tel:[phone] [facility], [address] [place] [address], [id number], tel:[phone] [facility] No Information 8 Renetta Bosch. [address], [address], [place], [place], [id number], [place]. tel:[phone] OFFICE/OUTPA TIENT VISIT, [facility], [address] [place] [address], [id number], [place] tel:[phone] [facility] dryness (chief complaint) Bilateral keratoconjunct ivitis sicca, not specified as Sjogren'sBleph aritis of eyelidPresence of pseudophakia 8 Krishnasamy Taj. [address], [address], [place], [place], [id number], [place]. tel:[phone] Referring Provider: Taj lópez, [address], [place], [address] . tel:[phone] Family History Family Member Type Diagnosis Age At Onset Problem (finding) No family history of Di abetes mellitus Problem (finding) No family hist ory of Macular degeneration Problem (finding) No family history of Gl aucoma Problem (finding) No family history of Hy pertension Payers Payer name Insurance type Covered green party ID Palak dahl(s) [place] [id number] HENRI TAVERAS [id number] Social History Type Description Quantity Date Captured Comments Alcohol Use Details Caffeine Use Details No Tobacco Use Status Occasional cigarette smoker Smoking Status Current some day smoker 018 Sex Female Chief Complaint And Reason For Visit From encounter dated '02/05/2018 08:45'. Physician ordered K check (chief complaint). Description: The 67 year old female presents for evaluation of Physician ordered K check in the right eye and left eye. It started about 1 month(s) ago. It affects OU. The symptom is constant. The condition is improving. Pt presents today for a K check. Pt currently is taking Restasis QID OU, Prednislone QID OU and Retaine PFAT'S. Pt reports that Prednisolone was excessively burning and last dose was about a week ago.Per SK consider possible plugs at this appt. (Petite)OSMO repeated today with improvement from 338/328 down to 311/290 Reason For Referral Reason For Referral No Information History Of Present Illness Encounter Date Complaint History Of Prese nt Illness Physician ordered K check The 67 year old female presents for evaluation of Physician ordered K check in the right eye and left eye. It started about 1 month(s) ago. It affects OU. The symptom is constant. The condition is improving. Pt presents today for a K check. Pt currently is taking Restasis QID OU, Prednislone QID OU and Retaine PFAT'S. Pt reports that Prednisolone was excessively burning and last dose was about a week ago.Per SK consider possible plugs at this appt. (Petite)OSMO repeated today with improvement from 338/328 down to 311/290 dryness The 67 year old female presents for evaluation of dryness in the right eye and left eye. It started about 1 year(s) ago. The symptom is constant. The condition is significant. Pt states s/p NS sx she developed dry eye. Pt c/o burning, itching, and gritty/aliza feeling- OU. Pt is seeing halos and prisms around lights.Restasis OU BID< Blephadex eyelid wipes QHS, Refresh-Wade BID, Retain BID TL order today:[id number] Functional Status Date Functional Assessmen t No Information Instructions Date Instruction Additional Infor fam Impression/Plan Related to Bilat eral keratoconjunctivitis sicca, not specified as Sjogren's Impression/Plan Related to Prese nce of pseudophakia Impression/Plan Related to Bleph aritis of eyelid Impression/Plan Related to Bilat eral keratoconjunctivitis sicca, not specified as Sjogren's Impression/Plan Related to Bleph aritis of eyelid Impression/Plan Related to Prese nce of pseudophakia Assessments Type Assessment Date assessment Bilateral keratoconj unctivitis sicca, not specified as Sjogren's impression Bilateral keratoconj unctivitis sicca, not specified as Sjogren's: H16.223. improving with treatment assessment Presence of pseudophakia 2017 impression Presence of pseudophakia: Z96.1. Bilateral assessment Blepharitis of eyelid 8 impression Blepharitis of eyelid: H01.009. Bilateral Patient Care Teams Name Effective Dates (start - stop) Status Members No Information
--- OUTSIDE RECORDS SUMMARY | 2018-08-04 09:25 | XMS_ITS | Continuity of Care Document ---
Author Organization [facility] Address [address] [place] [address] Phone Care Team Providers Care Occupational Health Technician Name Role Phone Homero ARIAS, Kenn Unavailable Unavailabl e Allergies, Adverse Reactions, Alerts Substance Reaction Status Criticality zolmitriptan Active No Information Medications Medication Instructions Dosage Effective Dates (start - stop) Status Comments TIROSINT (unknown strength) take 1 capsule by oral route every day Not Available - Active ESCITALOPRAM OXALATE (unknown strength) take 1 tablet by oral route every day Not Available - Active MONTELUKAST SODIUM (unknown strength) take 1 tablet by oral route every day in the evening Not Available - Active LEVOFLOXACIN (unknown strength) take 1 tablet by oral route every day Not Available - Active BENZONATATE (unknown strength) take 1 capsule by oral route 3 times every day Not Available - Active PRILOSEC OTC (unknown strength) Not Available - Active ASPIRIN (unknown strength) take 1 tablet by oral route every day Not Available - Active Procedures Procedure Date ROUTINE VENIPUNCTURE OFFICE/OUTPATIENT VISIT EST IMMUNIZATION ADMIN PNEUMOCOCCAL VACC 13 SILVIO IM IMMUNIZATION ADMIN EACH ADD TDAP VACCINE >7 IM OFFICE/OUTPATIENT VISIT EST EXHALED NITRIC OXIDE MYCHAL BREATHING CAPACITY TEST ROUTINE VENIPUNCTURE OFFICE/OUTPATIENT VISIT NEW Advance Directives Directive Yes / No Effective Date File Name No Information Encounters Encounter Description Practice Location Reason(s) For Visit Diagnoses Date Provider Providers Copied on Encounter [facility] , [address] [address], [place], [address], tel:[phone] [facility] No Information 8 Homero Hamsa. [address], [place], [place], [address]. tel:[phone] OFFICE/OUTPA TIENT VISIT EST [facility] , [address] [facility] [address], [place], [place], [facility], [place] tel:[phone] [facility] allergy evaluation (chief complaint) Chronic pansinusitisLo w immunoglobulin levelAllergic fungal sinusitisUnspe cified mycosis 8 Homero Hamsa. [address], [place], [place], [id number]. tel:[phone] OFFICE/OUTPA TIENT VISIT EST [facility] , [address], [place], [address], tel:[phone] [facility] allergy evaluation (chief complaint) Low immunoglobulin levelChronic pansinusitisFr equent sinus infectionsEnco unter for immunization 8 Homero Hamsa. [address], [place], [place], [id number]. tel:[phone] OFFICE/OUTPA TIENT VISIT NEW [facility] , [address], [place], [address], [place] tel:[phone] [facility] allergy evaluation (chief complaint) Chronic pansinusitisFr equent sinus infectionsReac tive airways dysfunction syndrome 8 Homero Hamsa. [address], [place], [place], [address]. tel:[phone] Family History Family Member Type Diagnosis Age At Onset Mother Problem (finding) coronary arterioscleros is Father Problem (finding) stroke Immunizations Vaccine Date Status Comments Tdap administered Source: New Imm unization Record Pneumococcal, PCV-13 administered Source: New Immunization Record Pneumonia administered Source: Other P rovider Influenza, injectable, quadrivalent, preservative free, 3 yrs or older administered Source: Other Provi hero Zostavax administered Source: Other P lexi Payers Payer name Insurance type Covered alliance party ID Palak dahl(s) [employer] [id number] Social History Type Description Quantity Date Captured Comments Alcohol Use Details Unknown Caffeine Use Details Unknown Tobacco Use Status No Information Smoking Status No Information Sex Female Chief Complaint And Reason For Visit No Information Reason For Referral Reason For Referral No Information History Of Present Illness Encounter Date Complaint History Of Prese nt Illness allergy evaluation This is a f/u for patient , she has since seen Dr Hodgson and the office called her to tell her that her sinus culture grew Aspergillus which may be contributing to her coughing and her sinus infection/congestion- no further treatment plan was discussed the basement in her house had a water leak that was fixedsince the last time she saw me, she is a little better, the cough has improved and her nasal congestion is slightly better [place] IgG was low at 639 , poor response to both Protein and polysaccharide antibodies , IgE was Zero she received her vaccinations 3 weeks ago and is here for a post pneumococcal and repeat immunoglobulin levels allergy evaluation here for her Pneumonia and Tetanus vaccination, as her IgG was low, her Ig M was normal , lab did not run IgA , her celiac level was normal her IgE was zero post sinoplasty she was started on prednisone and levaquin , she finished it on , she needs to get her Flu vacation , she needs her booster of shingles and is here for her tetanus and pneumoniashe has one spot on her back that itches a lot and was told by her eeler to use gold castro with menthol her nose is better, her sense of smell is improving , her nose is open , post nasal drainage , no chest symptoms allergy evaluation Referred by Allison Hodgson , on Sep 05 2018 she underwent a ballon sinoplasty for recurrent sinus infection , she had another infection in Sep and then 3 weeks ago she had another sinus infection was started her on a cephalosporing and since it did not help she is now on Levaquin since a repeat CT showed severe impaction, she is going back for a repeat procedure later in the week with her sinus symptoms she gets a cough that is described as severe, now she has a new problems and finds it harder to breath at times, she has mild chest pressure associated with the cough exertion is not an issue sleep is getting better as she recently stared montelukast 10 mgsno wheezing no early satiety ,she is on a PPI and that is helping she describes constant post nasal drainage when she is sick in the past 1. she gets a vascultiis rash on her ankles - she is under the care of a dermatologist2. 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 2015 she had a allergy test Functional Status Date Functional Assessmen t No Information Instructions Date Instruction Additional Infor afm Hermelinda Hodgson Related to Unspe cified mycosis Assessments Type Assessment Date No Information Patient Care Teams Name Effective Dates (start - stop) Status Members No Information
--- OUTSIDE RECORDS SUMMARY | 2025-04-27 08:50 | XMS_ITS ---
Author Organization [facility] Address [address] [place], [place] [address] Care Team Providers Care Visual Lead Name Role Phone MARYSE SALDAÑA Unavailable [phone] Ander Leblanc Unavailable Unavailable REASON FOR VISIT *General care Medications Medication SIG (Take, Route, Fr equency, Duration) Notes Start Date End Date Status Gabapentin 300 MG Oral; Duration: 30 Days Active Omeprazole 40 MG Oral; Duration: 90 Days Active Social History Tobacco Use: Social History Observation Description Date Details (start date - stop date) Former Smoker NA - NA Tobacco Use/Smoking Question Answer Notes Tobacco use: former smoker Encounters Encounter Location Date Provider Diagnosis [facility] [place] [address] [place], [place] [id number] 04/27/2025 MARYSE SALDAÑA Fungal infection of nail B35.1 ; Pain in right toe(s) M79.674 ; Pain in left toe(s) M79.675 ; Atherosclerosis of [place] arteries of extremities with intermittent claudication, bilateral [...] toe(s) (ICD-10 - M79.675) 04/27/2025 Atherosclerosis of [place] arteries of extremities with intermittent claudication, bilateral [...] Up: 9 weeks, Reason: Provider Name:MARYSE ROTHMAN, 06/29/2025 08:20:00 AM, [address] [facility], [place], [place], [id number], Progress Notes * Renetta URRUTIAceDOB:[birth year] (75 yo F)Acc No.[id number]:04/27/2025 Patient: Geneva FRANCO Provider: Filomena Saldaña DPM :1950 A ge:75 Y S ex:Female Date:04/27/2025 Address:[address] [place], [place] [id number] Subjective: * Chief Complaints: * 1 . [...] you drink alcohol?: No. * Medications: T aking Gabapentin 300 MG [...] - M79.675 4 . A therosclerosis of [place] arteries of extremities with intermittent claudication, bilateral legs - I70.213 & #160; 5 . A cquired keratoderma - L85.1 Plan: * Treatment: * Procedure Codes: 1 1055 TRIM SKIN LESION, Modifiers: Q8 , 23492 DEBRIDE NAIL, 6 OR MORE, Modifiers: 59 , Q8 * Preventive Medicine: Screenings: F all risk screening Fall Risk Assessment: N o falls in the past year * Follow Up: 9 weeks * Billing Information: * Visit Code: * Procedure Codes: 10142 TRIM SKIN LESION. Modifiers: Q8 75921 DEBRIDE NAIL, 6 OR MORE. Modifiers: 59, Q8 * Electronic signature of MARYSE SALDAÑA DPM on 06/22/2025 at 12:42 PM CDT Sign off status: Pending * Provider: Filomena Saldaña DPM Date: 0 04/27/2025 Generated for Yazmin mayer/Geovanni/Miesha on: 1 12:42 PM CDT History and Physical Notes * HPI [...]
--- OUTSIDE RECORDS SUMMARY | 2025-06-21 13:00 | XMS_ITS | Encounter Summary ---
Author Organization [facility] Healthcare Address [address] [place] [address] Care Team Providers Care Pie Dough Roller Name Role Phone Ander Leblanc MD Primary Care Provider [phone] Dickson Johnson MD Unavailable [phone] Luis Nicholson MD Unavailable [phone] Christine Taylor MD Unavailable [phone] Encounter Details Date Type Department Care Team (Late st Contact Info) Description 06/21/2025 1:00 PM CDT Telemedicine [facility] Radiation Oncology [address] [facility] Advanced Medicine [facility] [place] [address] Samir Herndon NP [address] [facility] [address] [place] [address] Cancer with unknown primary site (HCC) Social History Tobacco Use Types Packs/Day Years Used Date Smoking Tobacco: Former Cigarettes 0.5 6 1 4 - 1977 Passive Smoke Exposure: Past Smokeless Tobacco: Never Alcohol Use Standard Drinks/Week [...] on file Legal Sex 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 Gender Identity Female 08/07/2020 10:58 AM TECHNICIAN HELPER 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 Sexual Orientation Not on file Occupation Industry Job Start Date Job End Date Retired Not on file Not on file Not on file documented as of this encounter Plan of Treatment Not on file documented as of this encounter Visit Diagnoses Diagnosis Cancer with unknown primary site (HCC) Other malignant neoplasm of unspecified site documented in this encounter Orders Appointment Requests Count Last Ordered Date Fi rst Ordered Date ONCBCN RAD ONC CLINIC APPOINTMENT REQUEST 2 06/21/2025 documented in this encounter Care Teams Pie Dough Roller Relationship Specialty Start Date End Date Ander Leblanc MD PCP - General Internal Medicine 02/28/22 Dickson Johnson MD [address] [address] Medical Oncologist Hematology 05/06/24 Luis Nicholson MD [address] [place] [address] Medical Oncology 05/12/24 Christine Taylor MD [address] [place] [address] Referring Physician Dermatology 05/31/24 documented as of this encounter
--- NOTE | ~2025-06-22 | MM_ITS ---
EXAMINATION: MM screening [facility] BI w oc HISTORY: Screening TECHNIQUE: Craniocaudal and mediolateral oblique 3-D tomosynthesis images were obtained and synthetic 2-D images were generated. CAD analysis was submitted and interpreted. COMPARISON: Comparison to multiple prior studies sequentially, with oldest reviewed study dated 12/15/2016. BREAST PARENCHYMAL COMPOSITION: Not dense: There are scattered areas of fibroglandular density. FINDINGS: There is no evidence of suspicious mass, calcification, or architectural distortion to suggest malignancy in either breast. There has been no suspicious interval change. IMPRESSION: 1. No mammographic evidence of malignancy. 2. Recommend routine screening mammography in one year. BI-RADS Category 1: Negative Reviewed, dictated and finalized at location B.
--- OUTSIDE RECORDS SUMMARY | 2025-06-22 06:12 | XMS_ITS | Encounter Summary ---
Author Organization [facility] Healthcare Address [address] [place] [address] Care Team Providers Care Trench Digger Name Role Phone Ander Leblanc MD Primary Care Provider [phone] Dickson Johnson MD Unavailable [phone] Luis Nicholson MD Unavailable [phone] Christine Taylor MD Unavailable [phone] Reason for Referral * MRI/CAT/PET Scan (Routine) - Closed Specialty Diagnoses / Procedures Referred By Torres mejia Referred To Contact Radiology Diagnoses Cancer with unknown primary site (HCC) Procedures CT chest abdomen pelvis with contrast Luis Nicholson MD [address] [facility] [address] [place] [address] Phone: tel: fax: [address] [address] Referral ID Status Reason Start Date Expiration Date Visits Re quested Visits Authorized [id number] Closed 02/23/2025 03/25/2026 1 1 Reason for Visit * MRI/CAT/PET Scan (Routine) - Closed Specialty Diagnoses / Procedures Referred By Contac t Referred To Contact Radiology Diagnoses Cancer with unknown primary site (HCC) Procedures CT chest abdomen pelvis with contrast Luis Nicholson MD [address] [place] [address] Phone: tel: fax: [facility] [address] [facility] [place] [address] Referral ID Status Reason Start Date Expiration Date Visits Re quested Visits Authorized [id number] Closed 02/23/2025 03/25/2026 1 1 Encounter Details Date Type Department Care Team (Latest Contact Info) Description 06/22/2025 6:12 AM CDT Hospital Encounter [facility] - [facility] [address] [facility] [address] [place] [address] Cancer with unknown primary site (HCC) Social History Tobacco Use Types Packs/Day Years Used Date Smoking Tobacco: Former Cigarettes 0.5 6 1 [id number] Passive Smoke Exposure: Past Smokeless Tobacco: Never [...] on file 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 Gender Identity Female 08/07/2020 10:58 AM MORTGAGE PROCESSING MANAGER Sexual Orientation Not on file Occupation Industry Job Start Date Job End Date Retired Not on file Not on file Not on file documented as of this encounter Plan of Treatment Not on file documented as of this encounter Procedures Procedure Name Priority Date/Time Associated Diagnosis Comments CT CHEST ABDOMEN PELVIS W CONTRAST Schedule GRABIEL, Read GRABIEL (Appt Today, Awaiting Results) 06/22/2025 7:10 AM CDT Cancer with unknown primary site (HCC) documented in this encounter Results * CT chest abdomen pelvis with contrast (06/22/2025 7:10 AM CDT) Anatomical Region Laterality Modality Body N/A Computed Tomogra phy 06/22/2025 7:23 AM CDT Impressions 06/22/2025 7:23 AM CDT No evidence of metastatic disease in the chest, abdomen, or pelvis. Electronically signed by: West Perla M.D. Narrative 06/22/2025 7:23 AM CDT EXAMINATION: Computed tomography of the chest, abdomen and pelvis with intravenous contrast HISTORY: Carcinoma of unknown origin. TECHNIQUE: Transaxial computed tomographic images of the chest, abdomen and pelvis were obtained with intravenous contrast according to the standard protocol after the administration of 70 mL Opti-Ray 350 intravenous contrast. COMPARISON: 02/23/2025 FINDINGS: There is no consolidation, pleural effusion, or pneumothorax. No suspicious pulmonary nodule is identified. The heart size is normal without pericardial effusion. No pathologically enlarged thoracic lymph node is identified. There is no hepatic lesion or biliary duct dilation. There is cholelithiasis without cholecystitis. The spleen, pancreas, and adrenal glands are normal. The kidneys are normal without hydronephrosis. The urinary bladder is normal. The large and small bowel are normal in caliber without obstruction. A duodenal diverticulum is noted. The appendix is normal. There is no ascites or pneumoperitoneum. Abdominal aorta is normal in course and caliber. There is no intra-abdominal or intrapelvic lymphadenopathy. No aggressive osseous lesion is identified. A left humeral fixation plate and screws are present. Procedure Note West Perla MD PhD - 06/22/2025 EXAMINATION: Computed tomography of the chest, abdomen and pelvis with intravenous contrast HISTORY: Carcinoma of unknown origin. TECHNIQUE: Transaxial computed tomographic images of the chest, abdomen and pelvis were obtained with intravenous contrast according to the standard protocol after the administration of 70 mL Opti-Ray 350 intravenous contrast. COMPARISON: 02/23/2025 FINDINGS: There is no consolidation, pleural effusion, or pneumothorax. No suspicious pulmonary nodule is identified. The heart size is normal without pericardial effusion. No pathologically enlarged thoracic lymph node is identified. There is no hepatic lesion or biliary duct dilation. There is cholelithiasis without cholecystitis. The spleen, pancreas, and adrenal glands are normal. The kidneys are normal without hydronephrosis. The urinary bladder is normal. The large and small bowel are normal in caliber without obstruction. A duodenal diverticulum is noted. The appendix is normal. There is no ascites or pneumoperitoneum. Abdominal aorta is normal in course and caliber. There is no intra-abdominal or intrapelvic lymphadenopathy. No aggressive osseous lesion is identified. A left humeral fixation plate and screws are present. IMPRESSION: No evidence of metastatic disease in the chest, abdomen, or pelvis. Electronically signed by: West Perla M.D. Luis Nicholson MD IMG CT PROCEDURES Final Result documented in this encounter Visit Diagnoses Diagnosis Cancer with unknown primary site (HCC) Other malignant neoplasm of unspecified site documented in this encounter Administered Medications Inactive Administered Medications - up to 3 most recent administrations Medication Order MAR Action Action Date Dose Rate Site ioversoL (OPTIRAY 350) syringe 75 mL 75 mL, intravenous, Once in imaging, contrast, Starting on Letha 06/22/25 at 0659, For 1 dose Contrast Given 06/22/2025 7:04 AM CDT 70 mL documented in this encounter Orders Medications Ordered That Jake ht Not Have Been Administered Count Last Ordered Date First Ordered Date ioversoL (OPTIRAY 350) syringe 75 mL 1 10/2024 documented in this encounter Care Teams Trench Digger Relationship Specialty Start Date End Date Ander Leblanc MD PCP - General Internal Medicine 02/28/22 Dickson Johnson MD [address] [address] Medical Oncologist Hematology 05/06/24 Luis Nicholson MD [address] [place] [address] Medical Oncology 05/12/24 Christine Taylor MD [address] [place] [address] Referring Physician Dermatology 05/31/24 documented as of this encounter
--- OUTSIDE RECORDS SUMMARY | 2025-06-22 09:00 | XMS_ITS | Encounter Summary ---
Author Organization [facility] Address [address] [place] [address] Phone Care Team Providers Care Corporate Investigator Name Role Phone Ander Leblanc MD Primary Care Provider [phone] Dickson Johnson MD Unavailable [phone] Luis Nicholson MD Unavailable [phone] Christine Taylor MD Unavailable [phone] Reason for Referral * MRI/CAT/PET Scan (Routine) - Authorized Specialty Diagnoses / Procedures Referred By Contac t Referred To Contact Radiology Diagnoses Cancer with unknown primary site (HCC) Procedures CT chest abdomen pelvis with contrast Luis Nicholson MD [address] [place] [address] Phone: tel: fax: [address] [address] Referral ID Status Reason Start Date Expiration Date V isits Requested Visits Authorized [id number] Authorized 06/22/2025 07/22/2026 1 1 Encounter Details Date Type Department Care Team (Late st Contact Info) Description 06/22/2025 9:00 AM CDT Office Visit [facility] [address] [facility] Floor [address] [place] [address] Luis Nicholson MD [address] [place] [address] Cancer with unknown primary site (HCC) (Primary [...] on file Legal Sex Female 3:10 AM PERSONNEL GENERALIST MANAGER Gender Identity Female 08/07/2020 10:58 AM PERSONNEL GENERALIST MANAGER Sexual Orientation Not on file Occupation Industry Job Start Date Job End Date Retired Not on file Not on file Not on file documented as of this encounter Last Filed Vital Signs Vital Sign Reading Time Taken Comments Blood Pressure 123/72 06/22/2025 7:40 AM CDT Pulse 66 06/22/2025 7:40 AM CDT Temperature 37.1 C (98.7 F) 06/22/2025 7:40 AM CDT Respiratory Rate 18 06/22/2025 7:40 AM CDT Oxygen Saturation 98% 06/22/2025 7:40 AM CDT Inhaled Oxygen Concentration - - Weight 83.1 kg (183 lb 4.8 oz) 06/22/2025 7:39 A M CDT Height - - Body Mass Index 33.48 02/23/2025 9:03 AM CDT documented in this encounter Progress Notes * Luis Nicholson MD - 06/22/2025 9:00 AM CDT Images from the original note were not included. ONCOLOGY FOLLOW-UP NOTE PATIENT NAME: Geneva Urrutia DATE OF : 1950 Requesting Physician Luis Nicholson MD Chief Complaint: Cancer Staging No matching staging information was found for the patient. Oncology History Overview Note Diagnosis: Carcinoma of unknown origin Stage: pending Performance status: ECOG 0 Germline: Tempus xG negative (below VUS) Molecular: Tempus xF, low DNA (no TMB), MSI-high not detected, MET p.A347T (missense) Tempus xT Tempus Origin pending Oncology hx: Preop CT scan, right knee, incidental right inguinal enlarged lymph node 03/28/2024 Ultrasound-guided biopsy, right inguinal lymph node 04/08/2024, metastatic carcinoma, CK7, GATA3 positive. Weak p16 PET-CT 2024 2.4 cm right inguinal lymph node, 3.1 cm left external iliac lymph node no other suspicious uptake Negative screening mammogram 02/01/2024 colonoscopy 12/2022 internal hemorrhoids and diverticulosis Seen by Dr. Johnson, heme/onc at [facility],05/02/24, Tempus xT and origin sent, origin suggests ovarian (unlikely) Urology evaluation with Dr. Thomas, cobblestone appearance of trigone on cystoscopy, fulgarated. Bx benign, inflammation MRI breast 05/20/24 negative XRT to L iliac LN, R groin LN completed 07/01/2024 Current therapy: surveillance Cancer with unknown primary site (HCC) 05/12/2024 Initial Diagnosis Cancer with unknown primary site (CMS/HCC) (HCC) Interval History: Adri returns to clinic for follow up cancer of unknown origin. Since our last visit she has felt great. No new localizing symptoms. REVIEW OF SYSTEMS As noted in Interval History, otherwise negative. MEDICAL/SURGICAL/SOCIAL/FAMILY HISTORIES Past Medical History: Diagnosis Date Allergies Anxiety Arthritis Cancer (HCC) GERD (gastroesophageal reflux disease) well controlled HX OTHER MEDICAL Epicondylitis Hypothyroid Osteoporosis Osteoporosis Seasonal allergies Past Surgical History: Procedure Laterality Date CARPAL TUNNEL RELEASE Carpal tunnel release CATARACT EXTRACTION Cataract extraction ELBOW SURGERY FOOT SURGERY 1979 LIVER BIOPSY Liver biopsy OTHER SURGICAL HISTORY Vein ablation WRIST SURGERY Left 2020 Left wrist/humerus surgery Social History Socioeconomic History Marital status: Spouse name: Not on file Number of children: Not on file Years of education: Not on file Highest education level: Not on file Occupational History Occupation: Retired Tobacco Use Smoking status: Former Current packs/day: 0.00 Average packs/day: 0.5 packs/day for 6.0 years (3.0 ttl pk-yrs) Types: Cigarettes Start date: 1973 Quit date: 1977 Years since quittin.7 Passive exposure: Past Smokeless tobacco: Never Vaping Use Vaping status: Never Used Substance and Sexual Activity Alcohol use: Yes Comment: rarely 3 times a year Drug use: Never Sexual activity: Defer Other Topics Concern Not on file Social History Narrative Not on file Social Drivers of Health Financial Resource Strain: Not on file Food Insecurity: Not on file Transportation Needs: Not on file Physical Activity: Not on file Stress: Not on file Social Connections: Not on file Intimate Partner Violence: Not on file Housing Stability: Not on file Family History Problem Relation Age of Onset Heart disease Mother Cancer Father Hypertension Father Stroke Father Osteoporosis Sister Diabetes Sister Hypertension Sister Breast cancer Sister Early Brother Heart disease Brother Hypertension Brother Cancer Other Family history of Cancer; Diabetes Other Family history of Diabetes mellitus; Heart disease Other Family history of Heart disease; Hypertension Other Family history of Hypertension; Stroke Other Family history of Stroke; Other Other Family history of Tuberculosis; MEDICATIONS Current Outpatient Medications: aspirin 81 mg enteric coated tablet, Take 1 tablet (81 mg total) by mouth daily, Disp: , Rfl: cholecalciferol (VITAMIN D-3) 5,000 unit tablet, Take 1 tablet (5,000 Units total) by mouth daily, Disp: , Rfl: escitalopram (LEXAPRO) 10 mg tablet, Take 1 tablet (10 mg total) by mouth every morning, Disp: , Rfl: fluocinolone (SYNALAR) 0.025 % cream, APPLY EXTERNALLY TO THE AFFECTED AREA TWICE DAILY, Disp: , Rfl: gabapentin (NEURONTIN) 300 mg capsule, Take 1 capsule (300 mg total) by mouth 3 (three) times a day, Disp: 90 capsule, Rfl: 11 qmmlavbg-giwc-dxbvlt-hyalur ac 277-156-24-2 mg capsule, Take by mouth every morning, Disp: , Rfl: levothyroxine (SYNTHROID) 75 mcg tablet, Take 1 tablet (75 mcg total) by mouth early childhood specialist beforebreakfast, Disp: , Rfl: montelukast (SINGULAIR) 10 mg tablet, Take 1 tablet (10 mg total) by mouth nightly, Disp: , Rfl: omeprazole (PriLOSEC) 40 mg capsule, 1 capsule (40 mg total) every morning, Disp: , Rfl: vitamin B complex capsule, Take 1 capsule by mouth daily, Disp: , Rfl: meloxicam (MOBIC) 15 mg tablet, , Disp: , Rfl: No current facility-administered medications for this visit. PHYSICAL EXAM Blood pressure 123/72, pulse 66, temperature 37.1 ??C (98.7 ??F), resp. rate 18, weight 83.1 kg (183 lb 4.8 oz), SpO2 98%. General: well developed, well nourished, no acute distress HEENT: oral mucosa moist without lesions, tongue midline, PERRL Neck: supple, no palpable adenopathy CV: reg, S1, S2 Pulmonary: unlabored, symmetrical breath sounds, no rales or rhonchi Abdomen: soft, no tenderness to palpation, no hepatosplenomegaly Extremities: warm, dry, no edema Skin: no rash or lesions Neuro: strength 5/5 upper/lower ext, fluid speech and gait Pysch: judgement/insight intact LABS Chem/LFT Lab History 09/22/2024 06:36 Labs-Chem/LFT CrCl- Actual Body Weight (Cockcroft-Gault) 71 IMAGES No results found. ASSESSMENT 1. Cancer with unknown primary site (HCC) PLAN Cancer of unknown origin-cancer of unknown primary site presenting in a right inguinal and left external iliac lymph node. Immunohistochemical testing suggestive of breast or urothelial origin. MRI breasts negative, cystoscopy negative including biopsy. Completed radiation to her to her [address] isolated lymph nodes[address] Restaging CT with no evidence of new disease and resolved LN. Clinical visit in [address] Family history of malignancy- germline genetic testing negative, MET VUS History of left tongue lichen planus- following with derm We will see back in 4 months. She agrees with the plan. COUNSELING: The patient was counseled extensively. We discussed the results of all recent diagnostic tests and what these results mean. We discussed the prognosis of the disease. We discussed the risks and benefits of the treatment plan at length. The patient was given instructions for treatment and the follow up appointments were reviewed. We reviewed all the medications and educated the patientabout their appropriate uses. Luis Nicholson MD packer inspector Division of Medical Oncology [facility] documented in this encounter Plan of Treatment Scheduled Orders Name Type Priority Associated Diagnoses Order Schedule CT chest abdomen pelvis with contrast Imaging Schedule GRABIEL, Read GRABIEL (Appt Today, Awaiting Results) Cancer with unknown primary site (HCC) Expected: 10/26/2025, Expires: 01/24/2026 Comprehensive metabolic panel Lab Routine Cancer with unknown primary site (HCC) Expected: 10/26/2025, Expires: 01/24/2026 CBC with auto differential Lab Routine Cancer with unknown primary site (HCC) Expected: 10/26/2025, Expires: 01/24/2026 documented as of this encounter Visit Diagnoses Diagnosis Cancer with unknown primary site (HCC)- Primary Other malignant neoplasm of unspecified site documented in this encounter Orders Appointment Requests Count Last Ordered Date Fi rst Ordered Date ONCBCN CLINIC APPOINTMENT REQUEST 2 025 ONCBCN LAB APPOINTMENT 1 06/22/2025 documented in this encounter Care Teams Corporate Investigator Relationship Specialty Start Date End Date Ander Leblanc MD PCP - General Internal Medicine 02/28/22 Dickson Johnson MD [address] [address] Medical Oncologist Hematology 05/06/24 Luis Nicholson MD [address] [place] [address] Medical Oncology 05/12/24 Christine Taylor MD [address] [place] [address] Referring Physician Dermatology 05/31/24 documented as of this encounter
--- OUTSIDE RECORDS SUMMARY | 2025-06-22 12:43 | XMS_ITS | Encounter Summary ---
Author Organization [facility] Address [address] [place] [address] Care Team Providers Care Primary Montessori Teacher Name Role Phone Tonja Barfield MD Primary Care Provider [phone] Ander Leblanc MD Primary Care Provider [phone] Encounter Details Date Type Department Care Team (Late st Contact Info) Description 04/23/2018 Lab Requisition [facility] Care DermPath Lab [address] [facility] [place] [id number] Gasper [place] [address] Social History Tobacco Use Types Packs/Day Years Used Date Smoking Tobacco: Never Assessed Comments Unknown Sex and Gender Information Value Date Recorded Sex Assigned at Not on file Legal Sex Female 5:58 AM 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 Gender Identity Not on file Sexual Orientation Not on file documented as of this encounter Plan of Treatment Not on file documented as of this encounter Procedures Procedure Name Priority Date/Time Associated Diagnosis Comments DERMATOPATHOLOGY Routine 04/22/2018 12:0 0 AM CDT documented in this encounter Results * DERMATOPATHOLOGY (04/22/2018 12:00 AM CDT) Case Report Dermatopathology Report Case: [id number] Authorizing Provider: Gasper Villeda MD Collected: 04/22/2018 [...] (see microscopic description) (see direct immunofluorescence results, [id number]) 1:42 PM T DERMATOPATHOLOGY LABORATORY at 1342 [...] characteristic determined by the Dermatopathology Laboratory at [facility]. These tests need not be, and therefore are not, approved by the [place] Food and Drug Administration. The tests are used for clinical purposes. Billing Codes Specimen Charges Stain Charges 22093 44532 1 1 44850 11179 1 1 8 1:42 PM CDT DERMATOPATHOLOGY LABORATORY Embedded Images 1:42 PM CDT DERMATOPATHOLOGY LABORATORY Pathology/Cytology TISSUE SPECIMEN FROM SKIN / Unknown 04/22/2018 04/23/2018 12:23 PM CDT Miscellaneous samples (specimen) TISSUE SPECIMEN FROM SKIN / Unknown 04/22/2018 04/23/2018 12:23 PM CDT Gasper Villeda MD LAB - PATHOLOGY/CYTOLOGY ORD ERABLES Final Result DERMATOPATHOLOGY LABORATORY [facility] - Department of Dermatology [address] [place] [address], 5th Floor Lab [address] [phone] documented in this encounter Visit Diagnoses Not on filedocumented in this encounter Care Teams Primary Montessori Teacher Relationship Specialty Start Date End Date Tonja Barfield MD [facility] [place] [address] PCP - General 04/23/18 01/21/23 Ander Leblanc MD [address] [place] [address] PCP - General 01/22/23 documented as of this encounter
--- OUTSIDE RECORDS SUMMARY | 2025-06-22 12:43 | XMS_ITS | Encounter Summary ---
Author Organization [facility] Address [address] [facility] [place] [address] Care Team Providers Care Blacksmith Hammer Operator Name Role Phone Tonja Barfield MD Primary Care Provider [phone] Ander Leblanc MD Primary Care Provider [phone] Encounter Details Date Type Department Care Team (Late st Contact Info) Description 04/23/2018 Lab Requisition [facility] [address] [facility] [place] [place] [id number] Gasper Villeda MD [place] [address] Social History Tobacco Use Types Packs/Day Years Used Date Smoking Tobacco: Never Assessed Comments Unknown Sex and Gender Information Value Date Recorded Sex Assigned at Not on file Legal Sex Female 5:58 AM CONTINUOUS IMPROVEMENT BLACK BELT Gender Identity Not on file Sexual Orientation Not on file documented as of this encounter Plan of Treatment Not on file documented as of this encounter Procedures Procedure Name Priority Date/Time Associated Diagnosis Comments IMMUNOFLUORESCENT STUDY DERM Routine 04/22/2018 12:00 AM CDT documented in this encounter Results * IMMUNOFLUORESCENT STUDY DERM (04/22/2018 12:00 AM CDT) Case Report Dermatopathol ogy Report Case: [id number] Authorizing Provider: Gasper Villeda MD Collected: 04/22/2018 12:00 AM Pathologist: Glory Jean MD Received: 04/23/2018 12:24 PM Specimen: Skin, right lower leg 1:50 PM CDT DERMATOPATHOLOGY LABORATORY Final Diagnosis Specimen A. SKIN, right lower leg: FOCAL VASCULAR C3 (M31.0) COLLOID BODIES (L98.9) (see microscopic description and comment) (see fixed tissue results, [id number]) 1:50 PM CDT DERMATOPATHOLOGY LABORATORY at 1350 [...] determined by the Dermatopathol ogy Laboratory at [facility]. These tests need not be, and therefore are not, approved by the [place] Food and Drug Administratio n. The tests are used for clinical purposes. Billing Codes Specimen Charges Stain Charges 95356 11889 24927 19164 82408 80874 1 1 1 1 1 1 8 1:50 PM CDT DERMATOPATHOLOGY LABORATORY Embedded Images 8 1:50 PM CDT DERMATOPATHOLOGY LABORATORY Pathology/Cytolog y TISSUE SPECIMEN FROM SKIN / Unknown 04/22/2018 04/23/2018 12:24 PM CDT Gasper Villeda MD LAB - PATHOLOGY/CYTOLOGY ORD ERABLES Final Result DERMATOPATHOLOGY LABORATORY [facility] - Department of Dermatology [address] [place] [address], 5th Floor Lab [address] [phone] documented in this encounter Visit Diagnoses Not on filedocumented in this encounter Care Teams Blacksmith Hammer Operator Relationship Specialty Start Date End Date Tonja Barfield MD [facility] [place] [address] PCP - General 04/23/18 01/21/23 Ander Leblanc MD [address] [place] [address] PCP - General 01/22/23 documented as of this encounter
--- OUTSIDE RECORDS SUMMARY | 2025-06-22 12:43 | XMS_ITS | Encounter Summary ---
Author Organization [facility] Healthcare Address [address] [place] [address] Care Team Providers Care Director Pharmacovigilance Name Role Phone Hector Johnson MD Primary Care Provider Ander Leblanc MD Primary Care Provider [phone] Dickson Johnson MD Unavailable [phone] Edel Rodriguez MD PhD Unavailable [phone] Luis Nicholson MD Unavailable [phone] Christine Taylor MD Unavailable [phone] Encounter Details Date Type Department Care Team (Late st Contact Info) Description 09/18/2021 Telephone [facility] [address] [place] [address] Sonido Triplett MD [address] [place], [place] [id number] Social History Tobacco Use Types Packs/Day Years [...] on file Legal Sex Female 3:10 AM 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 HEAD 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 Gender Identity Female 08/07/2020 10:58 AM SULFIDE HEAD OPERATOR Sexual Orientation Not on file documented as of this encounter Plan of Treatment Not on file documented as of this encounter Visit Diagnoses Not on filedocumented in this encounter Care Teams Director Pharmacovigilance Relationship Specialty Start Date End Date Hector Johnson MD [address] [facility] [address] [place] [address] PCP - General Family Medicine 07/23/20 02/27/22 Ander Leblanc MD [address] [facility] [address] [facility] [address] [place] [address] PCP - General Internal Medicine 02/28/22 Dickson Johnson MD [address] [facility] [address] [place] [address] Medical Oncologist Hematology 05/06/24 Edel Rodriguez MD PhD [address] [facility] MEDICAL ONCOLOGY, [facility] [address], [address], [address] [place] [address] Medical Oncologist/Air Box Tester Medical Oncology 05/06/24 05/11/24 Luis Nicholson MD [address] [place] [address] Medical Oncology 05/12/24 Christine Taylor MD [address] [place] [address] Referring Physician Dermatology 05/31/24 documented as of this encounter
--- OUTSIDE RECORDS SUMMARY | 2025-06-22 12:43 | XMS_ITS | Encounter Summary ---
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 Gender Identity Female 08/07/2020 10:58 AM DOORS PREFITTER Sexual Orientation Not on file Occupation Industry [...] on filedocumented in this encounter Care Teams Chromium Plater Relationship Specialty Start Date End Date Ander Leblanc MD PCP - General Internal Medicine 02/28/22 Dickson Johnson MD [address] [address] Medical Oncologist Hematology 05/06/24 Edel Rodriguez MD PhD [address] [facility], [facility] [address]A, [address], [address] [place] [address] Medical Oncologist/Valet Manager Medical Oncology 05/06/24 05/11/24 Luis Nicholson MD [address] [place] [address] Medical Oncology 05/12/24 Christine Taylor MD [address] [place] [address] Referring Physician Dermatology 05/31/24 documented as of this encounter
--- OUTSIDE RECORDS SUMMARY | 2025-06-22 12:43 | XMS_ITS | Patient Health Record ---
Author Organization [facility] Address [address] [place], [place] [address] Care Team Providers Care Climate Change Risk Assessor Name Role Phone MARYSE RIVERA Unavailable [phone] Ander Leblanc Unavailable Unavailable Allergies No Known Allergies Reason For Referral No Information Medications Medication SIG (Take, Route, Fr equency, Duration) Notes Start Date End Date Status Gabapentin 300 MG Oral; Duration: 30 Days Active Omeprazole 40 MG Oral; Duration: 90 Days Active Immunizations Vaccine Route Administration Date Status Comme nts Influenza (split), 3 yrs and above Unknown 07/04/2014 A dministered Influenza (split), 3 yrs and above Unknown 07/14/2018 A dministered Influenza (split), 3 yrs and above Unknown 07/14/2018 A dministered Influenza, high dose seasonal Unknown 06/23/2015 Admini stered Influenza, high dose seasonal Unknown 07/03/2016 Admini stered Influenza, high dose seasonal Unknown 06/15/2017 Admini stered Influenza, high dose seasonal Unknown 06/28/2018 Admini stered Influenza, high dose seasonal Unknown 06/29/2018 Admini stered Influenza, high dose seasonal Unknown 06/16/2019 Admini stered Influenza, high-dose seasona l, quadrivalent, preservative free >65 yrs Unknown 05/22/2021 Administered Influenza, seasonal, injecta ble, preservative free, 6-35 months Unknown 06/01/2020 Administered Influenza, unspecified formulation Unknown 06/24/2023 A dministered Pneumococcal conjugate PCV 13 Unknown 02/05/2016 Admini stered Pneumococcal polysaccharide PPV23 Unknown 09/06/2014 Ad ministered Zoster Unknown 06/15/2008 Administered Social History Tobacco Use: Social History Observation Description Date Details (start date - stop date) Former Smoker NA - NA Tobacco Use/Smoking Question Answer Notes Tobacco use: former smoker Vital Signs Height-cm 157.48 cm 02/23/2025 Weight-kg 82.1 kg 02/23/2025 Height 62 in 02/23/2025 Weight 181 lbs 02/23/2025 BMI 33.1 kg/m2 02/23/2025 Encounters Encounter Location Date Provider Diagnosis [facility] [address] [place] [address] [id number] 04/27/2025 MARYSE NICOLE Fungal infection of nail B35.1 ; Pain in right toe(s) M79.674 ; Pain in left toe(s) M79.675 ; Atherosclerosis of [place] arteries of extremities with intermittent claudication, bilateral legs I70.213 and Acquired keratoderma L85.1 [facility] [address] [place] [address] [id number] 08/11/2024 MARYSE [place] Fungal infection of nail B35.1 ; Pain in right toe(s) M79.674 ; Pain in left toe(s) M79.675 and Atherosclerosis of [place] arteries of extremities with intermittent claudication, bilateral legs I70.213 [facility] [address] [place] [address] [id number] 10/20/2024 MARYSE [place] Fungal infection of nail B35.1 ; Pain in right toe(s) M79.674 ; Pain in left toe(s) M79.675 and Atherosclerosis of [place] arteries of extremities with intermittent claudication, bilateral legs I70.213 [facility] [address] [place] [address] [id number] 12/22/2024 MARYSE [place] Fungal infection of nail B35.1 ; Pain in right toe(s) M79.674 ; Pain in left toe(s) M79.675 and Atherosclerosis of [place] arteries of extremities with intermittent claudication, bilateral legs I70.213 [facility] [address] [place] [address] [id number] 02/23/2025 MARYSE DILMATENSTEPHAN Fungal infection of nail B35.1 ; Pain in right toe(s) M79.674 ; Pain in left toe(s) M79.675 and Atherosclerosis of [place] arteries of extremities with intermittent claudication, bilateral [...] in right toe(s) (ICD-10 - M79.674) 04/27/2025 Fungal infection of nail (ICD-10 - B35.1) Nails 1-5 Bilateral were debrided extensively with nail nippers and emery board, reducing length and girth to pink healthy tissue with any subungual debris and necrotic tissue removed 04/27/2025 Pain in left toe(s) (ICD-10 - M79.675) 02/23/2025 Pain in right toe(s) (ICD-10 - [...] toe(s) (ICD-10 - M79.675) 04/27/2025 Atherosclerosis of [place] arteries of extremities with intermittent claudication, bilateral legs (ICD-10 - I70.213) 04/27/2025 Acquired keratoderma (ICD-10 - L85.1) 02/23/2025 Atherosclerosis of [place] arteries of extremities with intermittent claudication, bilateral legs (ICD-10 - I70.213) 12/22/2024 Atherosclerosis of [place] arteries of extremities with intermittent claudication, bilateral legs (ICD-10 - I70.213) 10/20/2024 Atherosclerosis of [place] arteries of extremities with intermittent claudication, bilateral legs (ICD-10 - I70.213) 08/11/2024 Atherosclerosis of [place] arteries of extremities with intermittent claudication, bilateral legs (ICD-10 - I70.213) Plan Of Treatment Next Appt Details Provider Name:MARYSE ROTHMAN, 06/29/2025 08:20:00 AM, [address], [facility], [place], [place], [id number], Insurance Providers Payer Name Payer Address Payer Phone Subscriber Number Group Number Insured Name Patient Relationship to Insured Coverage Start Date Coverage End Date Medicare Part B [place] [address] [place] [address] [id number] [place] Urrutia Self - patient is the insured [employer] Medicare Supplementa l Benefit Plans [id number] [address] [address] [place], [place] [id number] [place] Urrutia Self - patient is the insured 7 Medical (General) History Medical History History ICD Code acid reflux Arthritis Thyroid Disease varicose veins Surgical History Surgery Date(Month/Year) Shoulder surgery Left wrist
--- OUTSIDE RECORDS SUMMARY | 2025-06-22 12:43 | XMS_ITS | Clinical Summary ---
Author Organization [facility] Address [address] [place] [address] Care Team Providers Care Radio Maintainer Name Role Phone Ander Lelbanc MD Primary Care Provider [phone] Dickson Johnson MD Unavailable [phone] Luis Nicholson MD Unavailable [phone] Christine Taylor MD Unavailable [phone] Allergies Active Allergy Reactions Criticality Noted Date Comments Clindamycin Unknown,Nausea & Vomiting Low 5 Zomepirac Palpitations Low 09/21/1979 Medications cholecalciferol (VITAMIN D-3) 5,000 unit tablet Take 1 tablet (5,000 Units total) by mouth daily Active escitalopram (LEXAPRO) 10 mg tablet Take 1 tablet (10 mg total) by mouth every morning 0 Active levothyroxine (SYNTHROID) 75 mcg tablet Take 1 tablet (75 mcg total) by mouth battery assembler plastic before breakfast 0 Active montelukast (SINGULAIR) 10 mg tablet Take 1 tablet (10 mg total) by mouth nightly 0 Active omeprazole (PriLOSEC) 40 mg capsule 1 capsule (40 mg total) every morning 0 Active lkacpuys-tdee-e ollag-hyalur ac 665-564-61-2 mg capsule Take by mouth every morning Active fluocinolone (SYNALAR) 0.025 % cream APPLY EXTERNALLY TO THE AFFECTED AREA TWICE DAILY 0 Active gabapentin (NEURONTIN) 300 mg capsule Take 1 capsule (300 mg total) by mouth 3 (three) times a day 90 capsule 11 4 Active vitamin B complex capsule Take 1 capsule by mouth daily Active meloxicam (MOBIC) 15 mg tablet 4 Active aspirin 81 mg enteric coated tablet Take 1 tablet (81 mg total) by mouth daily Active Active Problems Problem Noted Date Diagnosed Date Lichen planus of tongue 05/31/2024 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, unspecified lymph node region 05/31/2024 Cancer with unknown primary site 05/12/2024 Otalgia 06/19/2022 Age-related osteoporosis wit hout current pathological fracture 02/26/2021 GERD (gastroesophageal reflux disease) 0 Hypothyroidism 07/26/2020 Closed fracture of left distal radius 07/24/2020 Overview (07/24/2020): Added automatically from request for surgery [id number] Closed fracture of left shoulder 07/23/2020 Overview (07/23/2020): Added automatically from request for surgery [id number] Abnormal chest x-ray 06/25/2020 History of 2019 novel coronavirus disease (COVID -19) 06/25/2020 Class 1 obesity with body ma ss index (BMI) of 33.0 to 33.9 in adult 06/25/2020 Upper airway cough syndrome 06/25/2020 Chronic cough 03/20/2019 Chronic seasonal allergic rhinitis due to pollen 03/20/2019 Essential hypertension 03/20/2019 Family history of tuberculosis 03/20/2019 Recurrent sinusitis 03/20/2019 Encounters Date Type Department Care Team Description 06/22/2025 9:00 AM CDT Office Visit [facility] Medicine Oncology [address] [facility] Floor 5 [place] [address] Luis Nicholson MD Cancer with unknown primary site (HCC) (Primary Dx) 06/22/2025 6:12 AM CDT Hospital Encounter [facility] [place] [address] [facility] [address] [place] [address] Cancer with unknown primary site (HCC) 06/21/2025 1:00 PM CDT Telemedicine [facility] Advanced Medicine Radiation Oncology [address] [facility] Advanced [place] [address] Samir Herndon NP Cancer with unknown primary site (HCC) 06/01/2025 1:00 PM CDT Office Visit [facility] Medicine Neurosurgery [address] [facility] Floor 1, [address] [place] [address] Sonido Triplett MD Right ear pain (Primary Dx) 06/01/2025 Telephone [facility] Medicine Neurosurgery [address] [facility] Floor 1, [address] [place] [address] Sonido Triplett MD from Last 3 Months Immunizations Immunization Administration [...] on file Legal Sex Female 3:10 AM PHOTOGRAPHY SPOTTER Gender Identity Female 08/07/2020 10:58 AM PHOTOGRAPHY SPOTTER Sexual Orientation Not on file Occupation Industry [...] oz) 06/22/2025 7:39 A M CDT Height 157.6 cm (5' 2.05) 02/23/2025 9:03 AM CD T Body Mass Index 33.48 02/23/2025 9:03 AM CDT Plan of Treatment Health Maintenance Due Date Last Done Comments Depression Screening 1950 Hepatitis C Screening 1950 DTaP/Tdap/Td Vaccine (1 - Tdap) 1959 Hepatitis B Screening 1966 Well Visit 65+ 2013 Covid-19 Vaccine (4 - 2024-2 6 season) 2025 09/12/2021, 12/07/2020, 11/09/2020 Influenza Vaccine (#1) 2025 , 05/22/2021, 06/01/2020, Additional history exists Fall Risk Assessment 06/06/2025 06/06/2024, 07/30/20 20 Osteoporosis Screening-Bone Density Scan 03/30/2026 03/30/2024, 03/25/2023, 02/28/2022, Additional history exists Pneumococcal vaccine 65+ Completed 02/05/2016, 08/21 Zoster Vaccine Completed 04/05/2019, 12/21, 11/30/2018, Additional history exists Medical Devices Implanted Type Area Vice President Media Relations Device Identifier Shelf Expiration Date Model / Serial / Lot [employer]/Richco/ Ortho [id number] Evos 3.5mm 24mm Self Tap Cortex Screw Bone Sterile - [id number] Implanted:Qty: 3 on 07/27/2020 by Edgar Rojas MD at [facility] Left: Arm [employer]/Or tho [id number] / / [employer]/ Ortho [id number] 3.5mm 20mm Self Tap Cortex Screw Bone Nonsterile - [id number] Implanted:Qty: 1 on 07/27/2020 by Edgar Rojas MD at [facility] Left: Arm [employer]Rich[employer]/Or tho [id number] / / [employer]/ Ortho [id number] Evos 3.5mm 38mm Self Tap Lock Screw Bone Sterile - [id number] Implanted:Qty: 3 on 07/27/2020 by Edgar Rojas MD at [facility] Left: Arm [employer]/Rich[employer]/Or tho [id number] / / [employer]/ Ortho [id number] Evos 3.5mm 48mm Self Tap Lock Screw Bone Sterile - [id number] Implanted:Qty: 1 on 07/27/2020 by Edgar Rojas MD at [facility] Left: Arm [employer]Rich[employer]/Or tho [id number] / / [employer]/ Ortho [id number] Evos 3.5mm 30mm Self Tap Lock Screw Bone Sterile - [id number] Implanted:Qty: 3 on 07/27/2020 by Edgar Rojas MD at [facility] Left: Arm [employer]Rich[employer]/Or tho [id number] / / [employer]/ Ortho [id number] Evos 3.5mm 34mm Self Tap Lock Screw Bone Sterile - [id number] Implanted:Qty: 1 on 07/27/2020 by Edgar Rojas MD at [facility] Left: Arm [employer]Rich[employer]/Or tho [id number] / / [employer]/ Ortho [id number] Plate Bone Evos Curve L114 Mm Od3.5 Mm Humerus Left Proximal 6 Hole Sterile - [id number] Implanted:Qty: 1 on 07/27/2020 by Edgar Rojas MD at [facility] Left: Arm [employer]Richco/Or tho [id number] / / [employer] A-4750.56 Aptus Trilock 42mmx1.6mm 6 Hole Distal Radius L Right Angle Plate - [id number] Implanted:Qty: 1 on 07/30/2020 by Zhen Otero MD at [facility] Left: Radius [employer] A-4750.56 / / [employer] A-5750.12/ Aptus Trilock 2.5mm 12mm Hexadrive 7 Adaptive Wrist Radius - [id number] Implanted:Qty: 3 on 07/30/2020 by Zhen Otero MD at [facility] [place] Left: Radius [employer] A-5750.12/1 / / [employer] A-5750.16/1 2.5mm 16mm Trilock Hexadrive Wrist Radius Screw Bone - [id number] Implanted:Qty: 1 on 07/30/2020 by Zhen Otero MD at [facility] [place] Left: Radius [employer] A-5750.16/1 / / [employer] A-5700.13/1 Aptus 2.5mm 13mm Hexadrive 7 Wrist Cortical Screw Bone Titanium - [id number] Implanted:Qty: 1 on 07/30/2020 by Zhen Otero MD at [facility] [place] Left: Radius [employer] A-5700.13/1 / / [employer] A-4750.55 Aptus Trilock 42mmx1.6mm 6 Hole Distal Radius L Left Angle Plate - [id number] Implanted:Qty: 1 on 07/30/2020 by Zhen Otero MD at [facility] [place] Left: Radius [employer] A-4750.55 / / [employer] A-5700.14 Aptus 2.5mm 14mm Cortical Screw Bone - [id number] Implanted:Qty: 3 on 07/30/2020 by Zhen Otero MD at [facility] [place] Left: Radius [employer] A-5700.14 / / [...] pelvis. Electronically signed by: West Perla M.D. us Luis Nicholson MD IMG CT PROCEDURES Final Result * Dexa TBS Axial Skeleton Bone Density 1 or more sites (03/30/2024 9:31 AM CDT) Anatomical Region Laterality Modality Wrist, Body N/A Radiographic Teresita ging Narrative 03/30/2024 10:06 AM CDT Patient Name: [place] Urrutia Date of : 1950 Date of scan: 03/30/2024 Bone mineral density was performed on a [employer].st Discovery Densitometer. Based on machine cross-calibration and [...] by the International Society of Clinical Densitometry. [id number] Tamara Pina MD IMG DXA PROCEDURES Final Resu lt from Last 3 Months or Most Recently Relevant to Health Maintenance Insurance MEDICARE [facility] MEDICARE SUPPLEMENT INSURANCE MEDICARE [facility] MEDICARE SUPPLEMENT INSURANCE MEDICARE MEDICARE [employer] MEDICARE SUPPLEMENT INSURANCE Care Teams Radio Maintainer Relationship Specialty Start Date End Date Ander Lelbanc MD PCP - General Internal Medicine 02/28/22 Dickson Johnson MD [address] [address] Medical Oncologist Hematology 05/06/24 Luis Nicholson MD [address] [place] [address] Medical Oncology 05/12/24 Christine Taylor MD [address] [place] [address] Referring Physician Dermatology 05/31/24
--- OUTSIDE RECORDS SUMMARY | 2025-06-22 12:43 | XMS_ITS ---
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, unspecified lymph node region 05/31/2024 Cancer with unknown primary site 05/12/2024 Otalgia 06/19/2022 Age-related osteoporosis wit hout current pathological fracture 02/26/2021 GERD (gastroesophageal reflux disease) 0 Hypothyroidism 07/26/2020 Closed fracture of left distal radius 07/24/2020 Overview (07/24/2020): Added automatically from request for surgery [id number] Closed fracture of left shoulder 07/23/2020 Overview (07/23/2020): Added automatically from request for surgery [id number] Abnormal chest x-ray 06/25/2020 History of 2019 [...] mGy 5 .71 mGy 0 mGy DLP 2,404 mGycm 2,404 mGycm 0 mGycm
--- OUTSIDE RECORDS SUMMARY | 2025-06-22 12:43 | XMS_ITS | Encounter Summary ---
Author Organization [facility] Address [address] [place] [address] Phone Care Team Providers Care Jack Tamp Operator Name Role Phone Ander Leblanc MD Primary Care Provider [phone] Dickson Johnson MD Unavailable [phone] Edel Rodriguez MD PhD Unavailable [phone] Luis Nicholson MD Unavailable Christine Taylor MD Unavailable [phone] Encounter Details Date Type Department Care Team [...] on file Legal Sex Female 3:10 AM SUPERVISOR IN CIRCUIT TESTING Gender Identity Female 08/07/2020 10:58 AM SUPERVISOR IN CIRCUIT TESTING Sexual Orientation Not on file Occupation Industry Job Start Date Job End Date Retired Not on file Not on file Not on file documented as of this encounter Plan of Treatment Not on file documented as of this encounter Procedures Procedure Name Priority Date/Time Associated Diagnosis Comments SCAN - PATHOLOGY 04/13/2024 documented in this encounter Results * SCAN - PATHOLOGY (04/13/2024) us Provider Scanning Final Result documented in this encounter Visit Diagnoses Not on filedocumented in this encounter Care Teams Jack Tamp Operator Relationship Specialty Start Date End Date Ander Leblanc MD PCP - General Internal Medicine 02/28/22 Dickson Johnson MD [address] [facility] [address] [place] [address] Medical Oncologist Hematology 05/06/24 Edel Rodriguez MD PhD [address] [facility], [facility] [address]A, 7B, [address] [place] [address] Medical Oncologist/Psychological Operations Officer Medical Oncology 05/06/24 05/11/24 Luis Nicholson MD [address] [place] [address] Medical Oncology 05/12/24 Christine Taylor MD [facility] [place] [address] Referring Physician Dermatology 05/31/24 documented as of this encounter
--- OUTSIDE RECORDS SUMMARY | 2025-06-22 12:43 | XMS_ITS | Encounter Summary ---
Author Organization [facility] Address [address] [place] [address] Phone Care Team Providers Care Dry Cleaning Machine Operator Name Role Phone Ander Leblanc MD Primary Care Provider [phone] Dickson Johnson MD Unavailable [phone] Luis Nicholson MD Unavailable [phone] Christine Taylor MD Unavailable Encounter Details Date Type Department Care Team [...] on file Legal Sex Female 3:10 AM ARCHITECTURAL DRAFTER Gender Identity Female 08/07/2020 10:58 AM ARCHITECTURAL DRAFTER Sexual Orientation Not on file Occupation Industry [...] on filedocumented in this encounter Care Teams Dry Cleaning Machine Operator Relationship Specialty Start Date End Date Ander Leblanc MD PCP - General Internal Medicine 02/28/22 Dickson Johnson MD [address] [address] Medical Oncologist Hematology 05/06/24 Luis Nicholson MD [address] [facility] [address] [place] [address] Medical Oncology 05/12/24 Christine Taylor MD [address] [place] [address] Referring Physician Dermatology 05/31/24 documented as of this encounter
--- OUTSIDE RECORDS SUMMARY | 2025-06-22 12:43 | XMS_ITS | Encounter Summary ---
Author Organization [facility] Address [address] [place] [address] Care Team Providers Care Commissioning Manager Name Role Phone Ander Leblanc MD Primary Care Provider [phone] Encounter Details Date Type Department Care Team (Late st Contact Info) Description 04/08/2024 Lab Requisition [facility] - Pathology Lab [address] [place] [address] Chavez Paige MD [address] [facility] [address] [place] [address] Enlarged lymph nodes, unspecified Social History Tobacco Use Types Packs/Day Years Used Date Smoking Tobacco: Never Assessed Comments Unknown Sex and Gender Information Value Date Recorded Sex Assigned at Not on file Legal Sex Female 5:58 AM TOY PACKER Gender Identity Not on file Sexual Orientation [...] AM CDT) Case Report Flow Cytometry Case: [id number] Authorizing Provider: Chavez Paige Collected: 04/08/2024 09:30 AM MD [place] Ordering Location: [facility] - Received: 04/08/2024 03:15 PM Pathology Lab Pathologist: Lisa Montgomery MD Specimen: Lymph Node, RIGHT INGUINAL 04/11/2024 11:[address] [facility] PATH[facility] Final Diagnosis Lymph node, right inguinal, flow cytometry: - Low-viability specimen with no significant lymphocyte population detected 04/11/2024 11:[address] [facility] PATHOLOGY LAB at 1104 CDT Flow Cytometry Interpretation Viability: 15% B-cells: no significant population T-cells: no significant population Blasts: not detected A cytospin prepared from the flow cytometry specimen has been reviewed for quality control tech raw materials purposes. 04/11/2024 11:[address] [facility] Flow Cytometry Results Differential Result Comment Flow Cell Count /uL 1,640 Total Viability % 15.0 Lymphocytes % 51 Dim CD45 Region % 4 Monocytes % 7 Granulocytes % 38 04/11/2024 11:[address] [facility] Reason for test Enlarged lymph nodes, unspecified 04/11/2024 11:[address] [facility] Client Specimen ID # [id number] 04/11/2024 11:[address] [facility] Number of markers 16 were performed. A-2 Flow CD10 A-4 Flow CD20 A-5 Flow CD23 A-10 Flow CD2 A-11 Flow CD3 A-12 Flow CD4 A-16 Flow CD1a A-3 Flow CD19 A-6 Flow CD34 A-7 Flow CD45 A-13 Flow CD5 A-14 Flow CD7 A-15 Flow CD8 A-17 Flow CD30 A-8 [place]+CD19+ A-9 Lambda+CD19+ 04/11/2024 11:[address] [facility] PATH[facility] Pathologist Location at [facility] [address] 04/11/2024 11:[address] [facility] PATH[facility] LAB Disclaimer Test performed at [facility], [address] [place] [address], [address]. *The established laboratory minimum viability is 70%. [...] complexity clinical testing. 04/11/2024 11:04 AM CDT [facility] PATH[facility] Embedded Images 11:04 AM CDT [facility] PATH[facility] LAB Pathology/Cytolo gy ENTIRE LYMPH NODE / Unknown 04/08/2024 9:30 AM CDT 04/08/2024 3:15 PM CDT Chavez Paige MD LAB - PATHOLOGY/CYT OLOGY ORDERABLES Final Result [facility] [address] [phone] documented in this encounter Visit Diagnoses Diagnosis Enlarged lymph nodes, unspecified documented in this encounter Care Teams Commissioning Manager Relationship Specialty Start Date End Date Ander Leblanc MD [address] [place] [address] PCP - General 01/22/23 documented as of this encounter
--- OUTSIDE RECORDS SUMMARY | 2025-06-22 12:43 | XMS_ITS | Clinical Summary ---
Author Organization [facility] Address [address] [facility] [place] [address] Care Team Providers Care Master Machinist Name Role Phone Ander Leblanc MD Primary Care Provider [phone] Source Comments [facility] Affiliates and Associated Physician Practices is amultiple site organization consisting of ambulatory clinics and hospital sitesin [place], [place], [place] and [place]. This disclosure is being madepursuant to the Care Everywhere program and may not contain all information available regarding this patient. Last updated 18.[facility] Allergies Active Allergy Reactions Criticality Noted [...] on file Legal Sex Female 5:58 AM RELEASE OF INFORMATION SPECIALIST Gender Identity Not on file Sexual Orientation [...] Done Comments MEDICARE AWV 12 MONTHS 1950 HEPATITIS C SCREENING 04/15/1966 DTAP/TDAP/TD VACCINES (1 - Tdap) 1967 PNEUMOCOCCAL VACCINE 50+ (1 of 1 - PCV) 1998 ZOSTER VACCINE (1 of 2) 1998 Respiratory Syncytial Virus (RSV) Vaccine Pt: or over 60 yrs (1 - 1-dose 75+ series) 2023 DEPRESSION SCREENING 09/21/2024 COVID-19 VACCINE (1 - 2023-2 5 season) 2025 INFLUENZA VACCINE (#1) 2025 8, 06/29/2018 BONE [...] patient's age to complete this topic Insurance [facility] [place] [id number] MEDICARE * Guarantor: JAMI URRUTIA Account Type Relation to Patient Date of Phone Billing Address Personal/Family [address] [place] [address] MEDICARE * Guarantor: JAMI URRUTIA Account Type Relation to Patient Date of Phone Billing Address Personal/Family 7 [facility] [place] [address] * Guarantor: JAMI URRUTIA Account Type Relation to Patient Date of Phone Billing Address Personal/Family [address] [place] [address] Care Teams Master Machinist Relationship Specialty Start Date End Date Ander Leblanc MD [address] [place] [address] PCP - General 01/22/23
--- OUTSIDE RECORDS SUMMARY | 2025-06-22 12:43 | XMS_ITS | Encounter Summary ---
Author Organization [facility] Address [address] [place] [address] Care Team Providers Care Rn Operating Room Name Role Phone Ander Leblanc MD Primary Care Provider [phone] Encounter Details Date Type Department Care Team (Late st Contact Info) Description 04/13/2024 Lab Requisition [facility] - Pathology Lab [address] [place] [address] Rex Saucedo MD [address] [place] [address] Illness, unspecified Social History Tobacco Use Types Packs/Day Years Used Date Smoking Tobacco: Former Cigarettes Smokeless Tobacco: Never Alcohol Use Standard Drinks/Week Comments Yes 0 (1 standard drink = 0.6 oz pur e alcohol) Comments Unknown Sex and Gender Information Value Date Recorded Sex Assigned at Not on file Legal Sex Female 5:58 AM CONDUIT CLEANER Gender Identity Not on file Sexual Orientation [...] PM CDT) Final Diagnosis Tongue, biopsy (OSC: [id number]; 03/04/24): 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 The histologic differential diagnosis includes an oral lichenoid drug reaction and oral contact hypersensitivity reaction. Clinical correlation is necessary for full interpretation. 04/14/2024 9:11 AM CDT [facility] PATH[facility] at 0911 CDT Microscopic Description [...] LAB Clinical History 04/14/2024 9:11 AM T [facility] Materials Received Received are 2 slide(s) labeled [id number] along with a copy of the outside pathology report. The materials originate from [facility] [address] [place] [address]. All original materials are returned to the referring institution, along with a copy of our final report. 04/14/2024 9:11 AM T [facility] PATH[facility] Pathologist Location at [facility] 04/14/2024 9:11 AM CDT [facility] PATH[facility] LAB Case Report Surgical Pathology Report Case: [id number] Authorizing Provider: Rex Saucedo MD Collected: 04/13/2024 02:36 PM Ordering Location: [facility] - Received: 04/13/2024 02:36 PM Pathology Lab Pathologist: Omid Ulloa MD Specimen: Slide Consultation 04/14/2024 9:11 AM CDT [facility] PATH[facility] LAB Embedded Images 04/14/2024 9:11 AM T [facility] Pathology/Cytolo gy SURGICAL PATHOLOGY CONSULTATION AND REPORT ON REFERRED SLIDES PREPARED ELSEWHERE / Unknown 04/13/2024 2:36 PM CDT 04/13/2024 2:36 PM CDT Rex Saucedo MD LAB - PATHOLOGY/CYTOLOGY ORDERAB LES Final Result [facility] [address] [facility] [place] [address], [facility] [phone] documented in this encounter Visit Diagnoses Diagnosis Illness, unspecified documented in this encounter Care Teams Rn Operating Room Relationship Specialty Start Date End Date Ander Leblanc MD [address] [place] [address] PCP - General 01/22/23 documented as of this encounter
--- OUTSIDE RECORDS SUMMARY | 2025-06-22 12:43 | XMS_ITS | Clinical Summary ---
Author Organization [facility] Address [address] [place] [address] Phone Care Team Providers Care Customer Retention Specialist Name Role Phone Hector Johnson MD Primary [...] tablet Take 75 mcg by mouth daily early head start director. Active gabapentin (NEURONTIN) 300 mg capsule Take [...] 75+ series) 2023 INFLUENZA VACCINE (#1) 2025 , 06/01/2020, 06/01/2020, Additional history exists OSTEOPOROSIS SCREENING 03/30/2029 4, 03/30/2024, 03/25/2023, Additional history exists PNEUMOCOCCAL VACCINE 50+ YEARS Completed 02/05/2016 , 09/06/2014 ZOSTER VACCINE Completed 04/05/2019, 12/21, 11/30/2018, Additional history exists COLORECTAL SCREENING Discontinued 01/08/2023, 05/13/20 Colorectal Cancer Screening Discontinued FIT-DNA Q 3 years Discontinued FIT/FOBT Q 1 year Discontinued Flex Sig/CT Colonography Q 5 years Discontinued Insurance MEDICARE PART A AND B [facility] MEDICARE PART A AND B [facility] Care Teams Customer Retention Specialist Relationship Specialty Start Date End Date Hector Johnson MD [address] [facility] [address] [place] [address] PCP - General Family Practice 03/14/19
--- OUTSIDE RECORDS SUMMARY | 2025-06-22 12:43 | XMS_ITS | Encounter Summary ---
Author Organization [facility] Address [address] [place] [address] Phone Care Team Providers Care Power Nut Runner Operator Name Role Phone Ander Leblanc MD Primary Care Provider Dickson Johnson MD Unavailable [phone] Edel Rodriguez MD PhD Unavailable [phone] Luis Nicholson MD Unavailable [phone] Christine Taylor MD Unavailable [phone] Encounter Details Date Type Department Care Team [...] on file Legal Sex Female 3:10 AM WASH TANK TENDER Gender Identity Female 08/07/2020 10:58 AM WASH TANK TENDER Sexual Orientation Not on file Occupation Industry Job Start Date Job End Date Retired Not on file Not on file Not on file documented as of this encounter Plan of Treatment Not on file documented as of this encounter Procedures Procedure Name Priority Date/Time Associated Diagnosis Comments SCAN - PATHOLOGY 04/08/2024 documented in this encounter Results * SCAN - PATHOLOGY (04/08/2024) us Provider Scanning Final Result documented in this encounter Visit Diagnoses Not on filedocumented in this encounter Care Teams Power Nut Runner Operator Relationship Specialty Start Date End Date Ander Leblanc MD PCP - General Internal Medicine 02/28/22 Dickson Johnson MD [address] [facility] [address] [place] [address] Medical Oncologist Hematology 05/06/24 Edel Rodriguez MD PhD [address] [facility], [facility] [address]A, [address], [address] [place] [address] Medical Oncologist/Director Of Curriculum Medical Oncology 05/06/24 05/11/24 Luis Nicholson MD [address] [place] [address] Medical Oncology 05/12/24 Christine Taylor MD [address] [place] [address] [place] [address] Referring Physician Dermatology 05/31/24 documented as of this encounter
== END 2025-06-22 12:35 | disposition home or self-care (01) ==
LOC: CHSIMG 12:41
PROVIDERS: PCP Internal Medicine; Visit Provider Internal Medicine
DX: Z12.31 Encounter for screening mammogram for malignant neoplasm of breast (principal)
CPT/HCPCS: 77063; 77067

== ENCOUNTER 2025-08-25 08:44 | Outpatient (CLI) | payer MEDICARE, SELFPAY ==
--- OUTSIDE RECORDS SUMMARY | 2025-04-27 07:50 | XMS_ITS ---
Author Organization [facility] Address [address] [facility] [address] [place], [place] [address] Care Team Providers Care Systems Mechanic Name Role Phone MARYSE SALDAÑA Unavailable [phone] Ander Leblanc Unavailable Unavailable REASON FOR VISIT *General care Medications Medication SIG (Take, Route, Frequency, Duration) Notes Start Date End Date Status Gabapentin 300 MG Capsule Oral; Duration: 30 Days Active Omeprazole 40 MG Capsule Delayed Release Oral; Duration: 90 Days A ctive Social History Tobacco Use: Social History Observation Description Date Details (start date - stop date) Former Smoker NA - NA Social History Tobacco Use: Social Info Question Answer Notes Tobacco Use/Smoking Tobacco use: former smoker Additional Details Category Social Info Options Details Drugs/Alcohol: Do you drink alcohol? No Encounters Encounter Location Date Provider Diagnosis [facility] [place] [address] [place], [place] [id number] 04/27/2025 MARYSE SALDAÑA Fungal infection of nail B35.1 ; Pain in right toe(s) M79.674 ; Pain in left toe(s) M79.675 ; Atherosclerosis of [place] arteries of extremities with intermittent claudication, bilateral legs I70.213 and Acquired keratoderma L85.1 Assessments Encounter Date Diagnosis (ICD Code) Assessment Notes Treatment Notes Treatment Clinical Notes Section Notes 04/27/2025 Fungal infection of nail (ICD-10 - B35.1) Nails 1-5 Bilateral were debrided extensively with nail nippers and emery board, reducing length and girth to pink healthy tissue with any subungual debris and necrotic tissue removed 04/27/2025 Pain in right toe(s) (ICD-10 - M79.674) 04/27/2025 Pain in left toe(s) (ICD-10 - M79.675) 04/27/2025 Atherosclerosis of [place] arteries of extremities with intermittent claudication, bilateral legs (ICD-10 - I70.213) 04/27/2025 Acquired keratoderma (ICD-10 - L85.1) Plan Of Treatment Treatment Notes Assessment Notes Fungal infection of nail Nails 1-5 Bilat eral were debrided extensively with nail nippers and emery board, reducing length and girth to pink healthy tissue with any subungual debris and necrotic tissue removed Next Appt Details Follow Up: 9 weeks, Reason: History and Physical Notes * HPI (History [...] Date last seen by Dr. Leblanc was 12/2024., Initials mf Examination Category Sub-Category Detail Notes Category Not [...] subungual debris. They are painful to palpation. Progress Notes * Renetta URRUTIAceDOB:[birth year] (75 yo F)Acc No.[id number]:04/27/2025 Patient: Geneva Henson Provider: Filomena Saldaña DPM :1950 A ge:75 Y S ex:Female Date:04/27/2025 Address:[address] [place] [address] [id number] Subjective: * Chief Complaints: * * General care * HPI: H PI: General care P ethan presents to the office for at risk foot care. Patient states that their nails are thickened, elongated and painful. Patient states that it is aggravated by shoe gear. Onset is gradual. Patient denies being diabetic., Patient denies taking prescription blood thinners but does take a daily aspirin., Date last seen by Dr. Leblanc was 12/2024., Initials mf. * ROS: G eneral / Constitutional: Patient denies c hange in appetite, fatigue, chills, fever.? C ardiovascular: Chest pain d enies. N eurologic: Loss of use of extremity d enies. * Medical History: Acid reflux Arthritis Thyroid Disease Varicose veins Medical History Verified * Surgical History: Shoulder surgery Left wrist Surgical History verified. * Family History: F ather: unknown, cancer, stroke. M other: unknown, heart disease. B rother: unknown, heart disease, hypertension. S ister: unknown, Cancer, hypertension. F amily History Verified.. * Social History: T obacco Use: T obacco Use/Smoking T obacco use: f ormer smoker D rugs/Alcohol: D o you drink alcohol?: No. S ocial History Verified. * Medications: T akingGabapentin 300 MG Capsule Oral Omeprazole 40 MG Capsule Delayed Release Oral Medication List reviewed and reconciled with the patientTaking Gabapentin 300 MG Capsule Oral Taking Omeprazole 40 MG Capsule Delayed Release Oral Medication List reviewed and reconciled with the patient Objective: * Examination: P hysical Examination: Gen: T [...] - M79.675 4 . A therosclerosis of [place] arteries of extremities with intermittent claudication, bilateral legs - I70.213 & #160; 5 . A cquired keratoderma - L85.1 Plan: * Treatment: * Procedure Codes: 1 1055 TRIM SKIN LESION, Modifiers: Q8 48003 DEBRIDE NAIL, 6 OR MORE, Modifiers: 59 , Q8 * Preventive Medicine: Screenings: F all risk screening Fall Risk Assessment: N o falls in the past year * Follow Up: 9 weeks Billing Information: * Procedure Codes: 51852 TRIM SKIN LESION. Modifiers: Q8 17469 DEBRIDE NAIL, 6 OR MORE. Modifiers: 59, Q8 * Electronic signature of MARYSE SALDAÑA DPM on 08/25/2025 at 08:50 AM SHEET ROCK TAPER Sign off status: Pending * Provider: Filomena Saldaña DPM Date: 0 04/27/2025 Generated for Yazmin mayer/Geovanni/Miesha on: 1 10/26/2024 08:50 AM SHEET ROCK TAPER
--- OUTSIDE RECORDS SUMMARY | 2025-06-29 02:20 | XMS_ITS ---
Author Organization [facility] Address [address] [place], [place] [address] Care Team Providers Care Oracle Reports Developer Name Role Phone MARYSE SALDAÑA Unavailable [phone] Ander Leblanc Unavailable Unavailable Allergies No Known Allergies REASON FOR VISIT *General care Medications Medication SIG (Take, Route, Frequency, Duration) Notes Start Date End Date Status Gabapentin 300 MG Capsule Oral; Duration: 30 Days Active Omeprazole 40 MG Capsule Delayed Release Oral; Duration: 90 Days A ctive Vital Signs Height 62 in 06/29/2025 Height-cm 157.48 cm 06/29/2025 Encounters Encounter Location Date Provider Diagnosis [facility] [address] [place], [place] [id number] 06/29/2025 MARYSE SALDAÑA Fungal infection of nail B35.1 ; Pain in right toe(s) M79.674 ; Pain in left toe(s) M79.675 ; Atherosclerosis of [place] arteries of extremities with intermittent claudication, bilateral legs I70.213 and Acquired keratoderma L85.1 Assessments Encounter Date Diagnosis (ICD Code) Assessment Notes Treatment Notes Treatment Clinical Notes Section Notes 06/29/2025 Fungal infection of nail (ICD-10 - B35.1) Nails 1-5 Bilateral were debrided extensively with nail nippers and emery board, reducing length and girth to pink healthy tissue with any subungual debris and necrotic tissue removed 06/29/2025 Pain in right toe(s) (ICD-10 - M79.674) 06/29/2025 Pain in left toe(s) (ICD-10 - M79.675) 06/29/2025 Atherosclerosis of [place] arteries of extremities with intermittent claudication, bilateral legs (ICD-10 - I70.213) 06/29/2025 Acquired keratoderma (ICD-10 - L85.1) Plan Of [...] Date last seen by Dr. Leblanc was July 2024., Initials JMR Examination Category Sub-Category Detail Notes Category Not [...] Notes * Renetta URRUTIAceDOB:[birth year] (75 yo F)Acc No.[id number]:06/29/2025 Patient: Geneva Henson Provider: Filomena Saldaña DPM :1950 A ge:75 Y S ex:Female Date:06/29/2025 Address:[address] [place], [place] [id number] Subjective: * Chief Complaints: * * General [...] Date last seen by Dr. Leblanc was July 2024., Initials JMR. * ROS: G eneral / Constitutional: Patient denies c hange in appetite, fatigue, chills, fever.? C ardiovascular: Chest pain d enies. N eurologic: Loss of use of extremity d enies. * Medical History: Acid reflux Arthritis Thyroid Disease Varicose veins Medical History Verified * Surgical History: Shoulder surgery Left wrist Surgical History verified. * Hospitalization/Major Diagno stic Procedure: No Hospitalization Documented. Hospitalization Verified. * Family History: F ather: unknown, cancer, stroke. M other: unknown, heart disease. B rother: unknown, heart disease, hypertension. S ister: unknown, Cancer, hypertension. F amily History Verified.. * Social History: Social History Verified. No Social History documented. * Medications: T akingGabapentin 300 MG Capsule Oral Omeprazole 40 MG Capsule Delayed Release Oral Medication List reviewed and reconciled with the patientTaking Gabapentin 300 MG Capsule Oral Taking Omeprazole 40 MG Capsule Delayed Release Oral Medication List reviewed and reconciled with the patient * Allergies: N .K.D.A.yesAllergies Verified. Objective: * Vitals: H t: 62 in, [...] - M79.675 4 . A therosclerosis of [place] arteries of extremities with intermittent claudication, bilateral legs - I70.213 & #160; 5 . A cquired keratoderma - L85.1 Plan: * Treatment: * Procedure Codes: 1 1057 TRIM SKIN LESIONS, OVER 4, Modifiers: Q8 10005 DEBRIDE NAIL, 6 OR MORE, Modifiers: 59 , Q8 * Follow Up: 9 weeks Billing Information: * Procedure Codes: 93844 TRIM SKIN LESIONS, OVER 4. Modifiers: Q8 18934 DEBRIDE NAIL, 6 OR MORE. Modifiers: 59, Q8 * Electronic signature of MARYSE SALDAÑA DPM on 08/25/2025 at 08:50 AM SPORTS CLERK Sign off status: Pending * Provider: Filomena Saldaña DPM Date: Generated for Yazmin mayer/Geovanni/Miesha on: 10/26/2024 08:50 AM SPORTS CLERK
--- OUTSIDE RECORDS SUMMARY | 2025-08-25 08:50 | XMS_ITS | Encounter Summary ---
Author Organization [facility] Address [address] [place] [address] Care Team Providers Care Circular Distributor Name Role Phone Ander Leblanc MD Primary Care Provider [phone] Encounter Details Date Type Department Care Team (Late st Contact Info) Description 04/08/2024 Lab Requisition [facility] - Pathology Lab [address] [place] [address] Chavez Paige MD [address] [facility] [address] [place] [address] Enlarged lymph nodes, unspecified Social History Tobacco Use Types Packs/Day Years Used Date Smoking Tobacco: Never Assessed Comments Unknown Sex and Gender Information Value Date Recorded Sex Assigned at Not on file Legal Sex Female 5:58 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 Gender Identity Not on file Sexual Orientation [...] AM CDT) Case Report Flow Cytometry Case: [id number] Authorizing Provider: Chavez Paige Collected: 04/08/2024 09:30 AM MD [place] Ordering Location: [facility] - Received: 04/08/2024 03:15 PM Pathology Lab Pathologist: Lisa Montgomery MD Specimen: Lymph Node, RIGHT INGUINAL 04/11/2024 11:04 AM [facility] Final Diagnosis Lymph node, right inguinal, flow cytometry: - Low-viability specimen with no significant lymphocyte population detected 04/11/2024 11:04 AM [facility] PATH[facility] LAB at 1104 CDT Flow Cytometry Interpretation Viability: 15% B-cells: no significant population T-cells: no significant population Blasts: not detected A cytospin prepared from the flow cytometry specimen has been reviewed for quality control associate purposes. 04/11/2024 11:04 AM [facility] Flow Cytometry Results Differential Result Comment Flow Cell Count /uL 1,640 Total Viability % 15.0 Lymphocytes % 51 Dim CD45 Region % 4 Monocytes % 7 Granulocytes % 38 04/11/2024 11:04 AM [facility] Reason for test Enlarged lymph nodes, unspecified 04/11/2024 11:04 AM [facility] Client Specimen ID # [id number] 04/11/2024 11:04 AM [facility] Number of markers 16 were performed. A-2 Flow CD10 A-4 Flow CD20 A-5 Flow CD23 A-10 Flow CD2 A-11 Flow CD3 A-12 Flow CD4 A-16 Flow CD1a A-3 Flow CD19 A-6 Flow CD34 A-7 Flow CD45 A-13 Flow CD5 A-14 Flow CD7 A-15 Flow CD8 A-17 Flow CD30 A-8 [place]+CD19+ A-9 Lambda+CD19+ 04/11/2024 11:04 AM [facility] Pathologist Location at [facility] 04/11/2024 11:04 AM [facility] Disclaimer Test performed at [facility], [address] [place] [address], [address]. *The established laboratory minimum viability is 70%. [...] complexity clinical testing. 04/11/2024 11:04 AM CDT [facility] PATH[facility] Embedded Images 11:04 AM CDT [facility] PATH[facility] LAB Pathology/Cytolo gy ENTIRE LYMPH NODE / Unknown 04/08/2024 9:30 AM CDT 04/08/2024 3:15 PM CDT Chavez Paige MD LAB - PATHOLOGY/CYT OLOGY ORDERABLES Final Result [facility] [address] [phone] documented in this encounter Visit Diagnoses Diagnosis Enlarged lymph nodes, unspecified documented in this encounter Care Teams Circular Distributor Relationship Specialty Start Date End Date Ander Leblanc MD [address] [place] [address] PCP - General 01/22/23 documented as of this encounter
--- OUTSIDE RECORDS SUMMARY | 2025-08-25 08:50 | XMS_ITS | Patient Health Record ---
Author Organization [facility] Address [address] [place], [place] [address] Care Team Providers Care Sales And Marketing Director Name Role Phone MARYSE RIVERA Unavailable [phone] Ander Leblanc Unavailable Unavailable Allergies No Known Allergies Reason For Referral No Information Medications Medication SIG (Take, Route, Frequency, Duration) Notes Start Date End Date Status Gabapentin 300 MG Capsule Oral; Duration: 30 Days Active Omeprazole 40 MG Capsule Delayed Release Oral; Duration: 90 Days A ctive Immunizations Vaccine Route Administration Date Status Comme [...] Details Drugs/Alcohol: Do you drink alcohol? No Vital Signs Height-cm 157.48 cm 06/29/2025 Weight-kg 82.1 kg 02/23/2025 Height 62 in 06/29/2025 Weight 181 lbs 02/23/2025 BMI 33.1 kg/m2 02/23/2025 Encounters Encounter Location Date Provider Diagnosis [facility] July [address] [place] [address] [id number] 04/27/2025 MARYSE DILMATENBURG Fungal infection of nail B35.1 ; Pain in right toe(s) M79.674 ; Pain in left toe(s) M79.675 ; Atherosclerosis of [place] arteries of extremities with intermittent claudication, bilateral legs I70.213 and Acquired keratoderma L85.1 [facility] July [address] [place] [address] [id number] 06/29/2025 MARYSE DILMATENBURG Fungal infection of nail B35.1 ; Pain in right toe(s) M79.674 ; Pain in left toe(s) M79.675 ; Atherosclerosis of [place] arteries of extremities with intermittent claudication, bilateral legs I70.213 and Acquired keratoderma L85.1 [facility] July [address] [place] [address] [id number] 10/20/2024 MARYSE WHITTENBURG Fungal infection of nail B35.1 ; Pain in right toe(s) M79.674 ; Pain in left toe(s) M79.675 and Atherosclerosis of [place] arteries of extremities with intermittent claudication, bilateral legs I70.213 [facility] July [address] [place] [address] [id number] 12/22/2024 MARYSE WHITTENBURG Fungal infection of nail B35.1 ; Pain in right toe(s) M79.674 ; Pain in left toe(s) M79.675 and Atherosclerosis of [place] arteries of extremities with intermittent claudication, bilateral legs I70.213 [facility] July [address] [place] [address] [id number] 02/23/2025 MARYSE RIVERA Fungal infection of nail B35.1 ; Pain in right toe(s) M79.674 ; Pain in left toe(s) M79.675 and Atherosclerosis of [place] arteries of extremities with intermittent claudication, bilateral [...] subungual debris and necrotic tissue removed 06/29/2025 Fungal infection of nail (ICD-10 - [...] toe(s) (ICD-10 - M79.675) 04/27/2025 Atherosclerosis of [place] arteries of extremities with intermittent claudication, bilateral legs (ICD-10 - I70.213) 06/29/2025 Pain in left toe(s) (ICD-10 - M79.675) 04/27/2025 Acquired keratoderma (ICD-10 - L85.1) 06/29/2025 Atherosclerosis of [place] arteries of extremities with intermittent claudication, bilateral legs (ICD-10 - I70.213) 02/23/2025 Atherosclerosis of [place] arteries of extremities with intermittent claudication, bilateral legs (ICD-10 - I70.213) 12/22/2024 Atherosclerosis of [place] arteries of extremities with intermittent claudication, bilateral legs (ICD-10 - I70.213) 10/20/2024 Atherosclerosis of [place] arteries of extremities with intermittent claudication, bilateral legs (ICD-10 - I70.213) 06/29/2025 Acquired keratoderma (ICD-10 - L85.1) Plan Of Treatment No Information Insurance Providers Payer Name Payer Address Payer Phone Subscriber Number Group Number Insured Name Patient Relationship to Insured Coverage Start Date Coverage End Date Medicare Part B [place] [address] [place] [address] [id number] [place] Self - patient is the insured C[employer] Medicare Supplementa l Benefit Plans [id number] [address] [address] [place], [place] [id number] [place] Self - patient is the insured 7 Medical (General) History Medical History History ICD Code acid reflux Arthritis Thyroid Disease varicose veins Surgical History Surgery Date(Month/Year) Shoulder surgery Left wrist
--- OUTSIDE RECORDS SUMMARY | 2025-08-25 08:50 | XMS_ITS | Encounter Summary ---
Author Organization [facility] Address [address] [place] [address] Care Team Providers Care Marketing Administrator Name Role Phone Tonja Barfield MD Primary Care Provider [phone] Ander Leblanc MD Primary Care Provider [phone] Encounter Details Date Type Department Care Team (Late st Contact Info) Description 04/23/2018 Lab Requisition [facility] [address] [facility], [facility] [place] [phone] Gasper Villeda MD [address] [address] Social History Tobacco Use Types Packs/Day Years Used Date Smoking Tobacco: Never Assessed Comments Unknown Sex and Gender Information Value Date Recorded Sex Assigned at Not on file Legal 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 Gender Identity Not on file Sexual Orientation Not on file documented as of this encounter Plan of Treatment Not on file documented as of this encounter Procedures Procedure Name Priority Date/Time Associated Diagnosis Comments IMMUNOFLUORESCENT STUDY DERM Routine 04/22/2018 12:00 AM CDT documented in this encounter Results * IMMUNOFLUORESCENT STUDY DERM (04/22/2018 12:00 AM CDT) Case Report Dermatopathol ogy Report Case: [id number] Authorizing Provider: Gasper Villeda MD Collected: 04/22/2018 12:00 AM Pathologist: Glory Jean MD Received: 04/23/2018 12:24 PM Specimen: Skin, right lower leg 1:50 PM CDT DERMATOPATHOLOGY LABORATORY Final Diagnosis Specimen A. SKIN, right lower leg: FOCAL VASCULAR C3 (M31.0) COLLOID BODIES (L98.9) (see microscopic description and comment) (see fixed tissue results, [id number]) 1:50 PM CDT DERMATOPATHOLOGY LABORATORY at 1350 [...] determined by the Dermatopathol ogy Laboratory at [facility]. These tests need not be, and therefore are not, approved by the [place] Food and Drug Administratio n. The tests are used for clinical purposes. Billing Codes Specimen Charges Stain Charges 73173 84421 50114 92689 18461 12195 1 1 1 1 1 1 8 1:50 PM CDT DERMATOPATHOLOGY LABORATORY Embedded Images 8 1:50 PM CDT DERMATOPATHOLOGY LABORATORY Pathology/Cytolog y TISSUE SPECIMEN FROM SKIN / Unknown 04/22/2018 04/23/2018 12:24 PM CDT Gasper Villeda MD LAB - PATHOLOGY/CYTOLOGY ORD ERABLES Final Result DERMATOPATHOLOGY LABORATORY [facility] - Department of Dermatology [address] [place] [address], 5th Floor Lab [address] [phone] documented in this encounter Visit Diagnoses Not on filedocumented in this encounter Care Teams Marketing Administrator Relationship Specialty Start Date End Date Tonja Barfield MD [facility] [place] [address] PCP - General 04/23/18 01/21/23 Ander Leblanc MD [address] [place] [address] PCP - General 01/22/23 documented as of this encounter
--- OUTSIDE RECORDS SUMMARY | 2025-08-25 08:50 | XMS_ITS | Encounter Summary ---
Author Organization [facility] Address [address] [facility] [place] [address] Care Team Providers Care Microbiological Analyst Name Role Phone Tonja Barfield MD Primary Care Provider [phone] Ander Leblanc MD Primary Care Provider [phone] Encounter Details Date Type Department Care Team (Late st Contact Info) Description 04/23/2018 Lab Requisition [facility] [address] [facility], [place] [address] Gasper Villeda MD [place] [address] Social History Tobacco Use Types Packs/Day Years Used Date Smoking Tobacco: Never Assessed Comments Unknown Sex and Gender Information Value Date Recorded Sex Assigned at Not on file Legal Sex Female 5:58 AM DIRECTOR IT Gender Identity Not on file Sexual Orientation Not on file documented as of this encounter Plan of Treatment Not on file documented as of this encounter Procedures Procedure Name Priority Date/Time Associated Diagnosis Comments DERMATOPATHOLOGY Routine 04/22/2018 12:0 0 AM CDT documented in this encounter Results * DERMATOPATHOLOGY (04/22/2018 12:00 AM CDT) Case Report Dermatopathology Report Case: [id number] Authorizing Provider: Gasper Villeda MD Collected: 04/22/2018 [...] (see microscopic description) (see direct immunofluorescence results, [id number]) 1:42 PM T DERMATOPATHOLOGY LABORATORY at 1342 [...] characteristic determined by the Dermatopathology Laboratory at [facility]. These tests need not be, and therefore are not, approved by the [place] Food and Drug Administration. The tests are used for clinical purposes. Billing Codes Specimen Charges Stain Charges 80053 01243 1 1 31884 11858 1 1 8 1:42 PM CDT DERMATOPATHOLOGY LABORATORY Embedded Images 1:42 PM CDT DERMATOPATHOLOGY LABORATORY Pathology/Cytology TISSUE SPECIMEN FROM SKIN / Unknown 04/22/2018 04/23/2018 12:23 PM CDT Miscellaneous samples (specimen) TISSUE SPECIMEN FROM SKIN / Unknown 04/22/2018 04/23/2018 12:23 PM CDT Gasper Villeda MD LAB - PATHOLOGY/CYTOLOGY ORD ERABLES Final Result DERMATOPATHOLOGY LABORATORY [facility] - Department of Dermatology [address] [place] [address], 5th Floor Lab [address] [phone] documented in this encounter Visit Diagnoses Not on filedocumented in this encounter Care Teams Microbiological Analyst Relationship Specialty Start Date End Date Tonja Barfield MD [facility] [place] [address] PCP - General 04/23/18 01/21/23 Ander Leblanc MD [address] [place] [address] PCP - General 01/22/23 documented as of this encounter
--- OUTSIDE RECORDS SUMMARY | 2025-08-25 08:50 | XMS_ITS | Encounter Summary ---
Author Organization [facility] Healthcare Address [address] [place] [address] Care Team Providers Care Admissions Nurse Name Role Phone Hector Johnson MD Primary Care Provider Ander Leblanc MD Primary Care Provider [phone] Dickson Johnson MD Unavailable [phone] Edel Rodriguez MD PhD Unavailable [phone] Luis Nicholson MD Unavailable [phone] Christine Taylor MD Unavailable [phone] Encounter Details Date Type Department Care Team (Late st Contact Info) Description 09/18/2021 Telephone [facility] [address] [place] [address] Sonido Triplett MD [address] [place], [place] [id number] Social History Tobacco Use Types Packs/Day Years [...] on file Legal Sex Female 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 Gender Identity Female 08/07/2020 10:58 AM CRYSTALIZER OPERATOR Sexual Orientation Not on file documented as of this encounter Plan of Treatment Not on file documented as of this encounter Visit Diagnoses Not on filedocumented in this encounter Care Teams Admissions Nurse Relationship Specialty Start Date End Date Hector Johnson MD [address] [place] [address] PCP - General Family Medicine 07/23/20 02/27/22 Ander Leblanc MD [address] [facility] [address] [place] [address] PCP - General Internal Medicine 02/28/22 Dickson Johnson MD [address] [facility] [address] [place] [address] Medical Oncologist Hematology 05/06/24 Edel Rodriguez MD PhD [address] [facility] [address] [place] [address] Medical Oncologist/Client Care Coordinator Medical Oncology 05/06/24 05/11/24 Luis Nicholson MD [address] [place] [address] Medical Oncology 05/12/24 Crhistine Taylor MD [facility] [place] [address] Referring Physician Dermatology 05/31/24 documented as of this encounter
--- OUTSIDE RECORDS SUMMARY | 2025-08-25 08:51 | XMS_ITS | Clinical Summary ---
Author Organization [facility] Address [address] [facility] [place] [address] Care Team Providers Care Recovery Auditor Name Role Phone Ander Leblanc MD Primary Care Provider [phone] Source Comments [facility],non-[facility] Affiliates and Associated Physician Practices is amultiple site organization consisting of ambulatory clinics and hospital sitesin [place], [place], [place] and [place]. This disclosure is being madepursuant to the Care Everywhere program and may not contain all information available regarding this patient. 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 NARRATOR Gender Identity Not on file Sexual Orientation [...] DEPRESSION SCREENING 09/21/2024 COVID-19 VACCINE (1 - 2024-2 6 season) 2025 INFLUENZA VACCINE (#1) 2025 8, [...] patient's age to complete this topic Insurance [facility] [place] [id number] MEDICARE * Guarantor: JAMI URRUTIA Account Type Relation to Patient Date of Phone Billing Address Personal/Family [address] [place] [address] MEDICARE * Guarantor: JAMI URRUTIA Account Type Relation to Patient Date of Phone Billing Address Personal/Family [address] [facility] [place] [address] * Guarantor: JAMI URRUTIA Account Type Relation to Patient Date of Phone Billing Address Personal/Family [address] [place] [address] Care Teams Recovery Auditor Relationship Specialty Start Date End Date Ander Leblanc MD [address] [place] [phone] PCP - General 01/22/23
--- OUTSIDE RECORDS SUMMARY | 2025-08-25 08:51 | XMS_ITS | Encounter Summary ---
Author Organization [facility] Address [address] [place] [address] Phone Care Team Providers Care Big Data Solutions Architect Name Role Phone Ander Leblanc MD Primary Care Provider [phone] Dickson Johnson MD Unavailable [phone] Edel Rodriguez MD PhD Unavailable [phone] Luis Nicholson MD Unavailable [phone] Christine Taylor MD Unavailable [phone] Encounter Details Date Type Department Care Team [...] on file Legal Sex Female 3:10 AM CAR ESCORT Gender Identity Female 08/07/2020 10:58 AM CAR ESCORT Sexual Orientation Not on file Occupation Industry [...] on filedocumented in this encounter Care Teams Big Data Solutions Architect Relationship Specialty Start Date End Date Ander Leblanc MD PCP - General Internal Medicine 02/28/22 Dickson Johnson MD [address] [place] [address] Medical Oncologist Hematology 05/06/24 Edel Rodriguez MD PhD [address] [place] [address] Medical Oncologist/Biology Specialist Medical Oncology 05/06/24 05/11/24 Luis Nicholson MD [address] [facility] [address] [place] [address] Medical Oncology 05/12/24 Christine Taylor MD [address] [place] [address] [place] [address] Referring Physician Dermatology 05/31/24 documented as of this encounter
--- OUTSIDE RECORDS SUMMARY | 2025-08-25 08:51 | XMS_ITS | Encounter Summary ---
Author Organization [facility] Address [address] [facility] [place] [address] Care Team Providers Care Coining Press Operator Name Role Phone Ander Leblanc MD Primary Care Provider [phone] Encounter Details Date Type Department Care Team (Late st Contact Info) Description 04/13/2024 Lab Requisition [facility] - Pathology Lab [address] [place] [address] Rex Saucedo MD [address] [facility] [address] [place] [address] Illness, unspecified Social History Tobacco Use Types Packs/Day Years Used Date Smoking Tobacco: Former Cigarettes Smokeless Tobacco: Never Alcohol Use Standard Drinks/Week Comments Yes 0 (1 standard drink = 0.6 oz pur e alcohol) Comments Unknown Sex and Gender Information Value Date Recorded Sex Assigned at Not on file Legal Sex Female 5:58 AM PICC NURSE Gender Identity Not on file Sexual Orientation [...] PM CDT) Final Diagnosis Tongue, biopsy (OS[facility]: [id number]; 03/04/24): 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 The histologic differential diagnosis includes an oral lichenoid drug reaction and oral contact hypersensitivity reaction. Clinical correlation is necessary for full interpretation. 04/14/2024 9:11 AM T U PATHOLOGY LAB at 0911 CDT Microscopic Description [...] PATHOLOGY LAB Clinical History 04/14/2024 9:11 AM CDT U PATHOLOGY LAB Materials Received Received are 2 slide(s) labeled [id number] along with a copy of the outside pathology report. The materials originate from [employer] [address] [place] [address]. All original materials are returned to the referring institution, along with a copy of our final report. 04/14/2024 9:11 AM CDT U PATHOLOGY LAB Pathologist Location at [facility] 04/14/2024 9:11 AM CDT U PATHOLOGY LAB Case Report Surgical Pathology Report Case: [id number] Authorizing Provider: Rex Saucedo MD Collected: 04/13/2024 02:36 PM Ordering Location: [facility] - Received: 04/13/2024 02:36 PM Pathology Lab Pathologist: Omid Ulloa MD Specimen: Slide Consultation 04/14/2024 9:11 AM CDT U PATHOLOGY LAB Embedded Images 04/14/2024 9:11 AM CDT [facility] PATHOLOGY LAB Pathology/Cytolo gy SURGICAL PATHOLOGY CONSULTATION AND REPORT ON REFERRED SLIDES PREPARED ELSEWHERE / Unknown 04/13/2024 2:36 PM CDT 04/13/2024 2:36 PM CDT us Rex Saucedo MD LAB - PATHOLOGY/CYTOLOGY ORDERAB LES Final Result [facility] PATHOLOGY LAB [address] [facility] [place] [address], [facility] [phone] documented in this encounter Visit Diagnoses Diagnosis Illness, unspecified documented in this encounter Care Teams Coining Press Operator Relationship Specialty Start Date End Date Ander Leblanc MD [address] [place] [address] PCP - General 01/22/23 documented as of this encounter
--- OUTSIDE RECORDS SUMMARY | 2025-08-25 08:51 | XMS_ITS ---
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
--- OUTSIDE RECORDS SUMMARY | 2025-08-25 08:51 | XMS_ITS | Clinical Summary ---
Author Organization [facility] Address [address] [place] [address] Care Team Providers Care Assistant Professor Of Education Name Role Phone Ander Leblanc MD Primary Care Provider [phone] Dickson Johnson MD Unavailable [phone] Luis Nicholson MD Unavailable [phone] Christine Taylor MD Unavailable [phone] Allergies Active Allergy Reactions Criticality Noted Date Comments Clindamycin Unknown,Nausea & Vomiting Low 5 Zomepirac Palpitations Low 09/21/1979 Medications cholecalcifero l (VITAMIN D-3) 5,000 unit tablet Take 1 tablet (5,000 Units total) by mouth daily Active escitalopram (LEXAPRO) 10 mg tablet Take 1 tablet (10 mg total) by mouth every morning 05/17/20 20 Active levothyroxine (SYNTHROID) 75 mcg tablet Take 1 tablet (75 mcg total) by mouth soiled linen distributor before breakfast 05/11/20 20 Active montelukast (SINGULAIR) 10 mg tablet Take 1 tablet (10 mg total) by mouth nightly 06/16/20 20 Active omeprazole (PriLOSEC) 40 mg capsule 1 capsule (40 mg total) every morning 07/03/20 20 Active glucosam-hasmukh- collag-hyalur ac 775-997-99-2 mg capsule Take by mouth every morning Active fluocinolone (SYNALAR) 0.025 % cream APPLY EXTERNALLY TO THE AFFECTED AREA TWICE DAILY 08/28/20 Active vitamin B complex capsule Take 1 capsule by mouth daily Active meloxicam (MOBIC) 15 mg tablet 08/31/20 24 Active aspirin 81 mg enteric coated tablet Take 1 tablet (81 mg total) by mouth daily Active gabapentin (NEURONTIN) 300 mg capsule TAKE 1 CAPSULE(300 MG) BY MOUTH THREE TIMES DAILY 90 capsule 11 08/12/20 25 Active diazePAM (VALIUM) 5 mg tabletIndicati ons:anxiety Take one tablet 1 hour prior to Imaging, may repeat once. 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, unspecified lymph node region 05/31/2024 Cancer with unknown primary site 05/12/2024 Otalgia 06/19/2022 Age-related osteoporosis wit hout current pathological fracture 02/26/2021 GERD (gastroesophageal reflux disease) 0 Hypothyroidism 07/26/2020 Closed fracture of left distal radius 07/24/2020 Overview (07/24/2020): Added automatically from request for surgery [id number] Closed fracture of left shoulder 07/23/2020 Overview (07/23/2020): Added automatically from request for surgery [id number] Abnormal chest x-ray 06/25/2020 History of 2019 novel coronavirus disease (COVID -19) 06/25/2020 Class 1 obesity with body ma ss index (BMI) of 33.0 to 33.9 in adult 06/25/2020 Upper airway cough syndrome 06/25/2020 Chronic cough 03/20/2019 Chronic seasonal allergic rhinitis due to pollen 03/20/2019 Essential hypertension 03/20/2019 Family history of tuberculosis 03/20/2019 Recurrent sinusitis 03/20/2019 Encounters Date Type Department Care Team Description 08/21/2025 6:09 AM SLOT MANAGER - 08/21/2025 11:59 PM SLOT MANAGER Hospital Encounter [facility] [address] [place] [address] Right ear pain Discharge Disposition: Discharge to home or self care 08/11/2025 [facility] [address] [place] [address] Ernestine Stauffera 06/22/2025 9:00 AM CDT Office Visit [facility] Medicine Oncology [address] Floor [address] [place] [id number] Luis Nicholson MD Cancer with unknown primary site (HCC) (Primary Dx) 06/22/2025 6:12 AM CDT - 06/22/2025 11:59 PM CDT Hospital Encounter [facility] [address] [facility] [address] [place] [address] Cancer with unknown primary site (HCC) Discharge Disposition: Discharge to home or self care 06/21/2025 1:00 PM CDT Telemedicine [facility] Radiation Oncology [address] [facility] [place] [address] Samir Herndon NP Cancer with unknown primary site (HCC) 06/01/2025 1:00 PM CDT Office Visit [facility] Medicine Neurosurgery [address] Floor [address], [address] [place] [address] Sonido Triplett MD Right ear pain (Primary Dx) 06/01/2025 Telephone [facility] Medicine Neurosurgery [address] Floor [address], [address] [place] [address] Sonido Triplett MD from Last 3 Months [...] on file Legal Sex Female 3:10 AM SLOT MANAGER Gender Identity Female 08/07/2020 10:58 AM SLOT MANAGER Sexual Orientation Not on file Occupation [...] 12/07/2020, 11/09/2020 Influenza Vaccine (#1) 2025 , 06/13/2023, 05/22/2021, Additional history exists Fall Risk Assessment 06/06/2025 06/06/2024, 07/30/20 20 Osteoporosis Screening-Bone Density Scan 03/30/2026 03/30/2024, 03/25/2023, 02/28/2022, Additional history exists Pneumococcal vaccine 65+ Completed 02/05/2016, 08/21 Zoster Vaccine Completed 04/05/2019, 12/21, 11/30/2018, Additional history exists Medical Devices Implanted Type Area Electromechanical Equipment Assembler Device Identifier Shelf Expiration Date Model / Serial / Lot [employer]/ Ortho [id number] Evos 3.5mm 24mm Self Tap Cortex Screw Bone Sterile - [id number] Implanted:Qty: 3 on 07/27/2020 by Edgar Rojas MD at [facility] Left: Arm [employer]/Or tho [id number] / / [employer]/ Ortho [id number] 3.5mm 20mm Self Tap Cortex Screw Bone Nonsterile - [id number] Implanted:Qty: 1 on 07/27/2020 by Edgar Rojas MD at [facility] Left: Arm [employer]/Or tho [id number] / / [employer]/ Ortho [id number] Evos 3.5mm 38mm Self Tap Lock Screw Bone Sterile - [id number] Implanted:Qty: 3 on 07/27/2020 by Edgar Rojas MD at [facility] Left: Arm [employer]/Or tho [id number] / / [employer]/ Ortho [id number] Evos 3.5mm 48mm Self Tap Lock Screw Bone Sterile - [id number] Implanted:Qty: 1 on 07/27/2020 by Edgar Rojas MD at [facility] Left: Arm [employer]/Or tho [id number] / / [employer]/ Ortho [id number] Evos 3.5mm 30mm Self Tap Lock Screw Bone Sterile - [id number] Implanted:Qty: 3 on 07/27/2020 by Edgar Rojas MD at [facility] Left: Arm [employer]/Or tho [id number] / / [employer]/ Ortho [id number] Evos 3.5mm 34mm Self Tap Lock Screw Bone Sterile - [id number] Implanted:Qty: 1 on 07/27/2020 by Edgar Rojas MD at [facility] Left: Arm [employer]/Or tho [id number] / / [employer]/ Ortho [id number] Plate Bone Evos Curve L114 Mm Od3.5 Mm Humerus Left Proximal 6 Hole Sterile - [id number] Implanted:Qty: 1 on 07/27/2020 by Edgar Rojas MD at [facility] Left: Arm [employer]/Or tho [id number] / / [employer] A-4750.56 Aptus Trilock 42mmx1.6mm 6 Hole Distal Radius L Right Angle Plate - [id number] Implanted:Qty: 1 on 07/30/2020 by Zhen Otero MD at [facility] [place] Left: Radius [employer] A-4750.56 / / [employer] A-5750.12/1 Aptus Trilock 2.5mm 12mm Hexadrive 7 Adaptive Wrist Radius - [id number] Implanted:Qty: 3 on 07/30/2020 by Zhen Otero MD at [facility] [place] Left: Radius [employer] A-5750.12/1 / / [employer] A-5750.16/1 2.5mm 16mm Trilock Hexadrive Wrist Radius Screw Bone - [id number] Implanted:Qty: 1 on 07/30/2020 by Zhen Otero MD at [facility] [place] Left: Radius [employer] A-5750.16/1 / / [employer] A-5700.13/1 Aptus 2.5mm 13mm Hexadrive 7 Wrist Cortical Screw Bone Titanium - [id number] Implanted:Qty: 1 on 07/30/2020 by Zhen Otero MD at [facility] [place] Left: Radius [employer] A-5700.13/1 / / [employer] A-4750.55 Aptus Trilock 42mmx1.6mm 6 Hole Distal Radius L Left Angle Plate - [id number] Implanted:Qty: 1 on 07/30/2020 by Zhen Otero MD at [facility] [place] Left: Radius [employer] A-4750.55 / / [employer] A-5700.14 Aptus 2.5mm 14mm Cortical Screw Bone - [id number] Implanted:Qty: 3 on 07/30/2020 by Zhen Otero MD at [facility] [place] Left: Radius [employer] A-5700.14 / / Procedures Procedure Name Priority Date/Time Associated Diagnosis Comments MRI BRAIN W WO CONTRAST Schedule Routine, Read Routine (OP Routine) 08/21/2025 7:13 AM SLOT MANAGER Right ear pain CT CHEST ABDOMEN PELVIS W CONTRAST Schedule GRABIEL, Read GRABIEL (Appt Today, Awaiting Results) 06/22/2025 7:10 AM CDT Cancer with unknown primary site (HCC) DEXA TBS AXIAL SKELETON BONE DENSITY 1 OR MORE SITES Schedule Routine, Read Routine (OP Routine) 03/30/2024 9:31 AM CDT Age-related osteoporosis without current pathological fracture from Last 3 Months or Most Recently Relevant to Health Maintenance Results * MRI Brain W WO Contrast (08/21/2025 7:13 AM SLOT MANAGER) Anatomical Region Laterality Modality Head and Neck N/A Magnetic Resonan ce 08/21/2025 1:27 PM SLOT MANAGER Impressions 08/21/2025 4:31 PM SLOT MANAGER 1. Cystic lesion along the lateral margin of the right hypoglossal canal, grossly unchanged from prior study on 09/22/2021. This is indeterminate and could represent dilated venous plexus. CT temporal bone could also provide further characterization if clinically indicated. 2. No abnormal contrast enhancing lesions to suggest intracranial metastatic disease. Dictated by: Jacey Castellanos M.D. The radiology attending physician has personally reviewed this study, and had reviewed and/or edited this written report and agrees with it. Electronically signed by: Jamal Balderas MD, PHD Narrative 08/21/2025 4:31 PM SLOT MANAGER EXAMINATION: Magnetic resonance imaging (MRI) of the brain and brainstem without and with contrast HISTORY: 75-year-old woman with right otalgia, being treated with gabapentin. History of carcinoma of unknown origin, identified on preoperative CT scan of the right knee within incidental enlarged right inguinal lymph node in March 2024. 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 TECHNIQUE: Multiplanar multi-weighted MRI of the brain and brainstem was performed without and with intravenous contrast using the skull base, cranial nerve, and general brain protocol. Contrast information: 16 mL Gadoterate Meglumine IV COMPARISON: Prior brain MRI dated 09/22/2021. FINDINGS: The cerebellopontine angles are normal, without evidence of mass or aneurysm. The cranial nerves VII and VIII nerve complexes have a normal appearance. There is no abnormal mass or enhancement at the glossopharyngeal nerve origins. There is a 0.4 x 0.3 cm T2 hyperintense, T1 hypointense cystic lesion along the lateral margin of the right hypoglossal canal in the right occipital bone. This lesion has no diffusion restriction or abnormal contrast enhancement. The scalp and calvarium are normal. The superior sagittal sinus demonstrates normal venous flow. The corpus callosum is normal in shape and signal intensity. The posterior fossa is unremarkable. There is a partially empty sella. The brainstem and craniocervical junction are unremarkable. Diffusion weighted images reveal no hyperintensities to suggest acute cerebral infarction. The susceptibility weighted sequences reveal no evidence of acute or chronic hemorrhage. The ventricles are normal in size and position without evidence of hydrocephalus. The paranasal sinuses are normal. The visualized portions of the mastoids are unremarkable. The orbits appear normal. Bilateral lens replacements. Normal flow voids are demonstrated in the carotid arteries and basilar artery. There is no abnormal contrast enhancement. Procedure Note Jamal Balderas MD PhD - 08/21/2025 EXAMINATION: Magnetic resonance imaging (MRI) of the brain and brainstem without and with contrast HISTORY: 75-year-old woman with right otalgia, being treated with gabapentin. History of carcinoma of unknown origin, identified on preoperative CT scan of the right knee within incidental enlarged right inguinal lymph node in March 2024. 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 TECHNIQUE: Multiplanar multi-weighted MRI of the brain and brainstem was performed without and with intravenous contrast using the skull base, cranial nerve, and general brain protocol. Contrast information: 16 mL Gadoterate Meglumine IV COMPARISON: Prior brain MRI dated 09/22/2021. FINDINGS: The cerebellopontine angles are normal, without evidence of mass or aneurysm. The cranial nerves VII and VIII nerve complexes have a normal appearance. There is no abnormal mass or enhancement at the glossopharyngeal nerve origins. There is a 0.4 x 0.3 cm T2 hyperintense, T1 hypointense cystic lesion along the lateral margin of the right hypoglossal canal in the right occipital bone. This lesion has no diffusion restriction or abnormal contrast enhancement. The scalp and calvarium are normal. The superior sagittal sinus demonstrates normal venous flow. The corpus callosum is normal in shape and signal intensity. The posterior fossa is unremarkable. There is a partially empty sella. The brainstem and craniocervical junction are unremarkable. Diffusion weighted images reveal no hyperintensities to suggest acute cerebral infarction. The susceptibility weighted sequences reveal no evidence of acute or chronic hemorrhage. The ventricles are normal in size and position without evidence of hydrocephalus. The paranasal sinuses are normal. The visualized portions of the mastoids are unremarkable. The orbits appear normal. Bilateral lens replacements. Normal flow voids are demonstrated in the carotid arteries and basilar artery. There is no abnormal contrast enhancement. IMPRESSION: 1. Cystic lesion along the lateral margin of the right hypoglossal canal, grossly unchanged from prior study on 09/22/2021. This is indeterminate and could represent dilated venous plexus. CT temporal bone could also provide further characterization if clinically indicated. 2. No abnormal contrast enhancing lesions to suggest intracranial metastatic disease. Dictated by: Jacey Castellanos M.D. The radiology attending physician has personally reviewed this study, and had reviewed and/or edited this written report and agrees with it. Electronically signed by: Jamal Balderas MD, PHD Sonido Triplett MD IMG MRI PROCEDURES Final Re sult * CT chest abdomen pelvis with contrast [...] Bone mineral density was performed on a Hologic Discovery Densitometer. Based on machine cross-calibration and [...] by the International Society of Clinical Densitometry. [id number] Tamara Pina MD IMG DXA PROCEDURES Final Resu lt from Last 3 Months or Most Recently Relevant to Health Maintenance Insurance MEDICARE [facility] MEDICARE SUPPLEMENT INSURANCE [place]AN [place]ARA [id number] MEDICARE [facility] MEDICARE SUPPLEMENT INSURANCE [place] [id number] MEDICARE MEDICARE [employer] MEDICARE SUPPLEMENT INSURANCE Care Teams Assistant Professor Of Education Relationship Specialty Start Date End Date Ander Leblanc MD PCP - General Internal Medicine 02/28/22 Dickson Johnson MD [address] [address] Medical Oncologist Hematology 05/06/24 Luis Nicholson MD [address] [facility] [address] [place] [address] Medical Oncology 05/12/24 Christine Taylor MD [address] [place] [address] Referring Physician Dermatology 05/31/24
--- OUTSIDE RECORDS SUMMARY | 2025-08-25 08:51 | XMS_ITS | Encounter Summary ---
Author Organization [facility] Address [address] [place] [address] Phone Care Team Providers Care Choir Singer Name Role Phone Ander Leblanc MD Primary Care Provider [phone] Dickson Johnson MD Unavailable [phone] Luis Nicholson MD Unavailable [phone] Christine Tayolr MD Unavailable [phone] Encounter Details Date Type Department Care Team [...] on file Legal Sex Female 3:10 AM WINERY WORKER Gender Identity Female 08/07/2020 10:58 AM WINERY WORKER Sexual Orientation Not on file Occupation Industry [...] on filedocumented in this encounter Care Teams Choir Singer Relationship Specialty Start Date End Date Ander Leblanc MD PCP - General Internal Medicine 02/28/22 Dickson Johnson MD [address] [address] Medical Oncologist Hematology 05/06/24 Luis Nicholson MD [address] [facility] [address] [place] [address] Medical Oncology 05/12/24 Christine Taylor MD [address] [place] [address] Referring Physician Dermatology 05/31/24 documented as of this encounter
--- OUTSIDE RECORDS SUMMARY | 2025-08-25 08:51 | XMS_ITS | Encounter Summary ---
Author Organization [facility] Address [address] [place] [address] Phone Care Team Providers Care Supply Chain Logistics Manager Name Role Phone Ander Leblanc MD Primary Care Provider [phone] Dickson Johnson MD Unavailable [phone] Edel Rodriguez MD PhD Unavailable [phone] Luis Nichloson MD Unavailable [phone] Christine Taylor MD Unavailable [phone] Encounter Details Date Type Department Care Team [...] on file Legal Sex Female 3:10 AM PSYCHOLOGIST CLINICAL Gender Identity Female 08/07/2020 10:58 AM PSYCHOLOGIST CLINICAL Sexual Orientation Not on file Occupation Industry [...] on filedocumented in this encounter Care Teams Supply Chain Logistics Manager Relationship Specialty Start Date End Date Ander Leblanc MD PCP - General Internal Medicine 02/28/22 Dickson Johnson MD [address] [place] [address] Medical Oncologist Hematology 05/06/24 Edel Rodriguez MD PhD [address] [place] [address] Medical Oncologist/Paper Machine Supervisor Medical Oncology 05/06/24 05/11/24 Luis Nicholson MD [address] [place] [address] Medical Oncology 05/12/24 Christine Taylor MD [address] [place] [address] Referring Physician Dermatology 05/31/24 documented as of this encounter
--- OUTSIDE RECORDS SUMMARY | 2025-08-25 08:51 | XMS_ITS | Clinical Summary ---
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 Active gabapentin (NEURONTIN) 300 mg capsule Take [...] 2018 novel coronavirus disease (COVID-19) 06/25/2020 06/25/2020 Immunizations Immunization Administration Dates Next Due (SHINGRIX)(50 [...] Discontinued Insurance MEDICARE PART A AND B [facility] SUPP HAN [place]ARA [id number] MEDICARE PART A AND B [facility] Care Teams Lozenge Maker Relationship Specialty Start Date End Date Hector Johnson MD [address] [phone] PCP - General Family Practice 03/14/19
--- OUTSIDE RECORDS SUMMARY | 2025-08-25 08:51 | XMS_ITS | Encounter Summary ---
Author Organization [facility] Address [address] [place] [address] Phone Care Team Providers Care Child And Family Counselor Name Role Phone Ander Leblanc MD Primary Care Provider [phone] Dickson Johnson MD Unavailable Edel Rodriguez MD PhD Unavailable [phone] Luis Nicholson MD Unavailable Christine Taylor MD Unavailable [phone] Encounter Details Date Type Department Care Team [...] on file Legal Sex Female 3:10 AM EDGE BANDER HAND Gender Identity Female 08/07/2020 10:58 AM EDGE BANDER HAND Sexual Orientation Not on file Occupation Industry [...] on filedocumented in this encounter Care Teams Child And Family Counselor Relationship Specialty Start Date End Date Ander Leblanc MD PCP - General Internal Medicine 02/28/22 Dickson Johnson MD [address] [place] [address] Medical Oncologist Hematology 05/06/24 Edel Rodriguez MD PhD [address] [place] [address] Medical Oncologist/Cleaning Attendant Medical Oncology 05/06/24 05/11/24 Luis Nicholson MD [address] [facility] [address] [place] [address] Medical Oncology 05/12/24 Christine Taylor MD [address] [place] [address] [place] [address] Referring Physician Dermatology 05/31/24 documented as of this encounter
[2025-08-25 09:17] LABS: Hematocrit 45.5 % (37.0-47.0); Hemoglobin 14.5 g/dL (12.0-15.0); Immature Granulocyte Percent A 0.5 % (0-0.5); Lymphocytes Absolute Auto 0.78 K/mm3 (0.9-3.2); Mean Corpuscular HGB Conc 31.9 g/dl (32-36); Mean Corpuscular Hemoglobin 26.6 pg (26-34); Mean Corpuscular Volume 83.3 fl (80-100); Nucleated Red Blood Cells Absolute Auto 0.000 K/mm3 (0.0-0.012); Nucleated Red Blood Cells Perc 0.0 % (0.0-0.2); Platelet Count Result 301 k/mm3 (150-375); Red Blood Count 5.46 M/mm3 (4.2-5.4); White Blood Count 5.5 K/mm3 (4.5-10.0)
[2025-08-25 09:43] LABS: Alanine Aminotransferase 24 U/L (6-35); Albumin Level 4.4 g/dL (3.5-5.1); Alkaline Phosphatase 70 U/L (38-126); Anion Gap 6 mmol/L (4-12); Aspartate Amino Transferase 33 U/L (14-36); Bilirubin,Total 0.6 mg/dL (0.2-1.3); Blood Urea Nitrogen 22 mg/dL (7-17); Calcium 9.3 mg/dL (8.4-10.2); Carbon Dioxide 27 mmol/L (22-30); Chloride 104 mmol/L (98-107); Cholesterol 153 mg/dL (0-200); Estimated Glomerular Filt Rate > 60; Glucose 73 mg/dL (65-110); HDL Direct 83 mg/dL; Potassium 4.0 mmol/L (3.4-5.0); Sodium 137 mmol/L (137-145); Total Protein 7.1 g/dL (6.3-8.2); Triglycerides 48 mg/dL (<150)
[2025-08-25 09:57] LABS: Hemoglobin A1C 5.6 % (<5.7)
[2025-08-25 10:20] LABS: Thyroid Stimulating Hormone 1.640 uIU/mL (0.465-4.680)
[2025-08-25 10:56] LABS: Vitamin B12 627.0 pg/mL (239-931)
[2025-08-25 12:26] LABS: Add Urine Microscopic? YES; Appearance Urine Clear (Clear); Glucose Urine UA Negative (Negative); Leukocyte Esterase Ur 1+ LEU/UL (Negative); Nitrate Urine Negative (Negative); Non Pathogenic Casts 0-2; Specific Grav Ur 1.024 (1.001-1.035)
[2025-08-25 12:36] LABS: Free T4 Free Thyroxine 1.04 ng/dL (0.78-2.19)
== END 2025-08-25 08:45 | disposition home or self-care (01) ==
PROVIDERS: PCP Internal Medicine; Visit Provider Internal Medicine
DX: Z13.1 Encounter for screening for diabetes mellitus (principal); Z79.899 Other long term (current) drug therapy; Z13.220 Encounter for screening for lipoid disorders; E53.8 Deficiency of other specified B group vitamins; E55.9 Vitamin D deficiency, unspecified; Z13.29 Encounter for screening for other suspected endocrine disorder
CPT/HCPCS: 36415; 80053; 80061; 81001; 82306; 82607; 82746; 83036; 84439; 84443; 85025; 87086

== ENCOUNTER 2025-08-31 07:17 | Outpatient (CLI) | payer MEDICARE, SELFPAY ==
--- NOTE | ~2025-08-31 | XR_ITS ---
EXAMINATION: XR sacroiliac joints min 3V, 08/31/2025 7:31 INHALATION THERAPIST HISTORY: CHRONIC LBP WORSEN PAST 4 MONTHS COMPARISON: No comparisons available. Findings: No acute fracture or malalignment. No sclerosis of the sacroiliac joints, no significant erosions or bridging osteophyte formation Soft tissues unremarkable. Impression: No acute fracture or malalignment. Reviewed, dictated and finalized at location P. LATION THERAPIST Impression: No acute fracture or malalignment.
--- NOTE | ~2025-08-31 | XR_ITS ---
XR lumbar spine min 4V Indication: CHRONIC LBP WORSEN PAST 4 MONTHS Comparison: None Findings: Grade 1 anterolisthesis of L4 on L5, grade 1 retrolisthesis of L2 on L3, no fracture is identified. Severe loss of disc at L2-3, moderate loss of disc height at L4-5 and L5-S1 Soft tissues unremarkable Impression: No acute abnormality. Reviewed, dictated and finalized at location P. BALL TRIMMER Impression: No acute abnormality.
== END 2025-08-31 07:18 | disposition home or self-care (01) ==
PROVIDERS: PCP Internal Medicine; Visit Provider Internal Medicine
DX: M54.9 Dorsalgia, unspecified (principal); M54.50 Low back pain, unspecified; G89.29 Other chronic pain
CPT/HCPCS: 72110; 72202